=== PATIENT | male | born 1965 | race Caucasian/White ===

== ENCOUNTER 2017-12-31 21:33 | Emergency (ER) | payer OTHER ==
[~2017-12-31] VITALS: Ht 182.9 cm; Wt 137.4 kg
[~2017-12-31 21:33] MED LIST: ALBU.083IS IH; AMLO10 PO; BENA20 PO; BLOOD PRESSURE MED; CEPH500 PO; ERYT.5TO LEFTEYE; FLUO.05TC TOP; HYDACE10B PO; HYDACE5; HYDACE5 PO; IBUP800 PO; MELO7.5 PO; NAPR500 PO; NAPR500EC PO; Norco 5-325 Ta1 EACH PO; OSEL75CA PO; OXYACE5T PO; OXYACE7.5T PO; PARO10; PARO20; PARO30; PENVK500 PO; PRED10 PO; PRED20 PO; PROM25 PO; RXHYDACE PO; RXOXYACE PO; SULTRIDS PO; TRAM50 PO; UNKOWN BP MED
[2017-12-31] MEDS ORDERED: Paxil40 MG PO (22:17)
[2017-12-31] MEDS ORDERED: AMLO10 PO (22:18)
[2017-12-31 22:33] LABS: BASOPHILS ABSOLUTE AUTO 0.07 K/mm3 (0.00-0.23); BASOPHILS PERCENT AUTO 1 % (0-2); EOSINOPHILS PERCENT AUTO 1 % (0-6); Hematocrit 34.4 % (37.0-53.0); Hemoglobin 11.5 g/dL (13.5-17.5); IMMATURE GRAN ABSOLUTE AUTO 0.04 K/mm3 (0.00-0.10); IMMATURE GRAN PERCENT AUTO 0 % (0-1); LYMPHOCYTES ABSOLUTE AUTO 2.03 K/mm3 (0.84-5.20); LYMPHOCYTES PERCENT AUTO 19 % (21-46); MONOCYTES ABSOLUTE AUTO 1.15 K/mm3 (0.16-1.47); MONOCYTES PERCENT AUTO 11 % (4-13); Mean Corpuscular HGB 30.3 pg (26.0-34.0); Mean Corpuscular HGB Conc 33.4 g/dL (31.5-36.5); Mean Corpuscular Volume 91 fL (80-100); Mean Platelet Volume 10.1 fL (9.1-12.4); NEUTROPHILS ABSOLUTE AUTO 7.32 K/mm3 (1.96-9.15); NEUTROPHILS PERCENT AUTO 68 % (41-73); Platelet Count 228 K/mm3 (150-400); RDW Coefficient Variation 13.9 % (11.7-14.2); RDW Standard Deviation 45.7 fL (35.1-46.3); White Blood Cell Count 10.71 K/mm3 (4.00-11.30)
[2017-12-31 22:47] LABS: Alanine Aminotransfer (ALT/SGP 44 U/L (12-78); Albumin, Blood 3.5 g/dL (3.4-5.0); Albumin/Globulin Ratio 0.8 (0.8-1.8); Alk Phos 86 U/L (50-136); Anion Gap 7 mmol/L (6-16); Aspartate Aminotrans (AST/SGOT 60 U/L (12-37); Bilirubin, Total 0.7 mg/dL (0.1-1.0); Blood Urea Nitrogen 17 mg/dL (8-24); CO2, Blood 24 mmol/L (21-32); Calcium, Blood 7.9 mg/dL (8.5-10.1); Chloride, Blood 108 mmol/L (98-108); Creatinine, Blood 0.95 mg/dL (0.60-1.20); Globulin, Blood 4.4 g/dL (2.2-4.0); Glomerular Filtration Rate >60 (60-); Glucose, Blood 113 mg/dL (70-99); Sodium, Blood 139 mmol/L (136-145); Total Protein, Blood 7.9 g/dL (6.4-8.2); Troponin I <0.015 ng/mL (0.000-0.040)
[2018-01-01 00:08] LABS: U Amphetamine Screen DETECTED; U Barbituate Screen Not Detected; U Benzodiazapine Screen Not Detected; U Buprenorphine Screen DETECTED; U Cannabinoids Screen Not Detected; U Cocaine Screen Not Detected; U Methadone Screen Not Detected; U Methamphetamine Screen DETECTED; U Opiates Screen Not Detected; U Oxycodone Screen Not Detected; U Phencyclidine Screen Not Detected; U Propoxyphene Screen Not Detected
[2018-05-12] MEDS ORDERED: BENA20 PO (04:51)
[2018-05-12] MEDS ORDERED: PENVK500 PO (05:06)
== END 2018-01-01 01:00 | disposition home or self-care (01) ==
LOC: ER 21:33
PROVIDERS: Emergency Medicine; Physician Assistant
DX: R55 Syncope and collapse (principal); F15.10 Other stimulant abuse, uncomplicated; F11.10 Opioid abuse, uncomplicated; I10 Essential (primary) hypertension; F41.9 Anxiety disorder, unspecified; F32.9 Major depressive disorder, single episode, unspecified; F17.220 Nicotine dependence, chewing tobacco, uncomplicated; Z79.899 Other long term (current) drug therapy
CPT/HCPCS: 36415; 70450; 71046; 80053; 84484; 85025; 93005; 93010; 96360; 99284; J7030

== ENCOUNTER 2018-03-28 10:29 | Emergency (ER) | payer OTHER ==
[~2018-03-28] VITALS: Ht 180.3 cm; Wt 131.5 kg
[~2018-03-28 10:29] MED LIST changes: +Paxil40 MG PO
[2018-03-28] MEDS ORDERED: GABA400 PO (10:45)
== END 2018-03-28 11:56 | disposition home or self-care (01) ==
LOC: ER 10:29
DX: L23.7 Allergic contact dermatitis due to plants, except food (principal); Z79.899 Other long term (current) drug therapy; I10 Essential (primary) hypertension; F41.9 Anxiety disorder, unspecified; F32.9 Major depressive disorder, single episode, unspecified
CPT/HCPCS: 96372; 99283; J1885; J3301; Q0163

== ENCOUNTER 2019-03-23 17:17 | Emergency (ER) | payer OTHER ==
[~2019-03-23] VITALS: Ht 180.3 cm; Wt 117.9 kg
[~2019-03-23 17:17] MED LIST changes: +BUPRENORPHINE HC8 MG SL; +CEFP200 PO; +Flagyl500 MG PO; +GABA400 PO; +HYDPAM50 PO; +IBUP800; +Percocet 10-321 EACH PO; +TRAZ50 PO
[2019-03-23] MEDS ORDERED: CEPH500 PO (18:48)
[2019-03-23] MEDS ORDERED: Bactrim Ds Tab1 EACH PO (18:48)
== END 2019-03-23 18:53 | disposition home or self-care (01) ==
LOC: ER 17:17
DX: S60.111A Contusion of right thumb with damage to nail, initial encounter (principal); L03.011 Cellulitis of right finger; X58.XXXA Exposure to other specified factors, initial encounter; Z79.899 Other long term (current) drug therapy; F41.9 Anxiety disorder, unspecified; F32.9 Major depressive disorder, single episode, unspecified; F17.220 Nicotine dependence, chewing tobacco, uncomplicated
CPT/HCPCS: 11740; 73140; 99283-25

== ENCOUNTER 2020-03-22 12:32 | Emergency (ER) | payer OTHER ==
[~2020-03-22] VITALS: Ht 180.3 cm; Wt 124.7 kg
[~2020-03-22 12:32] MED LIST changes: +Bactrim Ds Tab1 EACH PO
[2020-03-22 12:58] LABS: BASOPHILS ABSOLUTE AUTO 0.04 K/mm3 (0.00-0.23); BASOPHILS PERCENT AUTO 0 % (0-2); EOSINOPHILS ABSOLUTE AUTO 0.01 K/mm3 (0.00-0.68); EOSINOPHILS PERCENT AUTO 0 % (0-6); Hematocrit 36.2 % (37.0-53.0); Hemoglobin 12.4 g/dL (13.5-17.5); IMMATURE GRAN ABSOLUTE AUTO 0.05 K/mm3 (0.00-0.10); IMMATURE GRAN PERCENT AUTO 0 % (0-1); LYMPHOCYTES ABSOLUTE AUTO 1.45 K/mm3 (0.84-5.20); LYMPHOCYTES PERCENT AUTO 12 % (21-46); MONOCYTES ABSOLUTE AUTO 1.19 K/mm3 (0.16-1.47); MONOCYTES PERCENT AUTO 10 % (4-13); Mean Corpuscular HGB 30.4 pg (26.0-34.0); Mean Corpuscular HGB Conc 34.3 g/dL (31.5-36.5); Mean Corpuscular Volume 89 fL (80-100); Mean Platelet Volume 9.7 fL (9.1-12.4); NEUTROPHILS ABSOLUTE AUTO 8.98 K/mm3 (1.96-9.15); NEUTROPHILS PERCENT AUTO 77 % (41-73); Platelet Count 189 K/mm3 (150-400); RDW Coefficient Variation 13.6 % (11.7-14.2); RDW Standard Deviation 43.8 fL (35.1-46.3); Red Blood Cell Count 4.08 M/mm3 (4.30-5.90); White Blood Cell Count 11.72 K/mm3 (4.00-11.30)
[2020-03-22 13:18] LABS: Alanine Aminotransfer (ALT/SGP 36 U/L (12-78); Albumin, Blood 3.1 g/dL (3.4-5.0); Albumin/Globulin Ratio 0.7 (0.8-1.8); Alk Phos 98 U/L (50-136); Anion Gap 5 mmol/L (6-16); Aspartate Aminotrans (AST/SGOT 35 U/L (12-37); Bilirubin, Total 0.9 mg/dL (0.1-1.0); Blood Urea Nitrogen 10 mg/dL (8-24); Bun/Creatinine Ratio 13.3 (12.0-20.0); CO2, Blood 25 mmol/L (21-32); Calcium, Blood 8.3 mg/dL (8.5-10.1); Chloride, Blood 107 mmol/L (98-108); Creatinine, Blood 0.75 mg/dL (0.60-1.20); Ethanol (Alcohol), Blood, Med <3 mg/dL; Globulin, Blood 4.5 g/dL (2.2-4.0); Glomerular Filtration Rate >60 (60-); Glucose, Blood 170 mg/dL (70-99); Sodium, Blood 137 mmol/L (136-145); Total Protein, Blood 7.6 g/dL (6.4-8.2)
[2020-03-22 15:33] LABS: Source, Urine Clean Catch
[2020-03-22 15:45] LABS: Specific Gravity, Urine 1.015 (1.003-1.022)
[2020-03-22 15:46] LABS: Appearance, Urine Clear (Clear); Bilirubin, Urine Neg (Neg); Blood, Urine 1+ (Neg); Color, Urine Yellow (P-Yellow); Ketones, Urine Neg (Neg); Leukocyte Esterase, Urine Neg (Neg); Nitrite, Urine Neg (Neg); Protein, Urine Neg (Neg); Urobilinogen, Urine NORM (Normal)
[2020-03-22 15:48] LABS: Glucose Qualitative, Urine 1+ (Neg)
[2020-03-22 15:57] LABS: Bacteria Rare /hpf; Mucus Light (0-Heavy); Red Blood Cells, Urine Rare /hpf (0-2); Squamous Epithelial Cells Rare /hpf (Few); White Blood Cells, Urine Rare /hpf (0-5)
[2020-03-22] MEDS ORDERED: AUGMENTIN 875-1 EACH PO (17:44)
== END 2020-03-22 18:54 | disposition home or self-care (01) ==
LOC: ER 12:32
PROVIDERS: Physician Assistant
DX: K52.9 Noninfective gastroenteritis and colitis, unspecified (principal); I10 Essential (primary) hypertension; F41.9 Anxiety disorder, unspecified; F32.9 Major depressive disorder, single episode, unspecified; F17.220 Nicotine dependence, chewing tobacco, uncomplicated; Z79.899 Other long term (current) drug therapy
CPT/HCPCS: 51701; 71045; 74176; 80053; 81001; 83605; 83690; 85025; 96360-59; 99285-25; A9270-GY; G0480; J7030

== ENCOUNTER 2021-05-14 18:35 | Emergency (ER) | payer OTHER ==
[~2021-05-14] VITALS: Ht 180.3 cm; Wt 137.9 kg
[~2021-05-14 18:35] MED LIST changes: +AMLODIPINE-BEN1 EAC3 PO; +AUGMENTIN 875-1 EACH PO; +CIPR500 PO; +HYDR1TAB94 PO; -IBUP800; +METR500 PO
[2021-05-14 19:13] LABS: BASOPHILS ABSOLUTE AUTO 0.04 K/mm3 (0.00-0.23); BASOPHILS PERCENT AUTO 1 % (0-2); EOSINOPHILS ABSOLUTE AUTO 0.13 K/mm3 (0.00-0.68); EOSINOPHILS PERCENT AUTO 3 % (0-6); Hematocrit 31.4 % (37.0-53.0); Hemoglobin 10.3 g/dL (13.5-17.5); IMMATURE GRAN ABSOLUTE AUTO 0.01 K/mm3 (0.00-0.10); IMMATURE GRAN PERCENT AUTO 0 % (0-1); LYMPHOCYTES ABSOLUTE AUTO 1.41 K/mm3 (0.84-5.20); LYMPHOCYTES PERCENT AUTO 29 % (21-46); MONOCYTES ABSOLUTE AUTO 0.63 K/mm3 (0.16-1.47); MONOCYTES PERCENT AUTO 13 % (4-13); Mean Corpuscular HGB 29.3 pg (26.0-34.0); Mean Corpuscular HGB Conc 32.8 g/dL (31.5-36.5); Mean Corpuscular Volume 90 fL (80-100); Mean Platelet Volume 9.3 fL (9.1-12.4); NEUTROPHILS ABSOLUTE AUTO 2.59 K/mm3 (1.96-9.15); NEUTROPHILS PERCENT AUTO 54 % (41-73); Platelet Count 222 K/mm3 (150-400); RDW Coefficient Variation 14.2 % (11.7-14.2); RDW Standard Deviation 45.7 fL (35.1-46.3); Red Blood Cell Count 3.51 M/mm3 (4.30-5.90); White Blood Cell Count 4.81 K/mm3 (4.00-11.30)
[2021-05-14 19:32] LABS: Alanine Aminotransfer (ALT/SGP 41 U/L (12-78); Albumin, Blood 3.2 g/dL (3.4-5.0); Albumin/Globulin Ratio 0.6 (0.8-1.8); Alk Phos 115 U/L (50-136); Anion Gap 6 mmol/L (6-16); Aspartate Aminotrans (AST/SGOT 68 U/L (12-37); Bilirubin, Total 0.7 mg/dL (0.1-1.0); Blood Urea Nitrogen 18 mg/dL (8-24); Bun/Creatinine Ratio 25.4 (12.0-20.0); CO2, Blood 24 mmol/L (21-32); Chloride, Blood 110 mmol/L (98-108); Creatinine, Blood 0.71 mg/dL (0.60-1.20); Globulin, Blood 5.2 g/dL (2.2-4.0); Glomerular Filtration Rate >60 (60-); Glucose, Blood 116 mg/dL (70-99); Potassium, Blood 3.9 mmol/L (3.5-5.5); Sodium, Blood 140 mmol/L (136-145); Total Protein, Blood 8.4 g/dL (6.4-8.2)
[2021-05-14 21:53] LABS: Troponin I <0.015 ng/mL (0.000-0.040)
[2021-05-18 18:10] LABS: Percent Saturation 22.3 % (20.0-50.0)
== END 2021-05-15 02:45 | disposition home or self-care (01) ==
LOC: ER 18:35
PROVIDERS: Physician Assistant
DX: I89.0 Lymphedema, not elsewhere classified (principal); L30.8 Other specified dermatitis; F17.220 Nicotine dependence, chewing tobacco, uncomplicated; I10 Essential (primary) hypertension; Z79.899 Other long term (current) drug therapy
CPT/HCPCS: 36415; 80053; 82728; 83540; 83550; 83605; 83880; 84484; 85025; 93005; 93010; 93971; 99284-25

== ENCOUNTER 2021-06-03 02:12 | Day surgery (SDC) | payer OTHER | END 2021-06-03 23:29 | disposition home or self-care (01) | LOC: WOUND 02:12 | DX: L97.822 Non-pressure chronic ulcer of other part of left lower leg with fat layer exposed (principal); L97.811 Non-pressure chronic ulcer of other part of right lower leg limited to breakdown of skin; I87.2 Venous insufficiency (chronic) (peripheral); I73.9 Peripheral vascular disease, unspecified; R60.0 Localized edema; F17.210 Nicotine dependence, cigarettes, uncomplicated; I10 Essential (primary) hypertension; J45.909 Unspecified asthma, uncomplicated | CPT/HCPCS: A9270; G0463 ==

== ENCOUNTER 2021-06-10 01:32 | Day surgery (SDC) | payer OTHER | END 2021-06-10 23:04 | disposition home or self-care (01) | LOC: WOUND 01:32 | DX: L97.811 Non-pressure chronic ulcer of other part of right lower leg limited to breakdown of skin (principal); L97.821 Non-pressure chronic ulcer of other part of left lower leg limited to breakdown of skin; I87.2 Venous insufficiency (chronic) (peripheral); I73.9 Peripheral vascular disease, unspecified; R60.0 Localized edema | CPT/HCPCS: G0463 ==

== ENCOUNTER 2021-06-17 01:38 | Day surgery (SDC) | payer OTHER | END 2021-06-17 23:02 | disposition home or self-care (01) | LOC: WOUND 01:38 | DX: L97.822 Non-pressure chronic ulcer of other part of left lower leg with fat layer exposed (principal); L97.818 Non-pressure chronic ulcer of other part of right lower leg with other specified severity; I73.9 Peripheral vascular disease, unspecified | CPT/HCPCS: 87070; 87075; 87077; 87147; 87186; 87205; G0463 ==

== ENCOUNTER 2021-06-24 03:13 | Day surgery (SDC) | payer OTHER | END 2021-06-24 23:12 | disposition home or self-care (01) | LOC: WOUND 03:13 | DX: L97.821 Non-pressure chronic ulcer of other part of left lower leg limited to breakdown of skin (principal); L97.811 Non-pressure chronic ulcer of other part of right lower leg limited to breakdown of skin; I87.2 Venous insufficiency (chronic) (peripheral); I73.9 Peripheral vascular disease, unspecified; R60.0 Localized edema | CPT/HCPCS: G0463 ==

== ENCOUNTER 2021-07-08 00:46 | Day surgery (SDC) | payer OTHER | END 2021-07-08 23:01 | disposition home or self-care (01) | LOC: WOUND 00:46 | DX: L97.811 Non-pressure chronic ulcer of other part of right lower leg limited to breakdown of skin (principal); L97.821 Non-pressure chronic ulcer of other part of left lower leg limited to breakdown of skin; I87.2 Venous insufficiency (chronic) (peripheral); R60.0 Localized edema ==

== ENCOUNTER 2021-07-12 16:31 | Day surgery (SDC) | payer OTHER | END 2021-07-12 23:00 | disposition home or self-care (01) | LOC: WOUND 16:31 | DX: L97.821 Non-pressure chronic ulcer of other part of left lower leg limited to breakdown of skin (principal); L97.811 Non-pressure chronic ulcer of other part of right lower leg limited to breakdown of skin; I87.2 Venous insufficiency (chronic) (peripheral); R60.0 Localized edema ==

== ENCOUNTER 2021-07-15 02:08 | Day surgery (SDC) | payer OTHER | END 2021-07-15 23:56 | disposition home or self-care (01) | LOC: WOUND 02:08 | DX: L97.811 Non-pressure chronic ulcer of other part of right lower leg limited to breakdown of skin (principal); L97.821 Non-pressure chronic ulcer of other part of left lower leg limited to breakdown of skin; I87.2 Venous insufficiency (chronic) (peripheral); R60.0 Localized edema ==

== ENCOUNTER 2021-07-22 01:29 | Day surgery (SDC) | payer OTHER | END 2021-07-22 22:57 | disposition home or self-care (01) | LOC: WOUND 01:29 | DX: L97.811 Non-pressure chronic ulcer of other part of right lower leg limited to breakdown of skin (principal); L97.821 Non-pressure chronic ulcer of other part of left lower leg limited to breakdown of skin; I87.2 Venous insufficiency (chronic) (peripheral); R60.0 Localized edema | CPT/HCPCS: A9270 ==

== ENCOUNTER 2021-09-08 02:10 | Day surgery (SDC) | payer OTHER | END 2021-09-08 23:08 | disposition home or self-care (01) | LOC: WOUND 02:10 | DX: L97.822 Non-pressure chronic ulcer of other part of left lower leg with fat layer exposed (principal); L97.812 Non-pressure chronic ulcer of other part of right lower leg with fat layer exposed; I87.2 Venous insufficiency (chronic) (peripheral); R60.0 Localized edema | CPT/HCPCS: G0463 ==

== ENCOUNTER 2021-09-13 04:23 | Day surgery (SDC) | payer OTHER | END 2021-09-13 23:07 | disposition home or self-care (01) | LOC: WOUND 04:23 | DX: L97.811 Non-pressure chronic ulcer of other part of right lower leg limited to breakdown of skin (principal); L97.821 Non-pressure chronic ulcer of other part of left lower leg limited to breakdown of skin; I87.2 Venous insufficiency (chronic) (peripheral); R60.0 Localized edema | CPT/HCPCS: A9270 ==

== ENCOUNTER 2021-09-15 00:54 | Day surgery (SDC) | payer OTHER | END 2021-09-15 23:09 | disposition home or self-care (01) | LOC: WOUND 00:54 | DX: L97.811 Non-pressure chronic ulcer of other part of right lower leg limited to breakdown of skin (principal); L97.821 Non-pressure chronic ulcer of other part of left lower leg limited to breakdown of skin; I87.2 Venous insufficiency (chronic) (peripheral); R60.0 Localized edema | CPT/HCPCS: A9270 ==

== ENCOUNTER 2021-09-17 01:55 | Day surgery (SDC) | payer OTHER | END 2021-09-17 23:00 | disposition home or self-care (01) | LOC: WOUND 01:55 | DX: L97.811 Non-pressure chronic ulcer of other part of right lower leg limited to breakdown of skin (principal); L97.821 Non-pressure chronic ulcer of other part of left lower leg limited to breakdown of skin; I87.2 Venous insufficiency (chronic) (peripheral); R60.0 Localized edema | CPT/HCPCS: A9270 ==

== ENCOUNTER 2021-09-20 02:53 | Day surgery (SDC) | payer OTHER | END 2021-09-20 22:47 | disposition home or self-care (01) | LOC: WOUND 02:53 | DX: L97.811 Non-pressure chronic ulcer of other part of right lower leg limited to breakdown of skin (principal); L97.821 Non-pressure chronic ulcer of other part of left lower leg limited to breakdown of skin; I87.2 Venous insufficiency (chronic) (peripheral); R60.0 Localized edema | CPT/HCPCS: A9270 ==

== ENCOUNTER 2021-09-22 02:46 | Day surgery (SDC) | payer OTHER | END 2021-09-22 23:38 | disposition home or self-care (01) | LOC: WOUND 02:46 | DX: L97.812 Non-pressure chronic ulcer of other part of right lower leg with fat layer exposed (principal); L97.822 Non-pressure chronic ulcer of other part of left lower leg with fat layer exposed; I87.2 Venous insufficiency (chronic) (peripheral) | CPT/HCPCS: A9270 ==

== ENCOUNTER 2021-09-27 03:55 | Day surgery (SDC) | payer OTHER | END 2021-09-27 22:40 | disposition home or self-care (01) | LOC: WOUND 03:55 | DX: L97.811 Non-pressure chronic ulcer of other part of right lower leg limited to breakdown of skin (principal); L97.821 Non-pressure chronic ulcer of other part of left lower leg limited to breakdown of skin; I87.2 Venous insufficiency (chronic) (peripheral); R60.0 Localized edema | CPT/HCPCS: A9270 ==

== ENCOUNTER 2021-09-29 10:46 | Day surgery (SDC) | payer OTHER | END 2021-09-29 22:36 | disposition home or self-care (01) | LOC: WOUND 10:46 | PROC: 0JBN0ZZ Excision of Right Lower Leg Subcutaneous Tissue and Fascia, Open Approach (ICD-10-PCS; principal; 2021-09-29) | DX: L97.812 Non-pressure chronic ulcer of other part of right lower leg with fat layer exposed (principal); L97.822 Non-pressure chronic ulcer of other part of left lower leg with fat layer exposed; I87.2 Venous insufficiency (chronic) (peripheral); Z79.899 Other long term (current) drug therapy | CPT/HCPCS: A9270 ==

== ENCOUNTER 2021-10-04 03:49 | Day surgery (SDC) | payer OTHER | END 2021-10-04 23:42 | disposition home or self-care (01) | LOC: WOUND 03:49 | DX: L97.811 Non-pressure chronic ulcer of other part of right lower leg limited to breakdown of skin (principal); L97.821 Non-pressure chronic ulcer of other part of left lower leg limited to breakdown of skin; I87.2 Venous insufficiency (chronic) (peripheral); R60.0 Localized edema ==

== ENCOUNTER 2021-10-29 05:08 | Day surgery (SDC) | payer OTHER | END 2021-10-29 12:00 | disposition home or self-care (01) | LOC: WOUND 05:08 | DX: L97.812 Non-pressure chronic ulcer of other part of right lower leg with fat layer exposed (principal); I87.2 Venous insufficiency (chronic) (peripheral); R60.0 Localized edema; Z87.2 Personal history of diseases of the skin and subcutaneous tissue ==

== ENCOUNTER 2021-11-01 03:34 | Day surgery (SDC) | payer OTHER | END 2021-11-01 23:27 | disposition home or self-care (01) | LOC: WOUND 03:34 | DX: S81.801A Unspecified open wound, right lower leg, initial encounter (principal); S81.802A Unspecified open wound, left lower leg, initial encounter; X58.XXXA Exposure to other specified factors, initial encounter ==

== ENCOUNTER 2021-11-04 02:22 | Day surgery (SDC) | payer OTHER | END 2021-11-07 03:30 | disposition home or self-care (01) | LOC: WOUND | DX: L97.811 Non-pressure chronic ulcer of other part of right lower leg limited to breakdown of skin (principal); L97.821 Non-pressure chronic ulcer of other part of left lower leg limited to breakdown of skin; I87.2 Venous insufficiency (chronic) (peripheral); R60.0 Localized edema ==

== ENCOUNTER 2022-02-19 18:02 | Inpatient (IN) | payer OTHER ==
[~2022-02-19] VITALS: Ht 182.9 cm; Wt 119.0 kg
[2022-02-19 19:46] LABS: BASOPHILS ABSOLUTE AUTO 0.05 K/mm3 (0.00-0.23); BASOPHILS PERCENT AUTO 0 % (0-2); EOSINOPHILS ABSOLUTE AUTO 0.01 K/mm3 (0.00-0.68); EOSINOPHILS PERCENT AUTO 0 % (0-6); Hematocrit 28.8 % (37.0-53.0); Hemoglobin 9.2 g/dL (13.5-17.5); IMMATURE GRAN ABSOLUTE AUTO 0.33 K/mm3 (0.00-0.10); IMMATURE GRAN PERCENT AUTO 2 % (0-1); LYMPHOCYTES ABSOLUTE AUTO 0.63 K/mm3 (0.84-5.20); LYMPHOCYTES PERCENT AUTO 3 % (21-46); MONOCYTES ABSOLUTE AUTO 1.18 K/mm3 (0.16-1.47); MONOCYTES PERCENT AUTO 5 % (4-13); Mean Corpuscular HGB 27.7 pg (26.0-34.0); Mean Corpuscular HGB Conc 31.9 g/dL (31.5-36.5); Mean Corpuscular Volume 87 fL (80-100); Mean Platelet Volume 9.5 fL (9.1-12.4); NEUTROPHILS ABSOLUTE AUTO 19.55 K/mm3 (1.96-9.15); NEUTROPHILS PERCENT AUTO 90 % (41-73); Platelet Count 441 K/mm3 (150-400); RDW Coefficient Variation 15.9 % (11.7-14.2); RDW Standard Deviation 50.4 fL (35.1-46.3); Red Blood Cell Count 3.32 M/mm3 (4.30-5.90); White Blood Cell Count 21.75 K/mm3 (4.00-11.30)
[2022-02-19 20:07] LABS: Influenza A, PCR NEGATIVE (NEGATIVE); Influenza B, PCR NEGATIVE (NEGATIVE); Resp Syncytial Virus, PCR NEGATIVE (NEGATIVE); SARS-Cov-2 (COVID-19) PCR, MMC NEGATIVE (NEGATIVE)
[2022-02-19 20:14] LABS: Alanine Aminotransfer (ALT/SGP 33 U/L (12-78); Albumin, Blood 1.7 g/dL (3.4-5.0); Albumin/Globulin Ratio 0.3 (0.8-1.8); Alk Phos 148 U/L (50-136); Anion Gap 11 mmol/L (6-16); Aspartate Aminotrans (AST/SGOT 30 U/L (12-37); Bilirubin, Total 0.6 mg/dL (0.1-1.0); Blood Urea Nitrogen 109 mg/dL (8-24); Bun/Creatinine Ratio 44.3 (12.0-20.0); CO2, Blood 17 mmol/L (21-32); Calcium, Blood 9.5 mg/dL (8.5-10.1); Chloride, Blood 117 mmol/L (98-108); Creatinine, Blood 2.46 mg/dL (0.60-1.20); Ethanol (Alcohol), Blood, Med <3 mg/dL; Globulin, Blood 6.3 g/dL (2.2-4.0); Glomerular Filtration Rate 30 (60-); Glucose, Blood 243 mg/dL (70-99); Potassium, Blood 3.4 mmol/L (3.5-5.5); Sodium, Blood 145 mmol/L (136-145); Thyroid Stimulating Hormone 0.942 uIU/mL (0.360-4.800)
[2022-02-19 21:30] LABS: Source, Urine Clean Catch
[2022-02-19 21:33] LABS: Bilirubin, Urine Neg (Neg); Blood, Urine 3+ (Neg); Glucose Qualitative, Urine Neg (Neg); Ketones, Urine Neg (Neg); Leukocyte Esterase, Urine Neg (Neg); Nitrite, Urine Neg (Neg); Protein, Urine 2+ (Neg); Specific Gravity, Urine 1.015 (1.003-1.022); Urobilinogen, Urine 1+ (Normal)
[2022-02-19 21:40] LABS: Appearance, Urine Hazy (Clear); Color, Urine Yellow (P-Yellow)
[2022-02-19 21:42] LABS: Amorphous Mod (0-Heavy); Bacteria Few /hpf; Hyaline Casts 0-2 /lpf (0-2); Mucus Light (0-Heavy); Red Blood Cells, Urine 0-2 /hpf (0-2); Squamous Epithelial Cells Rare /hpf (Few); White Blood Cells, Urine 0-2 /hpf (0-5)
[2022-02-19 22:01] LABS: U Amphetamine Screen DETECTED; U Barbituate Screen Not Detected; U Benzodiazapine Screen Not Detected; U Buprenorphine Screen Not Detected; U Cannabinoids Screen Not Detected; U Cocaine Screen Not Detected; U Methadone Screen Not Detected; U Methamphetamine Screen DETECTED; U Opiates Screen Not Detected; U Oxycodone Screen Not Detected; U Phencyclidine Screen Not Detected; U Propoxyphene Screen Not Detected
[2022-02-20 00:23] LABS: Source, Urine Foley catheter
[2022-02-20 00:26] LABS: Bilirubin, Urine Neg (Neg); Blood, Urine 4+ (Neg); Glucose Qualitative, Urine Neg (Neg); Ketones, Urine Neg (Neg); Leukocyte Esterase, Urine 1+ (Neg); Nitrite, Urine Neg (Neg); Protein, Urine 2+ (Neg); Specific Gravity, Urine 1.015 (1.003-1.022); Urobilinogen, Urine NORM (Normal)
[2022-02-20 00:32] LABS: Appearance, Urine Hazy (Clear); Color, Urine Yellow (P-Yellow)
[2022-02-20 00:33] LABS: Amorphous Light (0-Heavy); Bacteria Few /hpf; Mucus Light (0-Heavy); Squamous Epithelial Cells Few /hpf (Few); Transitional Epithelial Cells Few /hpf (0-Rare)
--- NOTE | 2022-02-20 03:02 | NUR ---
PT TRANSFERED FROM [facility] FROM ED TO BED VIA SLIDE SHEET. PT DROWSY, WAKES TO NOISE, ATTEMPTS TO COMMUNICATE NEES BUT IS UNABLE TO COMPLETE THOUGHTS, ONLY ABLE PROVIDE SIMPLE "YES" OR "NO" REPSONSES TO QUESTIONS. PT COMPLAINING OF GENERLIZED PAIN WITH MOVMENT BUT IS UNABLE TO COMMUNICATE DETAILS. HR IS SINUS TACH, PLACED ON TELE. O2 SATS AT 100% ON RA. NEW IV STARTED IN LEFT FORARM FOR IV BOLUSES X 2. IV VANCO INFUSING ON ARRIVAL, NOW COMPLETE. BOTH BOLUSES GIVEN. MAINTENANCE FLUID RUNNING AT 100 ML. GALVAN PLACED WITH TEMPERATURE PROBE TO MONITOR TEMPERATURE. ARRIVED ON UNIT WITH FEVER, ATTEMPTED TO REDUCE WITH IV INFUSIONS, AND PLACING ICE PACK IN AXILLA WITHOUT SUCCESS. TYLENOL GIVEN DE, TEMPERATURE TRENDING DOWN SLIGHTLY. WILL MONITOR.
[2022-02-20 04:37] LABS: BASOPHILS ABSOLUTE AUTO 0.04 K/mm3 (0.00-0.23); BASOPHILS PERCENT AUTO 0 % (0-2); EOSINOPHILS ABSOLUTE AUTO 0.01 K/mm3 (0.00-0.68); EOSINOPHILS PERCENT AUTO 0 % (0-6); Hematocrit 26.3 % (37.0-53.0); Hemoglobin 8.5 g/dL (13.5-17.5); IMMATURE GRAN PERCENT AUTO 2 % (0-1); LYMPHOCYTES ABSOLUTE AUTO 0.63 K/mm3 (0.84-5.20); LYMPHOCYTES PERCENT AUTO 4 % (21-46); MONOCYTES ABSOLUTE AUTO 1.11 K/mm3 (0.16-1.47); MONOCYTES PERCENT AUTO 6 % (4-13); Mean Corpuscular HGB Conc 32.3 g/dL (31.5-36.5); Mean Corpuscular Volume 87 fL (80-100); Mean Platelet Volume 9.8 fL (9.1-12.4); NEUTROPHILS ABSOLUTE AUTO 15.28 K/mm3 (1.96-9.15); NEUTROPHILS PERCENT AUTO 88 % (41-73); Platelet Count 385 K/mm3 (150-400); RDW Coefficient Variation 15.9 % (11.7-14.2); RDW Standard Deviation 50.3 fL (35.1-46.3); Red Blood Cell Count 3.04 M/mm3 (4.30-5.90); White Blood Cell Count 17.37 K/mm3 (4.00-11.30)
[2022-02-20 04:57] LABS: Albumin, Blood 1.5 g/dL (3.4-5.0); Albumin/Globulin Ratio 0.3 (0.8-1.8); Bilirubin, Total 0.7 mg/dL (0.1-1.0); Bun/Creatinine Ratio 50.8 (12.0-20.0); Calcium, Blood 8.6 mg/dL (8.5-10.1); Creatinine, Blood 1.89 mg/dL (0.60-1.20); Globulin, Blood 5.4 g/dL (2.2-4.0); Potassium, Blood 2.9 mmol/L (3.5-5.5); Total Protein, Blood 6.9 g/dL (6.4-8.2)
--- NOTE | 2022-02-20 06:47 | NUR ---
PT TEMPERATURE TRENDING TOWN AFTER RECEIVING TYLENOL SUPPOSITORY AND PLACING ICE PACK UNDER ARMS, NECK, AND GROIN. PT BECAME RESTLESS THIS A.M. ASKING FOR WATER AND ICE CHIPS, COMPLAINING THAT HIS MOUTH WAS DRY. NOW RESTING WITH EYES CLOSED. HR IN 80-100'S SR-ST.
[2022-02-20 13:42] LABS: Vancomycin, Random 12.2 ug/mL
[2022-02-20] MEDS ORDERED: GABA100 PO ×2 (13:57)
[2022-02-20 14:01] LABS: Bun/Creatinine Ratio 52.2 (12.0-20.0); Calcium, Blood 8.6 mg/dL (8.5-10.1); Creatinine, Blood 1.57 mg/dL (0.60-1.20)
--- NOTE | 2022-02-20 17:35 | NUR ---
SHIFT SUMMARY MENTATION REMAINS UNCHANGED FROM INITIAL ASSESSMENT. PT REMAINS LETHARGIC. BP STABLE. HR NSR TO SINUS TACH. 02 SATS REMAIN ABOVE 90% ON RA. PT COMPLAINING OF PAIN TO RIGHT SHOULDER AND RIGHT HIP THROUGHOUT SHIFT AND MEDICATED PER EMAR. PT FEBRILE THIS SHIFT AND MEDICATED NEEDED. TEMP PROBE GALVAN PATENT AND DRAINING CLEAR YELLOW URINE. PT REPOSITIONED Q2H. WOUNDS TO BLE CLEANED AND DRESSED THIS SHIFT. LR INFUSING PER ORDERS. WILL CONTINUE TO MONITOR AND REPORT TO ONCOMING RN.
--- NOTE | 2022-02-20 19:57 | NUR ---
PT IS SLEEPING, WAKES TO VERBAL STIMULI. COMPLAINS OF ABOUT PAIN IN BACK THEN SITTING HIM UP IN BED BUT UNABLE TO PROVIDE DETAILS TO HOW BAD AND EXACT LOCATION. MEDICATED FOR FEVER, SEE MAR. REPOSITIONED FOR COMFORT. WILL MONITOR TEMP.
[2022-02-21 03:55] LABS: Hematocrit 27.2 % (37.0-53.0); Hemoglobin 8.8 g/dL (13.5-17.5); Mean Corpuscular HGB 28.1 pg (26.0-34.0); Mean Corpuscular HGB Conc 32.4 g/dL (31.5-36.5); Mean Corpuscular Volume 87 fL (80-100); Platelet Count 355 K/mm3 (150-400); RDW Coefficient Variation 15.9 % (11.7-14.2); RDW Standard Deviation 50.5 fL (35.1-46.3); Red Blood Cell Count 3.13 M/mm3 (4.30-5.90); White Blood Cell Count 17.59 K/mm3 (4.00-11.30)
--- NOTE | 2022-02-21 04:01 | NUR ---
SHIFT SUMMARY: PT HAS HAD FEVER THROUGHOUT NIGHT 101.8 AT HIGHEST. MEDICATED WITH PO TYLENOL. PT PLACED UNDER COOLING BLANKET. FEVER MAINTAINING AT 100.4, WILL MONITOR. PT ASSISTED TO REPOSITION FOR COMFORT. MADE NPO AT CT FOR PROCEDURE IN A.M. IV FLUIDS INFUSING AT 150ML/HR. MAINTAIN O2 SATS IN HIGH 90'S ON RA AND HR IN SINUS TACH AT IN 100'S.
[2022-02-21 04:19] LABS: Albumin, Blood 1.3 g/dL (3.4-5.0); Albumin/Globulin Ratio 0.2 (0.8-1.8); Bilirubin, Total 0.6 mg/dL (0.1-1.0); Calcium, Blood 8.7 mg/dL (8.5-10.1); Creatinine, Blood 1.27 mg/dL (0.60-1.20); Globulin, Blood 5.6 g/dL (2.2-4.0); Total Protein, Blood 6.9 g/dL (6.4-8.2)
[2022-02-21 04:27] LABS: BAND PERCENT MAN 12 % (0-8); BASOPHILS PERCENT MAN 0 % (0-2); EOSINOPHILS PERCENT MAN 0 % (0-6); LYMPHOCYTES ABSOLUTE MAN 0.52 K/mm3 (0.84-5.20); LYMPHOCYTES PERCENT MAN 3 % (21-46); MONOCYTES ABSOLUTE MAN 0.52 K/mm3 (0.16-1.47); MONOCYTES PERCENT MAN 3 % (4-13); NEUTROPHILS ABSOLUTE MAN 16.53 K/mm3 (1.96-9.15); SEG NEUTROPHILS PERCENT MAN 82 % (41-73); TOTAL CELLS COUNTED 100
--- NOTE | 2022-02-21 05:00 | NUR ---
DR. OBANDO INFROMED OF PT'S POTASSIUM LEVEL THIS A.M. RECIEVED ORDER FOR DOSE OF IV POTASSIUM. PO TYLENOL CHANGED TO AR DUE TO PT BEING NPO FOR PROCEDURE.
[2022-02-21 09:13] LABS: International Normalized Ratio 1.3; Prothrombin Time Results 13.4 Sec (9.7-11.5)
[2022-02-21 14:41] LABS: Vancomycin, Trough 21.1 ug/mL (5.0-10.0)
--- NOTE | 2022-02-21 15:56 | NUR ---
WOUND CARE NOTE; NO OPEN WOUNDS ON BLE. CLEANSE AND MOISTURIZE BLE DAILY. OKAY TO COVER WITH ABD AND ROLLED GAUZE IF WEEPING
--- NOTE | 2022-02-21 17:28 | NUR ---
SHIFT SUMMARY PT REMAINS ALERT AND ORIENTED, BUT LETHARGIC WHEN NOT STIMULATED. VS STABLE. O2 SATS REMAIN ABOVE 90% ON RA. BP STABLE. PT COMPLAINS OF PAIN TO RIGHT HIP AT TIMES. PT REPOSITIONED Q2H AND MORE FREQUENTLY NEEDED. WOUNDS TO BLE CLEANED AND LEFT OPEN TO AIR SUGGESTED BY EDGING MACHINE FEEDER. GALVAN PATENT AND DRAINING. PT'S FATHER UPDATED THIS SHIFT. WILL CONTINUE TO MONITOR AND REPORT TO ONCOMING RN
--- NOTE | 2022-02-22 05:32 | NUR ---
SHIFT SUMMARY: PT HAS BEEN ORIENTED TO SELF. REORIENTED TO PLACE AND EVENT. PT CONTINUES TO HAVE LOW GRADE FEVER OF 100.5 THOUGHOUT SHIFT. MINIMAL BLANKETS PLACED ON PT, ATTEMPTED TO KEEP COOL. PT DOES NOT TOLERATE BEING REPOSITIONED WELL, COMPLAING OF PAIN IN BACK AND RIGHT SHOULDER. UNALE TO CONSOL OR RELIEVE WITH POSITIONING. MEDICATED WTIH TYLENOL, PT NOW RESTING IN BED WITH EYES CLOSED. GALVAN CATHETER IN PLACE WITH TEMPERATURE PROBE IN PLACE. GALVAN DRAINING CLEAR, YELLOW URINE.
[2022-02-22 05:54] LABS: BASOPHILS ABSOLUTE AUTO 0.01 K/mm3 (0.00-0.23); BASOPHILS PERCENT AUTO 0 % (0-2); EOSINOPHILS ABSOLUTE AUTO 0.04 K/mm3 (0.00-0.68); EOSINOPHILS PERCENT AUTO 0 % (0-6); Hematocrit 25.2 % (37.0-53.0); Hemoglobin 8.2 g/dL (13.5-17.5); IMMATURE GRAN PERCENT AUTO 1 % (0-1); LYMPHOCYTES ABSOLUTE AUTO 0.72 K/mm3 (0.84-5.20); LYMPHOCYTES PERCENT AUTO 5 % (21-46); MONOCYTES ABSOLUTE AUTO 0.63 K/mm3 (0.16-1.47); MONOCYTES PERCENT AUTO 4 % (4-13); Mean Corpuscular HGB 28.2 pg (26.0-34.0); Mean Corpuscular HGB Conc 32.5 g/dL (31.5-36.5); Mean Corpuscular Volume 87 fL (80-100); Mean Platelet Volume 9.9 fL (9.1-12.4); NEUTROPHILS ABSOLUTE AUTO 12.87 K/mm3 (1.96-9.15); NEUTROPHILS PERCENT AUTO 89 % (41-73); Platelet Count 358 K/mm3 (150-400); RDW Coefficient Variation 15.9 % (11.7-14.2); RDW Standard Deviation 49.8 fL (35.1-46.3); Red Blood Cell Count 2.91 M/mm3 (4.30-5.90); White Blood Cell Count 14.47 K/mm3 (4.00-11.30)
[2022-02-22 07:16] LABS: Calcium, Blood 8.6 mg/dL (8.5-10.1); Creatinine, Blood 1.02 mg/dL (0.60-1.20); Potassium, Blood 3.1 mmol/L (3.5-5.5)
[2022-02-22 14:24] LABS: Bun/Creatinine Ratio 45.3 (12.0-20.0); Calcium, Blood 8.4 mg/dL (8.5-10.1); Creatinine, Blood 0.93 mg/dL (0.60-1.20); Potassium, Blood 3.3 mmol/L (3.5-5.5)
--- NOTE | 2022-02-22 16:37 | NUR ---
SHIFT SUMMARY: PT. IS ALERT BUT IS CONFUSED AT TIMES. HE IS MED NO TELE, AND HAS DENIED SOB OR ANGINA. PT. HAS CONSTANT PAIN ON HIS RIGHT SIDE, AND WAS MEDICATED WITH TYLENOL. . ORDERED TO HOLD NARCOTICS FOR MENTATION. NO ASPIRATION OF HIP PREFORMED TODAY DUE TO HAVING ENOUGH SAMPLE FROM YESTERDAYS ATTEMPTS. CT. W/ CONTRAST DONE TODAY. PT. NPO AFTER 0000 FOR POSSIBLE WASHOUT 02/23.
--- NOTE | 2022-02-23 07:29 | NUR ---
ASSUMED CARE: PT IS RESTING BED AT TIME OF BEDSIDE REPORT, GALVAN TEMP READING 100.7, RESPIRATIONS EVEN AND NONLABORED AT 16 BREATHS PER MINUTE. NO ACUTE NEEDS/DISTRESS AT THIS TIME.
--- NOTE | 2022-02-23 07:30 | NUR ---
PT SUMMARY THIS RN ASSUMED CARE FROM EUGENE RN LATE IN SHIFT. PT IS DROWSY BUT AWAKENS WITH THIS RN AT BEDSIDE AND FREQUENTLY CALLS REQUESTING WATER. DRESSINGS APPLIED TO BLE. PT SLEEPS THROUGH REST OF SHIFT FOLLOWING THIS RN DRESSING BLE AND REPOSITIONING FOR COMFORT. TEMP MAINTAINS 100.4-100.6 F ON TEMP PROBE GALVAN.
[2022-02-23 07:35] LABS: Bun/Creatinine Ratio 32.8 (12.0-20.0); Creatinine, Blood 0.88 mg/dL (0.60-1.20); Potassium, Blood 3.3 mmol/L (3.5-5.5)
[2022-02-23 07:42] LABS: BASOPHILS ABSOLUTE AUTO 0.03 K/mm3 (0.00-0.23); BASOPHILS PERCENT AUTO 0 % (0-2); EOSINOPHILS PERCENT AUTO 1 % (0-6); Hematocrit 24.5 % (37.0-53.0); Hemoglobin 7.8 g/dL (13.5-17.5); IMMATURE GRAN ABSOLUTE AUTO 0.23 K/mm3 (0.00-0.10); IMMATURE GRAN PERCENT AUTO 2 % (0-1); LYMPHOCYTES ABSOLUTE AUTO 0.88 K/mm3 (0.84-5.20); LYMPHOCYTES PERCENT AUTO 6 % (21-46); MONOCYTES ABSOLUTE AUTO 0.59 K/mm3 (0.16-1.47); MONOCYTES PERCENT AUTO 4 % (4-13); Mean Corpuscular HGB 28.2 pg (26.0-34.0); Mean Corpuscular HGB Conc 31.8 g/dL (31.5-36.5); Mean Corpuscular Volume 88 fL (80-100); Mean Platelet Volume 10.1 fL (9.1-12.4); NEUTROPHILS ABSOLUTE AUTO 12.28 K/mm3 (1.96-9.15); NEUTROPHILS PERCENT AUTO 87 % (41-73); Platelet Count 324 K/mm3 (150-400); RDW Coefficient Variation 15.6 % (11.7-14.2); RDW Standard Deviation 50.8 fL (35.1-46.3); Red Blood Cell Count 2.77 M/mm3 (4.30-5.90); White Blood Cell Count 14.11 K/mm3 (4.00-11.30)
--- NOTE | 2022-02-23 08:30 | NUR ---
REVIEWED BUILDING CONSTRUCTION TEACHER'S HEAD TO TOE ASSESSMENT AND AGREE
[2022-02-23 09:06] LABS: Vancomycin, Trough 19.2 ug/mL (5.0-10.0)
--- NOTE | 2022-02-23 11:00 | NUR ---
AT BEDSIDE TO EXPLAIN PROCEDURE TO BE DONE THIS AFTERNOON. PT UNDERSTOOD AND AGREED/SIGNED CONSENRT W/ . PT HAS BEEN REPREATEDLY INFORMED OF NPO STATUS UNTIL AFTER PROCEDURE IS COMPLETE.
--- NOTE | 2022-02-23 11:23 | NUR ---
PT TAKEN TO SURGERY VIA BED, LR PAUSED, VANCO GTT RUNNING AT 260ML/HR.
--- NOTE | 2022-02-23 11:56 | NUR ---
THE PATIENT WAS BROUGHT T DAY SURGERY FOR HIS PROCEDURE.
--- NOTE | 2022-02-23 12:56 | NUR ---
02/23/22 1256 Catherine Ortiz PATIENT ARRIVED TO OR WITH GALVAN CATHETER IN PLACE DRAINING YELLOW URINE. NOTED PATIENT HAS BILATERAL LEG SKIN FROM KNEE TO FEET SLOUGHING WITH REDNESS.
--- NOTE | 2022-02-23 14:37 | NUR ---
PT RETURNED FROM DAY SURGERY VIA BED. VSS W/ ELEVATED RESPIRATIONS, O2 SAT REMAAIN >95% ON RA. WOUND VAC TO R HIP IS C/D/I AND DRAINING TO SUCTION. PT IS REQUESTING TO SPEAK W/ SISTER, PT'S FAMILY STATED THEY WOULD BE ON THE WAY BACK TO THE ROOM TO VISIT W/ PT.
--- NOTE | 2022-02-23 15:00 | NUR ---
CALL TO LAB AND DAY SURGERY REGARDING ORDER FOR 2 UNITS BLOOD BY THE ANESTHESIOLOGIST. BOTH BLOOD BANK AND DAY SURGERY SAID TO NOT ADMINISTER BLOOD AND THAT IT WAS BEING HELD AT THIS TIME AND WAS ONLY ORDERED IF NEEDED DURING SURGERY.
--- NOTE | 2022-02-23 16:12 | NUR ---
PT TRANSFERRED VIA BED TO SURGICAL FLOOR WITH AND JASON. PT TAKEN W/ IVF, INSULIN PEN, AND INCENTIVE SPIROMETER. PT RECEIVED BY RN, , AND CARTRIDGE LOADER.
--- NOTE | 2022-02-23 16:26 | NUR ---
PATIENT WAS A TRANSFER FROM PCU3 TO 226. POD 0 I&D RIGHT HIP PATIENT IS A&OX4. VS ARE WNL AND IS ON RA. PATIENT REPORTS PAIN BUT HAS BEEN GIVEN IV TORADOL AND PO JOANN. RIGHT HIP HAS WOUND VAC WITH FOAM COMPRESSED AND SUCTIONING RED OUTPUT INTO CANESTER. PATIENT REPORTS SLIGHT NUMBNESS IN RIGHT HIP BUT IS ABLE TO MOVE FINGERS AND TOES. PEDAL PULSES ARE STRONG. FAMILY AT BEDSIDE. CALL LIGHT WITHIN REACH.
[2022-02-24 04:35] LABS: BASOPHILS ABSOLUTE AUTO 0.02 K/mm3 (0.00-0.23); BASOPHILS PERCENT AUTO 0 % (0-2); EOSINOPHILS ABSOLUTE AUTO 0.07 K/mm3 (0.00-0.68); EOSINOPHILS PERCENT AUTO 1 % (0-6); Hematocrit 21.2 % (37.0-53.0); Hemoglobin 6.7 g/dL (13.5-17.5); IMMATURE GRAN PERCENT AUTO 2 % (0-1); LYMPHOCYTES ABSOLUTE AUTO 0.95 K/mm3 (0.84-5.20); LYMPHOCYTES PERCENT AUTO 7 % (21-46); MONOCYTES ABSOLUTE AUTO 0.61 K/mm3 (0.16-1.47); MONOCYTES PERCENT AUTO 5 % (4-13); Mean Corpuscular HGB Conc 31.6 g/dL (31.5-36.5); Mean Corpuscular Volume 89 fL (80-100); NEUTROPHILS PERCENT AUTO 86 % (41-73); Platelet Count 273 K/mm3 (150-400); RDW Coefficient Variation 15.4 % (11.7-14.2); RDW Standard Deviation 49.9 fL (35.1-46.3); Red Blood Cell Count 2.39 M/mm3 (4.30-5.90); White Blood Cell Count 13.65 K/mm3 (4.00-11.30)
[2022-02-24 05:01] LABS: Magnesium, Blood 1.6 mg/dL (1.6-2.4)
[2022-02-24 05:03] LABS: Anion Gap 6 mmol/L (6-16); Blood Urea Nitrogen 23 mg/dL (8-24); Bun/Creatinine Ratio 25.2 (12.0-20.0); C-REACTIVE PROTEIN, EXT RANGE >19.000 mg/dL (0.000-0.300); CO2, Blood 22 mmol/L (21-32); Calcium, Blood 7.4 mg/dL (8.5-10.1); Chloride, Blood 110 mmol/L (98-108); Creatinine, Blood 0.91 mg/dL (0.60-1.20); Glomerular Filtration Rate 100 (60-); Glucose, Blood 130 mg/dL (70-99); Potassium, Blood 3.9 mmol/L (3.5-5.5); Sodium, Blood 138 mmol/L (136-145)
--- NOTE | 2022-02-24 08:14 | NUR ---
DR. BRAGG NOTIFIED OF 100.4 FEVER PRIOR TO START OF BLOOD TRANSFUSION. OK TO GIVE TRANSFUSION AFTER TYLENOL.
[2022-02-24 16:28] LABS: Hematocrit 28.7 % (37.0-53.0)
--- NOTE | 2022-02-24 16:32 | NUR ---
SHIFT SUMMARY PT IS ALERT BUT SEEMS CONFUSED AT TIMES. PT IS POD#1 FOR RIGHT ANTERIOR HIP I&D. WOUND VAC IN PLACE AND DRAINING MODERATE AMOUNT OF SEROSANGUINEOUS FLUID. PT HAS BEEN COMPLAINING OF FEELING NAUSEOS THROUGHOUT THE DAY. NO EPISODES OF VOMITTING. PHYSICAL THERAPY WORKED WITH PT TODAY AND HAS BEEN SITTING UP IN BEDSIDE CHAIR SINCE LUNCH. PT HAS LIFT SHEET IN PLACE JUST IN CASE HE IS NOT ABLE TO TRANSFER HOWEVER, PT IS WEIGHT BEARING TOLERATED. PT HAS BEEN EMOTIONAL AT TIMES. PT IS ON ISO FOR MRSA. WILL CONTINUE TO MONITOR.
[2022-02-24 23:51] LABS: Hematocrit 24.2 % (37.0-53.0); Hemoglobin 7.9 g/dL (13.5-17.5)
--- NOTE | 2022-02-25 05:50 | NUR ---
BIOINFORMATICS ANALYST SUMMARY PT A&O X4 AND COOPERATIVE. VSS. PT WAS ANXIOUS AND COMPLAINED OF 9/10 PN AT START OF SHIFT. HE WAS MEDICATED WITH TRAMADOL AND TORADOL AND WAS ABLE TO SLEEP. PT SLEPT MOST THE REST OF THE SHIFT. HE WAS MADE NPO AT 0000 FOR PROCEDURE TODAY. NO OTHER ACUTE CHANGES THIS SHIFT.
[2022-02-25 08:58] LABS: Hematocrit 23.5 % (37.0-53.0); Hemoglobin 7.5 g/dL (13.5-17.5)
[2022-02-25 09:17] LABS: Vancomycin, Trough 18.8 ug/mL (5.0-10.0)
[2022-02-25 09:19] LABS: Albumin, Blood 1.1 g/dL (3.4-5.0); Albumin/Globulin Ratio 0.2 (0.8-1.8); Bilirubin, Total 0.4 mg/dL (0.1-1.0); Bun/Creatinine Ratio 25.9 (12.0-20.0); Calcium, Blood 7.5 mg/dL (8.5-10.1); Creatinine, Blood 0.69 mg/dL (0.60-1.20); Globulin, Blood 5.3 g/dL (2.2-4.0); Potassium, Blood 3.8 mmol/L (3.5-5.5); Total Protein, Blood 6.4 g/dL (6.4-8.2)
--- NOTE | 2022-02-25 13:47 | NUR ---
History, Chart, Medications and Allergies reviewed before start of procedure.Patient confirms NPO status and agrees with scheduled surgery. Pre-Op teaching done. Pt verbalizes understanding.
--- NOTE | 2022-02-25 13:54 | NUR ---
DID NOT APPLY SCDS DUE TO POOR INTEGRITY OF PT SKIN
[2022-02-25 15:23] LABS: Hematocrit 23.1 % (37.0-53.0); Hemoglobin 7.6 g/dL (13.5-17.5)
--- NOTE | 2022-02-25 16:15 | NUR ---
02/25/22 1615 Mayco Baldwin PT ON SCHEDULED ABX. 400CC DARK YELLOW CLOUDY URINE DRAINED AT START OF CASE PER ANESTHESIA. WOUND IRRIGATED WITH 6,000 CC NACL AND IRRISEPT. ONE PIECE OF BLACK FOAM PLACED INSIDE PT FOR WOUND VAC. PT TO PACU WITH NEW SUCTION CONTAINER FOR WOUND VAC.
--- NOTE | 2022-02-25 18:00 | NUR ---
SHIFT SUMMARY PT WORKED W/ PHYSICAL THERAPY AND OCCUPATIONAL THERAPY PRIOR TO SURGERY. PT TO SURGERY FOR I&D OF HIS R HIP. PT RETURNED TO ROOM AT APPROX 1700. PT MEDICATED FOR PAIN PER EMAR. PT ATE APPROX 85% OF HIS DINNER W/O REPORT OF NAUSEA. APPEARING TO TOLERATE PO INTAKE WELL. PT HAS WOUND VAC OVER INCISION SITE, DRAINING SANGINEOUS OUTPUT. PT CONTINUES TO REST IN HIS ROOM AT THIS TIME. WILL CONTINUE TO MONITOR AND UPDATE NECESSARY.
[2022-02-26 03:48] LABS: BASOPHILS ABSOLUTE AUTO 0.01 K/mm3 (0.00-0.23); BASOPHILS PERCENT AUTO 0 % (0-2); EOSINOPHILS PERCENT AUTO 0 % (0-6); Hematocrit 22.9 % (37.0-53.0); Hemoglobin 7.3 g/dL (13.5-17.5); IMMATURE GRAN ABSOLUTE AUTO 0.22 K/mm3 (0.00-0.10); IMMATURE GRAN PERCENT AUTO 2 % (0-1); LYMPHOCYTES ABSOLUTE AUTO 0.67 K/mm3 (0.84-5.20); LYMPHOCYTES PERCENT AUTO 6 % (21-46); MONOCYTES ABSOLUTE AUTO 0.56 K/mm3 (0.16-1.47); MONOCYTES PERCENT AUTO 5 % (4-13); Mean Corpuscular HGB Conc 31.9 g/dL (31.5-36.5); Mean Corpuscular Volume 88 fL (80-100); Mean Platelet Volume 9.9 fL (9.1-12.4); NEUTROPHILS ABSOLUTE AUTO 9.93 K/mm3 (1.96-9.15); NEUTROPHILS PERCENT AUTO 87 % (41-73); Platelet Count 320 K/mm3 (150-400); RDW Coefficient Variation 14.6 % (11.7-14.2); RDW Standard Deviation 46.4 fL (35.1-46.3); Red Blood Cell Count 2.61 M/mm3 (4.30-5.90); White Blood Cell Count 11.39 K/mm3 (4.00-11.30)
--- NOTE | 2022-02-26 04:52 | NUR ---
PT A&O X4. VSS. PT WAS RESTLESS AND COMPLAINED OF 9/10 INCISION SITE AND EPIGASTRIC PAIN THIS SHIFT. HE WAS REPOSITIONED AND MEDICATED WITH OXYCODONE, PER EMAR. HE EVENUALLY FELL ASLEEP. WOUND VAC DRESSING OVER INCISION SITE IS C/D/I. WOUND VAC IS STILL COLLECTING SS EXUDATE. WOUND VAC HAD 120 ML AT 0500. PT HAS NOT HAD A BOWEL MOVEMENT SINCE BEFORE HIS ADMISSION ON 02-19-22. PT MEDICATED WITH MILK OF MAGNESIA PER EMAR. NO OTHER ACUTE CHANGES THIS SHIFT.
[2022-02-26 11:34] LABS: IMMATURE RETIC FRACTION 28.2 % (2.3-16.0); RETIC HGB EQUIVALENT 34.2 pg (28.20-36.60); RETICULOCYTE ABSOLUTE 0.0539 M/mm3 (0.0200-0.1100); RETICULOCYTE COUNT PERCENT 2.09 % (0.50-2.50)
[2022-02-26 11:56] LABS: Percent Saturation 26.4 % (20.0-50.0)
--- NOTE | 2022-02-26 17:37 | NUR ---
SHIFT SUMMARY PT WORKED W/ PT THIS AM. PT MEDICATED PER EMAR THROUGHOUT SHIFT. PT'S PAIN CONTROLLED W/ OXYCODONE. PT RESTED IN HIS ROOM THROUGHOUT THE DURATION OF THE SHIFT. PT'S WOUNDVAC CONTINUES TO PRESENT SEROSANGINEOUS DRAINAGE. PT ABLE TO ASSIST W/ TURNING MULTIPLE TIMES THROUGHOUT THE SHIFT. PT HAS CONTINUED TO TOLERATE DIET WELL. PT RESTING IN HIS ROOM AT THIS TIME. WILL CONTINUE TO MONITOR AND UPDATE NECESSARY.
--- NOTE | 2022-02-27 05:29 | NUR ---
SUMMARY PT PAIN MANAGED WELL PER EMAR. PT WOUND VAC WORKING WELL. PT HAS BEEN NPO SINCE MIDNIGHT. PT HAS NO NEW ISSUES NOTED. PT HAS BEEN ABLE TO SLEEP DURING SHIFT. PT CURRENTLY SLEEPING IN NO DISTRESS. CALL LIGHT IN REACH.
[2022-02-27 08:59] LABS: BASOPHILS ABSOLUTE AUTO 0.05 K/mm3 (0.00-0.23); BASOPHILS PERCENT AUTO 1 % (0-2); EOSINOPHILS PERCENT AUTO 1 % (0-6); Hematocrit 23.6 % (37.0-53.0); Hemoglobin 7.5 g/dL (13.5-17.5); IMMATURE GRAN ABSOLUTE AUTO 0.17 K/mm3 (0.00-0.10); IMMATURE GRAN PERCENT AUTO 2 % (0-1); LYMPHOCYTES ABSOLUTE AUTO 1.05 K/mm3 (0.84-5.20); LYMPHOCYTES PERCENT AUTO 11 % (21-46); MONOCYTES ABSOLUTE AUTO 0.74 K/mm3 (0.16-1.47); MONOCYTES PERCENT AUTO 8 % (4-13); Mean Corpuscular HGB 28.3 pg (26.0-34.0); Mean Corpuscular HGB Conc 31.8 g/dL (31.5-36.5); Mean Corpuscular Volume 89 fL (80-100); Mean Platelet Volume 9.6 fL (9.1-12.4); NEUTROPHILS ABSOLUTE AUTO 7.16 K/mm3 (1.96-9.15); NEUTROPHILS PERCENT AUTO 77 % (41-73); Platelet Count 380 K/mm3 (150-400); RDW Coefficient Variation 14.7 % (11.7-14.2); RDW Standard Deviation 46.7 fL (35.1-46.3); Red Blood Cell Count 2.65 M/mm3 (4.30-5.90); White Blood Cell Count 9.27 K/mm3 (4.00-11.30)
[2022-02-27 09:17] LABS: Creatinine, Blood 0.72 mg/dL (0.60-1.20)
--- NOTE | 2022-02-27 17:11 | NUR ---
SHIFT SUMMARY PT HAS CONTINUED TO REQUIRE BOTH PO AND IV PAIN MEDICATION T/O SHIFT FOR R HIP PAIN. WOUND VAC IN PLACE, FOAM COMPRESSED WITH NO LEAK DETECTED, 400ML SS DRAINGE PRESENT IN WOUND VAC-WAS NOT MARKED FROM PREVIOUS SHIFT SO UNSURE HOW MUCH OUT THIS SHIFT HOWEVER DAY RN FROM 02/26/22 STATES APROX 200 WAS IN IT YESTERDAY-SO APROX 200ML OUT IN 24 HRS. GALVAN CARE DONE BY ULTRASOUND COORDINATOR THIS SHFT, PATENT AND DRAINING CLEAR YELLOW URINE. PLAN FOR OR TOMORROW TOR 3RD I&D, PT TO BE NPO AT MIDNIGHT.
--- NOTE | 2022-02-28 02:38 | NUR ---
PATIENT MADE NPO AT
[2022-02-28 05:24] LABS: BASOPHILS ABSOLUTE AUTO 0.03 K/mm3 (0.00-0.23); BASOPHILS PERCENT AUTO 0 % (0-2); EOSINOPHILS ABSOLUTE AUTO 0.15 K/mm3 (0.00-0.68); EOSINOPHILS PERCENT AUTO 2 % (0-6); Hematocrit 23.1 % (37.0-53.0); Hemoglobin 7.3 g/dL (13.5-17.5); IMMATURE GRAN ABSOLUTE AUTO 0.15 K/mm3 (0.00-0.10); IMMATURE GRAN PERCENT AUTO 2 % (0-1); LYMPHOCYTES ABSOLUTE AUTO 1.09 K/mm3 (0.84-5.20); LYMPHOCYTES PERCENT AUTO 14 % (21-46); MONOCYTES ABSOLUTE AUTO 0.69 K/mm3 (0.16-1.47); MONOCYTES PERCENT AUTO 9 % (4-13); Mean Corpuscular HGB 28.2 pg (26.0-34.0); Mean Corpuscular HGB Conc 31.6 g/dL (31.5-36.5); Mean Corpuscular Volume 89 fL (80-100); Mean Platelet Volume 9.5 fL (9.1-12.4); NEUTROPHILS PERCENT AUTO 73 % (41-73); Platelet Count 403 K/mm3 (150-400); RDW Coefficient Variation 14.8 % (11.7-14.2); RDW Standard Deviation 46.7 fL (35.1-46.3); Red Blood Cell Count 2.59 M/mm3 (4.30-5.90); White Blood Cell Count 7.81 K/mm3 (4.00-11.30)
--- NOTE | 2022-02-28 06:03 | NUR ---
PATIENT COOPERATIVE W/ CARE, REPORTED ADEQUATE PAIN CONTROL W/ ORAL MEDICATION PER EMAR. VSS, WOUND VAC TO R. HIP, SEALED AND SUCTIONING SANGUINOUS DRAINAGE. PATIENT CAN REPOSITION INDEPENDENTLY, STATED SUPINE WAS THE MOST COMFORTABLE POSITION. TEMP GALVAN DRAINING TO GRAVITY; AROUND 3500 ML THIS SHIFT. NPO AT 0000, 02/28. FREQUENTLY REQUESTED WATER/ICE CHIPS, NUMEROUS CANDY WRAPPERS FOUND IN BED SHEETS, SWABS PROVIDED. MIDLINE IV TO R ARM, W/ NS INFUSING TKO. PT CURRENTLY RESTING IN BED W/ CALL LIGHT IN REACH, WILL MONITOR UNTIL REPORT GIVEN TO ONCOMING SHIFT.
--- NOTE | 2022-02-28 11:24 | NUR ---
DR. EISENBERG CAME BY TO SEE PATIENT DUE TO A CONSULT ORDER FROM DR. BRAGG/ THE RESIDENT. DR. EISENBERG SUGGEST HAVING A RAYNE PROCEDURE DONE. PATIENT AND FAMILY VERBALIZED UNDERSTANDING OF PROCEDURE AND AGREED TO IT. DR. EISENBERG STATED THAT THE PATIENT WILL REMAIN NPO AFTER HIS I&D SURGERY SO THAT HE CAN HAVE THE RAYNE PROCEDURE DONE. FAMILY IN ROOM. CALL LIGHT WITHIN REACH.
--- NOTE | 2022-02-28 14:14 | NUR ---
PATIENT OUT OF ROOM TO HAVE RAYNE PROCEDURE WITH DR. EISENBERG AND THEN WILL GO HAVE I&D BY DR. AMES.
--- NOTE | 2022-02-28 14:14 | NUR ---
PATIENT IS S/P RAYNE WITH DR. EISENBERG WITH ANESTHESIA. PATIENT IS BEING RECOVERED FROM PROCEDURE AND AWAITING SUREGICAL PROCEDURE LATER THIS AFTERNOON. PATIENT WEANED OFF OXYGEN TO ROOM AIR ADN AWAKE. 100 % ON ROOM AIR.
--- NOTE | 2022-02-28 14:30 | NUR ---
History, Chart, Medications and Allergies reviewed before start of procedure. Patient confirms NPO status and agrees with scheduled surgery. Pre-Op teaching done. Pt verbalizes understanding. PT HAS JUST FINISHED A RAYNE WITH DR. FRANCISCO. PT WAS CONSENTED FOR PROCESS FOR I&D OF HIP BY DR. AMES AND DR. FRANCISCO PRIOR TO RAYNE PROCEDURE.
--- NOTE | 2022-02-28 16:07 | NUR ---
PT C/O PAIN 9/10 IN RIGHT HIP. DILAUDID 0.5 MG GIVEN SLOW IV PUSH.
--- NOTE | 2022-02-28 18:32 | NUR ---
PATIENT CAME BACK FROM PACU TODAY 02/28/22 AT 1815. POD 0 RIGHT HIP I&D WITH LAURA PLACEMENT PATIENT IS DROWSY BUT ABLE TO ANSWER QUESTIONS APPROPRIATELY. VS ARE WNL AND IS ON RA. PATIENT REPORTS 5/10 PAIN AT THIS TIME AND WILL BE MEDICATED PER EMAR. RIGHT HIP HAS GAUZE WITH FOAM TAPE THAT IS C/D/I. RIGHT HIP ALSO HAS A LAURA DRAIN WITH RED OUTPUT. PATIENT IS ABLE TO MOVE FINGERS AND TOES WHEN ASKED. TOLERATING SMALL AMOUNT OF PO INTAKE. CALL LIGHT WITHIN REACH.
--- NOTE | 2022-02-28 18:35 | NUR ---
PATIENT ALSO HAD RAYNE PROCEDURE DONE PRIOR TO I&D.
[2022-02-28 19:17] LABS: Hematocrit 23.8 % (37.0-53.0); Hemoglobin 7.6 g/dL (13.5-17.5)
--- NOTE | 2022-03-01 05:12 | NUR ---
PT A&OX4, VSS, REPORTED FEAR AND ANXIETY RELATED TO CURRENT MEDICAL CONDITION AND FUTURE HEALTHCARE NEEDS, RESPONDED WELL TO CONVERSATION AND ENCOURAGEMENT. PT STATES HE WAS AWAKENED BY BAD DREAMS DURING THE NIGHT, BEING UNAWARE OF HIS LOCATION, WITH FEAR/ANXIETY, REPONDED WELL TO REORIENTATION, CALLING HIS FATHER, GUIDED IMAGERY, AND REASSUREMENT OF CURRENT CARE PLAN. PT REQUESTS PO FLUIDS OFTEN, LARGE AMOUNT OF URINE VOIDED THROUGH GALVAN CATH NOTED. LAURA DRAIN TO DRESSING ON R. HIP, COMPRESSED AND DRAINING MODERATE AMOUNT OF SANGUINOUS FLUID. PATIENT CURRENTLY WATCHING TV IN BED WITH CALL LIGHT IN REACH, WILL MONITOR UNTIL REPORT GIVEN TO ONCOMING SHIFT.
[2022-03-01 06:06] LABS: BASOPHILS ABSOLUTE AUTO 0.01 K/mm3 (0.00-0.23); BASOPHILS PERCENT AUTO 0 % (0-2); EOSINOPHILS ABSOLUTE AUTO 0.01 K/mm3 (0.00-0.68); EOSINOPHILS PERCENT AUTO 0 % (0-6); Hematocrit 23.3 % (37.0-53.0); Hemoglobin 7.4 g/dL (13.5-17.5); IMMATURE GRAN PERCENT AUTO 1 % (0-1); LYMPHOCYTES ABSOLUTE AUTO 0.82 K/mm3 (0.84-5.20); LYMPHOCYTES PERCENT AUTO 10 % (21-46); MONOCYTES ABSOLUTE AUTO 0.67 K/mm3 (0.16-1.47); MONOCYTES PERCENT AUTO 8 % (4-13); Mean Corpuscular HGB 28.2 pg (26.0-34.0); Mean Corpuscular HGB Conc 31.8 g/dL (31.5-36.5); Mean Corpuscular Volume 89 fL (80-100); Mean Platelet Volume 9.4 fL (9.1-12.4); NEUTROPHILS ABSOLUTE AUTO 7.06 K/mm3 (1.96-9.15); NEUTROPHILS PERCENT AUTO 81 % (41-73); Platelet Count 421 K/mm3 (150-400); RDW Coefficient Variation 14.8 % (11.7-14.2); RDW Standard Deviation 46.9 fL (35.1-46.3); Red Blood Cell Count 2.62 M/mm3 (4.30-5.90); White Blood Cell Count 8.67 K/mm3 (4.00-11.30)
[2022-03-01 06:23] LABS: Albumin, Blood 1.3 g/dL (3.4-5.0); Albumin/Globulin Ratio 0.2 (0.8-1.8); Bilirubin, Total 0.3 mg/dL (0.1-1.0); Bun/Creatinine Ratio 21.1 (12.0-20.0); Calcium, Blood 7.7 mg/dL (8.5-10.1); Creatinine, Blood 0.76 mg/dL (0.60-1.20); Globulin, Blood 5.9 g/dL (2.2-4.0); Potassium, Blood 4.6 mmol/L (3.5-5.5); Total Protein, Blood 7.2 g/dL (6.4-8.2)
--- NOTE | 2022-03-01 17:01 | NUR ---
SHIFT SUMMARY: POD6 OPEN IRRIGATION AND DEBRIDEMENT OF RT HIP JOINT VIA DIRECT ANTERIOR APPROACH AND POD1 I&D RT HIP JOINT. A&Ox4. VSS. AMBULATE W/ OPA/FWW/GB. GALVAN REMOVED AND POST-REMOVAL VOID NOTED. TOLERATING PO INTAKE. ENCOURAGED TO C/T/DB AND USE I/S. DRAIN TO RT HIP W/ GAUZE BANDAGING AROUND IT. UP TO CHAIR FOR MEALS TODAY. PAIN MANAGED WITH IV DILAUDID AND PO JOANN. GALVAN REMOVED AND ENCOURAGED TO AMBULATE TO BATHROOM TO VOID D/T DIFFICULTY VOIDING WHILE SITTING. BLOOD Cx +; CONTINUE CONTACT PRECAUTIONS.
--- NOTE | 2022-03-02 04:37 | NUR ---
SHIFT SUMMARY PT AWAKE T/O SHIFT. USES CALL LIGHT FREQUENTLY. 1 PAIN PILL FOR PAIN MANAGEMENT. IV ABX PER ORDERS. DRESSING TO RIGHT HIP REMAINS CDI. LAURA WITH SMALL SS DRAINAGE. USING URINAL TO VOID. UP FROM CHAIR TO BED WITH 2 ASSIST USING GB + FWW. NO ACUTE CHANGES.
[2022-03-02 09:01] LABS: BASOPHILS ABSOLUTE AUTO 0.05 K/mm3 (0.00-0.23); BASOPHILS PERCENT AUTO 1 % (0-2); EOSINOPHILS ABSOLUTE AUTO 0.14 K/mm3 (0.00-0.68); EOSINOPHILS PERCENT AUTO 2 % (0-6); Hematocrit 25.6 % (37.0-53.0); Hemoglobin 7.9 g/dL (13.5-17.5); IMMATURE GRAN ABSOLUTE AUTO 0.08 K/mm3 (0.00-0.10); IMMATURE GRAN PERCENT AUTO 1 % (0-1); LYMPHOCYTES ABSOLUTE AUTO 1.17 K/mm3 (0.84-5.20); LYMPHOCYTES PERCENT AUTO 14 % (21-46); MONOCYTES ABSOLUTE AUTO 0.75 K/mm3 (0.16-1.47); MONOCYTES PERCENT AUTO 9 % (4-13); Mean Corpuscular HGB 28.1 pg (26.0-34.0); Mean Corpuscular HGB Conc 30.9 g/dL (31.5-36.5); Mean Corpuscular Volume 91 fL (80-100); Mean Platelet Volume 9.3 fL (9.1-12.4); NEUTROPHILS ABSOLUTE AUTO 6.19 K/mm3 (1.96-9.15); NEUTROPHILS PERCENT AUTO 74 % (41-73); Platelet Count 489 K/mm3 (150-400); RDW Coefficient Variation 15.1 % (11.7-14.2); RDW Standard Deviation 49.3 fL (35.1-46.3); Red Blood Cell Count 2.81 M/mm3 (4.30-5.90); White Blood Cell Count 8.38 K/mm3 (4.00-11.30)
[2022-03-02 09:27] LABS: Albumin, Blood 1.4 g/dL (3.4-5.0); Albumin/Globulin Ratio 0.2 (0.8-1.8); Bilirubin, Total 0.3 mg/dL (0.1-1.0); Bun/Creatinine Ratio 18.2 (12.0-20.0); Calcium, Blood 7.9 mg/dL (8.5-10.1); Creatinine, Blood 0.83 mg/dL (0.60-1.20); Globulin, Blood 6.2 g/dL (2.2-4.0); Potassium, Blood 3.7 mmol/L (3.5-5.5); Total Protein, Blood 7.6 g/dL (6.4-8.2)
--- NOTE | 2022-03-02 19:18 | NUR ---
SHIFT SUMMARY POD2 R HIP I&D #3, A/O X4, VSS, TOLERATING PO, AMBULATES A FEW STEPS c ASSISTANCE, PAIN MANAGED c ORAL PAIN MEDS, PT WORKED WITH PHYSICAL THERAPY TODAY, REPEAT BLOOD CULTURES OBTAINED AND RESULTS PENDING. NO ACUTE EVENTS THIS SHIFT. NO ACUTE EVENTS THIS SHIFT, CALL LIGHT IN REACH, REPORT GIVEN TO MAGDIEL ARVIZU.
--- NOTE | 2022-03-03 04:16 | NUR ---
SUMMARY PT SLEPT WELL T/O THE NIGHT. NO ACUTE EVENTS NOTED. PATIENT MEDICATED FOR PAIN PER EMAR WITH GOOD RESULTS. DRESSING ON R HIP REMAINS C/D/I. OUTPUT FROM THE LAURA DRAIN REMAINS SEROSANGUINOUS WITH 70 MLS OF OUTPUT. PT ENCOURAGED TO REPOSITION SELF AND PARTICIPATE IN TURN, COUGH, DEEP BREATHING. PT CURRENTLY SLEEPING WITH NO DISTRESS, CALL LIGHT IN REACH.
[2022-03-03 05:44] LABS: BASOPHILS ABSOLUTE AUTO 0.05 K/mm3 (0.00-0.23); BASOPHILS PERCENT AUTO 1 % (0-2); EOSINOPHILS ABSOLUTE AUTO 0.17 K/mm3 (0.00-0.68); EOSINOPHILS PERCENT AUTO 3 % (0-6); Hemoglobin 7.5 g/dL (13.5-17.5); IMMATURE GRAN ABSOLUTE AUTO 0.05 K/mm3 (0.00-0.10); IMMATURE GRAN PERCENT AUTO 1 % (0-1); LYMPHOCYTES ABSOLUTE AUTO 1.02 K/mm3 (0.84-5.20); LYMPHOCYTES PERCENT AUTO 20 % (21-46); MONOCYTES ABSOLUTE AUTO 0.65 K/mm3 (0.16-1.47); MONOCYTES PERCENT AUTO 13 % (4-13); Mean Corpuscular HGB 28.4 pg (26.0-34.0); Mean Corpuscular HGB Conc 31.3 g/dL (31.5-36.5); Mean Corpuscular Volume 91 fL (80-100); Mean Platelet Volume 9.2 fL (9.1-12.4); NEUTROPHILS ABSOLUTE AUTO 3.26 K/mm3 (1.96-9.15); NEUTROPHILS PERCENT AUTO 63 % (41-73); Platelet Count 473 K/mm3 (150-400); RDW Coefficient Variation 15.1 % (11.7-14.2); RDW Standard Deviation 49.8 fL (35.1-46.3); Red Blood Cell Count 2.64 M/mm3 (4.30-5.90)
--- NOTE | 2022-03-03 09:54 | NUR ---
PAIN PATIENT IS WORKING WITH OT, PREMEDICATING FOR PAIN R/T THERAPY
--- NOTE | 2022-03-03 17:51 | NUR ---
SHIFT SUMMARY PT WORKED WITH PT AND OT DURING THIS SHIFT. PT UP TO CHAIR AND RESTING FOR THE MAJORITY OF THE SHIFT. PT'S LAURA CONTINUES TO DRAIN SEROSANGINEOUS FLUID. PT ADMINISTERED MILK OF MAGNESIA DUE TO NO BM X2 DAYS. PT'S PAIN CONTROLLED W/ OXYCODONE PER EMAR. PT AGREEABLE TO SCDS AT THIS TIME. WILL CONTINUE TO MONITOR AND UPDATE NECESSARY.
--- NOTE | 2022-03-04 04:35 | NUR ---
SUMMARY PT SLEPT ON AND OFF T/O THE NIGHT. NO ACUTE EVENTS NOTED. PT EDUCATED ON THE USE OF AN IS AT THE BEGINNING OF SHIFT. PT MEDICATED FOR PAIN PER EMAR, RESULTING IN THE PAIENT BEING ABLE TO FALL ASLEEP. RIGHT HIP DRESSING REMAINS C/D/I, LAURA DRAIN PATENT AND DRAINING SS FLUID. PT CURENTLY RESTING IN BED IN NO DISTRESS, CALL LIGHT IN REACH.
[2022-03-04 08:19] LABS: BASOPHILS ABSOLUTE AUTO 0.08 K/mm3 (0.00-0.23); BASOPHILS PERCENT AUTO 2 % (0-2); EOSINOPHILS ABSOLUTE AUTO 0.17 K/mm3 (0.00-0.68); EOSINOPHILS PERCENT AUTO 4 % (0-6); Hematocrit 22.7 % (37.0-53.0); IMMATURE GRAN ABSOLUTE AUTO 0.03 K/mm3 (0.00-0.10); IMMATURE GRAN PERCENT AUTO 1 % (0-1); LYMPHOCYTES ABSOLUTE AUTO 0.85 K/mm3 (0.84-5.20); LYMPHOCYTES PERCENT AUTO 19 % (21-46); MONOCYTES ABSOLUTE AUTO 0.48 K/mm3 (0.16-1.47); MONOCYTES PERCENT AUTO 11 % (4-13); Mean Corpuscular HGB Conc 30.8 g/dL (31.5-36.5); Mean Corpuscular Volume 91 fL (80-100); Mean Platelet Volume 9.1 fL (9.1-12.4); NEUTROPHILS ABSOLUTE AUTO 2.84 K/mm3 (1.96-9.15); NEUTROPHILS PERCENT AUTO 64 % (41-73); Platelet Count 433 K/mm3 (150-400); RDW Coefficient Variation 15.1 % (11.7-14.2); RDW Standard Deviation 49.6 fL (35.1-46.3); White Blood Cell Count 4.45 K/mm3 (4.00-11.30)
--- NOTE | 2022-03-04 19:24 | NUR ---
SHIFT SUMMARY POD4 R HIP I&D, A/O X4, VSS, TOLERATING PO, PAIN WELL MANAGED, SBA c FWW/GB, POSITIVE BLOOD CULTURES CAME BACK EARLY THIS AM. IMAGINING ORDERED FOR R SHOULDER WITH RESULTS PENDING. NO ACUTE EVENTS THIS SHIFT. CALL LIGHT IN REACH, REPORT GIVEN TO MEDICAL FLOOR NOC RN TO BE TRANSFERRED TO MEDICAL UNIT.
--- NOTE | 2022-03-04 20:35 | NUR ---
DELAYED TRANSFER NOTE AND INITIAL ASSESS: PT ALERT IN NO APPARANT DISTRESS.DENIES CP OR SOB.LUNG SOUNDS WITH FINE BASILAR CRACKLES. ENC IS AND CDB. PT CARNES.HOWEVER, RLE SLOW MOVING DUE TO DISCOMFORT AT R HIP I/D SITE WITH LIFTING R LEG OFF OF BED SLIGHTLY TO EXAMIN CALFS.R HIP DRESSING D/I CIRC CKS INTACT. LAURA DRAIN WITH 30 ML DRK RED DRNG.PT IN ISOLATION FOR HX MRSA.PT HAS MILD HEAT,REDNESS AND FULLNESS R POSTERIOR SHOULDER AREA TRAVELING SOME TO DISTANCE EDUCATION TEACHER R UPPER SIDE. DR SHEPHERD AND RADIOLOGY STUDIES HAVE BEEN DONE AND FURTHER YET TO BE DONE.PT ABD SOFT WITH ACTIVE BTS AND NO NAUSEA.ALTHOUGH,PT REPORTS FIRST NO BM X 14 DAYS, THEN LATER STATES 10 DAYS.SO, UNCLEAR SPECIFICS? PT HAS VOIDED 30O ML CLEAR YELLOW WITHOUT STATED DIFF.BLE HAVE SCABBED AND WEEPING APPEARANCE BILAT WHICH DAY RN REPORTED WERE NOTED ON ADMIT AND DR SHEPHERD.PT HAVING BOTH TEDS AND PAS IN PLACE.PT REPORTS USING METH 3 DAYS PRIOR TO ADMIT, BUT STATES SMOKES IT AND DOES NOT USE ANY NEEDLES.ALSO STATES DESIRE TO QUIT AND HAS PREVIOUSLY BEEN THROUGH TREATMENT PROGRAMS DAY RN REPORTED TO BREE ARVIZU AND I WILL FOLLOW UP WITH FURTHER DETAILS AFTER TRANSFER COMPLETED. PT TRANSFERRED PER BED WITH RN AND PLASTER WHITTLER IN ATTENDANCE TO 358 FOR CARE OF BREE ARVIZU WHO WAS AT UPON TRANSFER.
--- NOTE | 2022-03-04 20:41 | NUR ---
TRANSFER NOTE HANDOFF RECEIVED FROM SHIPWRIGHT CESAR. PT ARRIVED TO FLOOR VIA GURNEY. PERSONAL POSSESSIONS WITH PT. IV FLUIDS INFUSING ORDERED. LAURA DRAIN IN PLACE. PT ORIENTED TO UNIT. CALL BUTTON WITHIN REACH.
--- NOTE | 2022-03-05 04:12 | NUR ---
SHIFT SUMMARY TRANSFERED FROM SURGICAL UNIT THIS SHIFT. ADMITTED FOR SEPSIS. I&D PERFORMED ON RT HIP. LAURA DRAIN IN PLACE. CONTACT PRECAUTIONS FOR MRSA IN BLOOD/WOUND. FULL CODE. NS INFUSING ORDERED. IV ANTIB RX ARE SCHEDULED. ACHS CHEMSTICKS. POSSIBLE CELLULITIS NOTED ON BLE SHINS. HE IS A POOR HISTORIAN AT TIMES AND FORGETFUL. POWERGLIDE IN RUE. NO NEW CONCERNS THIS SHIFT
[2022-03-05 04:52] LABS: BASOPHILS ABSOLUTE AUTO 0.05 K/mm3 (0.00-0.23); BASOPHILS PERCENT AUTO 1 % (0-2); EOSINOPHILS ABSOLUTE AUTO 0.13 K/mm3 (0.00-0.68); EOSINOPHILS PERCENT AUTO 2 % (0-6); Hematocrit 23.2 % (37.0-53.0); Hemoglobin 7.2 g/dL (13.5-17.5); IMMATURE GRAN ABSOLUTE AUTO 0.04 K/mm3 (0.00-0.10); IMMATURE GRAN PERCENT AUTO 1 % (0-1); LYMPHOCYTES ABSOLUTE AUTO 0.82 K/mm3 (0.84-5.20); LYMPHOCYTES PERCENT AUTO 13 % (21-46); MONOCYTES PERCENT AUTO 11 % (4-13); Mean Corpuscular Volume 90 fL (80-100); Mean Platelet Volume 9.1 fL (9.1-12.4); NEUTROPHILS ABSOLUTE AUTO 4.52 K/mm3 (1.96-9.15); NEUTROPHILS PERCENT AUTO 72 % (41-73); Platelet Count 479 K/mm3 (150-400); RDW Standard Deviation 48.5 fL (35.1-46.3); Red Blood Cell Count 2.57 M/mm3 (4.30-5.90); White Blood Cell Count 6.26 K/mm3 (4.00-11.30)
[2022-03-05 05:18] LABS: Albumin, Blood 1.4 g/dL (3.4-5.0); Anion Gap 4 mmol/L (6-16); Blood Urea Nitrogen 15 mg/dL (8-24); CO2, Blood 30 mmol/L (21-32); Chloride, Blood 101 mmol/L (98-108); Creatinine, Blood 0.94 mg/dL (0.60-1.20); Glomerular Filtration Rate 96 (60-); Glucose, Blood 136 mg/dL (70-99); Phosphorus, Blood 3.6 mg/dL (2.5-4.9); Potassium, Blood 4.2 mmol/L (3.5-5.5); Sodium, Blood 135 mmol/L (136-145)
--- NOTE | 2022-03-05 15:24 | NUR ---
AOX4, WITH FORGETFUL MOMENTS. PT CAN MAKE NEEDS KNOWN, COOPERATIVE WITH MEDICATIONS. ISO PRECATION FOR MRSA IN BLOOD/WOUND. REFUSED MRI THIS AM, D/T CLAUSTROPHOBIA; VERY ANXIOUS ABOUT HAVING MRI LATER TODAY. MRI PLANNED AT 1430 WITH VALIUM 5MG GIVEN HALF-HOUR BEFORE; PT STILL ANXIOUS AFTER 1430 ATIVAN 2MG GIVEN, PLUS EYE MASK GIVEN TO HIM. PT STATED PAIN OF 6/10, PRN OXYCODONE 5MG GIVEN WITH GOOD RELIEF. LAURA DRAIN AT RIGHT HIP, PATENT AND DRAINING SS FLUID AND SMALL CLOTS; DRESSING C/D/I. NO ACUTE CHANGES. CALL-LIGT WITHIN REACH, BED IN LOWEST POSITION.
--- NOTE | 2022-03-05 17:00 | NUR ---
FOUND PATIENT WITH CHEWING TOBACCO. FATHER SITTING AT BEDSIDE, STATED THAT HE HAD GIVEN IT TO PT. PT AND FATHER EDUCATED ABOUT THE HOSPITAL BEING A TOBACCO FREE SITE. FATHER TOOK THE TABACCO HOME WITH HIM. RN ASKED PT IF HE WANTED A VIKTORIA PATCH OR VIKTORIA GUM, PT REQUEST GUM; INFORMED, WAITING ON NEW ORDER.
--- NOTE | 2022-03-06 04:12 | NUR ---
SHIFT SUMMARY ADMITTED FOR SEPSIS/BACTEREMIA. FULL CODE. MRI OF SPINE PERFORMED PREVIOUS SHIFT. CERTAIN SCANS UNABLE TO BE PERFORMED DUE TO PT ANXIETY/CLAUSTROPHOBIA. DR. AMES IS CONSULT. POSSIBLE I&D OF RIGHT HIP MAY BE REPEATED TODAY, DEPENDING ON MRI RESULTS. PREVIOUS I&D PERFORMED ON 02/28. IV FLUIDS INFUSING ORDERED. POWERGLIDE LINE IN RUE. PT HAD TWO PERIODS OF ANXIETY THIS SHIFT. HE CALLED OUT, CRYING. IT WAS DIFFICULT TO UNDERSTAND THE SOURCE OF HIS ANXIETY, HE STATED HIS BLANKETS WERE TANGLED AROUND HIM. HE IS A POOR HISTORIAN AND FORGETFUL. LAURA DRAIN IN PLACE AND DRAINING SANGUINOUS FLUID.
[2022-03-06 08:17] LABS: HCV AB 0.3 (0.0-0.9)
[2022-03-06 09:26] LABS: SARS-Cov-2 (COVID-19) PCR, MMC NEGATIVE (NEGATIVE)
[2022-03-06 09:41] LABS: HBSAG SCREEN Negative (Negative)
--- NOTE | 2022-03-06 09:48 | NUR ---
03/06/22 0948 Catherine Ortiz NO PREOP ANTIBIOTICS ORDERED PER PATIENT IS ON SCHEDULED ANTIBIOTICS.
--- NOTE | 2022-03-06 13:36 | NUR ---
NURSE NOTE PATIENT TRANSFERRED TO BACK HINDS FOR CLOSER MONITORING. PAST TWO PARCEL POST WEIGHER PATIENT BECAME INCREASINGLY CONFUSED AT NIGHT, TAKING OFF BIOOX, UNPLUGGING IT FROM WALL AND TURNING OF 02. ONE EPISODE THIS AM OF PATIENT UNPLUGGING BIOOX AND TURNING 02 OFF AND DISCONNECTING FROM THE WALL. PATIENT HAS BEEN SATING 85-93% ON 3L NC (2L PRN BASELINE). OCCASIONAL REMINDING TO PUT NC BACK ON. TELE A-FIB IN THE 100S. BECOMING SOB WHEN GETTING UP TO RESTROOM. REPORT GIVEN TO RECEIVING RN.
--- NOTE | 2022-03-06 18:44 | NUR ---
SHIFT SUMMARY PATIENT WENT TO SURGERY FOR RIGHT HIP I&D WITH WOUND VAC PLACEMENT. PATIENT TOLERATED WELL AND SLEPT MOST OF AFTERNOON AFTER SURGERY. C/O RIGHT HIP PAIN AND MEDICATED X2 PER DEC. C/O HEARTBURN, MEDICATED PER DEC. WOUND VAC IN PLACE WITH GOOD SEAL, MINIMAL BLOODY DRAINAGE IN CANISTER AT END OF SHIFT. VSS. WILL CONTINUE TO MONITOR.
[2022-03-07 00:07] LABS: HIV AB/P24 AG SCREEN Non Reactive (Non Reactive)
--- NOTE | 2022-03-07 04:18 | NUR ---
SHIFT SUMMARY: PT IS ALERT AND ORIENTED. PT IS CALM AND COOPERATIVE WITH CARE. PT CALLS APPROPRIATELY. PT IS A MAX ASSIST, NOT OUT OF BED OVERNIGHT, USES HIS URINAL INDEPENDENTLY. PT HAS WOUND VAC ON R. HIP, FUNCTIONING WNL. PT REPORTS R. HIP PAIN, MEDICATING PER EMAR. PT DENIES NAUSEA, VOMITING, AND SOB. BED IN LOW POSITION, CALL LIGHT WITHIN REACH. WILL CONTINUE TO MONITOR.
[2022-03-07 04:53] LABS: BASOPHILS ABSOLUTE AUTO 0.03 K/mm3 (0.00-0.23); BASOPHILS PERCENT AUTO 1 % (0-2); EOSINOPHILS ABSOLUTE AUTO 0.03 K/mm3 (0.00-0.68); EOSINOPHILS PERCENT AUTO 1 % (0-6); Hematocrit 21.7 % (37.0-53.0); Hemoglobin 6.8 g/dL (13.5-17.5); IMMATURE GRAN ABSOLUTE AUTO 0.03 K/mm3 (0.00-0.10); IMMATURE GRAN PERCENT AUTO 1 % (0-1); LYMPHOCYTES ABSOLUTE AUTO 1.02 K/mm3 (0.84-5.20); LYMPHOCYTES PERCENT AUTO 17 % (21-46); MONOCYTES ABSOLUTE AUTO 0.59 K/mm3 (0.16-1.47); MONOCYTES PERCENT AUTO 10 % (4-13); Mean Corpuscular HGB 28.2 pg (26.0-34.0); Mean Corpuscular HGB Conc 31.3 g/dL (31.5-36.5); Mean Corpuscular Volume 90 fL (80-100); Mean Platelet Volume 8.9 fL (9.1-12.4); NEUTROPHILS ABSOLUTE AUTO 4.31 K/mm3 (1.96-9.15); NEUTROPHILS PERCENT AUTO 72 % (41-73); Platelet Count 416 K/mm3 (150-400); RDW Coefficient Variation 14.5 % (11.7-14.2); RDW Standard Deviation 47.7 fL (35.1-46.3); Red Blood Cell Count 2.41 M/mm3 (4.30-5.90); White Blood Cell Count 6.01 K/mm3 (4.00-11.30)
[2022-03-07 05:24] LABS: Bun/Creatinine Ratio 21.3 (12.0-20.0); Calcium, Blood 8.2 mg/dL (8.5-10.1); Creatinine, Blood 0.85 mg/dL (0.60-1.20); Potassium, Blood 4.2 mmol/L (3.5-5.5)
--- NOTE | 2022-03-07 14:11 | NUR ---
AOX4 WITH FORGETFUL MOMENTS. PT CAN MAKE NEEDS KNOWN, COOPERATIVE WITH MEDICATIONS AND CARE; 1 PERSON ASST WITH FWW. ISO FOR MRSA IN BLOOD/WOUND. PT STATES PAIN OF 8/10 (STATES 6/10 TOLERABLE LEVEL); PRN DILUDID 1MG, OXYCODONE 5MG, ULTRAM 50MG, AND APAP GIVEN WHEN AVAILABLE WITH GOOD RELIEF. WOUND VAC AT RIGHT HIP, PATENT AND DRAINING S/S FLUID; INSERTION C/D/I. NO ACUTE CHANGES. CALL-LIGHT IN REACH, BED IN LOWEST POSITION.
[2022-03-07 17:00] LABS: Hematocrit 24.6 % (37.0-53.0); Hemoglobin 7.7 g/dL (13.5-17.5)
--- NOTE | 2022-03-08 16:36 | NUR ---
WOUND VAC CHANGED 03/08/22. ASSESSMENT AND PHOTOGRAPH IN HARD CHART. ORDERS PLACED IN [facility]
[2022-03-09] MEDS ORDERED: SILVADENE20 G1 TOP ×2 (00:28)
[2022-03-09 08:06] LABS: Hematocrit 23.6 % (37.0-53.0); Hemoglobin 7.3 g/dL (13.5-17.5)
[2022-03-09 12:57] LABS: U Amphetamine Screen Not Detected; U Barbituate Screen Not Detected; U Benzodiazapine Screen DETECTED; U Buprenorphine Screen Not Detected; U Cannabinoids Screen Not Detected; U Cocaine Screen Not Detected; U Methadone Screen Not Detected; U Methamphetamine Screen Not Detected; U Opiates Screen Not Detected; U Oxycodone Screen DETECTED; U Phencyclidine Screen Not Detected; U Propoxyphene Screen Not Detected
[2022-03-10 04:30] LABS: BASOPHILS ABSOLUTE AUTO 0.05 K/mm3 (0.00-0.23); BASOPHILS PERCENT AUTO 1 % (0-2); EOSINOPHILS ABSOLUTE AUTO 0.21 K/mm3 (0.00-0.68); EOSINOPHILS PERCENT AUTO 4 % (0-6); Hematocrit 24.9 % (37.0-53.0); Hemoglobin 7.7 g/dL (13.5-17.5); IMMATURE GRAN ABSOLUTE AUTO 0.04 K/mm3 (0.00-0.10); IMMATURE GRAN PERCENT AUTO 1 % (0-1); LYMPHOCYTES ABSOLUTE AUTO 0.91 K/mm3 (0.84-5.20); LYMPHOCYTES PERCENT AUTO 15 % (21-46); MONOCYTES ABSOLUTE AUTO 0.58 K/mm3 (0.16-1.47); MONOCYTES PERCENT AUTO 10 % (4-13); Mean Corpuscular HGB 27.7 pg (26.0-34.0); Mean Corpuscular HGB Conc 30.9 g/dL (31.5-36.5); Mean Corpuscular Volume 90 fL (80-100); Mean Platelet Volume 8.7 fL (9.1-12.4); NEUTROPHILS ABSOLUTE AUTO 4.18 K/mm3 (1.96-9.15); NEUTROPHILS PERCENT AUTO 70 % (41-73); Platelet Count 313 K/mm3 (150-400); RDW Coefficient Variation 14.7 % (11.7-14.2); RDW Standard Deviation 47.6 fL (35.1-46.3); Red Blood Cell Count 2.78 M/mm3 (4.30-5.90); White Blood Cell Count 5.97 K/mm3 (4.00-11.30)
--- NOTE | 2022-03-10 05:15 | NUR ---
NO INSULIN COVERAGE NEEDED. PT CONFUSED ABOUT MRI, ASKED MULTIPLE PEOPLE IF HE HAD COMPLETED IS MRI. FATHER CALLED AND UPDATED. PT GIVEN NAPROXEN FOR PAIN IN LOWER LEGS. PT REPORTS BURNING AND PAIN, LOTION APPLIED AND GIVEN RELEIF.
--- NOTE | 2022-03-10 08:01 | NUR ---
pt called for pain meds, on phone when nurse entered room, a/ox3, mostly cooperative with care, follows commands, lungs are clear dim in bases, makes mouth noise, on r/a resp even and unlabored, no cough noted, hrr, tele in place running sr per monitor, see strip, no edema noted, ppp+2, cap refill<3sec, vs stable, afebrile, iv is power glide, site is clear and patent, btx4, abd flat soft nontender, voids without diff, skin has very thick flakey skin on b/l le, red skin no open areas, right hip has wound vac in place, no redness noted around incision, jagjit davila , call light in reach.
--- NOTE | 2022-03-10 19:28 | NUR ---
pt was able to get his mri done today, it took 10mg of valium, complaining of pain all day, have medicated him regularly, but still states he's in pain. no further changes this shift. call light in reach.
--- NOTE | 2022-03-11 04:27 | NUR ---
PT UP TO THE BSC X2, ABLE TO HAVE BM. PT HAS HAD MULTIPLE LOOSE STOOLS THROUGH THE NIGHT. PT REQUIRING 2 PEOPLE, A GAIT BELT AND FWW TO GET UP. TRAMADOL GIVEN FOR PAIN.
--- NOTE | 2022-03-11 17:21 | NUR ---
SHIFT SUMMARY PATIENT ALERT AND ORIENTED X3, FORGETFUL AT TIMES. PATIENT IS A 2 ASSIST TO THE RECLINER. PATIENT WAS UP IN THEIR CHAIR FOR BREAKFAST AND LUNCH. SCDS TAKEN OFF THIS MORNING. BILATERAL LOWER EXTREMITIIES REDDENED AFTER TAKING THEM OFF. THE PATIENT HAD MULTIPLE LOOSE STOOLS TODAY. MEDICATED FOR PAIN X2 NO COVERAGE FOR INSULIN GIVEN. STOOL SOFTENERS HELD. MICONAZOLE POWDER ORDERED TODAY. PATIENT COMPLAINED OF SOME HEART BURN, MEDICATED X1. PATIENT WENT FOR A CT OF LOWER EXTREMITY THIS AFTERNOON. ABX GIVEN. NS RUNNING AT 150MLS PER HOUR. CALL LIGHT WITHIN REACH, BED IN LOWEST POSITION.
--- NOTE | 2022-03-12 05:16 | NUR ---
PT MEDICATED TWICE THROUGH THE NIGHT FOR HIP PAIN. CANISTER CHANGED ON WOUND VAN. PT CONTINUES TO HAVE SMALL LOOSE STOOL, STOOL SOFTNER REFUSED PER PATIENT. GROING AND BOTTOM REDDENED, POWDER APPLIED.
[2022-03-12 05:35] LABS: Hematocrit 22.5 % (37.0-53.0); Mean Corpuscular HGB Conc 31.1 g/dL (31.5-36.5); Mean Corpuscular Volume 90 fL (80-100); Mean Platelet Volume 9.2 fL (9.1-12.4); Platelet Count 248 K/mm3 (150-400); RDW Coefficient Variation 15.1 % (11.7-14.2); RDW Standard Deviation 49.3 fL (35.1-46.3); White Blood Cell Count 5.05 K/mm3 (4.00-11.30)
[2022-03-12 05:59] LABS: BASOPHILS PERCENT MAN 4 % (0-2); EOSINOPHILS ABSOLUTE MAN 0.15 K/mm3 (0.00-0.68); EOSINOPHILS PERCENT MAN 3 % (0-6); LYMPHOCYTES ABSOLUTE MAN 1.01 K/mm3 (0.84-5.20); LYMPHOCYTES PERCENT MAN 20 % (21-46); MONOCYTES ABSOLUTE MAN 0.75 K/mm3 (0.16-1.47); MONOCYTES PERCENT MAN 15 % (4-13); NEUTROPHILS ABSOLUTE MAN 2.92 K/mm3 (1.96-9.15); SEG NEUTROPHILS PERCENT MAN 58 % (41-73); TOTAL CELLS COUNTED 100
--- NOTE | 2022-03-12 16:50 | NUR ---
SHIFT SUMMARY PATIENT ALERT AND ORIENTED X3, FORGETFUL AT TIMES. PATIENT WORKED WITH THERAPY WHILE SITTING IN BED TODAY. THE PATIENT HAD THEIR WOUND VAC CHANGED OUT TODAY 03/12/22. PATIENT WAS EMOTIONAL AND CRYING OUT IN PAIN. DOCTOR WAS NOTIFIED ABOUT POSSIBLY GETTING THE PATIENT PAIN MEDS JUST FOR WOUND DRESSING CHANGES. PAIN MEDS ORDERED. PATIENT WORE MERYL HOSE SOME TODAY. PATIENT HAS BEEN MEDICATED X2 FOR PAIN PER EMAR. NO LOOSE STOOLS NOTED TODAY. THE PATIENT HAS NORMAL SALINE INFUSING. ABX GIVEN. THE PATIENT IS SCHEDULED FOR A WBC STUDY WITH NUCLEAR MED ON MONDAY. NO ACUTE CHANGES. CALL LIGHT WITHIN REACH, BED IN LOWEST POSITION.
[2022-03-13 05:15] LABS: Hemoglobin 7.2 g/dL (13.5-17.5); Mean Corpuscular HGB 27.2 pg (26.0-34.0); Mean Corpuscular Volume 91 fL (80-100); Mean Platelet Volume 8.9 fL (9.1-12.4); Platelet Count 228 K/mm3 (150-400); RDW Coefficient Variation 14.6 % (11.7-14.2); Red Blood Cell Count 2.65 M/mm3 (4.30-5.90); White Blood Cell Count 5.45 K/mm3 (4.00-11.30)
--- NOTE | 2022-03-13 05:35 | NUR ---
SUMMARY: PT A/OX3, FORGETFULL AT TIMES AND CALLS FREQUENTLY TO SPECIFY NEEDS. HE'S 2PA W/FWW AND GB OOB BUT WASN'T UP THIS SHIFT. PT USED URINAL AD MARCO AND WAS INCONTINENT OF LOOSE STOOL X2 W/ATTENDS CHANGED PRN AND STOOL SOFTENER HELD. NS INFUSES AT 150 ML/HR AND IV ABX RECIEVED. PT GIVEN OXYCODONE PRN FOR TOLERABLE RELIEF OF R.HIP AND GENERALIZED PAIN. WOUND VAC W/SUCTION TO R.HIP IS INTACT, DX CHANGED 03/12/22 AND REMAINS C/D/I. BUTTOCKS IS RED FROM FREQ STOOL, CREAM AND POWDER APPLIED. BLE'S ARE DRY, PEELING AND EDEMATOUS W/LEGS ELEVATED IN BED. VSS/AFEBRILE. BX TX'S RX'D FOR PT C/O OF SOB. SPO2 WNL ON RA, LS CLEAR AND DIM T/O. NO ACUTE CHANGES. WBC STUDY SCHEDULED MONDAY. WCPREETI AND REPORT TO DAY RN.
[2022-03-13 05:40] LABS: Bun/Creatinine Ratio 11.8 (12.0-20.0); Calcium, Blood 8.6 mg/dL (8.5-10.1); Creatinine, Blood 0.93 mg/dL (0.60-1.20)
[2022-03-13 05:53] LABS: BASOPHILS ABSOLUTE MAN 0.05 K/mm3 (0.00-0.23); BASOPHILS PERCENT MAN 1 % (0-2); EOSINOPHILS ABSOLUTE MAN 0.43 K/mm3 (0.00-0.68); EOSINOPHILS PERCENT MAN 8 % (0-6); LYMPHOCYTES ABSOLUTE MAN 0.87 K/mm3 (0.84-5.20); LYMPHOCYTES PERCENT MAN 16 % (21-46); MONOCYTES PERCENT MAN 13 % (4-13); MYELOCYTE ABSOLUTE MAN 0.05 K/mm3 (0.00-0.00); MYELOCYTE PERCENT MAN 1 % (0-0); NEUTROPHILS ABSOLUTE MAN 3.32 K/mm3 (1.96-9.15); SEG NEUTROPHILS PERCENT MAN 61 % (41-73); TOTAL CELLS COUNTED 100
--- NOTE | 2022-03-13 17:12 | NUR ---
PT WITH VERY LARGE BM TODAY WHICH WAS REPORTED BY MY UTILITY BILL COLLECTION CLERK TO BE SOFT WITH LARGE AMOUNTS OF HARD PELLETS OF STOOL. AFTER HAVING BM PT REPORTS THAT DIFFICULTY AND HAVING PAIN WITH URINATION HAS RESOLVED. PTS LOWER LEGS EDEMATOUS, RED,DRY AND FLAKING WITH MACERATED WITH OOZING OF SEROUS FLUIDS. RIGHT HIP WOUND VAC IN PLACE WITH SMALL AMOUNT DRAINAGE. PAIN IS REPORTED ADEQUATELY CONTROLLED WITH PO MEDS
--- NOTE | 2022-03-14 06:09 | NUR ---
SUMMARY: PT A/OX3, FORGETFULL AT TIMES AND CALLS OFTEN TO SPECIFY NEEDS. HE WASN'T OOB THIS SHIFT BUT IS 2PA W/FWW AND GB TO CHAIR/BSC. HE USED URINAL AD MARCO AND HAD X1 STOOL INCONTINENCE W/ATTENDS CHANGED PRN. NS INFUSES AT 150 ML/HR AND IV ABX RECIEVED. PT GIVEN OXYCODONE PRN FOR TOLERABLE RELIEF OF R.HIP AND GEN PAIN. WOUNG VAC W/DX AND SUCTION REMAINS C/D/I TO R.HIP, SCANT DRAINAGE OBSERVED. BUTTOCKS IS RED, EXCORIATED AND MACERATED FROM PRIOR STOOL AND MOISTURE, CREAMS AND POWDERS APPLIED. BLE'S REMAIN CALLOUSED, DRY AND SLOUGHING AND WEEP WHEN SCD'S INTACT. LS CLEAR T/O BUT PT OCCASIONALLY GASPS FOR AIR DESPITE 100% SATURATIONS ON RA AND NO OTHER S/S RESP DISTRESS. WBC STUDY TODYA. VSS/AFEBRILE, NO ACUTE CHANGES. WCTM AND REPORT TO DAY RN.
[2022-03-14 06:41] LABS: BASOPHILS ABSOLUTE AUTO 0.04 K/mm3 (0.00-0.23); BASOPHILS PERCENT AUTO 1 % (0-2); EOSINOPHILS ABSOLUTE AUTO 0.25 K/mm3 (0.00-0.68); EOSINOPHILS PERCENT AUTO 6 % (0-6); Hematocrit 22.3 % (37.0-53.0); Hemoglobin 6.9 g/dL (13.5-17.5); IMMATURE GRAN ABSOLUTE AUTO 0.02 K/mm3 (0.00-0.10); IMMATURE GRAN PERCENT AUTO 1 % (0-1); LYMPHOCYTES ABSOLUTE AUTO 1.05 K/mm3 (0.84-5.20); LYMPHOCYTES PERCENT AUTO 26 % (21-46); MONOCYTES PERCENT AUTO 12 % (4-13); Mean Corpuscular HGB Conc 30.9 g/dL (31.5-36.5); Mean Corpuscular Volume 91 fL (80-100); Mean Platelet Volume 9.2 fL (9.1-12.4); NEUTROPHILS ABSOLUTE AUTO 2.17 K/mm3 (1.96-9.15); NEUTROPHILS PERCENT AUTO 54 % (41-73); Platelet Count 203 K/mm3 (150-400); RDW Coefficient Variation 14.6 % (11.7-14.2); RDW Standard Deviation 47.4 fL (35.1-46.3); Red Blood Cell Count 2.46 M/mm3 (4.30-5.90); White Blood Cell Count 4.03 K/mm3 (4.00-11.30)
--- NOTE | 2022-03-14 17:49 | NUR ---
REVIEWED FAROOQ ARVIZU'S ASSESSMENT OF PT AND AGREE WITH HIM.
--- NOTE | 2022-03-14 18:06 | NUR ---
SHIFT SUMMARY PT A&O, FOLLOWS COMMANDS, FAMILY AT BEDSIDE MAJORITY OF DAY. PT RECEIVED ONE UNIT PRBC'S FOR HGB 6.9. PENDING REDRAW HGB. WOUND VAC IN PLACE TO R HIP. NEW IV INSERTED TO LIONEL. PT COMPLETED WBC STUDY, PENDING RESULTS. PATIENT MEDICATION WITH PRN MEDICATIONS THROUGHOUT DAY, EFFECTIVELY CONTROLS PAIN. NO OTHER NEEDS VOICED, NO C/O PAIN
[2022-03-14 18:33] LABS: Hematocrit 28.5 % (37.0-53.0); Hemoglobin 8.7 g/dL (13.5-17.5)
[2022-03-15 05:28] LABS: Hematocrit 26.9 % (37.0-53.0); Hemoglobin 8.3 g/dL (13.5-17.5)
--- NOTE | 2022-03-15 05:47 | NUR ---
PT IS A/O, MEDICATED THIS SHIFT FOR R HIP PAIN. WOUNDVAC TO R HIP, BLE DRY AND SCALY. PT IS IN CONTACT ISOLATION.
--- NOTE | 2022-03-15 06:48 | NUR ---
WOUNDVAC DRESSING CHANGED PER PROTOCOL, 1 PEICE BLACK FOAM USED, 1 MEPITEL TO WOUND BED. PT PREMEDICATED WITH 25 FENTANYL FOR DRESSING CHANGE. PT TOLERATED WELL.
--- NOTE | 2022-03-15 17:01 | NUR ---
SHIFT SUMMARY PT A&O, FOLLOWS COMMANDS. REMAINS ON IV ABX. VSS, REMAINS ON RA. PT C/O PAIN TO R HIP, PRN MEDICATIONS ADMINISTERED. PT REFUSED PHYSICAL THERAPY TODAY, OOB TO CHAIR FOR DINNER. WOUND VAC IN PLACE. WILL CONTINUE TO MONITOR.
--- NOTE | 2022-03-15 18:03 | NUR ---
THIS PULVERIZER TENDER HAS REVIEWED [facility]'S NOTES AND ASSESSMENTS AND AGREES WITH THEM.
[2022-03-16 05:01] LABS: Hematocrit 25.7 % (37.0-53.0); Mean Corpuscular HGB 27.6 pg (26.0-34.0); Mean Corpuscular HGB Conc 31.1 g/dL (31.5-36.5); Mean Corpuscular Volume 89 fL (80-100); Platelet Count 193 K/mm3 (150-400); RDW Coefficient Variation 14.7 % (11.7-14.2); RDW Standard Deviation 47.8 fL (35.1-46.3); White Blood Cell Count 3.93 K/mm3 (4.00-11.30)
[2022-03-16 05:20] LABS: Creatinine, Blood 0.91 mg/dL (0.60-1.20); Potassium, Blood 3.9 mmol/L (3.5-5.5)
[2022-03-16 05:44] LABS: BASOPHILS ABSOLUTE MAN 0.07 K/mm3 (0.00-0.23); BASOPHILS PERCENT MAN 2 % (0-2); EOSINOPHILS ABSOLUTE MAN 0.39 K/mm3 (0.00-0.68); EOSINOPHILS PERCENT MAN 10 % (0-6); LYMPHOCYTES ABSOLUTE MAN 0.86 K/mm3 (0.84-5.20); LYMPHOCYTES PERCENT MAN 22 % (21-46); MONOCYTES ABSOLUTE MAN 0.27 K/mm3 (0.16-1.47); MONOCYTES PERCENT MAN 7 % (4-13); NEUTROPHILS ABSOLUTE MAN 2.31 K/mm3 (1.96-9.15); SEG NEUTROPHILS PERCENT MAN 59 % (41-73); TOTAL CELLS COUNTED 100
--- NOTE | 2022-03-16 06:19 | NUR ---
PT A/O MEDICATED FOR PAIN THIS SHIFT FROM RIGHT HIP ABCESS WITH WOUNDVAC. PT USES URINAL, SOB WITH EXERTION.
--- NOTE | 2022-03-16 18:15 | NUR ---
PT IS A/O X4, PLEASANT AND COOPERATIVE. THE PT IS UP MAX ASSIST TO THE CHAIR. THE PT WAS UP IN THE RECLINER AT THE BEDSIDE FOR SEVERAL HOURS TODAY. THE PT WAS MEDICATED FOR PAIN IN HIS RIGHT HIP T/O THE DAY. THE PT WAS MEDICATED FOR PAIN PRIOR TO WOUND VA DRSG. CHANGE AND HIS CT SCAN TODAY. THE PT WEARS O2 @ 2L/MIN PRN. PT WORKED WITH THE PHYSICAL AND OCCUPATIONAL THERAPIST TODAY. PT WAS GIVEN A BED BATH PER HIS REQUEST. THE PT BLE ELEVATED WHILE IN BED. CALL LIGHT IN REACH WILL CONTINUE TO MONITOR AND ASSESS FOR CHANGES
--- NOTE | 2022-03-17 04:09 | NUR ---
shift summary 56 yr m admitted on 02/19/22 for sepsis.FULL CODE. MRSA POSITIVE. PT C/O PAIN IN HIS R HIP AND WAS MEDICATED PER EMAR. HE WAS ALSO GIVE TYLENOL FOR A HEADACHE. HE SOMETIMES MAKES A GRUNTING NOISE WHEN EXHALING BUT DENIED SOB OR DYSPNEA. HE STATED THAT HE DOES THAT WHEN HE IS IN PAIN. HE WAS ABLE TO SLEEP FOR A GOOD PORTION OF THIS SHIFT AND IS A PLEASANT AND COOPERATIVE PT.
[2022-03-17 05:24] LABS: BASOPHILS ABSOLUTE AUTO 0.06 K/mm3 (0.00-0.23); BASOPHILS PERCENT AUTO 1 % (0-2); EOSINOPHILS ABSOLUTE AUTO 0.26 K/mm3 (0.00-0.68); EOSINOPHILS PERCENT AUTO 6 % (0-6); Hematocrit 25.8 % (37.0-53.0); Mean Corpuscular HGB 27.5 pg (26.0-34.0); Mean Corpuscular Volume 89 fL (80-100); Mean Platelet Volume 9.1 fL (9.1-12.4); Platelet Count 212 K/mm3 (150-400); RDW Coefficient Variation 14.8 % (11.7-14.2); RDW Standard Deviation 47.9 fL (35.1-46.3); Red Blood Cell Count 2.91 M/mm3 (4.30-5.90); White Blood Cell Count 4.54 K/mm3 (4.00-11.30)
[2022-03-17 05:33] LABS: IMMATURE GRAN ABSOLUTE AUTO 0.02 K/mm3 (0.00-0.10); IMMATURE GRAN PERCENT AUTO 0 % (0-1); LYMPHOCYTES ABSOLUTE AUTO 1.21 K/mm3 (0.84-5.20); LYMPHOCYTES PERCENT AUTO 27 % (21-46); MONOCYTES ABSOLUTE AUTO 0.67 K/mm3 (0.16-1.47); MONOCYTES PERCENT AUTO 15 % (4-13); NEUTROPHILS ABSOLUTE AUTO 2.32 K/mm3 (1.96-9.15); NEUTROPHILS PERCENT AUTO 51 % (41-73)
[2022-03-17 05:42] LABS: Bun/Creatinine Ratio 12.5 (12.0-20.0); Calcium, Blood 8.5 mg/dL (8.5-10.1); Creatinine, Blood 0.96 mg/dL (0.60-1.20); Potassium, Blood 4.1 mmol/L (3.5-5.5)
--- NOTE | 2022-03-17 18:14 | NUR ---
PT IS A/OX3, PLEASANT AND COOPERATIVE. PT APPEARS TO BE BREATHING EASILY ON RA. THE PT WAS TAKEN TO CT TODAY FOR ASPIRATION OF FLUID FROM THE RIGHT HIP. PT NTOLERATED WELL. THE PT WAS MEDICATED FOR PAIN T/O THE DAY. THE PT WAS MEDICATED FOR ACID REFLUX X1. CALL LIGHT IN REACH. WILL CONTINUE TO MONITOR AND ASSESS FOR CHANGES
--- NOTE | 2022-03-18 02:58 | NUR ---
SHIFT SUMMARY 56 YR M ADMITTED ON 02/19/22 FOR SEPSIS AND MRSA OF RIGHT HIP WOUND. FULL CODE. NO ACUTE CHANGES THIS SHIFT. PT C/O PAIN IN RIGHT HIP AND WAS MEDICATED PER EMAR. HE HAS SLEPT WELL THIS SHIFT AND OTHER THAN PAIN HE HAS HAD NO COMPLAINTS.
[2022-03-18 05:24] LABS: BASOPHILS ABSOLUTE AUTO 0.05 K/mm3 (0.00-0.23); BASOPHILS PERCENT AUTO 1 % (0-2); EOSINOPHILS ABSOLUTE AUTO 0.18 K/mm3 (0.00-0.68); EOSINOPHILS PERCENT AUTO 4 % (0-6); Hematocrit 26.7 % (37.0-53.0); Hemoglobin 8.3 g/dL (13.5-17.5); IMMATURE GRAN ABSOLUTE AUTO 0.02 K/mm3 (0.00-0.10); IMMATURE GRAN PERCENT AUTO 0 % (0-1); LYMPHOCYTES ABSOLUTE AUTO 1.31 K/mm3 (0.84-5.20); LYMPHOCYTES PERCENT AUTO 27 % (21-46); MONOCYTES ABSOLUTE AUTO 0.59 K/mm3 (0.16-1.47); MONOCYTES PERCENT AUTO 12 % (4-13); Mean Corpuscular HGB 27.6 pg (26.0-34.0); Mean Corpuscular HGB Conc 31.1 g/dL (31.5-36.5); Mean Corpuscular Volume 89 fL (80-100); Mean Platelet Volume 9.3 fL (9.1-12.4); NEUTROPHILS ABSOLUTE AUTO 2.68 K/mm3 (1.96-9.15); NEUTROPHILS PERCENT AUTO 56 % (41-73); Platelet Count 220 K/mm3 (150-400); RDW Coefficient Variation 14.8 % (11.7-14.2); RDW Standard Deviation 47.6 fL (35.1-46.3); Red Blood Cell Count 3.01 M/mm3 (4.30-5.90); White Blood Cell Count 4.83 K/mm3 (4.00-11.30)
[2022-03-18 05:45] LABS: Bun/Creatinine Ratio 13.7 (12.0-20.0); Calcium, Blood 8.9 mg/dL (8.5-10.1); Creatinine, Blood 0.95 mg/dL (0.60-1.20)
[2022-03-18 10:29] LABS: Color, Body Fluid Red (None-Yellow); Total Cell Count, Body Fluid 100
[2022-03-18 10:30] LABS: Appearance, Body Fluid Bloody (Clear)
--- NOTE | 2022-03-18 18:08 | NUR ---
PT IS A/OX4, PLEASANT AND COOPERATIVE. THE PT IS UP WITH 2 PERSON MAX ASSIST. TODAY THE PT WAS UP INTO THE CHAIR ASSISTED BY THE OCCUPATIONAL AND PHYSICAL THERAPIST. PT PT WAS ASSISTED BACK TO BED BY THE NURSING STAFF USEING A GAIT BELT AND FWW. PT IS SOB WITH ACTIVITY. THE PTS RIGHT HIP WOUND VAC DRESSING WAS CHANGED TODAY THE PT WAS MEDICATED FOR PAIN PRIOR TO THE PROCEDURE. PT WAS MEDICATED FOR PAIN T/O THE DAY. CALL LIGHT IN REACH. WILL CONTINUE TO MONITOR AND ASSESS FOR CHANGES
[2022-03-19 05:02] LABS: BASOPHILS ABSOLUTE AUTO 0.04 K/mm3 (0.00-0.23); BASOPHILS PERCENT AUTO 1 % (0-2); EOSINOPHILS ABSOLUTE AUTO 0.13 K/mm3 (0.00-0.68); EOSINOPHILS PERCENT AUTO 4 % (0-6); Hematocrit 24.3 % (37.0-53.0); Hemoglobin 7.5 g/dL (13.5-17.5); IMMATURE GRAN ABSOLUTE AUTO 0.02 K/mm3 (0.00-0.10); IMMATURE GRAN PERCENT AUTO 1 % (0-1); LYMPHOCYTES ABSOLUTE AUTO 1.11 K/mm3 (0.84-5.20); LYMPHOCYTES PERCENT AUTO 30 % (21-46); MONOCYTES ABSOLUTE AUTO 0.48 K/mm3 (0.16-1.47); MONOCYTES PERCENT AUTO 13 % (4-13); Mean Corpuscular HGB 27.2 pg (26.0-34.0); Mean Corpuscular HGB Conc 30.9 g/dL (31.5-36.5); Mean Corpuscular Volume 88 fL (80-100); Mean Platelet Volume 9.2 fL (9.1-12.4); NEUTROPHILS ABSOLUTE AUTO 1.98 K/mm3 (1.96-9.15); NEUTROPHILS PERCENT AUTO 53 % (41-73); Platelet Count 217 K/mm3 (150-400); RDW Coefficient Variation 14.8 % (11.7-14.2); RDW Standard Deviation 47.7 fL (35.1-46.3); Red Blood Cell Count 2.76 M/mm3 (4.30-5.90); White Blood Cell Count 3.76 K/mm3 (4.00-11.30)
--- NOTE | 2022-03-19 05:19 | NUR ---
SHIFT SUMMARY: PT WAS VERY SLEEPY THROUGOUT THE SHIFT, BUT EASILY AROUSABLE. WOUND VAC DRESSING IS CDI AND NO ISSUES THE VAC. HE DID HAVE SOME C/O PAIN AND WAS MEDICATED VIA EMAR. HE IS NOT TOLERATING THE SCDs, BUT DOES HAVE CHEMICAL PROPHYLAXIS. THERE ARE NO OTHER CHANGES TO REPORT AND WE'LL CONTINUE TO MONITOR.
[2022-03-19 05:32] LABS: Bun/Creatinine Ratio 14.2 (12.0-20.0); Calcium, Blood 8.7 mg/dL (8.5-10.1); Creatinine, Blood 0.85 mg/dL (0.60-1.20); Potassium, Blood 3.9 mmol/L (3.5-5.5)
--- NOTE | 2022-03-19 11:45 | NUR ---
pt had a lot of pain getting from the chair to the bed, 25mcg fentanyl given for relief, which was effective. call light in reach.
--- NOTE | 2022-03-19 18:34 | NUR ---
pt has been pretty painful today, has recieved a number of doses of medication. he sat in the chair for a short time this am. slept some this late afternoon. no further changes this shift. call light in reach.
[2022-03-20 04:26] LABS: BASOPHILS ABSOLUTE AUTO 0.05 K/mm3 (0.00-0.23); BASOPHILS PERCENT AUTO 1 % (0-2); EOSINOPHILS ABSOLUTE AUTO 0.15 K/mm3 (0.00-0.68); EOSINOPHILS PERCENT AUTO 4 % (0-6); Hematocrit 23.1 % (37.0-53.0); Hemoglobin 7.4 g/dL (13.5-17.5); Mean Corpuscular HGB 28.2 pg (26.0-34.0); Mean Corpuscular Volume 88 fL (80-100); Mean Platelet Volume 8.9 fL (9.1-12.4); Platelet Count 205 K/mm3 (150-400); RDW Coefficient Variation 14.7 % (11.7-14.2); RDW Standard Deviation 47.7 fL (35.1-46.3); Red Blood Cell Count 2.62 M/mm3 (4.30-5.90); White Blood Cell Count 4.11 K/mm3 (4.00-11.30)
[2022-03-20 04:32] LABS: IMMATURE GRAN ABSOLUTE AUTO 0.01 K/mm3 (0.00-0.10); IMMATURE GRAN PERCENT AUTO 0 % (0-1); LYMPHOCYTES ABSOLUTE AUTO 1.18 K/mm3 (0.84-5.20); LYMPHOCYTES PERCENT AUTO 29 % (21-46); MONOCYTES ABSOLUTE AUTO 0.56 K/mm3 (0.16-1.47); MONOCYTES PERCENT AUTO 14 % (4-13); NEUTROPHILS ABSOLUTE AUTO 2.16 K/mm3 (1.96-9.15); NEUTROPHILS PERCENT AUTO 53 % (41-73)
[2022-03-20 04:44] LABS: Bun/Creatinine Ratio 16.8 (12.0-20.0); Calcium, Blood 8.5 mg/dL (8.5-10.1); Creatinine, Blood 0.95 mg/dL (0.60-1.20)
--- NOTE | 2022-03-20 04:44 | NUR ---
SHIFT SUMMARY A/OX3, FORGETFUL AT TIMES. WOUND VAC TO R. HIP, C/O 03/18 PAIN IN THE AREA, MEDICATED PER EMAR. PT REFUSING REPOSITIONING T/O SHIFT, CONTINUE TO REINFORCE EDUCATION. VSS, NO ACUTE CHANGES AT THIS TIME. BED IN LOWEST POSITION WITH CALL LIGHT IN REACH. WILL CONINUE TO MONITOR AND REPORT TO ONCOMING RN.
--- NOTE | 2022-03-20 09:24 | NUR ---
pt requesting pain meds as soon as i walked in the door at 0730 this am, wanted his lani, explained too early, did give tramadol, states his pain is excrutiating, a/ox3, lungs are clear dim in bases, on r/a, no cough noted, hrr, no edema noted, ppp+1, cap refill <3sec, vs stable, afebrile, iv is power glide to tamiko, site is clear and patent, btx4, abd flat soft nontender voids via urinal, skin has wound vac to right hip, moves upper ext well, right leg is difficult to move due to pain, jagjit, call light in reach.
--- NOTE | 2022-03-20 18:03 | NUR ---
pt has had a better day today than yesterday, he napped in the afternoon, his dry legs are looking much better after lotion being applied a couple times a day, no further changes this shift. call light in reach.
--- NOTE | 2022-03-21 05:28 | NUR ---
SHIFT SUMMARY 56 YR M ADMITTED ON 02/19/22 FOR SEPSIS. FULL CODE. NO ACUTE CHANGES THIS SHIFT. PT DID HAVE AN EPISODE OF INCONTINENCE OF URINE THAT COMPLETELY SOAKED THE BED. HE DOES NOT DO WELL BEING TURNED FOR CLEANING. HE C/O EXCESSIVELY ABOUT BEING UNCOMFORTABLE AND REQUIRES ALOT OF REASSURANCE, BUT HE ALWAYS EXPRESSES GRATITUDE FOR HIS CARE. HE IS A PLEASANT MAN AND IS COOPERATIVE BUT HE HAS A VERY LOW TOLERANCE FOR ANY TYPE OF MOVEMENT OR ACTIVITY WELL PAIN.
[2022-03-21 06:00] LABS: Hematocrit 23.4 % (37.0-53.0); Hemoglobin 7.4 g/dL (13.5-17.5); Mean Corpuscular HGB 27.8 pg (26.0-34.0); Mean Corpuscular HGB Conc 31.6 g/dL (31.5-36.5); Mean Corpuscular Volume 88 fL (80-100); Platelet Count 204 K/mm3 (150-400); RDW Coefficient Variation 14.7 % (11.7-14.2); RDW Standard Deviation 47.4 fL (35.1-46.3); Red Blood Cell Count 2.66 M/mm3 (4.30-5.90); White Blood Cell Count 4.68 K/mm3 (4.00-11.30)
[2022-03-21 06:28] LABS: Calcium, Blood 8.8 mg/dL (8.5-10.1); Creatinine, Blood 0.88 mg/dL (0.60-1.20); Potassium, Blood 3.9 mmol/L (3.5-5.5)
[2022-03-21 06:48] LABS: BAND PERCENT MAN 2 % (0-8); BASOPHILS ABSOLUTE MAN 0.09 K/mm3 (0.00-0.23); BASOPHILS PERCENT MAN 2 % (0-2); EOSINOPHILS ABSOLUTE MAN 0.14 K/mm3 (0.00-0.68); EOSINOPHILS PERCENT MAN 3 % (0-6); LYMPHOCYTES ABSOLUTE MAN 1.45 K/mm3 (0.84-5.20); LYMPHOCYTES PERCENT MAN 31 % (21-46); MONOCYTES ABSOLUTE MAN 0.37 K/mm3 (0.16-1.47); MONOCYTES PERCENT MAN 8 % (4-13); NEUTROPHILS ABSOLUTE MAN 2.62 K/mm3 (1.96-9.15); SEG NEUTROPHILS PERCENT MAN 54 % (41-73); TOTAL CELLS COUNTED 100
--- NOTE | 2022-03-21 19:21 | NUR ---
END OF SHIFT SUMMARY: PATIENT REPORTED PAIN THROUGHOUT THE SHIFT. MEDICATED PER PRNS WITH SOME SUCCESS. INITIATED MEDICATION FOR ANXIETY POST DISCUSSION WITH DR. PERALES. PATIENT WAS ABLE TO RELAX AND TAKE A NAP. THIS GREATLY IMPROVED PATIENT'S MOOD. PATIENT UP TO THE BSC WITH TWO ASSIST. PATIENT ABLE TO ASSIST WITH REPOSITIONING WITH MUCH ENCOURAGEMENT AND PATIENCE.
--- NOTE | 2022-03-22 04:43 | NUR ---
LIQUID FERTILIZER SERVICER SUMMARY AWAKE AT INTERVALS THROUGH SHIFT. IV ANTIBIOTICS AND PAIN MEDS ADMINISTERED ORDERED - SEE MAR FOR DETAILS. WOUND VAC OF RIGHT HIP AREA DRAINING. ALERT TO QUESTIONS ASKED BUT NOTE SOME CONFUSION AT TIMES. VOICED SOME QUESTIONS OF WHERE HE WAS, REDIRECTED TO PLACE AND SOME OF HIS SURROUNDINGS. ISOLATION PRECAUTIONS MAINTAINED. CALL LIGHT IN REACH
[2022-03-22 05:31] LABS: BASOPHILS ABSOLUTE AUTO 0.05 K/mm3 (0.00-0.23); BASOPHILS PERCENT AUTO 1 % (0-2); EOSINOPHILS ABSOLUTE AUTO 0.17 K/mm3 (0.00-0.68); EOSINOPHILS PERCENT AUTO 4 % (0-6); Hematocrit 23.9 % (37.0-53.0); Hemoglobin 7.5 g/dL (13.5-17.5); IMMATURE GRAN ABSOLUTE AUTO 0.01 K/mm3 (0.00-0.10); IMMATURE GRAN PERCENT AUTO 0 % (0-1); LYMPHOCYTES ABSOLUTE AUTO 1.54 K/mm3 (0.84-5.20); LYMPHOCYTES PERCENT AUTO 34 % (21-46); MONOCYTES PERCENT AUTO 16 % (4-13); Mean Corpuscular HGB 27.7 pg (26.0-34.0); Mean Corpuscular HGB Conc 31.4 g/dL (31.5-36.5); Mean Corpuscular Volume 88 fL (80-100); Mean Platelet Volume 9.2 fL (9.1-12.4); NEUTROPHILS ABSOLUTE AUTO 2.02 K/mm3 (1.96-9.15); NEUTROPHILS PERCENT AUTO 45 % (41-73); Platelet Count 241 K/mm3 (150-400); RDW Coefficient Variation 14.9 % (11.7-14.2); RDW Standard Deviation 47.5 fL (35.1-46.3); Red Blood Cell Count 2.71 M/mm3 (4.30-5.90); White Blood Cell Count 4.49 K/mm3 (4.00-11.30)
[2022-03-22 05:42] LABS: Bun/Creatinine Ratio 21.5 (12.0-20.0); Calcium, Blood 8.6 mg/dL (8.5-10.1); Creatinine, Blood 0.93 mg/dL (0.60-1.20); Potassium, Blood 3.9 mmol/L (3.5-5.5)
--- NOTE | 2022-03-22 20:15 | NUR ---
END OF SHIFT SUMMARY: NOTICABLE DECREASE IN ANXIETY TODAY. PATIENT DID COMPLAIN OF PAIN, BUT DID NOT YELL OUT OR EXPRESS ANXIETY DURING THE SHIFT. PATIENT UP TO THE BSC, BUT UNABLE TO HAVE A BOWEL MOVEMENT (ADDITIONAL BOWEL CARE HAD BEEN GIVEN AND REPORTED TO NOC RN TO GIVE ADDITIONAL PRNS). PATIENT INITIALLY AGREED TO SIT IN THE CHAIR, BUT THEN CHANGED HIS MIND AND REFUSED FOR THE REST OF THE SHIFT. PATIENT WORKED MINIMALLY WITH PT AND OT. PATIENT DID NOT COMPLAIN OF PAIN MUCH WITH REPOSITIONING TODAY. WOUND VAC DRESSING INTACT. CONTINUES TO HAVE SEROSANGINOUS DRAINAGE. TISSUE AROUND INCISION SITE IS NORMO-COLOR FOR THE PATIENT. NO REDNESS NOTED. TISSUE IS SOFT AND TENDER.
--- NOTE | 2022-03-23 03:12 | NUR ---
STRAP MACHINE OPERATOR SUMMARY CONTINUESTO RECEIVE ANTIBIOTICS ORDERED - SEE DEC FOR DETAILS. WOUND VAC TO RIGHT HIP DRAINING. LESS ANXIOUS THAN NOTED 24 HR PREVIOUS AFTER HAVING RECEIVED ATARAX AT HS. VSS. HAS BEEN RESTING QUIETLY, VOICED DIDNT WANT REPOSITIONED A FEW MINUTES AGO HE WAS VERY COMFORTABLE. CALL LIGHT IN REACH. ISOLATION PRECAUTIONS MAINTAINED.
[2022-03-23 04:43] LABS: BASOPHILS ABSOLUTE AUTO 0.04 K/mm3 (0.00-0.23); BASOPHILS PERCENT AUTO 1 % (0-2); EOSINOPHILS ABSOLUTE AUTO 0.16 K/mm3 (0.00-0.68); EOSINOPHILS PERCENT AUTO 4 % (0-6); Hematocrit 23.2 % (37.0-53.0); Hemoglobin 7.3 g/dL (13.5-17.5); IMMATURE GRAN ABSOLUTE AUTO 0.01 K/mm3 (0.00-0.10); IMMATURE GRAN PERCENT AUTO 0 % (0-1); LYMPHOCYTES ABSOLUTE AUTO 1.24 K/mm3 (0.84-5.20); LYMPHOCYTES PERCENT AUTO 31 % (21-46); MONOCYTES ABSOLUTE AUTO 0.59 K/mm3 (0.16-1.47); MONOCYTES PERCENT AUTO 15 % (4-13); Mean Corpuscular HGB 27.7 pg (26.0-34.0); Mean Corpuscular HGB Conc 31.5 g/dL (31.5-36.5); Mean Corpuscular Volume 88 fL (80-100); NEUTROPHILS ABSOLUTE AUTO 1.99 K/mm3 (1.96-9.15); NEUTROPHILS PERCENT AUTO 49 % (41-73); Platelet Count 242 K/mm3 (150-400); RDW Coefficient Variation 14.9 % (11.7-14.2); RDW Standard Deviation 48.1 fL (35.1-46.3); Red Blood Cell Count 2.64 M/mm3 (4.30-5.90); White Blood Cell Count 4.03 K/mm3 (4.00-11.30)
[2022-03-23 05:38] LABS: Bun/Creatinine Ratio 25.3 (12.0-20.0); Creatinine, Blood 0.87 mg/dL (0.60-1.20)
--- NOTE | 2022-03-23 20:20 | NUR ---
END OF SHIFT SUMMARY: PATIENT CONTINUES TO REPORT PAIN AND ANXIETY. MEDICATED PER PRNS. PATIENT HAS NOT HAVE A BOWEL MOVEMENT RECENTLY. MEDICATED PER PRNS. PATIENT UP TO THE BSC TO ATTEMPT A BM. PATIENT THEN AGREED TO SIT IN THE CHAIR. PATIENT WORKED WITH PT AND OT TODAY. ANXIETY MEDICATION SEEMS TO BE HELPING THE PARTICIPATE MORE IN THERAPIES. PATIENT'S BROTHER, PHILLIP, IN TO VISIT THE PATIENT. HE IS SUPPORTIVE OF THE PATIENT AND IS WORKING TO STAY INFORMED OF HIS PLAN OF CARE. HIS NUMBER IS ON THE BOARD IN THE ROOM AND HE WOULD LIKE TO BE INFORMED IF THE PATIENT IS TRANSFERRED.
--- NOTE | 2022-03-23 20:23 | NUR ---
FAMILY CONTACT INFORMATION: PATIENT'S BROTHER PHILLIP REQUESTED THAT WE CALL HIM WITH UPDATES AND IF THE PATIENT IS TRANSFERED. HIS NUMBER IS ON THE BOARD IN THE PATIENTS ROOM.
--- NOTE | 2022-03-24 05:38 | NUR ---
SHIFT SUMMARY ADMITTED FOR SEPTIC ARTHRITIS OF RT HIP. HE HAS OSTEOMYELITIS OF T - VERTEBRAE. FULL CODE. CONTACT PRECAUTIONS FOR MRSA IN BLOOD. HOPEFUL FOR TRANSFER TO HIGHER LEVEL OF CARE. HX OF POLYSUBSTANCE ABUSE. WOUND VAC IN PLACE - RT HIP. MEDICATED FOR PAIN THIS SHIFT. HE IS ANXIOUS. ATARAX GIVEN THIS SHIFT. HE IS 2 ASSIST - BSC. ACHS CHEMSTICKS, ADA DIET. HIS FATHER IS REPORTED TO BE ADMITTED IN ICU HERE.
--- NOTE | 2022-03-24 18:49 | NUR ---
SHIFT SUMMARY PATIENT A&O WITH SEVERE ANXIETY. C/O TROUBLE VOIDING THIS AFTERNOON. STRAIGHT CATHED WITH 450ML OUT. C/O ANXIETY AND PAIN, MEDICATED PER DEC. STATED THAT FENTANYL DID NOT HELP WITH HIS PAIN. PATIENT 2PA UP TO BSC. WILL CONTINUE TO MONITOR.
--- NOTE | 2022-03-25 05:10 | NUR ---
SHIFT SUMMARY PT HAS BEEN RESTING AND SLEEPING. HE RECIEVED HIS ANXIETY MEDICATION THIS SHIFT AND AFTER THAT HAD NO NEED FOR PAIN MEDICATIONS. HE HAS BEEN BEHAVING UNUSUALLY. HE DUMPED URINE ON HIS BED EARLIER THI EVENING. AND WAS PINCHING HIS IV LINE TO CREATE A DISTURBANCE IN THE PUMP TO GET STAFF TO HELP COME TALK WITH HIM. HIS LAB CULTURES CAME BACKL GRAM POSITIVE COCCI IN [place]. IS AWARE AND CURRENT MEDICATIONS ARE IN ORDER TO TREAT. NO NEW ORDER NEEDED. STILL AWAITING COBRA TRANSFER FOR THE PT. CALL LIGHT IN REACH
[2022-03-25 05:54] LABS: BASOPHILS ABSOLUTE AUTO 0.03 K/mm3 (0.00-0.23); BASOPHILS PERCENT AUTO 1 % (0-2); EOSINOPHILS ABSOLUTE AUTO 0.17 K/mm3 (0.00-0.68); EOSINOPHILS PERCENT AUTO 7 % (0-6); Hematocrit 22.9 % (37.0-53.0); Hemoglobin 7.2 g/dL (13.5-17.5); IMMATURE GRAN ABSOLUTE AUTO 0.01 K/mm3 (0.00-0.10); IMMATURE GRAN PERCENT AUTO 0 % (0-1); LYMPHOCYTES ABSOLUTE AUTO 1.13 K/mm3 (0.84-5.20); LYMPHOCYTES PERCENT AUTO 44 % (21-46); MONOCYTES ABSOLUTE AUTO 0.58 K/mm3 (0.16-1.47); MONOCYTES PERCENT AUTO 22 % (4-13); Mean Corpuscular HGB 27.5 pg (26.0-34.0); Mean Corpuscular HGB Conc 31.4 g/dL (31.5-36.5); Mean Corpuscular Volume 87 fL (80-100); Mean Platelet Volume 9.2 fL (9.1-12.4); NEUTROPHILS ABSOLUTE AUTO 0.68 K/mm3 (1.96-9.15); NEUTROPHILS PERCENT AUTO 26 % (41-73); Platelet Count 253 K/mm3 (150-400); RDW Coefficient Variation 14.9 % (11.7-14.2); RDW Standard Deviation 47.6 fL (35.1-46.3); Red Blood Cell Count 2.62 M/mm3 (4.30-5.90)
[2022-03-25 06:27] LABS: Bun/Creatinine Ratio 22.7 (12.0-20.0); Calcium, Blood 8.8 mg/dL (8.5-10.1); Creatinine, Blood 0.88 mg/dL (0.60-1.20); Potassium, Blood 3.8 mmol/L (3.5-5.5)
--- NOTE | 2022-03-25 19:14 | NUR ---
SHIFT SUMMARY PATIENT A&O. SEVERE ANXIETY. PATIENT GASPS WHEN BREATHING STATING IT IS NORMAL AND RELATED TO HIS ANXIETY. WOUND VAC DRESSING CHANGED. C/O PAIN AND ANXIETY, MEDICATED PER MAR. NO SIGNIFICANT EVENTS. REPORT GIVEN TO ONCOMING RN.
--- NOTE | 2022-03-26 04:35 | NUR ---
SHIFT SUMMARY NO ACUTE CHANGES THIS SHIFT. PT DID ASK FOR PAIN AND ANXIETY MEDS ONCE. HAS BEEN RESTING PEACFULLY. WOUND VAC SEALED AND IN PLACE. PT STILL CONT. INCONT WITH THE URINAL, BUT HAS NOT ATTEMPTED TO PINCH OFF IV LINES THIS EVENING. STILL WAITING FOR COBRA TRANFER IN ORDER FOR PT TO HAVE NEEDED SURGERY. CALL LIGHT WITHIN REACH
[2022-03-26 06:14] LABS: Hematocrit 22.8 % (37.0-53.0); Hemoglobin 7.3 g/dL (13.5-17.5); Mean Corpuscular HGB 27.9 pg (26.0-34.0); Mean Corpuscular Volume 87 fL (80-100); Mean Platelet Volume 8.8 fL (9.1-12.4); Platelet Count 269 K/mm3 (150-400); RDW Coefficient Variation 15.1 % (11.7-14.2); RDW Standard Deviation 47.8 fL (35.1-46.3); Red Blood Cell Count 2.62 M/mm3 (4.30-5.90); White Blood Cell Count 2.09 K/mm3 (4.00-11.30)
[2022-03-26 06:39] LABS: Bun/Creatinine Ratio 23.1 (12.0-20.0); Calcium, Blood 8.8 mg/dL (8.5-10.1); Creatinine, Blood 0.82 mg/dL (0.60-1.20); Potassium, Blood 3.9 mmol/L (3.5-5.5)
--- NOTE | 2022-03-26 08:00 | NUR ---
pt laying in bed, has called multiple time this am for pain meds and other nonesential things, pt is a/ox3, cooperative with care, follows commands well, states he has pain in his right hip, anxious, lungs are a bit course, has a strange breathing pattern, when he gets anxious he sounds very constricted, with insp wheeze, goes away when he's relaxed, he states he's not sob, just from anxiety, on r/a, no cough noted, hrr, power glide to tamiko, site is clear and patent, doesn't draw, edema noted around right hip wound vac, wound vac is intact, lower ext are very dry with large pieced of skin peeling off, moves upper arms ok, right leg is very painful to move, jagjit, call light in reach.
[2022-03-26 08:13] LABS: BASOPHILS PERCENT MAN 0 % (0-2); EOSINOPHILS ABSOLUTE MAN 0.14 K/mm3 (0.00-0.68); EOSINOPHILS PERCENT MAN 7 % (0-6); LYMPHOCYTES ABSOLUTE MAN 1.42 K/mm3 (0.84-5.20); LYMPHOCYTES PERCENT MAN 68 % (21-46); MONOCYTES ABSOLUTE MAN 0.29 K/mm3 (0.16-1.47); MONOCYTES PERCENT MAN 14 % (4-13); NEUTROPHILS ABSOLUTE MAN 0.22 K/mm3 (1.96-9.15); SEG NEUTROPHILS PERCENT MAN 11 % (41-73); TOTAL CELLS COUNTED 100
--- NOTE | 2022-03-26 12:22 | NUR ---
Spiritual Care Callback Pt. is awake in bed. Family members are present. Intial rapport is developed before with family before family excuses themselves. With a calming presence pastorally inquire about the Pts. spiritual condition. Pt. becomes cathartic. This chapain identifies that "I am not a Preist", yet the Pt. requested I assist him through a process of repentance. Pt. Made confession, and pastoral prayer was given. Pt. displayed evidence of peace and lower anxiety. Pt. verbalized gratitude for the spiritual care visit.
--- NOTE | 2022-03-26 12:44 | NUR ---
transfer center from [facility] in [place] gathering info for possible transfer to [facility], pt is willing to go, did a covid screen. brother in room, call light in reach.
[2022-03-26 12:49] LABS: SARS-Cov-2 (COVID-19) PCR, MMC NEGATIVE (NEGATIVE)
--- NOTE | 2022-03-26 14:15 | NUR ---
pt sleeping soundly, snoring lightly, call light in reach.
--- NOTE | 2022-03-26 18:38 | NUR ---
pt has slept a good part of the day, fentanyl patch was applied this am, states pain is staying down to 5/10, brother in to see him. no acute changes this shift. call light in reach.
--- NOTE | 2022-03-27 03:59 | NUR ---
SHIFT SUMMARY PT IS DOING MUCH BETTER THIS EVENING. HEIS PAIN IS MORE MANAGED AND HE IS LESS ANXIOUS. HIS FATHER IS ALSO DOING BETTER WHICH HAS HELPED HIM RELAX AND BE MORE COMFORTABLE. HE IS ENCOURAGED BY THE NEW THAT DR LINCOLN WILL DO HIS SURGERY IF HE CANNOT BE TRANSFERED. HE IS STILL HAVING UNUSUAL BREATHING PARRTERNS, BUT AGAIN STATES THAT THIS IS NORMAL FOR HIM AT HOME. CALL [facility] IN REACH.
[2022-03-27 05:45] LABS: Hematocrit 24.7 % (37.0-53.0); Hemoglobin 7.6 g/dL (13.5-17.5); Mean Corpuscular HGB 27.3 pg (26.0-34.0); Mean Corpuscular HGB Conc 30.8 g/dL (31.5-36.5); Mean Corpuscular Volume 89 fL (80-100); Mean Platelet Volume 8.9 fL (9.1-12.4); Platelet Count 292 K/mm3 (150-400); RDW Coefficient Variation 15.2 % (11.7-14.2); RDW Standard Deviation 49.2 fL (35.1-46.3); Red Blood Cell Count 2.78 M/mm3 (4.30-5.90); White Blood Cell Count 2.09 K/mm3 (4.00-11.30)
[2022-03-27 06:00] LABS: Bun/Creatinine Ratio 21.1 (12.0-20.0); Calcium, Blood 8.9 mg/dL (8.5-10.1); Creatinine, Blood 0.85 mg/dL (0.60-1.20); Potassium, Blood 3.9 mmol/L (3.5-5.5)
[2022-03-27 06:13] LABS: BASOPHILS ABSOLUTE MAN 0.02 K/mm3 (0.00-0.23); BASOPHILS PERCENT MAN 1 % (0-2); EOSINOPHILS ABSOLUTE MAN 0.18 K/mm3 (0.00-0.68); EOSINOPHILS PERCENT MAN 9 % (0-6); LYMPHOCYTES % ATYPICAL MANUAL 1 % (0-0); LYMPHOCYTES PERCENT MAN 66 % (21-46); MONOCYTES ABSOLUTE MAN 0.41 K/mm3 (0.16-1.47); MONOCYTES PERCENT MAN 20 % (4-13); NEUTROPHILS ABSOLUTE MAN 0.06 K/mm3 (1.96-9.15); SEG NEUTROPHILS PERCENT MAN 3 % (41-73); TOTAL CELLS COUNTED 100
--- NOTE | 2022-03-27 08:00 | NUR ---
Pt laying in bed with eyes closed the first time I checked on him, will medicate for pain as he is asking, a/ox3, cooperative with care, follows commands well, reports pain in his right hip, wound vac intact to right hip, edema around right hip, lungs are course, on r/a, but has a strange breathing pattern, ankur when anxious, he sounds constricted durring inhalation, no cough noted, or complaints of sob, hrr, no edema to b/l le, cap refill <3sec, vs stable, afebrile, iv is power glide to tamiko, site is clear and patent, btx4, abd flat soft nontender, voids via urinal, skin has wound right hip with wound vac in place, moves upper ext, not legs, jagjit, call light in reach.
--- NOTE | 2022-03-27 18:09 | NUR ---
pt has had an uneventful day, Dr. Varghese in to see him, will plan for possible surgery tomorrow, npo after mid, having a ct scan of his shoulder at this time. has been more painful today than yesterday. call light in reach.
--- NOTE | 2022-03-28 04:06 | NUR ---
SHIFT ASSESSMENT PT CONTINUES TO BE PAINFUL IN HIS HIP. PT MEDICATED PER EMAR. PT ABLE TO SLEEP OFF AND ON THROUGHOUT THE NIGHT. PT HAS DIFFICULTY BREATHING AT TIMES, PT STS ITS FROM HIS ANXIETY. REMIND PT TO TAKE SLOW, DEEP BREATHS. NO ACUTE CHANGES TO PT CONDITION. PT HAS CALL LIGHT WITHIN HIS REACH AND ACKNOWLEDGES THE INSTRUCTION TO CALL IF HE NEEDS ANYHTHING.
[2022-03-28 04:42] LABS: Hematocrit 25.5 % (37.0-53.0); Hemoglobin 7.8 g/dL (13.5-17.5); Mean Corpuscular HGB 27.3 pg (26.0-34.0); Mean Corpuscular HGB Conc 30.6 g/dL (31.5-36.5); Mean Corpuscular Volume 89 fL (80-100); Mean Platelet Volume 8.8 fL (9.1-12.4); Platelet Count 294 K/mm3 (150-400); RDW Coefficient Variation 15.3 % (11.7-14.2); RDW Standard Deviation 49.5 fL (35.1-46.3); Red Blood Cell Count 2.86 M/mm3 (4.30-5.90); White Blood Cell Count 2.85 K/mm3 (4.00-11.30)
[2022-03-28 05:01] LABS: Bun/Creatinine Ratio 20.8 (12.0-20.0); Calcium, Blood 8.7 mg/dL (8.5-10.1); Creatinine, Blood 0.91 mg/dL (0.60-1.20)
[2022-03-28 05:36] LABS: BAND PERCENT MAN 1 % (0-8); BASOPHILS ABSOLUTE MAN 0.02 K/mm3 (0.00-0.23); BASOPHILS PERCENT MAN 1 % (0-2); EOSINOPHILS ABSOLUTE MAN 0.08 K/mm3 (0.00-0.68); EOSINOPHILS PERCENT MAN 3 % (0-6); LYMPHOCYTES ABSOLUTE MAN 1.62 K/mm3 (0.84-5.20); LYMPHOCYTES PERCENT MAN 57 % (21-46); MONOCYTES ABSOLUTE MAN 0.96 K/mm3 (0.16-1.47); MONOCYTES PERCENT MAN 34 % (4-13); NEUTROPHILS ABSOLUTE MAN 0.14 K/mm3 (1.96-9.15); SEG NEUTROPHILS PERCENT MAN 4 % (41-73); TOTAL CELLS COUNTED 100
--- NOTE | 2022-03-28 08:00 | NUR ---
Pt laying in bed with eyes closed, wakes easily, complaining of pain, will medicate, he has anxiety and wants someone in his room at all times to calls staff as soon as someone leaves, cooperative with care, follows commands, lungs are course dim in bases, has a abnormal breathing pattern, sounds constricted in upper airway on inspiration, has been doing this all along, sats are wnl, on r/a, hrr, edema noted around wound vac to right hip, power glide to tamiko site is clear and patent, btx4, abd flat soft nontender, voids via urinal, skin has wound vac to right hip, Dr. Varghese was in to see him this am, will not be doing surgery today, will continue to look for a higher level of care facility for him, send hip fluid to lab per Dr. Varghese, wound vac was changed, b/l le are red, with very dry large flakes of skin peeling, lotioning the legs has helped, moves upper ext well, moveing legs causes a lot of pain, can't tolerate being on his side, jagjit, call light in reach.
--- NOTE | 2022-03-28 13:02 | NUR ---
Upon recieving a request by pt's RN, I visit pt. Pt is lying in bed and immediately requests water so I retrieve water and deliver to pt. Pt then talks at length about his Meth. addiction and his desire to live a better life. He talks at about his family history and his father's current health issues. Pt talks about his need for spiritual connection and feels it is the squires to living a clean and sober life. We explore sources of spiritual connection and his focus on prayer, Bible reading and yarsani attendeance as a beginning point for deeper spirituality. I listen empathically, hear confession, encourage self-care and provide theologcical insights, spiritual mental health counselor and prayer. Pt responds well and is moved to tears several times during the conversation and the prayer. Pt shows signs of cathartic healing and clear direction for mental/emotional/spiritual health. Spiritual care will remain available.
[2022-03-28 17:08] LABS: CPK Creatine Kinase 27 U/L (39-308)
[2022-03-28 17:20] LABS: Creatine Kinase MB <1.0 ng/mL (0.0-3.6); Creatine Kinase MB Index Unable to Calculate (0.0-4.0)
--- NOTE | 2022-03-28 18:45 | NUR ---
pt has had a rough day, wants someone in the room with him at all times, got up to a chair with PT, did not tolerate well, became out of control anxious and tells staff he takes paxil 40mg at home, notified Dr. Marquez, he did calm after getting him back to bed, he was medicated for his complaints, brother has been in the room with him, call light in reach.
--- NOTE | 2022-03-29 04:10 | NUR ---
SHIFT SUMMARY ADMITTED FOR RIGHT HIP SEPTIC ARTHRITIS. FULL CODE. CONTACT PRECAUTIONS: MRSA IN BLOOD/WOUND. 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 POWERGLIDE IN LUE. ADA DIET. CHEMSTICKS Q AM. WOUND VAC IN PLACE ON RIGHT HIP. HOPEFUL FOR DC TO HIGHER LEVEL OF CARE IF A BED CAN BE FOUND. HX OF POLYSUBSTANCE ABUSE. FENTANYL PATCH IN PLACE. OPTHAMOLOGY CONSULT REQUESTED. 2 HEAVY ASSIST TO BSC. A&O X4. DR. LINCOLN IS CONSULT.
[2022-03-29 04:38] LABS: BASOPHILS ABSOLUTE AUTO 0.02 K/mm3 (0.00-0.23); BASOPHILS PERCENT AUTO 1 % (0-2); EOSINOPHILS ABSOLUTE AUTO 0.09 K/mm3 (0.00-0.68); EOSINOPHILS PERCENT AUTO 4 % (0-6); Hemoglobin 7.5 g/dL (13.5-17.5); Mean Corpuscular HGB 27.3 pg (26.0-34.0); Mean Corpuscular HGB Conc 31.3 g/dL (31.5-36.5); Mean Corpuscular Volume 87 fL (80-100); Mean Platelet Volume 8.8 fL (9.1-12.4); Platelet Count 283 K/mm3 (150-400); RDW Coefficient Variation 14.8 % (11.7-14.2); RDW Standard Deviation 47.7 fL (35.1-46.3); Red Blood Cell Count 2.75 M/mm3 (4.30-5.90); White Blood Cell Count 2.17 K/mm3 (4.00-11.30)
[2022-03-29 04:39] LABS: IMMATURE GRAN PERCENT AUTO 0 % (0-1); LYMPHOCYTES ABSOLUTE AUTO 1.16 K/mm3 (0.84-5.20); LYMPHOCYTES PERCENT AUTO 54 % (21-46); MONOCYTES ABSOLUTE AUTO 0.87 K/mm3 (0.16-1.47); MONOCYTES PERCENT AUTO 40 % (4-13); NEUTROPHILS ABSOLUTE AUTO 0.03 K/mm3 (1.96-9.15); NEUTROPHILS PERCENT AUTO 1 % (41-73)
[2022-03-29 05:09] LABS: Bun/Creatinine Ratio 27.4 (12.0-20.0); Calcium, Blood 8.8 mg/dL (8.5-10.1); Creatinine, Blood 0.84 mg/dL (0.60-1.20); Potassium, Blood 3.8 mmol/L (3.5-5.5)
--- NOTE | 2022-03-29 11:56 | NUR ---
Spiritual Care Visit Attempted. Pt. is awake in bed and welcomes me to visit. Re-establish rapport. Pt. displays evidence of trust and engagement. Pt. verbalizes a plan to have him go to [facility]. Listen empathetically, began pastoral spiritual care when Medical team arrive to take Pt. for MRI. This title i assistant verblized that I would return to continue the discussion. Pt. verbalized graitude for the spiritual care visit.
--- NOTE | 2022-03-29 16:23 | NUR ---
Spiritual Care Resumed. Pt. is in bed. Pt. is unsettled by the way he had treated his father (also a current Pt. in the hospital). Provided spiritual direction and pastoral counseling. Prayed prayers of confession, and listened theraputically and prepared to relay the message to his father. Meanwhile NEWCOMER HOSTESS came in and asked Pt. if he wanted to see his father. The pt. verbalized that he did, and this cold roller went to room 325 where his father was to prepare father for the son's arrival.
--- NOTE | 2022-03-29 17:48 | NUR ---
NO ACUTE CHANGES PT AOX3 AND COOPERATIVE OF CARE. PT DOING WELL AT THIS TIME TREATED FOR PAIN PER EMAR. PT WAS GOTTEN UP INTO WHEEL CHAIR SO HE COULD GO SEE HIS FATHER IN ROOM 325. WOUNDVAC IS RUNNING WELL AT THIS TIME. PT CAN USE CALL LIGHT APPROPRIATELY. NO DISTRESS NOTED WILL CONTINUE TO MONITOR.
[2022-03-30 05:06] LABS: BASOPHILS ABSOLUTE AUTO 0.01 K/mm3 (0.00-0.23); BASOPHILS PERCENT AUTO 0 % (0-2); EOSINOPHILS ABSOLUTE AUTO 0.08 K/mm3 (0.00-0.68); EOSINOPHILS PERCENT AUTO 3 % (0-6); Hematocrit 23.6 % (37.0-53.0); Hemoglobin 7.3 g/dL (13.5-17.5); IMMATURE GRAN ABSOLUTE AUTO 0.01 K/mm3 (0.00-0.10); IMMATURE GRAN PERCENT AUTO 0 % (0-1); LYMPHOCYTES ABSOLUTE AUTO 1.53 K/mm3 (0.84-5.20); LYMPHOCYTES PERCENT AUTO 55 % (21-46); MONOCYTES ABSOLUTE AUTO 1.03 K/mm3 (0.16-1.47); MONOCYTES PERCENT AUTO 37 % (4-13); Mean Corpuscular HGB 27.1 pg (26.0-34.0); Mean Corpuscular HGB Conc 30.9 g/dL (31.5-36.5); Mean Corpuscular Volume 88 fL (80-100); NEUTROPHILS ABSOLUTE AUTO 0.12 K/mm3 (1.96-9.15); NEUTROPHILS PERCENT AUTO 4 % (41-73); Platelet Count 306 K/mm3 (150-400); RDW Coefficient Variation 14.9 % (11.7-14.2); RDW Standard Deviation 47.8 fL (35.1-46.3); Red Blood Cell Count 2.69 M/mm3 (4.30-5.90); White Blood Cell Count 2.78 K/mm3 (4.00-11.30)
[2022-03-30 05:26] LABS: Bun/Creatinine Ratio 26.8 (12.0-20.0); Creatinine, Blood 0.86 mg/dL (0.60-1.20); Potassium, Blood 3.7 mmol/L (3.5-5.5)
--- NOTE | 2022-03-30 07:13 | NUR ---
SHIFT SUMMARY: PT A/OX3, DELAYED IN RESPONSES. NO ACUTE CHANGES THROUGHOUT THE NIGHT. FOCUSING ON PAIN CONTROL, ENCOURAGING MOVEMENT AND CONSTIPATION RELIEF.
--- NOTE | 2022-03-30 16:28 | NUR ---
Spiritual Care Visit. Pt. is awake in bed and welcomes my visit. Initiated discussion regarding what "takeways" the Pt. had from his meeting with his father on the previous day. Pt. was unsettled because he felt meeting his father started badly. Explored the meaning of reconciliation, and identified what both parties said and did. Pt. displayed evidence of agreement. Provided anticipatory guidance about what might happen since his father is very sick. Provided pastoral counseling and prayer. Pt. verbalized that he loved this line crew supervisor, as well gratitude for the spiritual care visit. (Note: Pt. is unaware at this point that his father in room 325 is on comfort care.)
--- NOTE | 2022-03-30 17:44 | NUR ---
NO ACUTE CHANGES. PT NEEDS REPOSITIONING EVERY COUPLE HOURS.PT AOX4 AND TREATED FOR R HIP PAIN PER EMAR. DR LINCOLN CHANGED WOUND VAC TODAY, PT TOLERATED WELL. PT ABLE TO MAKE NEEDS KNOWN. NO DISTRESS NOTED AT THIS TIME WILL CONTINUE TO MONITOR CALL LIGHT IS WITHIN REACH.
[2022-03-31 05:20] LABS: Hematocrit 24.5 % (37.0-53.0); Hemoglobin 7.5 g/dL (13.5-17.5); Mean Corpuscular HGB 27.2 pg (26.0-34.0); Mean Corpuscular HGB Conc 30.6 g/dL (31.5-36.5); Mean Corpuscular Volume 89 fL (80-100); Platelet Count 280 K/mm3 (150-400); RDW Coefficient Variation 14.7 % (11.7-14.2); RDW Standard Deviation 47.6 fL (35.1-46.3); Red Blood Cell Count 2.76 M/mm3 (4.30-5.90); White Blood Cell Count 2.16 K/mm3 (4.00-11.30)
[2022-03-31 06:05] LABS: Bun/Creatinine Ratio 33.9 (12.0-20.0); Calcium, Blood 8.8 mg/dL (8.5-10.1); Creatinine, Blood 0.74 mg/dL (0.60-1.20); Potassium, Blood 3.8 mmol/L (3.5-5.5)
[2022-03-31 06:44] LABS: BAND PERCENT MAN 2 % (0-8); BASOPHILS PERCENT MAN 0 % (0-2); EOSINOPHILS ABSOLUTE MAN 0.12 K/mm3 (0.00-0.68); EOSINOPHILS PERCENT MAN 6 % (0-6); LYMPHOCYTES PERCENT MAN 42 % (21-46); MONOCYTES ABSOLUTE MAN 0.95 K/mm3 (0.16-1.47); MONOCYTES PERCENT MAN 44 % (4-13); NEUTROPHILS ABSOLUTE MAN 0.17 K/mm3 (1.96-9.15); SEG NEUTROPHILS PERCENT MAN 6 % (41-73); TOTAL CELLS COUNTED 50
--- NOTE | 2022-03-31 07:31 | NUR ---
Rn summary: Patient is alert and cooperative at beginning of shift. Pt continues to have funny "stressed " breathing when staff is in room. No respiratory distress noted. Heart rate is regular. Abdomen is rounded bowel tones active. Patient up to BSC with 2 max assist , passed only gas. Skin is very dry on hands and feet. Wound vac to rt inner groin/hip drsg is intact, looks good. Patient was medicated x1 for pain with good relief, rested well most of shift. Was confused during the night, struggled to tell a story, seemed frustrated. Otherwise was pleasant. Call light in reach. [facility] did call for patient update, no room available at this time.
--- NOTE | 2022-03-31 17:30 | NUR ---
DAY SHIFT SUMMARY 56 YR OLD MALE WITH SEPSIS. MRSA OF WOUND AND BLOOD. C/O OF PAIN, MEDICATED PER EMAR. PICC LINE PLACED. PT ON RA. WOUND VACC INTACT. CALL LIGHT WITHIN REACH AND ABLE TO CALL. PT HAS BEEN TALKING TO HIMSELF THIS SHIFT AND SPEAKING OF [place], DR MCGARRY AWARE.
--- NOTE | 2022-03-31 18:17 | NUR ---
Spiritual Care visit. Pt. is resting in bed, but responds when I enter the room. Pt. welcomes my visit. Pt. displays evidence of being a little disoriented. With a calming presence re-establish rapport. Pt. is unsettled about the need to see his brother. Pt. requested this overnight cashier to see if the brother could be found. Prayed with Pt. Pt. verbalized gratitude for the spiritual care visit. Pts. brother was in another room on the Medical floor visiting the pts. Father who is on comfort care. This overnight cashier relayed the message that the Pt. would like his brother to visit him today.
--- NOTE | 2022-04-01 04:53 | NUR ---
SHIFT SUMMARY PT CONFUSED THROUGHOUT THE NIGHT. FALLS ASLEEP INTERMITTENTLY MID CONVERSATION. WAKES EASILY. ANXIOUS AT TIMES BUT ONLY FOR SHORT BITS AND THEN PT FALLS ASLEEP AGAIN. PT REPORTS PAIN WHENEVER AWAKE. MEDICATED X 1 W/ 10 MG OXYCODONE. WOUND VAC IN PLACE TO R HIP. DRESSING IS C/D/I. SKIN IS FLAKEY AND DRY TO BLE'S. PER CHARTING PT HAS NOT HAD A BM SINCE 03/24/22. MILK OF MAG GIVEN. NO BM SO FAR THIS SHIFT. UPDATE GIVEN TO PATTIE AT [facility]. VITAL SIGNS STABLE.
[2022-04-01 05:28] LABS: Hematocrit 21.8 % (37.0-53.0); Hemoglobin 6.9 g/dL (13.5-17.5); Mean Corpuscular HGB 27.8 pg (26.0-34.0); Mean Corpuscular HGB Conc 31.7 g/dL (31.5-36.5); Mean Corpuscular Volume 88 fL (80-100); Mean Platelet Volume 8.9 fL (9.1-12.4); Platelet Count 308 K/mm3 (150-400); RDW Coefficient Variation 14.7 % (11.7-14.2); RDW Standard Deviation 47.4 fL (35.1-46.3); Red Blood Cell Count 2.48 M/mm3 (4.30-5.90); White Blood Cell Count 2.15 K/mm3 (4.00-11.30)
[2022-04-01 06:07] LABS: BASOPHILS ABSOLUTE MAN 0.04 K/mm3 (0.00-0.23); BASOPHILS PERCENT MAN 2 % (0-2); EOSINOPHILS ABSOLUTE MAN 0.21 K/mm3 (0.00-0.68); EOSINOPHILS PERCENT MAN 10 % (0-6); LYMPHOCYTES ABSOLUTE MAN 0.64 K/mm3 (0.84-5.20); LYMPHOCYTES PERCENT MAN 30 % (21-46); MONOCYTES ABSOLUTE MAN 0.98 K/mm3 (0.16-1.47); MONOCYTES PERCENT MAN 46 % (4-13); NEUTROPHILS ABSOLUTE MAN 0.25 K/mm3 (1.96-9.15); SEG NEUTROPHILS PERCENT MAN 12 % (41-73); TOTAL CELLS COUNTED 50
[2022-04-01 06:09] LABS: Bun/Creatinine Ratio 23.3 (12.0-20.0); Calcium, Blood 8.7 mg/dL (8.5-10.1); Creatinine, Blood 0.77 mg/dL (0.60-1.20); Potassium, Blood 3.5 mmol/L (3.5-5.5)
--- NOTE | 2022-04-01 06:35 | NUR ---
HGB 6.[address] WALTER. NEW ORDERS TO TRANSFUSE 1 UNIT PRBC'S AND RECHECK H/H 4 HOURS AFTER INFUSION.
--- NOTE | 2022-04-01 15:45 | NUR ---
Soiritual Care Visit. Pt. is awake in bed and welcomed my visit. Re-established rapport. Pt. displayed evidence of visceral pain, but verbalized anticipation of a planned transfer to [facility]. With a calming presence normalized the Pt. experience and Prayed for the Pt. Pt. verbalized gratitude for the spiritual care visit.
--- NOTE | 2022-04-01 16:36 | NUR ---
DAY SHIFT SUMMARY 56 YR OLD PT WITH SEPSIS. WOUND VAC TO RT HIP FROM IND WOUND VAC DRESSING AND PACKING CHANGED THIS SHIFT. ULTRA SOUND WITH ASPRIATION DONE THIS SHIFT TO RT SHOULDER. MEDICATED PER EMAR FOR PAIN. 1 UNIT PRBC ADMINISTERED THIS SHIFT FOR LOW HGB. CALL LIGHT WITHIN REACH. PT HAS SOME CONFUSSION, TALKS TO SELF, ABLE TO FOLLOW DIRECTION.
[2022-04-01 18:04] LABS: Hematocrit 23.8 % (37.0-53.0); Hemoglobin 7.5 g/dL (13.5-17.5)
--- NOTE | 2022-04-02 04:58 | NUR ---
SHIFT SUMMARY PATIENT HAD NO ACUTE CHANGES. AXOX 2 AND BEDREST. CONFUSED TALKING TO HIMSELF AT TIMES. USES URINAL INDEPENDENTLY. REPORTED RIGHT HIP PAIN AND OXYCODONE 10 MG GIVEN PER EMAR. WOUND VAC TO RIGHT HIP. PICC LINE ALIZA INTACT. CBG 120. VSS/AFEBRILE. DENIES CHEST PAIN, SOB, AND N/V. SKIN FLAKEY AND DRY TO BLE. CALL LIGHT IN REACH. BED IN LOWEST POSITION. WILL CONTINUE TO MONITOR UNTIL DAY SHIFT NURSE ASSUMES CARE.
[2022-04-02 05:26] LABS: BASOPHILS ABSOLUTE AUTO 0.01 K/mm3 (0.00-0.23); BASOPHILS PERCENT AUTO 1 % (0-2); EOSINOPHILS ABSOLUTE AUTO 0.08 K/mm3 (0.00-0.68); EOSINOPHILS PERCENT AUTO 4 % (0-6); Hematocrit 23.1 % (37.0-53.0); Hemoglobin 7.3 g/dL (13.5-17.5); Mean Corpuscular HGB 27.4 pg (26.0-34.0); Mean Corpuscular HGB Conc 31.6 g/dL (31.5-36.5); Mean Corpuscular Volume 87 fL (80-100); Mean Platelet Volume 8.9 fL (9.1-12.4); Platelet Count 299 K/mm3 (150-400); RDW Coefficient Variation 15.3 % (11.7-14.2); Red Blood Cell Count 2.66 M/mm3 (4.30-5.90); White Blood Cell Count 2.21 K/mm3 (4.00-11.30)
[2022-04-02 05:27] LABS: IMMATURE GRAN ABSOLUTE AUTO 0.04 K/mm3 (0.00-0.10); IMMATURE GRAN PERCENT AUTO 2 % (0-1); LYMPHOCYTES ABSOLUTE AUTO 0.85 K/mm3 (0.84-5.20); LYMPHOCYTES PERCENT AUTO 39 % (21-46); MONOCYTES ABSOLUTE AUTO 0.73 K/mm3 (0.16-1.47); MONOCYTES PERCENT AUTO 33 % (4-13); NEUTROPHILS PERCENT AUTO 23 % (41-73)
[2022-04-02 06:03] LABS: Bun/Creatinine Ratio 18.9 (12.0-20.0); Calcium, Blood 8.8 mg/dL (8.5-10.1); Creatinine, Blood 0.74 mg/dL (0.60-1.20); Potassium, Blood 3.6 mmol/L (3.5-5.5)
--- NOTE | 2022-04-02 17:02 | NUR ---
SHIFT SUMMARY PT A&O X 4. VSS. PT's WOUND VAC C/D/I AND CONNECTED TO VAC WITH SXN AT 120 & NO LEAKS. CANISTER WITH REDDISH SEROSANGUINOUS DRAINAGE. SCD's IN PLACE BILAT LE's. PICC LINE C/D/I/PATENT. MEDICATED FOR PAIN & ANXIETY PER MD ORDER. (SEE EMAR). BLOOD SUGAR BY ACCU CHEK THIS MORNING WAS 111. PT HAD VISITORS OFF & ON THROUGHOUT SHIFT TODAY. PLAN IS FOR TRANSFER TO [facility] WHEN THEY HAVE A BED AVAILABLE. HE HAS BEEN ACCEPTED JUST WAITING FOR A BED.
--- NOTE | 2022-04-03 05:24 | NUR ---
SHIFT SUMMARY NO ACUTE CHANGES OVERNIGHT. PT REPORTS PAIN ON R HIP, PAIN MANAGED WITH 10MG OXYCODONE WITH RELIEF. WOUND VACC ON R HIP, SUCTIONING, DRESSING IS SEALED. CDI. PT REPOSITIONED EVERY 2 HRS. PT SLEPT GOOD OVERNIGHT. TOLERATING PO INTAKE DENIES N/V. VSS. DENIES CHEST PAIN AND SOB. IV ABX ADMINISTERED. VOID IN URINAL INDEPENDENTLY. AOX3. CALL LIGHT WITHIN REACH. WILL CONTINUE TO MONITOR AND WILL PROVIDE REPORT TO ONCOMING NURSE.
[2022-04-03 05:29] LABS: BASOPHILS ABSOLUTE AUTO 0.01 K/mm3 (0.00-0.23); BASOPHILS PERCENT AUTO 1 % (0-2); EOSINOPHILS ABSOLUTE AUTO 0.08 K/mm3 (0.00-0.68); EOSINOPHILS PERCENT AUTO 4 % (0-6); Hemoglobin 7.5 g/dL (13.5-17.5); Mean Corpuscular HGB 27.6 pg (26.0-34.0); Mean Corpuscular HGB Conc 31.3 g/dL (31.5-36.5); Mean Corpuscular Volume 88 fL (80-100); Mean Platelet Volume 8.9 fL (9.1-12.4); Platelet Count 318 K/mm3 (150-400); RDW Coefficient Variation 15.4 % (11.7-14.2); RDW Standard Deviation 49.1 fL (35.1-46.3); Red Blood Cell Count 2.72 M/mm3 (4.30-5.90); White Blood Cell Count 2.18 K/mm3 (4.00-11.30)
[2022-04-03 05:39] LABS: IMMATURE GRAN ABSOLUTE AUTO 0.05 K/mm3 (0.00-0.10); IMMATURE GRAN PERCENT AUTO 2 % (0-1); LYMPHOCYTES ABSOLUTE AUTO 0.93 K/mm3 (0.84-5.20); LYMPHOCYTES PERCENT AUTO 43 % (21-46); MONOCYTES ABSOLUTE AUTO 0.59 K/mm3 (0.16-1.47); MONOCYTES PERCENT AUTO 27 % (4-13); NEUTROPHILS ABSOLUTE AUTO 0.52 K/mm3 (1.96-9.15); NEUTROPHILS PERCENT AUTO 24 % (41-73)
[2022-04-03 07:04] LABS: Bun/Creatinine Ratio 18.7 (12.0-20.0); Calcium, Blood 8.4 mg/dL (8.5-10.1); Creatinine, Blood 0.64 mg/dL (0.60-1.20); Potassium, Blood 3.5 mmol/L (3.5-5.5)
--- NOTE | 2022-04-03 17:00 | NUR ---
SHIFT SUMMARY PT A&O X 3. VSS. MEDICATED FOR PAIN & ANXIETY THROUGHOUT SHIFT. (SEE EMAR). WOUND VAC DRESSING C/D/I/PATENT. SXN AT 120. SEROUSANGINOUS DRAINAGE IN CANISTER. PICC LINE DRESSING C/D/I & PICC PATENT, DOES DRAW BLOOD. PIV IN R FA INTACT & PATENT. THIS MORNING PT WAS UP TO BSC TO ATTEMPT TO HAVE A BM, NO SUCCESS. GAVE HIM A DOSE OF MOM & MIRALAX. HE IS CONFUSED AT TIMES & APPEARS TO BE TALKING TO HIMSELF OFF & ON. HE IS ANSWERING APPROPRIATLY TO ALL QUESTIONS ASKED AND ASKS APPROPRIATE QUESTIONS RELATED TO HIS CARE. REPOSITIONED WITH PILLOWS FOR COMFORT & PRESSURE POINT RELIEF THROUGHOUT SHIFT. SKIN ON HIS LEGS IS CLEARING UP AFTER SCD's WERE REMOVED YESTERDAY. APPLIED LOTION TO HIS DRY SCALY, FLAKELY FEET. PLAN IS TO TRANSFER TO [facility] ONCE THERE IS A BED AVAIALBLE FOR HIM THERE.
--- NOTE | 2022-04-04 03:29 | NUR ---
SHIFT SUMMARY NO ACUTE CHANGES OVERNIGHT. PT REPORTS PAIN ON R HIP. PAIN MANAGED WITH 10MG ROXICODONE AND 650MG TYLENOL EVERY 6 HRS. PT ALSO REPORTS FEELING ANXIOUS, MEDICATED WITH ATARAX. R HIP WITH WOUND VACC, SUCTION AT 120, REMAINED CDI. IV ABX GIVEN AT MIDNIGHT. REPOSITIONED, ELEVATED BLE WITH SCD'S ON. AOX2-3. ANSWERS APPROPRIATELY. JAYCOB FROM [facility] CALLED FOR AN UPDATE, ALSO STATED THAT NO BED AVAILABLE AT THIS TIME, THEY WILL CALL BACK FOR AN UPDATE. BLE STILL HAVE FLAKY SKIN, APPLIED LOTION. USE URINAL INDEPNDETLY. CALL LIGHT WITHIN REACH. WILL CONTINUE TO MONITOR AND WILL PROVIDE REPORT TO ONCOMING NURSE
[2022-04-04 08:25] LABS: Bun/Creatinine Ratio 23.8 (12.0-20.0); Calcium, Blood 8.6 mg/dL (8.5-10.1); Creatinine, Blood 0.71 mg/dL (0.60-1.20)
[2022-04-04 08:38] LABS: BASOPHILS ABSOLUTE AUTO 0.02 K/mm3 (0.00-0.23); BASOPHILS PERCENT AUTO 1 % (0-2); EOSINOPHILS ABSOLUTE AUTO 0.08 K/mm3 (0.00-0.68); EOSINOPHILS PERCENT AUTO 3 % (0-6); Hemoglobin 7.9 g/dL (13.5-17.5); IMMATURE GRAN ABSOLUTE AUTO 0.04 K/mm3 (0.00-0.10); IMMATURE GRAN PERCENT AUTO 2 % (0-1); LYMPHOCYTES ABSOLUTE AUTO 0.97 K/mm3 (0.84-5.20); LYMPHOCYTES PERCENT AUTO 38 % (21-46); MONOCYTES ABSOLUTE AUTO 0.51 K/mm3 (0.16-1.47); MONOCYTES PERCENT AUTO 20 % (4-13); Mean Corpuscular HGB 32.1 pg (26.0-34.0); Mean Corpuscular HGB Conc 34.3 g/dL (31.5-36.5); Mean Platelet Volume 8.9 fL (9.1-12.4); NEUTROPHILS ABSOLUTE AUTO 0.96 K/mm3 (1.96-9.15); NEUTROPHILS PERCENT AUTO 37 % (41-73); Platelet Count 310 K/mm3 (150-400); RDW Coefficient Variation 15.9 % (11.7-14.2); RDW Standard Deviation 50.4 fL (35.1-46.3); Red Blood Cell Count 2.46 M/mm3 (4.30-5.90); White Blood Cell Count 2.58 K/mm3 (4.00-11.30)
[2022-04-04 08:58] LABS: Mean Corpuscular Volume 94 fL (80-100)
--- NOTE | 2022-04-04 18:22 | NUR ---
SHIFT SUMMARY WOUND VAC DRESSING CHANGED. MEDICATED FOR PAIN NEEDED. UP TO COMMODE 2X ATTEMPTING TO HAVE A BM WITH NO RESULTS. BOWEL CARE GIVEN. CONTINUES TO WAIT FOR A BED AT [facility].
[2022-04-05 04:58] LABS: BASOPHILS ABSOLUTE AUTO 0.03 K/mm3 (0.00-0.23); BASOPHILS PERCENT AUTO 1 % (0-2); EOSINOPHILS ABSOLUTE AUTO 0.08 K/mm3 (0.00-0.68); EOSINOPHILS PERCENT AUTO 3 % (0-6); Hematocrit 25.7 % (37.0-53.0); Hemoglobin 7.8 g/dL (13.5-17.5); IMMATURE GRAN ABSOLUTE AUTO 0.04 K/mm3 (0.00-0.10); IMMATURE GRAN PERCENT AUTO 1 % (0-1); LYMPHOCYTES ABSOLUTE AUTO 0.99 K/mm3 (0.84-5.20); LYMPHOCYTES PERCENT AUTO 32 % (21-46); MONOCYTES ABSOLUTE AUTO 0.59 K/mm3 (0.16-1.47); MONOCYTES PERCENT AUTO 19 % (4-13); Mean Corpuscular HGB 26.9 pg (26.0-34.0); Mean Corpuscular HGB Conc 30.4 g/dL (31.5-36.5); Mean Platelet Volume 8.7 fL (9.1-12.4); NEUTROPHILS ABSOLUTE AUTO 1.39 K/mm3 (1.96-9.15); NEUTROPHILS PERCENT AUTO 45 % (41-73); Platelet Count 288 K/mm3 (150-400); RDW Coefficient Variation 15.5 % (11.7-14.2); RDW Standard Deviation 49.7 fL (35.1-46.3); White Blood Cell Count 3.12 K/mm3 (4.00-11.30)
[2022-04-05 05:03] LABS: Mean Corpuscular Volume 89 fL (80-100)
[2022-04-05 05:20] LABS: Bun/Creatinine Ratio 28.5 (12.0-20.0); Calcium, Blood 8.4 mg/dL (8.5-10.1); Creatinine, Blood 0.7 mg/dL (0.60-1.20); Potassium, Blood 3.9 mmol/L (3.5-5.5)
--- NOTE | 2022-04-05 06:10 | NUR ---
SHIFT SUMMARY 56 YR M ADMITTED ON 02/19/22 FOR SEPSIS/SEPTIC ARTHRITIS. FULL CODE. NO ACUTE CHANGES THIS SHIFT. PT DID HAVE A VERY LARGE BOWEL MOVEMENT AFTER BEING CONSTIPATED FOR DAYS. HE STATED HE FELT MUCH BETTER AFTER THAT. HE GETS QUITE ANXIOUS WHEN HE HAS ANY ACTIVITY HE STATES IT IS VERY PAINFUL. HE WAS ABLE TO GET UP TO THE BEDSIDE COMMODE W/ 2 PERSON ASSIST. HE IS CURRENTLY ON A WAITING LIST FOR [facility].
--- NOTE | 2022-04-05 18:35 | NUR ---
SHIFT SUMMARY IV ANTIBIOTICS GIVEN. WOUND VAC IN PLACE AND FUNCTIONING WELL. NO DISCHARGE NOTED IN VAC CONTAINER SINCE CHANGED. REQUESTED TO GET IN CHAIR AND VISIT HIS FATHER. WAS IN W/C FOR AN HOUR AND TOLERATED WELL. BROTHER IN TO VISIT. 2 PERSON ASSIST USING FWW AND GAIT BELT FOR TRANSFERS. REPORTED PAIN WAS NO DIFFERENT IN CHAIR THAN IN BED BUT USED THE LEG PAIN A REASON TO TRY AND GET BACK IN BED BEFORE BEING IN CHAIR FOR AN HOUR. [facility] CALLED AND REPORTED NO BEDS TODAY.
--- NOTE | 2022-04-06 05:26 | NUR ---
SHIFT SUMMARY NO ACUTE CHANGES THIS EVENING. WOUND VAC TO R HIP. DRESSING INTACT. DRY FLAKY DISCOLORED SKIN TO BLE'S. PT WORE SCD'S WHILE SLEEPING BUT REQUESTED OFF THIS AM. MEDICATED FOR PAIN X 2 AND FOR ANXIETY X 1. SLEPT WELL FOR MUCH OF THE NIGHT. UPDATE GIVEN TO [facility] NURSE WHO STATED THAT THERE WAS STILL NO BED AVAILABLE BUT THAT PT HAD BEEN WAITING LONGER THAN ANYONE ON THEIR LIST SO THEY WERE HOPEFUL IT WOULD BE SOON. CBG 95 AT BEDTIME. PT ATE SNACK WITH HS LONG ACTING INSULIN. VITAL SIGNS STABLE. PT HAD AN UNEVENTFUL NIGHT. WILL CONTINUE TO MONITOR.
--- NOTE | 2022-04-06 14:53 | NUR ---
Spiritual Care Visit. Pt. is awake in bed and welcomes my visit. Pt. is pleasant. Re-establish rapport and facilitate a life story discussion about other areas in his life. Pt. displays evidence of engagement and trust. Pt. verbalizes expecation of transfer to [facility] as soon as a bed opens. [place] with Pt. Pt. verbalizes gratitude for the spiritual care visit.
--- NOTE | 2022-04-06 18:49 | NUR ---
PATIENT IS ALERT AND ORIENTED AND COOPERATIVE WITH CARE. PICC DRESSING CHANGED TODAY. WOUND VAC DRESSING CHANGED TODAY. USES URINAL INDEPENDENTLY. NO NEW CONCERNS TODAY.BLOOD CULTURES DRAWN TODAY. WILL CONTINUE TO MONITOR
--- NOTE | 2022-04-07 04:32 | NUR ---
SHIFT SUMMARY PATIENT HAD NO ACUTE CHANGES. ALERT AND ORIENTED. USES URINAL AT BEDSIDE. PICC LINE ALIZA INTACT. IV ABX INFUSED. CBG 102. VSS/AFEBRILE. REPORTED RIGHT HIP PAIN AND OXYCODONE 10 MG GIVEN PER EMAR. DENIES SOB AND N/V. WOUND VAC TO RIGHT HIP. [facility] CALLED FOR UPDATE. REPORTING NO BEDS AVAILABLE AT THIS TIME. COOPERATIVE WITH CARE. CALL LIGHT IN REACH. BED IN LOWEST POSITION. WILL CONTINUE TO MONITOR UNTIL DAY SHIFT NURSE ASSUMES CARE.
[2022-04-07 08:58] LABS: BASOPHILS ABSOLUTE AUTO 0.06 K/mm3 (0.00-0.23); BASOPHILS PERCENT AUTO 1 % (0-2); EOSINOPHILS ABSOLUTE AUTO 0.07 K/mm3 (0.00-0.68); EOSINOPHILS PERCENT AUTO 2 % (0-6); Hematocrit 28.7 % (37.0-53.0); Hemoglobin 8.7 g/dL (13.5-17.5); IMMATURE GRAN ABSOLUTE AUTO 0.04 K/mm3 (0.00-0.10); IMMATURE GRAN PERCENT AUTO 1 % (0-1); LYMPHOCYTES ABSOLUTE AUTO 0.78 K/mm3 (0.84-5.20); LYMPHOCYTES PERCENT AUTO 18 % (21-46); MONOCYTES ABSOLUTE AUTO 0.52 K/mm3 (0.16-1.47); MONOCYTES PERCENT AUTO 12 % (4-13); Mean Corpuscular HGB 27.2 pg (26.0-34.0); Mean Corpuscular HGB Conc 30.3 g/dL (31.5-36.5); Mean Corpuscular Volume 90 fL (80-100); Mean Platelet Volume 8.5 fL (9.1-12.4); NEUTROPHILS PERCENT AUTO 66 % (41-73); Platelet Count 309 K/mm3 (150-400); RDW Coefficient Variation 15.7 % (11.7-14.2); RDW Standard Deviation 50.8 fL (35.1-46.3); White Blood Cell Count 4.37 K/mm3 (4.00-11.30)
--- NOTE | 2022-04-07 15:07 | NUR ---
Spiritual Care visit. Pt. is in bed resting, but responds when I call his name. This orthopedic coder wanted to follow up with the Pt. after being confirmed by the nursing staff that the pt. had been about informed of his father's passing. Pt. displayed evidence of somnolence, but did rouse enough to respond to my basic questions. Prayed for the pt. and left him to continue to rest.
--- NOTE | 2022-04-07 16:32 | NUR ---
Spiritual Care Visit - (return) Returned to meet with Pts. brother and talk with Pt. about his father that had passed the night before. Pts. brother took the lead on talking with Pt. This mattress and foundation sewer gave emotional support and helped Pt. process grief. Pt. displayed some evidence of being "numb" to the report, but the Pt. has had some personal time to reflect as he had been notified earlier in the day. Excused myself to allow the borthers have personal time. Both verbalized gratitude for the spiritual care visit.
--- NOTE | 2022-04-07 17:31 | NUR ---
SHIFT SUMMARY PATIENT A&OX4. 1[facility] TO [facility] PATIENT'S FATHER YESTERDAY. PATIENT SLEEPY AND POOR APPETITE FOR BREAKFAST AND LUNCH. PATIENT MORE ALERT WHEN BROTHER CAME TO VISIT IN AFTERNOON. C/O PAIN AND ANXIETY, MEDICATED PER MAR. VSS. AWAITING BED AVAIL AT [facility]. WILL CONTINUE TO MONITOR.
--- NOTE | 2022-04-08 04:44 | NUR ---
SHIFT SUMMARY PATIENT HAD NO ACUTE CHANGES. [facility] CALL FOR UPDATE AND REPORTS NO BEDS AVAILABLE AT THIS TIME. AXOX 4 AND ONE ASSIST PIVOT TO BSC. WOUND VAC TO RIGHT HIP. CBG 94. F[place]ANY[place] PATCH IN PLACE. DENIES CHEST PAIN, SOB, AND N/V. CONTACT PRECAUTIONS. PICC LINE ALIZA INTACT. IV ABX INFUSED. USES URINAL AT BEDSIDE. REPORTED HIP PAIN AND OXYCODONE 10 MG GIVEN PER EMAR. CALL LIGHT IN REACH. BED IN LOWEST POSITION. WILL CONTINUE TO MONITOR UNTIL DAY SHIFT NURSE ASSUMES CARE.
[2022-04-08 05:34] LABS: BASOPHILS ABSOLUTE AUTO 0.03 K/mm3 (0.00-0.23); BASOPHILS PERCENT AUTO 1 % (0-2); EOSINOPHILS ABSOLUTE AUTO 0.11 K/mm3 (0.00-0.68); EOSINOPHILS PERCENT AUTO 3 % (0-6); Hematocrit 25.7 % (37.0-53.0); Hemoglobin 7.9 g/dL (13.5-17.5); IMMATURE GRAN ABSOLUTE AUTO 0.03 K/mm3 (0.00-0.10); IMMATURE GRAN PERCENT AUTO 1 % (0-1); LYMPHOCYTES ABSOLUTE AUTO 1.09 K/mm3 (0.84-5.20); LYMPHOCYTES PERCENT AUTO 27 % (21-46); MONOCYTES ABSOLUTE AUTO 0.59 K/mm3 (0.16-1.47); MONOCYTES PERCENT AUTO 15 % (4-13); Mean Corpuscular HGB 27.4 pg (26.0-34.0); Mean Corpuscular HGB Conc 30.7 g/dL (31.5-36.5); Mean Corpuscular Volume 89 fL (80-100); Mean Platelet Volume 8.5 fL (9.1-12.4); NEUTROPHILS ABSOLUTE AUTO 2.23 K/mm3 (1.96-9.15); NEUTROPHILS PERCENT AUTO 55 % (41-73); Platelet Count 261 K/mm3 (150-400); RDW Coefficient Variation 15.8 % (11.7-14.2); RDW Standard Deviation 51.7 fL (35.1-46.3); Red Blood Cell Count 2.88 M/mm3 (4.30-5.90); White Blood Cell Count 4.08 K/mm3 (4.00-11.30)
--- NOTE | 2022-04-08 10:27 | NUR ---
INFORMED THAT PATIENT HAS CHEW TOBACCO IN ROOM AND HAS BEEN USING IT. TALKED TO PATIENT THAT WE ARE A TOBACCO FREE CAMPUS AND CAN NOT HAVE CHEW AND THAT IT NEEDS TO BE LOCKED UP BUT OFFERED NICOTENE PATCHES INSTEAD. PATIENT REFUSED TO GIVE UP CHEW AND DOES NOT WANT THE NICOTENE PATCHES. EXPLAINED AGAIN THAT IT IS AGAINST THE RULES TO HAVE THE CHEW AND THAT IT NEEDS TO BE LOCKED UP. PATIENT AGAIN REFUSED TO GIVE IT UP. INFORMED CHARGE NURSE OF SITUATION.
--- NOTE | 2022-04-08 17:25 | NUR ---
Spiritual Care Visit. Pt. is awake in bed and welcomes my visit. Pt. verbalized reflections of what his father meant to him. Pt. was seeking direction on how to Celebrate his father's passing. Gave pastoral pet adoption counselor and prayed with Pt. Pt. verbalized gratitude for the spiritual care visit.
--- NOTE | 2022-04-08 19:29 | NUR ---
SHIFT SUMMARY A&OX4, SEVERE ANXIETY. 1-2PA TO BSC OR CHAIR WITH WALKER AND GAIT BELT. C/O RIGHT HIP/KNEE PAIN AND ANXIETY, MEDICATED PER DEC. RECEIVING IV ANTIBIOTICS. AWAITING BED AT [facility]. WOUND VAC DRESSING CHANGED. NO SIGNIFICANT EVENTS. REPORT GIVEN TO ONCOMING RN.
--- NOTE | 2022-04-09 03:26 | NUR ---
"MAURICE" FROM [facility] CALLED FOR UPDATE, NO BED AWAIL AT THIS TIME BUT THEYRE "WORKING ON IT." PT RESTING QUIETLY. CALL LIGHT IN REACH
--- NOTE | 2022-04-09 04:23 | NUR ---
PET RESORT CONCIERGE SUMMARY HAS BEEN RESTING QUIETLY WITH EFW INTERRUPTIONS SINCE HS. REPOSITIONED A FEW TIMES DURING THE NIGHT BUT PT NOT HAPPY WHEN REPOSITIONED, IS ABLE TO REPOSITION SELF TO WHERE HE FELT COMFORTABLE. HOB ELEVATED. IVF OF NS AND ANTIBIOTICS INFUSING PER MD ORDERS - SEE MAR FOR DETAILS. WOUND VAC DRAINING OF RIGHT HIP AREA. ISOLATION PRECAUTIONS MAINTAINED. CALL LIGHT IN REACH.
[2022-04-09 05:24] LABS: BASOPHILS ABSOLUTE AUTO 0.06 K/mm3 (0.00-0.23); BASOPHILS PERCENT AUTO 2 % (0-2); EOSINOPHILS PERCENT AUTO 3 % (0-6); Hematocrit 25.8 % (37.0-53.0); Hemoglobin 7.8 g/dL (13.5-17.5); IMMATURE GRAN ABSOLUTE AUTO 0.03 K/mm3 (0.00-0.10); IMMATURE GRAN PERCENT AUTO 1 % (0-1); LYMPHOCYTES PERCENT AUTO 34 % (21-46); MONOCYTES PERCENT AUTO 16 % (4-13); Mean Corpuscular HGB 27.3 pg (26.0-34.0); Mean Corpuscular HGB Conc 30.2 g/dL (31.5-36.5); Mean Corpuscular Volume 90 fL (80-100); Mean Platelet Volume 8.9 fL (9.1-12.4); NEUTROPHILS ABSOLUTE AUTO 1.42 K/mm3 (1.96-9.15); NEUTROPHILS PERCENT AUTO 44 % (41-73); Platelet Count 267 K/mm3 (150-400); RDW Coefficient Variation 15.9 % (11.7-14.2); RDW Standard Deviation 51.8 fL (35.1-46.3); Red Blood Cell Count 2.86 M/mm3 (4.30-5.90); White Blood Cell Count 3.21 K/mm3 (4.00-11.30)
[2022-04-09 05:50] LABS: Albumin, Blood 1.6 g/dL (3.4-5.0); Albumin/Globulin Ratio 0.3 (0.8-1.8); Bilirubin, Total 0.2 mg/dL (0.1-1.0); Bun/Creatinine Ratio 23.1 (12.0-20.0); Calcium, Blood 8.7 mg/dL (8.5-10.1); Creatinine, Blood 0.78 mg/dL (0.60-1.20); Globulin, Blood 6.2 g/dL (2.2-4.0); Potassium, Blood 3.9 mmol/L (3.5-5.5); Total Protein, Blood 7.8 g/dL (6.4-8.2)
--- NOTE | 2022-04-09 18:18 | NUR ---
PATIENT MEDICATED X 2 WITH OXYCODONE 10MG FOR PAIN 8 OR 06/18. HE ALSO HAD MUCH ANXIETY SO WAS PROVIDED WITH ATARAX X 2. HE WAS TURNED Q 2 HOURS AND WAS COOPERATIVE WITH CARE. PATIENT DID BREATH HEAVILY AND APPEARED IN DISTRESS WHEN SPEAKING WITH STAFF HOWEVER WHEN DISTRACTED WAS ABLE TO BREATH NORMALLY. HE TAKES HIS MEDIUCATIONS WHOLE WITH WATER. HE IS RECEIVING IV ANTIBIOTICS THROUGHOUT THE DAY THROUGH A POWERGLIDE TO UPPER RIGHT ARM. IT FLUSHES EASILY HOWEVER DOES NOT DRAW. HE IS AFEBRILE THOUGHOUT THE DAY AND WOUND VAC TYSHAWN ARE INTACT AND SUCTION TO 120/5MIN SMALL AMOUNT OF DRAINAGE NOTED DURING DAY IN WOUND VAC CANNISTER. PATIENT IS TURNED Q2 HOURS THOUGHOUT THE DAY AND IS COOPERATIVE WITH CARE. HE USES CALL LIGHT APPROPRIATELY.
--- NOTE | 2022-04-10 00:58 | NUR ---
MAURICE FROM [facility] CALLED AGAIN FOR AN UPDATE. VOICED STILL WAITING FOR A BED TO BECOME AVAILABLE.
--- NOTE | 2022-04-10 04:18 | NUR ---
ENROLLMENT MANAGEMENT DIRECTOR SUMMARY WAS ASSISTED TO COMMODE NEAR SHIFT COMMENCE. 2 PERSON ASSIST WITH WALKER AND GAIT BELT. PT EASILY SOB WITH EXERTION. IVF AND ANTIBIOTICS INFUSING AND PAIN MEDS GIVEN - SEE MAR FOR DETAILS. HOB AT 40 DEGREES FOR COMFORT. WOUND VAC DRAINING FROM RIGHT HIP AREA. ISOLATION PRECAUTIONS MAINTAINED. CALL LIGHT IN REACH. RECEIVED CALL FROM [facility] FOR UPDATE, STILL WAITING FOR BED.
[2022-04-10 05:59] LABS: BASOPHILS ABSOLUTE AUTO 0.06 K/mm3 (0.00-0.23); BASOPHILS PERCENT AUTO 2 % (0-2); EOSINOPHILS ABSOLUTE AUTO 0.11 K/mm3 (0.00-0.68); EOSINOPHILS PERCENT AUTO 3 % (0-6); Hematocrit 25.4 % (37.0-53.0); Hemoglobin 7.8 g/dL (13.5-17.5); IMMATURE GRAN ABSOLUTE AUTO 0.02 K/mm3 (0.00-0.10); IMMATURE GRAN PERCENT AUTO 1 % (0-1); LYMPHOCYTES ABSOLUTE AUTO 1.13 K/mm3 (0.84-5.20); LYMPHOCYTES PERCENT AUTO 31 % (21-46); MONOCYTES ABSOLUTE AUTO 0.53 K/mm3 (0.16-1.47); MONOCYTES PERCENT AUTO 14 % (4-13); Mean Corpuscular HGB 27.6 pg (26.0-34.0); Mean Corpuscular HGB Conc 30.7 g/dL (31.5-36.5); Mean Corpuscular Volume 90 fL (80-100); Mean Platelet Volume 8.8 fL (9.1-12.4); NEUTROPHILS ABSOLUTE AUTO 1.86 K/mm3 (1.96-9.15); NEUTROPHILS PERCENT AUTO 50 % (41-73); Platelet Count 278 K/mm3 (150-400); RDW Coefficient Variation 15.7 % (11.7-14.2); RDW Standard Deviation 51.1 fL (35.1-46.3); Red Blood Cell Count 2.83 M/mm3 (4.30-5.90); White Blood Cell Count 3.71 K/mm3 (4.00-11.30)
[2022-04-10 06:28] LABS: Albumin, Blood 1.6 g/dL (3.4-5.0); Albumin/Globulin Ratio 0.2 (0.8-1.8); Bilirubin, Total 0.3 mg/dL (0.1-1.0); Bun/Creatinine Ratio 28.3 (12.0-20.0); Calcium, Blood 8.5 mg/dL (8.5-10.1); Creatinine, Blood 0.64 mg/dL (0.60-1.20); Globulin, Blood 6.5 g/dL (2.2-4.0); Potassium, Blood 3.7 mmol/L (3.5-5.5); Total Protein, Blood 8.1 g/dL (6.4-8.2)
--- NOTE | 2022-04-10 19:09 | NUR ---
SHIFT SUMMARY; PATIENT HAD EPISODE OF SEVERE ANXIETY LATE THIS AFTERNOON. HE BECAME ANXIOUS AFTER STRAW HAT MACHINE OPERATOR PLACED PILLOWS UNDER HIS FEET TO PREVENT HEEL SHEARING. YELLING LOUDLY AND DEMANDING PILLOWS BE REMOVED. HE DID NOT WANT COVERS OVER LEGS HE WANTED HIS FEET UNCOVERED. [facility] CALLED AND HE IS NOW ON THE TOP OF THE LIST TO TRANSFER. PATIENT NOTIFIED AND IS NOW ASKING REPEATEDLY WHEN HE IS LEAVING. HE IS TURNED AND MOVED Q 2 HOURS.
--- NOTE | 2022-04-11 02:23 | NUR ---
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 Reportedly PT has been moved up on the list for [facility] transfer.
[2022-04-11 05:23] LABS: BASOPHILS ABSOLUTE AUTO 0.08 K/mm3 (0.00-0.23); BASOPHILS PERCENT AUTO 2 % (0-2); EOSINOPHILS ABSOLUTE AUTO 0.12 K/mm3 (0.00-0.68); EOSINOPHILS PERCENT AUTO 3 % (0-6); Hemoglobin 8.5 g/dL (13.5-17.5); IMMATURE GRAN ABSOLUTE AUTO 0.02 K/mm3 (0.00-0.10); IMMATURE GRAN PERCENT AUTO 1 % (0-1); LYMPHOCYTES ABSOLUTE AUTO 1.48 K/mm3 (0.84-5.20); LYMPHOCYTES PERCENT AUTO 38 % (21-46); MONOCYTES ABSOLUTE AUTO 0.58 K/mm3 (0.16-1.47); MONOCYTES PERCENT AUTO 15 % (4-13); Mean Corpuscular HGB 27.4 pg (26.0-34.0); Mean Corpuscular HGB Conc 30.4 g/dL (31.5-36.5); Mean Corpuscular Volume 90 fL (80-100); NEUTROPHILS ABSOLUTE AUTO 1.66 K/mm3 (1.96-9.15); NEUTROPHILS PERCENT AUTO 42 % (41-73); Platelet Count 269 K/mm3 (150-400); RDW Coefficient Variation 15.8 % (11.7-14.2); White Blood Cell Count 3.94 K/mm3 (4.00-11.30)
--- NOTE | 2022-04-11 16:08 | NUR ---
SHIFT SUMMARY PT AxOx4. PLEASANT AND COOPERATIVE WITH CARE. PT REPORTS PAIN IN R HIP THIS SHIFT. PT ALSO REPORTS ANXIETY WITH LABORED BREATHING. MEDICATED PER EMAR WITH REPORTED RELIEF. PHYSICAL THERAPY/OT IN FOR TREATMENT THIS SHIFT. PT'S WOUND VAC CHANGED THIS SHIFT BY MOCK UP BUILDER. DC PLANS PENDING AT THIS TIME. PT NEEDS PRISON IV ABX. POTENTIAL [facility] TRANSFER TO [facility] PENDING. DE ICER KIT ASSEMBLER WORKING ON THIS CASE. VITAL SIGNS REVIWED. PT CURRENTLY RESTING IN BED WITH CALL LIGHT IN REACH. PT DENIES ANY NEEDS AT THIS TIME.
[2022-04-12 05:37] LABS: BASOPHILS ABSOLUTE AUTO 0.07 K/mm3 (0.00-0.23); BASOPHILS PERCENT AUTO 2 % (0-2); EOSINOPHILS ABSOLUTE AUTO 0.19 K/mm3 (0.00-0.68); EOSINOPHILS PERCENT AUTO 5 % (0-6); Hematocrit 28.1 % (37.0-53.0); Hemoglobin 8.6 g/dL (13.5-17.5); IMMATURE GRAN ABSOLUTE AUTO 0.03 K/mm3 (0.00-0.10); IMMATURE GRAN PERCENT AUTO 1 % (0-1); LYMPHOCYTES ABSOLUTE AUTO 1.38 K/mm3 (0.84-5.20); LYMPHOCYTES PERCENT AUTO 33 % (21-46); MONOCYTES ABSOLUTE AUTO 0.64 K/mm3 (0.16-1.47); MONOCYTES PERCENT AUTO 16 % (4-13); Mean Corpuscular HGB 27.3 pg (26.0-34.0); Mean Corpuscular HGB Conc 30.6 g/dL (31.5-36.5); Mean Corpuscular Volume 89 fL (80-100); Mean Platelet Volume 9.1 fL (9.1-12.4); NEUTROPHILS ABSOLUTE AUTO 1.83 K/mm3 (1.96-9.15); NEUTROPHILS PERCENT AUTO 44 % (41-73); Platelet Count 299 K/mm3 (150-400); RDW Standard Deviation 52.8 fL (35.1-46.3); Red Blood Cell Count 3.15 M/mm3 (4.30-5.90); White Blood Cell Count 4.14 K/mm3 (4.00-11.30)
[2022-04-12 06:03] LABS: Albumin, Blood 1.6 g/dL (3.4-5.0); Albumin/Globulin Ratio 0.2 (0.8-1.8); Bilirubin, Total 0.3 mg/dL (0.1-1.0); Bun/Creatinine Ratio 23.4 (12.0-20.0); Calcium, Blood 8.7 mg/dL (8.5-10.1); Creatinine, Blood 0.68 mg/dL (0.60-1.20); Globulin, Blood 6.6 g/dL (2.2-4.0); Potassium, Blood 4.1 mmol/L (3.5-5.5); Total Protein, Blood 8.2 g/dL (6.4-8.2)
--- NOTE | 2022-04-12 06:40 | NUR ---
SHIFT SUMMARY 56 YR M ADMITTED ON 02/19/22 FOR SEPSIS. FULL CODE. NO ACUTE CHANGES THIS SHIFT. PT GETS VERY ANXIOUS AT TIMES AND USES THE CALL BUTTON OVER AND OVER UNTIL SOMEONE COMES. I VERY NICELY EXPALINED TO HIM THAT THIS IS NOT NECESSARY WE KNOW HE HAS CALLED AFTER THE FIRST TIME. HE STATED HE UNDERSTOOD. AT ONE POINT IN THE SHIFT HE STATED THAT HE WAS HAVING A HARD TIME CATCHING HIS BREATH AND ASKED TO SIT AT THE EDGE OF THE BED. HE SAT THERE FOR APPROX 30 MINUTES AND STATED THAT IT WAS EASIER TO BREATHE THAT WAY. AFTER GETTING HIM CALMED DOWN HE WAS PUT BACK INTO BED. OTHER THAN THAT, PT SLEPT FOR MOST OF THE NIGHT.
--- NOTE | 2022-04-12 14:03 | NUR ---
Spiritual Care Visit. Pt. is awake in Bed and welcomes my visit. Re-establish rapport. Pt. speaks of a celebration of life that will take place at his mother's home in [place]. Pt. verbalizes that he will not be transferred to [place], but will be staying at a SNF locally as soon as bed frees up. Pt. Displays evidence of agreement with new plans. Prayed with Pt. Pt. verbalized gratitude for the spiritual care visit.
--- NOTE | 2022-04-12 17:51 | NUR ---
SHIFT SUMMARY PT WORKED WITH OCCUPATIONL THERAPY TODAY. UP TO RECLINER FOR APPROX AN HOUR. PT MOD 2 PERSON ASSIST BACK TO BED. MEDICATED FOR PAIN T/O THE DAY. SEE EMAR. PT WOUND VAC IN PLACE AND SEALED WELL WITH NO LEAKS. P[T DID EXPERIENCE A TEARFUL ANXIETY ATTACK DURING THIS SHIFT. PT MEDICATED AND OFFERED THERAPUTIC COMMUNICATION. POPCYCLES ALSO HELPED. NO OTHER ACUTE CHANGES IN ASSESSMENT AT THIS TIME. VS REVIEWED. CALL LIGHT IN REACH. DENIES OTHER NEEDS AT THIS TIME.
[2022-04-13 04:51] LABS: Hematocrit 26.4 % (37.0-53.0)
[2022-04-13 05:14] LABS: Bun/Creatinine Ratio 30.1 (12.0-20.0); Calcium, Blood 8.8 mg/dL (8.5-10.1); Creatinine, Blood 0.63 mg/dL (0.60-1.20); Potassium, Blood 3.9 mmol/L (3.5-5.5)
--- NOTE | 2022-04-13 08:21 | NUR ---
pt laying in bed watching tv, a/ox3, pleasant and cooperative with care, follows commands well, reports pain of 5/10, lungs are course t/o, with odd breathing pattern, sounds like he is constricting with inspiration, but states that is how he always breaths, on r/a, resp even and unlabored, no cough noted, hrr, edema surrounding right hip, wound vac to right hip, intact, s/s drainage noted, skin is pale, moves upper ext well, is a two person to get oob, jagjit, call light in reach, makes his needs known.
--- NOTE | 2022-04-13 18:12 | NUR ---
pt has had a pretty good day, OT got him up to chair, did medicate for pain twice today, possibly going to stay with his mother tomorrow. call light in reach.
[2022-04-14 04:38] LABS: Hematocrit 26.3 % (37.0-53.0); Hemoglobin 8.1 g/dL (13.5-17.5)
--- NOTE | 2022-04-14 04:43 | NUR ---
SHIFT SUMMARY PT COMPLAINED OF PAIN EARLY IN SHIFT. PT MEDICATED PER EMAR. NO FURTHER COMPLAINTS OF PAIN. PT SLEEPING OFF AND ON THROUGHOUT THE NIGHT. PT HAS A SLEEP STUDY BEING DONE THAT WILL END AT 0500 THIS AM. PT PLEASANT AND COOPERATIVE. PT HAS CALL LIGHT WITHIN REACH. BLOOD DRAWN AND SENT TO LAB BY THIS RN.
--- NOTE | 2022-04-14 18:13 | NUR ---
SHIFT SUMMARY: NO ACUTE EVENTS. WOUND VAC AT 120 MM HG NEGATIVE PRESSURE, SCANT IF ANY SEROSANG DRAINAGE. DRESSING ON R HIP INTACT, NO LEAK. C/O PAIN IN R HIP, MEDICATED PER EMAR. C/O ANXIETY, HAVING HICCUP-TYPE BREATHING WHILE AWAKE; MEDICATED WITH RELIEF. GOT UP TO CHAIR X 1 WITH FWW, GAIT BELT, AND 1 PERSON ASSIST. USING URINAL INDEPENDENTLY. LBM 7/02; ABD NON TENDER, PASSING FLATUS, TAKING ALL BOWEL MEDS PRESCRIBED.
--- NOTE | 2022-04-15 06:08 | NUR ---
SHIFT SUMMARY A/O X4, VITAL SIGNS STABLE. WOUND VAC IN PLACE TO R HIP, FUNCTIONING PROPERLY. VOIDING WELL IN URINAL. REPOSITIONED THROUGHOUT SHIFT. PAIN MANAGED W/ PO PAIN MEDICATIONS. NO ACUTE CHANGES OVER NIGHT. WILL CONTINUE TO MONITOR AND REPORT TO ONCOMING RN.
--- NOTE | 2022-04-15 16:49 | NUR ---
Spiritual Care Visit. Pt. is awake in bed and welcomes my visit. Pt. is pleasant, but displays evidence of not being able to inhale normally. Pt. verbalizes hopes for a Monday discharge to his mother's home. Listen empathetically with a curious calming spirit. Pt. spoke of a service to honor his father, and that it would now be held in a restorationist. Explored issues of Pts. personal enzo and belief. Gave Pt. information regarding [facility] in [place] and in [place]. Pt. displayed evidence of trying out CR as an intentional recovery step for him. Prayed for Pt. Pt. verbalized gratitude for the spirital care visit.
--- NOTE | 2022-04-15 18:51 | NUR ---
SHIFT SUMMARY: NO ACUTE EVENTS. C/O PAIN IN R HIP; MEDICATED PER EMAR. STILL HAVING THE HICCUP-LIKE BREATHING PATTERN; ATARAX GIVEN X 1. ADEQUATE PO INTAKE, TOLERATING FINE. LBM DOCUMENTED ON 04/09; IS RECEIVING BOWEL MEDS, PASSING FLATUS, ABD NON TENDER. R HIP WOUND VAC AND R ARM PICC DRESSINGS CHANGED. HAD VISITOR TODAY.
--- NOTE | 2022-04-16 05:28 | NUR ---
SHIFT SUMMARY NO ACUTE CHANGES THIS SHIFT. PT HAS BEEN MEDICATED FOR PAIN PER EMAR. WOUND VAC C/D/I. NO OUTPUT THIS SHIFT. PT HAS HAD SOME ANXIETY AND WAS MEDICATED PER EMAR. PT IS STILL ON TRACK TO DISCHARGE MONDAY HOME WITH VISITS TO [facility]. BED IN LOWEST POSITION AND CALL LIGHT IN PLACE.
--- NOTE | 2022-04-16 18:19 | NUR ---
SHIFT SUMMARY PATIENT A&O. RECEIVING IV ANTIBIOTIC. C/O PAIN IN RIGHT HIP, MEDICATED PER DEC X2. NO SIGNIFICANT EVENTS. AWAITING DISCHARGE ON MONDAY. WILL CONTINUE TO MONITOR.
--- NOTE | 2022-04-17 05:06 | NUR ---
SHIFT SUMMARY NOC: ASSSUMED CARE OF PATIENT FROM [facility] AT 0500. PER REPORT, PT MEDICATED WITH PRN MEDICATIONS, WOUND VAC IN PLACE. NO ACUTE EVENTS OVERNIGHT.
[2022-04-17 08:20] LABS: Hematocrit 29.5 % (37.0-53.0)
[2022-04-17 08:55] LABS: Bun/Creatinine Ratio 22.5 (12.0-20.0); Calcium, Blood 9.3 mg/dL (8.5-10.1); Creatinine, Blood 0.67 mg/dL (0.60-1.20); Potassium, Blood 3.9 mmol/L (3.5-5.5)
--- NOTE | 2022-04-17 20:05 | NUR ---
SHIFT SUMMARY PATIENT A&OX4. REFUSING TO GET UP OUT OF BED BUT STATES HE IS DOING HIS EXERCISES IN BED. MEDICATED FOR PAIN AND ANXIETY PER MAR. NO SIGNICANT EVENTS. PLAN FOR D/C TOMORROW. REPORT GIVEN TO ONCOMING RN.
[2022-04-18 05:19] LABS: Bun/Creatinine Ratio 29.4 (12.0-20.0); Creatinine, Blood 0.61 mg/dL (0.60-1.20); Potassium, Blood 3.6 mmol/L (3.5-5.5)
--- NOTE | 2022-04-18 06:14 | NUR ---
SUMMARY NO NEW ISSUES NOTED. PT WAS UP MOST OF SHIFT WATCHING TV. PT WOUND VAC WORKING WELL. PT TX PER EMAR FOR PAIN. PT CURRENTLY RESTING COMFORTABLY. CALL LIGHT IN REACH.
--- NOTE | 2022-04-18 16:47 | NUR ---
PILAR APPROVAL FOR ABX SPOKE WITH [employer] IN PILAR WHO UPDATED THAT ABX WERE APPROVED AND PATIENT CAN DISCHARGE. [facility] WILL CALL PATIENT AT E IN AM TO SCHEDULE INFUSION.
[2022-04-18] MEDS ORDERED: CUBICIN RF500 M1 IV ×2 (17:01)
[2022-04-18] MEDS ORDERED: FENTANYL1 EA14 TOP ×2 (17:02)
[2022-04-18] MEDS ORDERED: BASAGLAR K100 UNIT/1 SC ×2 (17:05)
[2022-04-18] MEDS ORDERED: HYDHCL25 PO ×2 (17:05)
[2022-04-18] MEDS ORDERED: OXYC10ER PO ×2 (17:07)
[2022-04-18] MEDS ORDERED: PROBIOTIC1 EA13 PO ×2 (17:08)
--- NOTE | 2022-04-18 19:44 | NUR ---
LATE ENTRY DISCHARGE SUMMARY: EDUCATED PT ON DISCHARGE INSTRUCTIONS, MEDICATIONS, INSULIN ADMINISTRATION WITH INSULIN PEN WITH APPROPRIATE RETURN DEMONSTRATION. EDUCATED PT ON WOUND VAC AND PICC LINE CARE. PT VU. PT DECLINED GLUCOMETER TEACHING STATING HIS SISTER WOULD BE HOME AND ABLE TO DO THIS TESTING AND SHOW HIM HOW TO DO. PT BELONGINGS PACKED UP AND SENT WITH PT. WOUND VAC CHANGED TO OUTPT VAC. PT TX TO WHEELCHAIR DELIVERED BY [facility] AND TRANSPORTED HOME BY [facility]. SCRIPTS FOR MEDICATIONS AND DIABETIC SUPPLIES WITH PATIENT. PT MEDICATED WITH PAIN MEDICATION PER HIS REQUEST PRIOR TO LEAVING FOR PAIN MANAGEMENT UNTIL HE CAN GET SCRIPTS FILLED TOMORROW AM.
== END 2022-04-18 18:43 | disposition home or self-care (01) | DRG 853 ==
LOC: ER 18:02 → MEDS 22:45 → SURS 22:45 → PCU 22:45 → SURS 02-23 15:56 → MEDS 03-04 20:33
PROVIDERS: Emergency Medicine; Family Medicine; Hospitalist; Internal Medicine; Orthopaedic Surgery; Student in an Organized Health Care Education/Training Program; ADMIT Internal Medicine
PROC: 3E03329 Introduction of Other Anti-infective into Peripheral Vein, Percutaneous Approach (ICD-10-PCS; 2022-02-19)
PROC: 05HY33Z Insertion of Infusion Device into Upper Vein, Percutaneous Approach (ICD-10-PCS; 2022-02-19)
PROC: 0S993ZX Drainage of Right Hip Joint, Percutaneous Approach, Diagnostic (ICD-10-PCS; 2022-02-21)
PROC: 0SB90ZZ Excision of Right Hip Joint, Open Approach (ICD-10-PCS; 2022-02-23)
PROC: 0QB60ZZ Excision of Right Upper Femur, Open Approach (ICD-10-PCS; principal; 2022-02-25 14:30)
PROC: 0JQL0ZZ Repair Right Upper Leg Subcutaneous Tissue and Fascia, Open Approach (ICD-10-PCS; 2022-02-28)
PROC: 0KBN0ZX Excision of Right Hip Muscle, Open Approach, Diagnostic (ICD-10-PCS; 2022-03-06)
PROC: 30233N1 Transfusion of Nonautologous Red Blood Cells into Peripheral Vein, Percutaneous Approach (ICD-10-PCS; 2022-04-01)
PROC: 0R9J3ZX Drainage of Right Shoulder Joint, Percutaneous Approach, Diagnostic (ICD-10-PCS; 2022-04-02)
DX: A41.02 Sepsis due to Methicillin resistant Staphylococcus aureus (principal); G92.8 Other toxic encephalopathy; E87.2 Acidosis; L03.115 Cellulitis of right lower limb; L03.116 Cellulitis of left lower limb; N17.9 Acute kidney failure, unspecified; M00.9 Pyogenic arthritis, unspecified; E87.0 Hyperosmolality and hypernatremia; M46.24 Osteomyelitis of vertebra, thoracic region; M96.842 Postprocedural seroma of a musculoskeletal structure following a musculoskeletal system procedure; E66.9 Obesity, unspecified; Z20.822 Contact with and (suspected) exposure to COVID-19; I10 Essential (primary) hypertension; E11.9 Type 2 diabetes mellitus without complications; D50.9 Iron deficiency anemia, unspecified; M17.11 Unilateral primary osteoarthritis, right knee; M16.11 Unilateral primary osteoarthritis, right hip; F41.9 Anxiety disorder, unspecified; R65.20 Severe sepsis without septic shock; F15.10 Other stimulant abuse, uncomplicated; E87.6 Hypokalemia; F17.220 Nicotine dependence, chewing tobacco, uncomplicated; F32.A Depression, unspecified; Z68.36 Body mass index [BMI] 36.0-36.9, adult; Z98.890 Other specified postprocedural states; Z79.2 Long term (current) use of antibiotics; Z79.899 Other long term (current) drug therapy
CPT/HCPCS: 0241U; 10030; 20606; 20610; 36415; 36430; 70450; 71045; 71260; 72146; 72148; 72156; 72157; 72158; 73200; 73701; 74177; 76882; 77002; 78802; 80048; 80053; 80069; 80202; 81001; 82550; 82553; 82565; 82607; 82728; 82746; 82947; 83036; 83540; 83550; 83605; 83735; 83880; 84443; 84484; 85014; 85018; 85025; 85045; 85610; 85651; 85730; 86140; 86803; 86850; 86900; 86901; 86923; 87040; 87070; 87071; 87075; 87077; 87086; 87147; 87186; 87205; 87340; 87389; 88305; 89051; 93005; 93010; 93306; 93308; 93312; 93321; 93325; 93970; 94760; 94762; 96365-59; 96366; 96375; 97110; 97112; 97162; 97166; 97168; 97530; 97535; 99285-25; A9270; A9569; A9577; A9579; C1751; G0480; J0330; J0690; J0696; J0712; J0878; J1100; J1170; J1644; J1650; J1815; J1885; J2060; J2250; J2270; J2370; J2405; J2704; J2765; J2916; J3010; J3360; J3370; J3411; J3475; J3480; J7030; J7040; J7042; J7060; J7120; P9016; Q9967; U0004

== ENCOUNTER 2022-04-19 11:07 | Day surgery (SDC) | payer OTHER ==
[~2022-04-19 11:07] MED LIST changes: +BASAGLAR K100 UNIT/1 SC; +CUBICIN RF500 M1 IV; +FENTANYL1 EA14 TOP; +GABA100 PO; +HYDHCL25 PO; +OXYC10ER PO; +PROBIOTIC1 EA13 PO; +SILVADENE20 G1 TOP
== END 2022-04-19 15:40 | disposition home or self-care (01) ==
LOC: ATC 11:07
DX: R78.81 Bacteremia (principal); B95.62 Methicillin resistant Staphylococcus aureus infection as the cause of diseases classified elsewhere; E11.9 Type 2 diabetes mellitus without complications
CPT/HCPCS: 96365; J0878

== ENCOUNTER 2022-04-20 02:08 | Emergency (ER) | payer OTHER | END 2022-04-20 07:00 | disposition home or self-care (01) | LOC: ER 02:08 | DX: F15.10 Other stimulant abuse, uncomplicated (principal); I10 Essential (primary) hypertension; F17.220 Nicotine dependence, chewing tobacco, uncomplicated; Z79.899 Other long term (current) drug therapy | CPT/HCPCS: 99285-25 ==

== ENCOUNTER 2022-04-22 02:37 | Day surgery (SDC) | payer OTHER ==
--- NOTE | 2022-04-22 17:10 | NUR ---
PT WAS A NO SHOW FOR HIS APPOINTMENT IN THE [facility] TODAY.
== END 2022-04-22 23:07 | disposition home or self-care (01) ==
LOC: ATC 02:37
DX: R78.81 Bacteremia (principal); B95.62 Methicillin resistant Staphylococcus aureus infection as the cause of diseases classified elsewhere; I10 Essential (primary) hypertension; E11.9 Type 2 diabetes mellitus without complications; F41.9 Anxiety disorder, unspecified
CPT/HCPCS: J0878

== ENCOUNTER 2022-04-24 08:20 | Inpatient (IN) | payer OTHER ==
[~2022-04-24] VITALS: Ht 180.3 cm; Wt 106.8 kg
[2022-04-24 08:41] LABS: Source, Urine Clean Catch
[2022-04-24 08:44] LABS: Appearance, Urine Clear (Clear); Bilirubin, Urine Neg (Neg); Blood, Urine 2+ (Neg); Color, Urine Yellow (P-Yellow); Glucose Qualitative, Urine Neg (Neg); Ketones, Urine Neg (Neg); Leukocyte Esterase, Urine Neg (Neg); Nitrite, Urine Neg (Neg); Protein, Urine 2+ (Neg); Urobilinogen, Urine 1+ (Normal); pH, Urine 6.5 (5.0-8.0)
[2022-04-24 08:54] LABS: U Amphetamine Screen DETECTED; U Barbituate Screen Not Detected; U Benzodiazapine Screen DETECTED; U Buprenorphine Screen Not Detected; U Cannabinoids Screen DETECTED; U Cocaine Screen Not Detected; U Methadone Screen Not Detected; U Methamphetamine Screen DETECTED; U Opiates Screen Not Detected; U Oxycodone Screen Not Detected; U Phencyclidine Screen Not Detected; U Propoxyphene Screen Not Detected
[2022-04-24 08:56] LABS: Squamous Epithelial Cells Rare /hpf (Few)
[2022-04-24 08:57] LABS: Bacteria Rare /hpf; Hyaline Casts 0-2 /lpf (0-2)
[2022-04-24 10:15] LABS: BASOPHILS ABSOLUTE AUTO 0.04 K/mm3 (0.00-0.23); BASOPHILS PERCENT AUTO 1 % (0-2); EOSINOPHILS ABSOLUTE AUTO 0.11 K/mm3 (0.00-0.68); EOSINOPHILS PERCENT AUTO 2 % (0-6); Hematocrit 22.8 % (37.0-53.0); Hemoglobin 7.3 g/dL (13.5-17.5); IMMATURE GRAN ABSOLUTE AUTO 0.02 K/mm3 (0.00-0.10); IMMATURE GRAN PERCENT AUTO 0 % (0-1); LYMPHOCYTES ABSOLUTE AUTO 0.83 K/mm3 (0.84-5.20); LYMPHOCYTES PERCENT AUTO 15 % (21-46); MONOCYTES ABSOLUTE AUTO 0.69 K/mm3 (0.16-1.47); MONOCYTES PERCENT AUTO 13 % (4-13); Mean Corpuscular HGB 27.9 pg (26.0-34.0); Mean Corpuscular Volume 87 fL (80-100); Mean Platelet Volume 9.2 fL (9.1-12.4); NEUTROPHILS ABSOLUTE AUTO 3.74 K/mm3 (1.96-9.15); NEUTROPHILS PERCENT AUTO 69 % (41-73); Platelet Count 294 K/mm3 (150-400); RDW Coefficient Variation 15.8 % (11.7-14.2); RDW Standard Deviation 50.5 fL (35.1-46.3); Red Blood Cell Count 2.62 M/mm3 (4.30-5.90); White Blood Cell Count 5.43 K/mm3 (4.00-11.30)
[2022-04-24 10:30] LABS: International Normalized Ratio 1.09; Prothrombin Time Results 11.4 Sec (9.7-11.5)
[2022-04-24 10:33] LABS: Albumin, Blood 1.8 g/dL (3.4-5.0); Albumin/Globulin Ratio 0.3 (0.8-1.8); Bilirubin, Total 0.3 mg/dL (0.1-1.0); Bun/Creatinine Ratio 22.3 (12.0-20.0); Calcium, Blood 8.5 mg/dL (8.5-10.1); Creatinine, Blood 0.72 mg/dL (0.60-1.20); Globulin, Blood 5.9 g/dL (2.2-4.0); Potassium, Blood 2.7 mmol/L (3.5-5.5); Total Protein, Blood 7.7 g/dL (6.4-8.2)
[2022-04-24 10:42] LABS: Magnesium, Blood 1.7 mg/dL (1.6-2.4)
--- NOTE | 2022-04-24 14:36 | NUR ---
PT ADMITTED TO ROOM 360, STRETCHER TO BED SLIDE TRANSFER. PT SLEEPY BUT AWAKENS EASILY AND ANSWERS QUESTIONS APPROPRIATELY. KNOWS THE YEAR AND WHERE HE IS, DOES NOT KNOW WHO THE PRESIDENT IS. DOESNT KNOW HIS HEALTH HISTORY. STATES PAIN IN HIP 7/10 AND INCREASES TO 10/10 WHEN MOVING. TOOK PICTURES OF HIS SKIN WITH INCREASED BREAKDOWN OF BACKSIDE. WOUND VAC CONT SUCTION AT 160. WILL APPLY DRESSING TO CLUG BREAKDOWN. CALLING TO GET PT PAIN CONTROL. MEDICATED WITH PO KCL AND SET UP IV KCL. PT ORIENTED TO ROOM SET UP AND CALL LIGHT. KNOWS HIS LIMITS.
--- NOTE | 2022-04-24 19:50 | NUR ---
SUMMARY- PT A/O X3. SLEEPY BUT AWAKENS TO VERBAL STIM. WOUND VAC 160MM/HG CONT SUCTION. ADMIT COMPLETE, HX NEEDS COMPLETE. PT DECLINED LUNCH BUT ATE DINNER AND FED SELF EATING 100%. TAKING IN SMALL AMOUNT OF FLUIES. VOIDED IN URINAL. SKIN BREAKDOWN TO GLUT, PICTURES TAKEN. CLEANSED AND APPLIED SKIN PREP AND MEPILEX. NOONE ABLE TO PLACE PICC TODAY, CHARGE AWARE AND WILL HAVE RN FOLLOW UP ON MONDAY. PT'S R HIP PAIN CONTROLLED WITH OXYCONTIN 10 MG AND FENT GIVEN ONCE THIS PM. DR HDEZ STATED HE WOULD WORK ON THE MED REC AND ORDER PT'S OTHER MEDS.
--- NOTE | 2022-04-25 05:21 | NUR ---
PT SOMNOLENT ALL NIGHT. PT WOULD WAKE UP AND REQUEST PAIN MEDICATION THEN FALL ASLEEP WHEN STAFF LEFT THE ROOM. PT REPORTS LAST BM WAS A FEW DAYS AGO, GIVEN PRUNE JUICE. TYLENOL GIVEN AT START OF SHIFT FOR PAIN WITH RELIEF. NO ACUTE CHANGES DURING THE NIGHT. VSS.
[2022-04-25 08:27] LABS: Hematocrit 25.6 % (37.0-53.0); Hemoglobin 7.9 g/dL (13.5-17.5); Mean Corpuscular HGB 27.5 pg (26.0-34.0); Mean Corpuscular HGB Conc 30.9 g/dL (31.5-36.5); Mean Corpuscular Volume 89 fL (80-100); Mean Platelet Volume 9.2 fL (9.1-12.4); Platelet Count 303 K/mm3 (150-400); RDW Coefficient Variation 16.1 % (11.7-14.2); RDW Standard Deviation 52.6 fL (35.1-46.3); Red Blood Cell Count 2.87 M/mm3 (4.30-5.90); White Blood Cell Count 4.86 K/mm3 (4.00-11.30)
[2022-04-25 08:46] LABS: Bun/Creatinine Ratio 16.8 (12.0-20.0); Calcium, Blood 8.5 mg/dL (8.5-10.1); Creatinine, Blood 0.66 mg/dL (0.60-1.20); Potassium, Blood 3.2 mmol/L (3.5-5.5)
--- NOTE | 2022-04-25 18:22 | NUR ---
AOX4, AN MAKE NEEDS KNOWN, COOPERTIVE WITH MEDICTIONS AND CARE. PT IS CHAIRFAST, NEEDS 1-2 PERSON ASSISTANCE. PT HAS WOUND VAC AT HIS RIGHT HIP, CHANGED TODAY BY STAFF. PT SKIN IS IN POOR CONDITION, PHOTOS IN CHART. PT STATS PAIN OF 7/10, PRN PAIN MED GIVEN WITH GOOD RELIEF. PT IS ANXIOUS, RN REQUESTED PRN OF ANX MED, GIVEN WITH GOOD RELIEF. PT IS ISO FOR MRSA HX. NO ACUTE CHANGES. CALL-LIGHT WITHIN REACH; BED IN LOWEST POSITION.
--- NOTE | 2022-04-26 01:08 | NUR ---
BLOOD CULTURES POSITIVE: GRAM + COCCI WITH CLUSTERS. PT ALREADY RECIEVING DAPTOMYCIN. PHARMACY STATED THIS IS ACCURATE COVERAGE. MD CALLED AND UPDATED.
--- NOTE | 2022-04-26 01:13 | NUR ---
PT HAS BEEN HAVING A GASPING/HICCUP BREATHING PATTERN. VITAL SIGNS WNL. OXYGEN SATURATIONS 99-100% ON ROOM AIR. PT PLACED ON 4L NC FOR COMFORT. PT IS HAVING INCREASED ANXIETY ABOUT BREATHING STATING HE CAN'T CATCH HIS BREATH. ATARAX PRN GIVEN EARLIER. CALLED, NEW ORDERS, MELATONIN 5 MG PO HS. PT GIVEN MELATONIN AND GIVEN ICE WATER TO GARGLE AND SPIT.
--- NOTE | 2022-04-26 06:06 | NUR ---
SHIFT SUMMARY: BOTH BLOOD CULTURES SHOW GRAM + COCCI WITH CLUSTERS. PHARMACY STATES CURRENT ABX ARE SUFFICIENT. MD UPDATED. PT TONIGHT HAVING GASPING/HICCUP LIKE BREATHING. VITALS WNL. PT STATES SHORT OF BREATH BUT 99% ON ROOM AIR. 4L NC PLACED FOR COMFORT. PT CLEARLY ANXIOUS. UPDATED, NEW ORDERS, MELATONIN 5 MG PO HS.
[2022-04-26 08:36] LABS: Bun/Creatinine Ratio 17.4 (12.0-20.0); Calcium, Blood 8.5 mg/dL (8.5-10.1); Creatinine, Blood 0.63 mg/dL (0.60-1.20); Potassium, Blood 3.8 mmol/L (3.5-5.5)
--- NOTE | 2022-04-26 15:21 | NUR ---
Pt. is awake in bed and welcomes my visit. Pt. has a wheeze that is much more pronounced since his last hospitalization. Pt. verbalizes confession that he was unable to care for himself at last discharge and had suffered a relapse. Listen theraputically with a calming presence. Re-establish rapport as Pt. is a re-admit. Prayed with Pt. Pt. verbalized gratitude for the spiritual care visit, and invited me to return.
--- NOTE | 2022-04-27 06:01 | NUR ---
SHIFT SUMMARY NOC: PT SLEPT ON AND OFF THROUGHOUT NIGHT WAKING TO ASK FOR PAIN MEDICATIONS. PT ON ROOM AIR. GASPING/HICCUPING BREATHING PATTERN LESS TONIGHT. NO ACUTE EVENTS.
--- NOTE | 2022-04-27 18:20 | NUR ---
PT CAN MAKE NEEDS KNOWN, COOPERATIVE WITH CARE AND MEDICATIONS. PT NEEDS 1-2 PERSON ASST. PT HAS WOUND VAC AT RIGHT HIP. PT STATS PAIN LEVEL OF 7/10, PRN PAIN MEDS GIEN WITH GOOD RELIEF. PT HAS ANXIETY, PRN ANX MED GIVEN. PT IS ISO FOR MRSA HX. NO ACUTE CHANGES. CALL-LIGHT WITHIN REACH; BED IN LOWEST POSITION.
--- NOTE | 2022-04-27 18:26 | NUR ---
Echocardiogram completed.
--- NOTE | 2022-04-28 05:31 | NUR ---
SHIFT SUMMARY NOC: PT SLEPT MOST OF NIGHT. CALLS FREQUENTLY FOR PAIN MEDICATIONS. INCREASED ANXIETY WITH TURNING. NO ACUTE EVENTS.
--- NOTE | 2022-04-29 04:45 | NUR ---
SHIFT SUMMARY: PT HAS A NEW POWERGLIDE IN THE RUE; THE LINE DRAWS WELL FOR LABS. SHE HAS BEEN NPO SINCE MIDNIGHT FOR THE I&D TODAY. SHE STATES THAT THE Q6 PAIN MEDICATION HAS NOT BEEN ADEQUATE FOR PAIN MANAGEMENT. PER TELE: SR/93. SHE HAS BEEN INDEPENDENT IN THE ROOM. THE CALL LIGHT IS WITHIN REACH AND WE'LL CONTINUE TO MONITOR.
[2022-04-29 04:49] LABS: BASOPHILS ABSOLUTE AUTO 0.04 K/mm3 (0.00-0.23); BASOPHILS PERCENT AUTO 1 % (0-2); EOSINOPHILS ABSOLUTE AUTO 0.34 K/mm3 (0.00-0.68); EOSINOPHILS PERCENT AUTO 7 % (0-6); Hematocrit 26.3 % (37.0-53.0); Hemoglobin 8.1 g/dL (13.5-17.5); IMMATURE GRAN ABSOLUTE AUTO 0.02 K/mm3 (0.00-0.10); IMMATURE GRAN PERCENT AUTO 0 % (0-1); LYMPHOCYTES ABSOLUTE AUTO 1.37 K/mm3 (0.84-5.20); LYMPHOCYTES PERCENT AUTO 29 % (21-46); MONOCYTES ABSOLUTE AUTO 0.64 K/mm3 (0.16-1.47); MONOCYTES PERCENT AUTO 14 % (4-13); Mean Corpuscular HGB 27.4 pg (26.0-34.0); Mean Corpuscular HGB Conc 30.8 g/dL (31.5-36.5); Mean Corpuscular Volume 89 fL (80-100); NEUTROPHILS ABSOLUTE AUTO 2.33 K/mm3 (1.96-9.15); NEUTROPHILS PERCENT AUTO 49 % (41-73); Platelet Count 307 K/mm3 (150-400); RDW Coefficient Variation 16.3 % (11.7-14.2); RDW Standard Deviation 53.2 fL (35.1-46.3); Red Blood Cell Count 2.96 M/mm3 (4.30-5.90); White Blood Cell Count 4.74 K/mm3 (4.00-11.30)
--- NOTE | 2022-04-29 04:53 | NUR ---
SHIFT SUMMARY: PT USES THE CALL BUTTON FOR NEEDS. HE IS A/OX3. CONTACT FOR MRSA. POWERGLIDE IN THE RUE DOES NOT DRAW FOR LABS. THE PT DOES HAVE C/O PAIN IN THE RIGHT HIP AND HAS PRN FENTANYL FOR PAIN MANAGEMENT. HE HAS TWO MEPILEX DRESSING TO THE SACRAL/COCCYX AREA THAT ARE CHANGED, LABELED AND CDI. WOUND VAC TO RIGHT HIP IS FUNCTIONING AND DRESSING IS INTACT WITHOUT ANY LEAKS. PT STATES HE IS VERY SAD FOR THE LOSS OF HIS FATHER AND IS STRUGGLING TO COPE. HIS CALL LIGHT IS WITHIN REACH AND WE WILL CONTINUE TO MONITOR.
[2022-04-29 05:10] LABS: Bun/Creatinine Ratio 31.7 (12.0-20.0); Calcium, Blood 8.5 mg/dL (8.5-10.1); Creatinine, Blood 0.69 mg/dL (0.60-1.20); Potassium, Blood 3.8 mmol/L (3.5-5.5)
--- NOTE | 2022-04-29 10:41 | NUR ---
Spiritual care visit conducted. Pt is lying in bed and is emotional. He shares about his relapse on drugs and alcohol, the grief over his father's recent and his concerns about his future. I normalize his concerns and provide therapeutic listening, grief support, pastoral budget counselor and prayer. Pt responds well and shows signs of increased peace. Spiritual care will continue to remain available.
--- NOTE | 2022-04-29 19:04 | NUR ---
SHIFT SUMMARY PATIENT A&0X4. 1PA TO TURN. DOES NOT GET OUT OF BED. WOUND AC IN PLACE TO RIGHT HIP. WOUND VAC DRESSING CHANGED THIS SHIFT. MEDICATED FOR PAIN AND ANXIERY PER DEC. PRESSURE WOUNDS ON COCCXY WITH MEPILEX DRESSINGS, CHANGED THIS SHIFT. REPORT GIVEN TO ONCOMING RN.
--- NOTE | 2022-04-30 04:34 | NUR ---
SHIFT SUMMARY: PT IS A/OX3-4. HE WAS MORE RESTFUL THIS SHIFT. NO CHANGES IN MEDICATIOS FROM THE PRIOR SHIFT. ON CONTACT FOR MRSA IN THE BLOOD. HE'S BEEN REPOSITIONED FREQUENTLY D/T DECONDITIONING. HE DOES USE THE CALL BUTTON FOR ALL NEEDS. WE'LL CONTINUE TO MONITOR.
--- NOTE | 2022-04-30 19:21 | NUR ---
SHIFT SUMMARY PATIENT A&O. STATED HE HAS NOT HAD A BM SINCE ADMIT. BOWEL CARE STARTED. ON RA. NOTED PATIENTS BREATHING LESS ANXIOUS TODAY. WOUND VAC PRESENT ON RIGHT HIP. C/O PAIN RIGHT HIP, MEDICATED PER MAR. PATIENT WILL CONTINUALLY CALL FOR PAIN MEDS BEFORE DUE. VSS. REPORT GIVEN TO ONCOMING RN.
--- NOTE | 2022-04-30 20:33 | NUR ---
ASKED FOR PAIN MEDS, RIGHT HIP PAIN - WOUND VAC IN USE. ANALGESIC ADMINISTERED. PT THEN VOICED HE HAD A "NEW HOBBY" AND HELD UP BOOK ON WORKING ON DRUG/ETOH ABUSE. ENCOURAGED TO CONTINUE HIS NEW HOBBY. AFFECT CHEERED UP. CALL LIGHT IN REACH
--- NOTE | 2022-05-01 04:36 | NUR ---
LOGGING RAFTER LABORER SUMMARY AWAKE AT INTERVALS, MULTIPLE REQUESTS FOR PAIN MEDS. SEE MAR FOR DETAILS. VSS. IV ANTIBIOTICS ADMINISTERED ORDERED. WOUND VAC OF RIGHT HIP INTACT AND IN USE. REPOSITIONED WITH ASSISTANCE AT INTERVALS. CONTACT ISOLATION CONTINUES. CALL LIGHT IN REACH.
[2022-05-01 05:05] LABS: Bun/Creatinine Ratio 31.2 (12.0-20.0); Calcium, Blood 8.3 mg/dL (8.5-10.1); Creatinine, Blood 0.74 mg/dL (0.60-1.20); Potassium, Blood 4.1 mmol/L (3.5-5.5)
--- NOTE | 2022-05-01 18:17 | NUR ---
SHIFT SUMMARY PATIENT A&O. WOUND VAC PRESENT ON RIGHT HIP. PATIENT C/O RIGHT HIP PAIN. REQUESTING PAIN MEDS FREQUENTLY AND OFTEN BEFORE DUE. MEDICATED PER MAR. RECEIVING IV ANTIBIOTICS. POOR APPETITE, VSS. WILL CONTINUE TO MONITOR.
--- NOTE | 2022-05-02 04:09 | NUR ---
SHIFT SUMMARY PATIENT HAD NO ACUTE CHANGES. AXOX 3 AND BEDREST. REPORTED RIGHT HIP PAIN X TWO AND IV FENTANYL 50 MCG GIVEN PER EMAR WITH GOOD EFFECT. SCHEDULE OXYCONTIN 10 MG GIVEN. DENIES SOB AND N/V. POWERGLIDE ALIZA INTACT. IV ABX INFUSED. VSS/AFEBRILE. DESYREL 50 MG GIVEN FOR INSOMNIA. COOPERATIVE WITH CARE. CALL LIGHT IN REACH. BED IN LOWEST POSITION. WILL CONTINUE TO MONITOR UNTIL DAY SHIFT NURSE ASSUMES CARE.
--- NOTE | 2022-05-02 17:23 | NUR ---
wound vac CHANGED THE PTS WOUND VAC SCHEDULED. CLEANED WITH SKIN TEGRITY WOUND SENIOR CARE MANAGER APPLIED FOAM, SECURED WITH TEGRADERM AND APPLIED SUCTION. PT TOLERATED WELL.
--- NOTE | 2022-05-02 17:25 | NUR ---
PT A/OX4, PLEASANT AND COOPERATIVE. THE PT IS UP WITH MAX ASSIST TO THE BSC. THE PT WAS UP TO THE BSC X1 TODAY AND THEN BEDREST FOR THE REST OF THE DAY. PT WAS REPOSITIONED T/O THE DAY. LEFT BUTTOCKS WOUND CLEANED AND MEPILEX FOAM APPLIED COCCYX WOUND CLEAD AND MEPILEX DRESSING APPLIED. THE PT APPEARS TO BE BREATHING EASILY AT REST. PT GASPS FREQUENTLY WHILE COMMUNICATING. THE PT WORKED WITH THE PHYSICAL THERAPIST TODAY. CALL IGHT IN REACH WILL CONTINUE TO MONITOR AND ASSESS FOR CHANGES
--- NOTE | 2022-05-03 04:04 | NUR ---
SUMMARY: A/O, SPECIFIES NEEDS AND IS PLEASANT/COOPERATIVE W/CARE. HE USED URINAL INDEPENDENTLY AND WAS ASSISTED W/REPOSITIONING. MEPILEX TO BUTTOCKS IS C/D/I AND R.HIP WOUND VAC W/SUCTION REMAINS INTACT. SCHEDULED OXYCONTIN AND PRN FENTANYL RECIEVED FOR TOLERABLE RELIEF OF HIP/BACK PAIN. VSS/AFEBRILE, NO ACUTE CHANGES. WCTM AND REPORT TO DAY RN.
--- NOTE | 2022-05-03 17:58 | NUR ---
PT IS A/OX4. PLEASANT AND COOPERATIVE. THE PT IS UP WITH MAX ASSIST. THE PT GOT UP TO THE RECLINER TODAY WITH THE HELP[ OF THE OCCUPATIONAL THERAPIST. AND LATER TODAY WAS ABLE TO SIT UP ON THE SIDE OF THE BED. THE PT WAS MEDICATED FOR PAIN X2 TODAY. PT APPEARS TO BE BREATHING EASILY ON RA AT THIS TIME. PT HAS FREQUANT GASPING. CALL LIGHT IN REACH. WILL CONTINUE MONITOR AND ASSESS FOR CHANGES
--- NOTE | 2022-05-04 04:21 | NUR ---
SUMMARY: PT A/OX4, CALLS APPROPRIATELY AND IS PLEASANT AND COOPERATIVE W/CARE. WOUND VAC W/SUCTION REMAINS INTACT TO R.HIP AND MEPILEX TO BUTTOCKS IS C/D/I. PAIN TO R.HIP IS MUCH BETTER MANAGED W/PRN TRAMADOL AND SCHEDULED OXYCONTIN. IV ABX RECIEVED THEN SL'D. HE'S UP TO CHAIR W/2MAX ASSIST BUT REMAINED IN BED THIS SHIFT W/TURN SCHEDULE MAINTAINED. PT USES URINAL INDEPENDENTLY W/ATTENDS CHANGED PRN. NO ACUTE CHANGES. REHAB PLACEMENT PENDING. WCTM/REPORT TO DAY RN.
--- NOTE | 2022-05-04 07:41 | NUR ---
ASSUMED CARE OF PT- REPORT COMPLETED WITH NIGHT RN RONALDO. PT SLEEPING AT THE TIME OF REPORT. 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 PT ANSWERS ORIENTATION QUESTIONS APPROPRIATELY, WILL REVIEW PT Hx AND SPEAK WITH MD ON MORNING ROUNDS IF INDICATEED. PT STATES THIS IS DIFFERNT THAN PREVIOUS DAYS.
--- NOTE | 2022-05-04 18:14 | NUR ---
SHIFT SUMMARY- PT ALERT AND ORIENTED X3. A LITTLE FORGETFUL. PLAN AT THIS TIME IS TO CONTINUE TID AABBX FOR THE NEXT SIX WEEKS. CURRENTLY NO SAFE DISCHARGE PLAN. PPT HAS HAD NO ACUTE CHANGE T/O THE SHIFT. PAIN MEDS PER EMAR. WOUND VAC DRESSING WAS CHANGED, PG DRESSING WAS NOT CHANGED, WILL PASS ON TO NIGHT RN IN REPORT. PT IN BED, CALL LIGHT IN REACH NO S&S OF DISTRESS NOTED, IV AABX INFUSING AT THIS TIME.
--- NOTE | 2022-05-05 04:48 | NUR ---
SHIFT SUMMARY NO ACUTE CHANGES TO REPORT THIS SHIFT, PT HAS BEEN AWAKE A GOOD PORTION OF THE SHIFT WATCHING TV. PT CONTINUES TO HAVE INTERMITTENT PAIN, MEDICATED PER EMAR. WOUND VAC IN PLACE, SMALL AMOUNT OF SEROUS DRAINAGE. IV ANTIBIOTICS CONTINUED ORDERED. POWERGLIDE DRESSING WAS CHANGED BY DAYSHIFT RN CLOSER TO SHIFT CHANGE. PLAN OF CARE REMAINS UNCHANGED. BED IN LOWEST POSITION, CALL LIGHT WITHIN REACH.
--- NOTE | 2022-05-05 17:57 | NUR ---
SHIFT SUMMARY- PT ALERT AND ORIENTED, 2P MAX ASSIST WITH A FWW AND GAIT BELT FOR STAND PIVOT TRANSFERS TO THE RECLINER. PT PAIN SEEMED WELL MANAGED TO THE SHIFT UNTIL THIS EVENING WHEN HE REQUESTED PAIN MEDICATION. HE BECAME TEARFUL WHEN STAFF INFORMED HIM THE MEDICATION AVAILABLE WAS IBUPROFEN. TRAMADOL NOT AVAILABLE FOR ANOTHER 30 MINUTES. THE PT WAS UPSET ABOUT NOT HAVING FENATNYL AVAILABLE ANYMORE. THIS IS THE FIRST TIME HE HAS MENTIONED THIS IN SEVERAL DAYS. WILL MEDICATE WHEN MEDICATION IS AVAILABLE. PLAN FOR THE PT IS TO REMAIN HERE FOR SIX WEEKS TO RECIEVE IIV ABX TID. FOR HIS MRSA INFECTION. PT HAS HAD AN EMOTIONAL DAY HIS MOTHER WAS ADMITTED TO THE HOSPITAL TODAY, WELL ANOTHER FAMILY MEMBER. HE MAY BE EMTIONALLY OVERWHELMED, CAUSING HIM TO BE MORE UNCOMFORTABLE AND EMOTIONAL THIS EVENING. PASTORAL CARE IS NO LONGER AVAILABLE TODAY BUT THE PT MAY BENIFIT FROM A VISIT TOMORROW. PT IN BED, CALL LIGHT IN REACH, REPOSITIONED T/O THE SHIFT, EATING HIS DINNER. WILL CTM AND PASS ON TO NIGHT RN IN REPORT.
--- NOTE | 2022-05-06 04:21 | NUR ---
SHIFT SUMMARY PATIENT HAD NO ACUTE CHANGES OBSERVED. AXOX 4 AND BEDREST. POWERGLIDE RU ARM INTACT. IV ABX INFUSED. VSS/AFEBRILE. DENIES CHEST PAIN, SOB, AND N/V. RIGHT HIP PAIN AND TRAMADOL 50 MG GIVEN PER EMAR. WATCHED TV FIRST PART OF SHIFT. COOPERATIVE WITH CARE. WOUND VAC TO RIGHT HIP INTACT. CALL LIGHT IN REACH. BED IN LOWEST POSITION. WILL CONTINUE TO MONITOR UNTIL DAY SHIFT NURSE ASSUMES CARE.
--- NOTE | 2022-05-06 18:20 | NUR ---
SHIFT SUMMARY MR LINARES IS ORIENTATED X4. HAS WOUND VAC TO R HIP, CHANGED BY SHERRILL ARVIZU TODAY. R HIP WOUND APPROX 1" IN DIAMETER MEPILEX CHANGED. SACRAL RED AND EXCORIATED, NEW MEPILEX APPLIED. PT HAD 2 LARGE BMS TODAY AFTER DUCOLOX SUPPOSITORY THIS AM AND SAID HE FEELS BETTER FOR IT AFTER NO BM X 1 WEEK. UP TO BEDSIDE COMMODE AND SAT OUT IN THE CHAIR TODAY. HE HAS BEEN ENCOURAGED AND ASSISTED TO CHANGE POSITION [id number] IN BED TO HELP SKIN INTEGRITY, BUT HE DOES NEED ENCOURAGEMENT TO KEEP MOVING. R HIP AREA RED AND SWOLLEN, REDNESS AND SCABS TO BLE. R LEG TENDER TO MOVE, PROPPED UP ON PILLOWS. HEALTHY DIET ENCOURAGED BUT PT DOESN'T LOVE THE SUPPLIMENTS OR DRINKING PLAIN WATER. BED LOW, CALL LIGHT IN REACH.
--- NOTE | 2022-05-07 04:46 | NUR ---
SHIFT SUMMARY PT MOSTLY PLEASANT AND COOPERATIVE THIS EVENING. ALLOWING FOR REPOSITIONING MOST OF THE TIME. WOUND VAC TO R HIP C/D/I. SLIGHT REDNESS TO TISSUE SURROUNDING WOUND. BLE'S DRY, WITH SCATTERED WOUNDS. BOTTOM EXCORIATED. PT REPORTS PAIN MOSTLY TO R HIP. MEDICATED PER EMAR. PT SLEPT WELL. HAD A BEDTIME SNACK. SCHEDULED ANTIBIOTICS INFUSED. VITAL SIGNS STABLE. NO ACUTE CHANGES THIS EVENING.
--- NOTE | 2022-05-07 12:20 | NUR ---
MR CRANDALL IS ORIENTATED X4. PAIN CONTROLLED WITH OXY SLOW REALEASE SO FAR TODAY. RIGHT HIP RED AND SWOLLEN, WOUND VAC IN PLACE, DRESSING NOT CHANGED, INTACT. 2 MEPILEX DRESSINGS TO BUTTOCKS LEFT INTACT, CHANGED YESTERDAY. PT REMINDED TO RELIEVE PRESSURE AND HAS BEEN GOOD ABOUT COOPERATING WITH TURNS AND REPOSITIONING THIS MORNING. BED BATH DONE. PAIN TO R LEG AND NEEDS A LOT OF SUPPORT MOVING THE RIGHT LEG. OOBTC WITH PT. CALL LIGHT IN REACH.
--- NOTE | 2022-05-07 13:41 | NUR ---
I met with pt who was resting in the chair next to the bed. He was cordial and extended appreciation for visiting. Pt recounted the numerous challenges he's faced and began to ruminate about his life narrative. Active listening and validation of felt expression given. Pt becomes tearful at times and continues to share his current emotional well-being. Pastoral encouragement, normalization and guidance were extended. Pt requested prayer which was readily provided. Pastoral support will continue to remain available as needed.
--- NOTE | 2022-05-07 19:16 | NUR ---
shift summary Mr David is alert and orientated x4.Main c/o r hip and R lower leg pain. wound vac in place to R hip, dressing left undisturbed today. R hip red area red and swollen. He has good upper body strength, requires assistance to lift, reposition the R leg in bed. Redness to both lower legs. Left leg not painful. Pressure sore to buttocks, small mepilex changed today, larger one over excoriated area left intact. Up to chair for a couple of hours this morning and also worked with PT today. Pain controlled with oxy SR and medicated once for breakthrough pain. Pt requested and received a visit from the og today which he said was helpful. Bed low, call light in reach.
--- NOTE | 2022-05-08 04:48 | NUR ---
DOWNTIME CHARTING THIS EVENING. SHIFT ASSESSMENT CHARTED ON PAPER AND PLACED IN CHART.
--- NOTE | 2022-05-08 04:50 | NUR ---
SHIFT SUMMARY PT HAD AN UNEVENTFUL NIGHT. WOUND VAC TO R HIP C/D/I. PT SLEPT MUCH OF THE EVENING. PT DOES REPORT PAIN TO R HIP, MEDICATED W/ SCHEDULED CONTROLLED RELEASE OXYCONTIN AT BEDTIME. PT DID NOT REQUIRE ANY FURTHER MEDICATION THIS SHIFT. REPOSITIONED PT TOLERATED. PT WILL OCCASIONALLY REFUSE REPOSITIONING BUT OVERALL HAS BEEN PLEASANT AND COOPERATIVE. NO ACUTE CHANGES THIS EVENING. VITAL SIGNS STABLE.
[2022-05-08 06:29] LABS: Bun/Creatinine Ratio 21.1 (12.0-20.0); Calcium, Blood 8.5 mg/dL (8.5-10.1); Creatinine, Blood 0.57 mg/dL (0.60-1.20)
--- NOTE | 2022-05-08 13:17 | NUR ---
MR LINARES IS A&OX4. WOUND VAC WITH DRESSING C,D,I TO R HIP. R HIP AREA RED AND SWOLLEN. BUTTOCK PRESSURE WOUNDS/EXCORIATION/DISCOLORATION PHOTOGRAPHED, CLEANED AND NEW MEPLILEX APPLIED. BLE REDNESS, R LEG PAIN. R HIP PAIN. MR LNIARES TRANSFERED OUT TO THE CHAIR FOR LUNCH. GOOD UPPER BODY STRENGTH, USED WALKER AND GAIT BELT, TRANSFERED TO HIS RIGHT (STRONGER SIDE). GOOD APPETITE. NO PRN PAIN MEDS REQUESTED THIS SHIFT SO FAR, SCHEDULED MEDS ONLY. CALL LIGHT IN REACH.
--- NOTE | 2022-05-08 16:49 | NUR ---
SHIFT SUMMARY (SEE [id number] NOTE). MR LINARES DID WELL SITTING OUT IN THE CHAIR FOR ABOUT 4 HOURS TODAY. TRANSFERED BACK INTO BED WITH 2 PERSON ASSIST AND GAIT BELT. PAIN CONTROLLED ON SCHEDULED BID NARCOTICS. HE SAID THAT IN GENERAL HE IS FEELING MORE MOBILE AND LESS PAINFUL. BED LOW, CALL LIGHT IN REACH.
--- NOTE | 2022-05-09 04:30 | NUR ---
SHIFT SUMMARY PT SLEPT MUCH OF THE NIGHT. WAKES EASILY AND ANSWERS QUESTIONS APPROPRIATELY. WOUND VAC TO R HIP REMAINS IN PLACE. DRESSING TO SMALLER WOUND ON R HIP C/D/I. PT PLEASANT AND COOPERATIVE, SOMETIMES REFUSING REPOSITIONING BUT MOSTLY COMPLIANT WITH CARE. ABLE TO ASSIST WITH TURNING. MEDICATED W/ SCHEDULED PAIN MEDICATION WITH GOOD EFFECT. PT REQUIRED NO FURTHER PRN'S FOR PAIN. VITAL SIGNS STABLE. NO ACUTE EVENTS THIS EVENING.
--- NOTE | 2022-05-09 12:30 | NUR ---
PATIENT UP IN RECLINER FOR LUNCH
--- NOTE | 2022-05-09 15:59 | NUR ---
Spiritual care visit conducted. After visiting with pt's mother while she, also, has been admitted to the hospital, she asked me to bring Mr. David a message. I deliver the message which led to a lengthy conversation with the pt about the need for him to take greater responsibility to watch over his mom. He states the obvious about staying clean and sober and then talks about the physical and emotional level he needs to rise to. We also talk about his spiritual journey and his desire to lean into his connection with God for His strength to move forward with his life. Pt is tearful at times but expresses much gratitude for myself and our other Grinding Machine Operator Automatic Ramos for time and care given. Pt shows signs of increased resolve to live a healthier, clean and spiritual life. Spiritual care will continue to remain available.
--- NOTE | 2022-05-09 17:24 | NUR ---
PATIENT IS ALERT AND ORIENTED AND COOPERATIVE WITH CARE. PATIENT WORKED WITH PT AND OT TODAY. SAT UP IN THE RECLINER FOR A FEW HOURS THIS AFTERNOON. C/O PAIN, MEDICATED PER EMAR. WOUND VAC DRESSING CHANGED BY CLAM SORTER. MEPILEX ON COCCYX CHANGED THIS SHIFT. WILL CONTINUE TO MONITOR
--- NOTE | 2022-05-10 04:25 | NUR ---
SHIFT SUMMARY WOUND VAC IN PLACE TO R HIP. DRESSING C/D/I. PT SLEPT FOR MUCH OF THE EVENING. COOPERATIVE WITH CARE. ASSISTS WITH REPOSITIONING AND HAS AN EXTENDED TOOL FOR GRABBING ITEMS INDEPENDENTLY. PT REPORTS PAIN TO RLE. MORE SEVERE WITH MOVEMENT. SCHEDULED BEDTIME MEDICATION PROVIDED FOR PAIN. PT REQUESTED PRN PAIN MEDICATION X 1 IN ADDITION. VITAL SIGNS STABLE. NO ACUTE CHANGES THIS SHIFT.
[2022-05-10 05:25] LABS: Hematocrit 26.1 % (37.0-53.0); Hemoglobin 7.9 g/dL (13.5-17.5); Mean Corpuscular HGB 27.2 pg (26.0-34.0); Mean Corpuscular HGB Conc 30.3 g/dL (31.5-36.5); Mean Corpuscular Volume 90 fL (80-100); Mean Platelet Volume 9.4 fL (9.1-12.4); Platelet Count 290 K/mm3 (150-400); RDW Coefficient Variation 16.4 % (11.7-14.2); RDW Standard Deviation 53.8 fL (35.1-46.3); White Blood Cell Count 4.14 K/mm3 (4.00-11.30)
[2022-05-10 05:44] LABS: Bun/Creatinine Ratio 20.7 (12.0-20.0); C-REACTIVE PROTEIN, EXT RANGE 7.01 mg/dL (0.000-0.300); Calcium, Blood 8.5 mg/dL (8.5-10.1); Creatinine, Blood 0.63 mg/dL (0.60-1.20)
--- NOTE | 2022-05-10 17:22 | NUR ---
PATIENT IS ALERT AND ORIENTED. PATIENT HAS A WOUND VAC IN PLACE. DRESSING D/D/I. PATIENT HAS BEEN PLEASENT AND COOPERATIVE WITH CARE. PATIENT HAS BEEN WORKING WITH PT AND BEEN IN CHAIR MOST OF SHIFT. PATIENT HAS COMPLAINED OF PAIN ONCE THIS SHIFT, MEDICATED PER EMAR. PATIENT HAS HAD NO COMPLAINTS OF SOB, NAUSEA OR VOMITTING THIS SHIFT. PATIENT RECEIVED A BATH TODAY. MEMPLEX ON SACRUM CHANGED THIS SHIFT. NO ACUTE EVENTS THIS SHIFT. VITAL SIGNS REVIEWED. WILL MONITOR UNTIL SHIFT CHANGE.
--- NOTE | 2022-05-11 04:00 | NUR ---
SHIFT SUMMARY PATIENT HAD NO ACUTE CHANGES. AXOX4 AND TWO ASSIST TO BSC. POWERGLIDE TO RU ARM INTACT.IV ABX INFUSED. REPORTED RIGHT HIP PAIN AND ULTRAM 50 MG GIVEN PER EMAR. DENIES CHEST PAIN, SOB, AND N/V. WOUND VAC IN PLACE C/D/I. COOPERATIVE WITH CARE. CALL LIGHT IN REACH. BED IN LOWEST POSITION. WILL CONTINUE TO MONITOR UNTIL DAY SHIFT NURSE ASSUMES CARE.
--- NOTE | 2022-05-11 12:28 | NUR ---
Spiritual Care Visit. Pt. is sitting up in a recliner and welcomes my visit. Pt. is pleasant. Re-eastblish rapport and engage in questions of enzo and belief. Pt. verbalizes his openness to connect with NA support upon discharge (est. in a month). [place] with Pt. Pt. displays evidence of increased commitment to turn his back on drugs and the lifestyle that has made him very sick. Pt. verbalizes gratitude forthe spiritual care visit. This snaker driving horses will investigate recovery options for the Pt.
--- NOTE | 2022-05-11 18:41 | NUR ---
SHIFT SUMMARY NO ACUTE CHANGES. WOUND VAC CHANGED. SLIGHT BLEEDING AND LITTLE OUTPUT INTO WOUND VAC. PT WILL REMAIN FOR THE REST OF HIS ABX COURSE. BE DIN LOWEST POSITION AND CLAL LIGHT IN REACH
--- NOTE | 2022-05-12 04:32 | NUR ---
SHIFT SUMMARY 56 YR M ADMITTED ON 04/24/22 FOR NECROTIC RIGHT HIP WOUND. FULL CODE. NO ACUTE CHANGES THIS SHIFT. HE IS PLAEASANT AND COOPERATIVE WITH CARE BUT IS HEAVY ON THE CALL LIGHT FOR MINOR THINGS.
[2022-05-12 05:03] LABS: Hematocrit 27.1 % (37.0-53.0); Hemoglobin 8.4 g/dL (13.5-17.5); Mean Corpuscular HGB 27.5 pg (26.0-34.0); Mean Corpuscular Volume 89 fL (80-100); Mean Platelet Volume 9.1 fL (9.1-12.4); Platelet Count 279 K/mm3 (150-400); RDW Coefficient Variation 16.2 % (11.7-14.2); RDW Standard Deviation 52.5 fL (35.1-46.3); Red Blood Cell Count 3.05 M/mm3 (4.30-5.90); White Blood Cell Count 4.74 K/mm3 (4.00-11.30)
[2022-05-12 05:35] LABS: Bun/Creatinine Ratio 20.6 (12.0-20.0); Calcium, Blood 8.8 mg/dL (8.5-10.1); Creatinine, Blood 0.68 mg/dL (0.60-1.20); Potassium, Blood 4.2 mmol/L (3.5-5.5)
--- NOTE | 2022-05-12 16:39 | NUR ---
Spiritual Care Visit. Pt. is awake in bed and welcomes my visit. Pt. is pleasant and rapport is re-established. Pt. is unsettles about the weakness of his right hand (wrist) and his need for finger nail clippers. Listen empatheticly with a calming presence. normalize the Pt. experience. Pt. displays evidence of trust and hope. Spend a great deal of the visit sharing stories of personal interest. Pt. verbalizes gratitude for the spiritual care visit.
--- NOTE | 2022-05-12 16:51 | NUR ---
SHIFT SUMMARY PATIENT IS ALERT AND ORIENTED. PATIENT HAS HAD NO ACUTE EVENTS THIS SHIFT. VITAL SIGNS REVIEWED. PATIENT HAS BEEN GETTING ABX THIS SHIFT. PATIENT HAS BEEN WORKING WITH PHYSICAL THERAPY THIS SHIFT. PATIENT HAS HAD NO COMPLAINTS OF PAIN, NAUSEA, SOB, OR VOMITTING THIS SHIFT. BED IS IN LOCKED AND LOWEST POSITION. CALL LIGHT IN PLACE. WILL MONITOR UNTIL SHIFT CHANGE.
--- NOTE | 2022-05-13 05:21 | NUR ---
SHIFT SUMMARY 56 YR M ADMITTED ON 04/24/22 FOR A NECROTIC RIGHT HIP WOUND WITH WOUND VAC IN PLACE. FULL CODE. NO ACUTE CHANGES THIS SHIFT. PT CALLS APPROPRIATELY AND IS PLEASANT AND COOPERATIVE. HE USES THE URINAL INDEPENDANTLY AND ASK FOR IT TO BE DUMPED.
--- NOTE | 2022-05-13 17:42 | NUR ---
PT HAS BEEN MOSTLY PLEASANT TODAY. DID HAVE ONE OUTBURST TODAY. APPEARS TO BE RESOLVED NOW. WOUND VAC CHANGED TODAY. PAIN MANAGED TO PT SATISFACTION. PENDING SNF DISCHARGE FOR DETENTION ABX. HE DID MANAGE 1 ASST TO BSC FOR TOILET USE. NO NEW CONCERNS NOTED TODAY. BED IN LOW POSITION, CALL LITE IN REACH, CALLS APPROP
--- NOTE | 2022-05-14 04:43 | NUR ---
SHIFT SUMMARY ADMITTED FOR RT HIP SEPTIC ARTHRITIS. FULL CODE. CONTACT PRECAUTIONS FOR MRSA IN WOUND AND BLOOD. PLAN IS FOR PLACEMENT AND USP IV ANTIB RX. RT HIP HAS WOUND VAC IN PLACE, DRESSING CHANGED PREVIOUS SHIFT. POWERGLIDE IN RUE. SOFT BITE SIZE DIET. 2 ASSIST TO BSC. ON RA. A&O X3. SOFT BP'S NOTED. HX OF DRUG USE.
--- NOTE | 2022-05-14 08:30 | NUR ---
PT AWAKE AND ANXIOUS. A/OX3. STATES DID NOT URINATE FOR 3 HRS. CONCERNS THAT BLADDER HURTS, SCAN SHOWS 500. TRIED STANDING TO URINATE, UNABLE. CALLING H/R REG, NO MURMUR NOTED. NO TELE. LUNGS CLEAR, RESP EASY, UNLABORED. ON R/A. BT X4 LAST BM SEVERAL DAYS, STATES NORMAL. WILL GIVE EXTRA BM MEDS. VOIDS PER URINAL, STATED ABOVE, PENDING ORDERS. PT HAS WOUND VAC TO FRONT HIP AREA, MAINTAINING SUCTION. CHANGED YESTERDAY. PRESSURE WOUND ON L GLUTEUS, MEPILEX CHANGED THIS AM. 2 ALONSO BURGOS BSC, GAITBELT, FWW. BED IN LOW POSITION, CALL LITE IN REACH, CALLS APPROP
--- NOTE | 2022-05-14 09:00 | NUR ---
PT C/O EXTREME BLADDER PAIN. STATES UNABLE TO URINATE FOR LAST 3 HRS. BLADDER SCAN SHOWS 505 CC. TRIED STANDING PT, TO NO AVAIL. CALLED DR DODD. OKAYED STRAIGHT CATH X1 THEN RECHECK Q8 HRS, IF >300, STRAIGHT CATH AGAIN. REPEAT 3 TIIMES, IF STILL RETAINING ON THIRD CHECK, OKAY PLACE GALVAN. STRAIGHT CATH PERFORMED. 500 OUT.
--- NOTE | 2022-05-14 10:42 | NUR ---
DISCUSSED POSS FLOMAX WITH DR DODD. HE TO REVIEW.
--- NOTE | 2022-05-14 16:14 | NUR ---
BLADDER SCANNED, 540. CALLED DR DODD. DISCUSSED PT. TO ORDER FLOMAX AND OKAYED PLACE GALVAN AND KEEP OVERNITE.
--- NOTE | 2022-05-14 17:51 | NUR ---
PT SOME ANX AND BUSY TODAY. PT WAS RETAINING TODAY. UNABLE TO URINATE. STRAIGHT CATHED THIS AM. AND AGAIN THIS AFT. SO PER , PLACED GALVAN THIS AFT. DR TO START MEDS TO IMPROVE. PT TOLERATING GALVAN WELL. NO OTHER CONCERNS NOTED TODAY. BED IN LOW POSITION, CALL LITE IN REACH, CALLS APPROP
--- NOTE | 2022-05-15 04:52 | NUR ---
SHIFT SUMMARY A/O X3-4- REMAINED IN BED THIS SHIFT. VITAL SIGNS STABLE. PAIN MANAGED W/ PO PAIN MEDICATIONS. TOLERATING PO INTAKE. STILL NO BOWEL MOVEMENT AT THIS TIME. GALVAN CATH DRAINING TO GRAVITY. PLEASANT AND COOPERATIVE THROUGHOUT SHIFT. WILL CONTINUE TO MONITOR AND REPORT TO ONCOMING RN.
--- NOTE | 2022-05-15 09:00 | NUR ---
PT PLEASANT COOP A/O X3. STATES PAIN MANAGED WITH AVAIL PAIN MEDS. NECROTIC WOUND, WOUND VAC IN PLACE. H/R REG, NO MURMER NOTED. NO TELE. LUNGS CLEAR, RESP EASY, UNLABORED, ON R/A. BT X4 HYPERACTIVE. HAS HAD MUCH BOWEL CARE YEST. STILL NO BM. WILL CONTINUE TODAY. VOIDS GALVAN CATH. YELLOW FLUID DRAINING TO GRAVITY. [facility] . BED IN LOW POSITION, CALL LITE IN REACH, CALLS APPROP
--- NOTE | 2022-05-15 10:27 | NUR ---
PT REFUSED SHAVON MONTANEZ
--- NOTE | 2022-05-15 17:44 | NUR ---
PT HAD LARGE BM X2 TODAY. STATES FEELS QUITE SOME BETTER. STATES IF THE NARCOTICS MIGHT BE ADDING TO THE BOWEL MOVEMENT PROBLEM, THROUGH PERASTALSIS, WOULD LIKE TO TRY CUTTING PAIN NAROTICS DOWN HALF. AFTER DISCUSSING, WE WILL TRY 1/2 PILL NEXT TIME AND SEE IF CAN TOLERATE. CAN ALWAYS TAKE 2ND HALF IF NEED. ALSO, MOVE TO IBUPROPHEN A FIRST CHOICE OVER NARCOTICS/ PT STATES HE'LL TRY THIS AND SEE. NO OHTER CONCERNS NOTED TODAY. BED IN LOW POSITION, CALLLITE IN REACH, CALLSA APPROP
--- NOTE | 2022-05-16 04:01 | NUR ---
SHIFT SUMMARY NO ACUTE CHANGES TO PT CONDITION. PT DID COMPLAIN EARLIER OF SOME PAIN AND WAS MEDICATED PER EMAR. NO COMPLAINTS AT THIS TIME. PT HAS CALL LIGHT WITHIN HIS REACH.
[2022-05-16 04:39] LABS: BASOPHILS ABSOLUTE AUTO 0.07 K/mm3 (0.00-0.23); BASOPHILS PERCENT AUTO 2 % (0-2); EOSINOPHILS ABSOLUTE AUTO 1.54 K/mm3 (0.00-0.68); EOSINOPHILS PERCENT AUTO 33 % (0-6); Hematocrit 25.4 % (37.0-53.0); Hemoglobin 7.9 g/dL (13.5-17.5); IMMATURE GRAN PERCENT AUTO 0 % (0-1); LYMPHOCYTES ABSOLUTE AUTO 1.16 K/mm3 (0.84-5.20); LYMPHOCYTES PERCENT AUTO 25 % (21-46); MONOCYTES PERCENT AUTO 11 % (4-13); Mean Corpuscular HGB 27.9 pg (26.0-34.0); Mean Corpuscular HGB Conc 31.1 g/dL (31.5-36.5); Mean Corpuscular Volume 90 fL (80-100); Mean Platelet Volume 9.3 fL (9.1-12.4); NEUTROPHILS ABSOLUTE AUTO 1.43 K/mm3 (1.96-9.15); NEUTROPHILS PERCENT AUTO 30 % (41-73); Platelet Count 256 K/mm3 (150-400); RDW Coefficient Variation 16.1 % (11.7-14.2); RDW Standard Deviation 53.6 fL (35.1-46.3); Red Blood Cell Count 2.83 M/mm3 (4.30-5.90)
[2022-05-16 05:03] LABS: Bun/Creatinine Ratio 19.7 (12.0-20.0); C-REACTIVE PROTEIN, EXT RANGE 2.07 mg/dL (0.000-0.300); Calcium, Blood 8.5 mg/dL (8.5-10.1); Creatinine, Blood 0.71 mg/dL (0.60-1.20); Potassium, Blood 4.3 mmol/L (3.5-5.5)
--- NOTE | 2022-05-16 17:59 | NUR ---
PATIENT CONTINUES TO BE UNRESPONSIVE, EXCEPT WITH SOME DIRECT AND LOUD STIMULI, TO WHICH HE MAY GRUNT OR GROAN. PATIENT HAD A DARK SMEARY BM TODAY. HE FINISHED HIS LR THIS AM AND HAS DEXTROSE RUNNING NOW. HE WILL HAVE A HEPRIN DRIP AND IS AWAITING CONSULT FROM PHARMACY. HIS STATUS IS DNR. POA IS LISTED ON FACESHEET ALONG WITH HER PHONE NUMBER. PATIENTS SIMIMENT WAS CHANGED TO ODT, AND IS PLACED UNDER THE TONGUE. TONGUE APPEARS TO HAVE BLACK ON THE TASTE BUDS. ORAL CARE WITH SPONGE PERFORMED. UROSTOMY CONTINUES TO PUT OUT MUCOUSY FOUL SMELLING URINE.
--- NOTE | 2022-05-16 18:32 | NUR ---
PATIENT WORKED WITH PT AND OT TODAY. HE SAT UP IN RECLINER FOR A WHILE. ABX INFUSED. PATIENT REPORTS PAIN IN HIP. WOUND VAC WAS CHANGED TODAY. SKIN UNDER VAC IS PINK AND HEALING NICELY. DRESSING ON COCCYX AND BUTTOCKS CHANGED WELL. THAT SKIN IS PINK WITH SCATTERED AREAS OF SMALL PIN POINT TO GRAPE SIZE OPEN AREAS. PATIENT IS ALERT AND ORIENTATED, COOPERATIVE WITH CARES.
--- NOTE | 2022-05-17 05:09 | NUR ---
SHIFT SUMMARY NO ACUTE CHANGES TO PT STATUS. PT COOPERATIVE WITH CARE. CALL LIGHT WITHIN HIS REACH.
--- NOTE | 2022-05-17 15:21 | NUR ---
Spiritual Care Visit. Pt. is in bed and welcomes my visit. Pt. is pleasant and rapport is quickly re-established. Pt. becomes unsettled as he recalls stories of honoring his father who passed earlier this summer. Pt. becomes cathartic. Listen with a calming presence. Facilitate more life review. Pt. verbalizes the desire to have someone for an NA sponsor, and that he would like this head transfer clerk to try to arrange it. Prayed with Pt. Pt. verbalized gratitude for the spiritual care visit.
--- NOTE | 2022-05-17 17:46 | NUR ---
SHIFT SUMMARY NO ACUTE CHANGES THIS SHIFT. WOUND VAC IN PLACE TO R HIP WITH GOOD SUCTION AND PT CONTINUES TO GET IV ABX. WORKED WITH PHYSICAL THERAPY TODAY. TREATED FOR PAIN PER EMR. VSS.
--- NOTE | 2022-05-18 04:26 | NUR ---
SHIFT SUMMARY NO ACUTE CHANGES TO PT STATUS AND CONDITION. PT PLEASANT AND COOPERATIVE WITH CARE. PT HAS CALL LIGHT WITHIN REACH AND USES IT APPROPRIATELY. PT CONTINUES TO HAVE WOUND VAC TO R THIGH.
--- NOTE | 2022-05-18 10:49 | NUR ---
WOUND PHOTO AND ASSESSMENT IN HARD CHART. DC WOUND VAC PER DR. SAUCEDO. WOUND CARE ORDERS IN [facility]
--- NOTE | 2022-05-18 16:28 | NUR ---
Spiritual Care visit. Pt. is awake in a recliner and welcmoes my visit. Pt. is pleasant, and rapport is quickly re-established. In a previous visit Pt. had requested and was very unsettled about the need of an NA sponsor upon discharge. This director of spa and guest experience has reached out to our local NA and other recovery groups for assistance. Prayed with Pt. and pt. verbalized gratitude for the spiritual care visit.
--- NOTE | 2022-05-18 18:23 | NUR ---
PT A/O X3, HAS BEEN PLEASANT AND COOPERATIVE, WOUND CARE NURSE AT BEDSIDE THIS MORNING, WOUND VAC DISCONTINUED, PICTURES IN CHART. PT UP TO CHAIR THIS AFTERNOON, NOT EATING WELL TODAY. NO ACUTE CHANGES NOTED THIS SHIFT, WILL CONTINUE TO MONITOR AND REPORT TO ONCOMING RN.
--- NOTE | 2022-05-19 00:12 | NUR ---
PT C/O "FREEZING COLD" AND ASKING FOR HEAT IN ROOM TO BE TURNED UP. CHECKED TEMPERATURE AND ORAL TEMP 100.2. GIVEN PRN APAP 650MG PO AND WARM BLANKET. ENCOURAGED TURN, COUGH, DEEP BREATHE.
--- NOTE | 2022-05-19 01:44 | NUR ---
TEMP DOWN TO 100.0 FROM 100.2; PT STATES "FEELING WARMER". DENIES C/O BODY ACHES OR MALAISE.
--- NOTE | 2022-05-19 02:39 | NUR ---
WIRELESS ARCHITECT NOTIFIED THIS RN OF DECREASED BP OF 82/51. RECHECKED X2. TEMP DOWN TO 99.0. DENIES C/O DIZZINESS OR EXCESSIVE FATIGUE.
--- NOTE | 2022-05-19 03:06 | NUR ---
CALL TO HOSPITALIST, DR SRINIVASAN, R/T LOW-GRADE FEVER AND DECREASED BLOOD PRESSURE. T/O 1L BOLUS LR. RECHECK BP 30-40 MINUTES AND NOTIFY PROVIDER IF NO IMPROVEMENT.
--- NOTE | 2022-05-19 04:36 | NUR ---
BP INCREASED TO 90/60 AFTER 1L BOLUS LR, WHICH IS CLOSER TO PT'S BASELINE. ORIENTING RN AND ACCOUNTING POLICY CONSULTANT NOTIFIED.
--- NOTE | 2022-05-19 05:26 | NUR ---
A&Ox4. 2PA W/FWW&GB FOR TRANSFERS AND AMBULATION. SLEPTY POORLY T/O NIGHT. LOW-GRADE FEVER NOTED AROUND 1200; GIVEN 650MG APAP PER EMR BRINGING TEMP DOWN TO 99.0 AT LOWEST. BP DROPPED TO 82/51 AND 1L LR BOLUS ADMINISTERED PER DR HDEZ AND BP INCREASED TO 90/60, CLOSER TO PT'S BASELINE. DENIES C/O DIZZINESS, FATIGUE OR MALAISE. C/O SPLIT TO RT WRIST "TOO TIGHT" AND WAS LOOSENED. MEPILEX BANDAGE TO COCCYX CHANGED. SCD'S APPLIED BUT PT REQUESTED THEY BE REMOVED AFTER AN HOUR.
--- NOTE | 2022-05-19 06:49 | NUR ---
ORAL TEMPERATURE AT 0630 98.4, IMPROVED FROM 99.0-100.2 T/O EVENING.
[2022-05-19 16:29] LABS: BASOPHILS ABSOLUTE AUTO 0.03 K/mm3 (0.00-0.23); BASOPHILS PERCENT AUTO 1 % (0-2); EOSINOPHILS ABSOLUTE AUTO 0.34 K/mm3 (0.00-0.68); EOSINOPHILS PERCENT AUTO 13 % (0-6); Hematocrit 26.2 % (37.0-53.0); Hemoglobin 8.1 g/dL (13.5-17.5); IMMATURE GRAN ABSOLUTE AUTO 0.01 K/mm3 (0.00-0.10); IMMATURE GRAN PERCENT AUTO 0 % (0-1); LYMPHOCYTES ABSOLUTE AUTO 1.03 K/mm3 (0.84-5.20); LYMPHOCYTES PERCENT AUTO 40 % (21-46); MONOCYTES ABSOLUTE AUTO 0.44 K/mm3 (0.16-1.47); MONOCYTES PERCENT AUTO 17 % (4-13); Mean Corpuscular HGB 27.6 pg (26.0-34.0); Mean Corpuscular HGB Conc 30.9 g/dL (31.5-36.5); Mean Corpuscular Volume 89 fL (80-100); Mean Platelet Volume 9.8 fL (9.1-12.4); NEUTROPHILS ABSOLUTE AUTO 0.71 K/mm3 (1.96-9.15); NEUTROPHILS PERCENT AUTO 28 % (41-73); Platelet Count 174 K/mm3 (150-400); RDW Coefficient Variation 16.4 % (11.7-14.2); RDW Standard Deviation 54.4 fL (35.1-46.3); Red Blood Cell Count 2.93 M/mm3 (4.30-5.90); White Blood Cell Count 2.56 K/mm3 (4.00-11.30)
[2022-05-19 16:35] LABS: Albumin, Blood 2.1 g/dL (3.4-5.0); Anion Gap 3 mmol/L (6-16); Blood Urea Nitrogen 16 mg/dL (8-24); CO2, Blood 28 mmol/L (21-32); Calcium, Blood 8.3 mg/dL (8.5-10.1); Chloride, Blood 101 mmol/L (98-108); Glomerular Filtration Rate 105 (60-); Glucose, Blood 104 mg/dL (70-99); Phosphorus, Blood 3.7 mg/dL (2.5-4.9); Potassium, Blood 4.3 mmol/L (3.5-5.5); Sodium, Blood 132 mmol/L (136-145)
[2022-05-19 16:52] LABS: Source, Urine Foley catheter
[2022-05-19 16:55] LABS: Appearance, Urine Clear (Clear); Bilirubin, Urine Neg (Neg); Blood, Urine 4+ (Neg); Color, Urine Yellow (P-Yellow); Glucose Qualitative, Urine Neg (Neg); Ketones, Urine Neg (Neg); Leukocyte Esterase, Urine Neg (Neg); Nitrite, Urine Neg (Neg); Protein, Urine Neg (Neg); Specific Gravity, Urine 1.015 (1.003-1.022); Urobilinogen, Urine NORM (Normal)
[2022-05-19 17:10] LABS: Red Blood Cells, Urine 25-50 /hpf (0-2); White Blood Cells, Urine 0-2 /hpf (0-5)
[2022-05-19 17:11] LABS: Bacteria Mod /hpf; Squamous Epithelial Cells Few /hpf (Few)
--- NOTE | 2022-05-19 18:48 | NUR ---
SHIFT SUMMARY PATIENT MEDICATED FOR PAIN X1 WITH PRN MEDS. PATIENT DENIES NAUSEA AND SHORTNESS OF BREATH. PATIENT MEDICATED X1 WITH TYLENOL FOR FEVER. PATIENT STARTED HAVING FEVERS LAST NIGHT. PATIENT WAS ALSO HYPOTENSIVE LAST NIGHT. PATIENT THIS AFTERNOON SPIKED A FEVER OF 100.4. PATIENT WAS ALSO HYPOTENSIVE AT 85/57. PATIENT ALSO COUGHING A LOT THIS SHIFT. DR. GOMEZ NOTIFIED. NEW ORDERS. GALVAN REPLACED AND NEW US SENT. RESPIRATORY PANEL DONE. PATIENT REFUSED PT AND OT DUE TO FEELING SICK. PATIENT IS EATING AND DRINKING WELL. PATIENT IS PLEASANT AND COOPERATIVE WITH CARE. PATIENT IS A 2P FOR TRANSFERS.
[2022-05-19 20:48] LABS: Adenovirus Not Detected (NOT DETECT); Coronavirus 229E Not Detected (NOT DETECT); Coronavirus HKU1 Not Detected (NOT DETECT); Coronavirus NL63 Not Detected (NOT DETECT); Coronavirus OC43 Not Detected (NOT DETECT)
[2022-05-19 20:53] LABS: Bordetella pertussis Not Detected (NOT DETECT); Chlamydophila pneumoniae Not Detected (NOT DETECT); Human Metapneumovirus Not Detected (NOT DETECT); Human Rhinovirus/Enterovirus Not Detected (NOT DETECT); Influenza A/2009-H1 Not Detected (NOT DETECT); Influenza A/H1 Not Detected (NOT DETECT); Influenza A/H3 Not Detected (NOT DETECT); Influenza B Not Detected (NOT DETECT); Mycoplasma pneumoniae Not Detected (NOT DETECT); Parainfluenza Virus 1 Not Detected (NOT DETECT); Parainfluenza Virus 2 Not Detected (NOT DETECT); Parainfluenza Virus 3 Not Detected (NOT DETECT); Parainfluenza Virus 4 Not Detected (NOT DETECT); Respiratory Syncytial Virus Not Detected (NOT DETECT); SARS-Cov-2 (COVID-19), BioFire Detected (NOT DETECT)
--- NOTE | 2022-05-19 20:56 | NUR ---
RECEIVED CALL FROM HEMATOLOGY CONFIRMING PT POSITIVE FOR COVID. CHARGE NOTIFIED. DROPLET PRECAUTIONS PLACED.
--- NOTE | 2022-05-19 21:49 | NUR ---
CALL TO DR POWELL R/T POSITIVE COVID. REQUESTS TO BE NOTIFIED IF O2 BELOW 90% RA.
--- NOTE | 2022-05-20 05:37 | NUR ---
A&Ox4. TESTED POSITIVE FOR COVID AND PLACED ON ENHANCED DROPLET PRECAUTIONS. TEMP DID NOT EXCEED 99.8 THIS EVENING. NO COUGH NOTED. 02 MAINTAINING >92%. C/O RT ARM PAIN R/T IV LINE; APAP AND TRAMADOL ADMINISTERED AT 0430. DID NOT GET UP TO CHAIR AT ALL AND STAYED IN BED. EATING AND DRINKING WITHOUT DIFFICULTY. SMALL BM TODAY.
[2022-05-20 06:07] LABS: Hematocrit 25.5 % (37.0-53.0); Mean Corpuscular HGB 27.9 pg (26.0-34.0); Mean Corpuscular HGB Conc 31.4 g/dL (31.5-36.5); Mean Corpuscular Volume 89 fL (80-100); Mean Platelet Volume 9.7 fL (9.1-12.4); Platelet Count 157 K/mm3 (150-400); RDW Coefficient Variation 16.2 % (11.7-14.2); RDW Standard Deviation 53.2 fL (35.1-46.3); Red Blood Cell Count 2.87 M/mm3 (4.30-5.90); White Blood Cell Count 2.24 K/mm3 (4.00-11.30)
[2022-05-20 06:29] LABS: Albumin, Blood 1.8 g/dL (3.4-5.0); Albumin/Globulin Ratio 0.3 (0.8-1.8); Bilirubin, Total 0.2 mg/dL (0.1-1.0); Calcium, Blood 7.9 mg/dL (8.5-10.1); Creatinine, Blood 0.7 mg/dL (0.60-1.20); Globulin, Blood 5.3 g/dL (2.2-4.0); Total Protein, Blood 7.1 g/dL (6.4-8.2)
--- NOTE | 2022-05-20 18:06 | NUR ---
SHIFT SUMMARY PATIENT DENIES PAIN, NAUSEA, AND SHORTNESS OF BREATH. PATIENT IS A 2P FOR TRANSFERS. PATIENT LETHARGIC THIS MORNING, BUT AROUSABLE. PATIENT SLEPT MOST OF MORNING. PATIENT WAS MORE AWAKE IN AFTERNOON AND STATES "I FEEL MUCH BETTER." PATIENT HAD NEW POWERGLIDE PLACED TO LIONEL. IT DRAWS. PATIENT IS EATING AND DRINKING WELL. PATIENT IS PLEASANT AND COOPERATIVE WITH CARE.
--- NOTE | 2022-05-21 05:13 | NUR ---
SHIFT SUMMARY 56 YR M ADMITTED ON 04/24/22 FOR RIGHT HIP WOUND. FULL CODE. NO ACUTE CHANGES THIS SHIFT. WOUND DRESSING IS C,D,I. PT HAS HAD NO C/O PAIN AND HAS SLEPT FOR MOST OF THIS SHIFT. HE IS C/O CONSTIPATION STATING NO BM IN 2 DAYS. WILL CONTINUE W/ BOWEL PREP AND MONITOR.
--- NOTE | 2022-05-21 17:54 | NUR ---
SUMMARY- PT A/O X4, USES CALL LIGHT TO MAKE NEEDS KNOWN. KNOWS SAFETY LIMITS. PT AGREED TO GET UP FOR LUNCH. CALLED PHYSICAL THERAPY TO BE OF ASSISTANCE. PT GOT UP SBA WITH WALKER AND GAITBELTJENNY TO THE CHAIR. SAT IN CHAIR FOR AN 1-1/2 HOUR AND REQ TO GO BACK TO BED, THAT HE FELT LIKE HE WAS GOING TO VOMIT AFTER LUNCH. BACK TO BED SBA, NAUSEA RESOLVED AFTER HE GOT INTO BED. PAIN IN R HIP CONTROLLED WITH RX OXYCONTIN 10MG BID AND PRN ULTRAM. DRESSING TO R HIP CHANGED 1345, XEREFORM, ABD. WOUND PINK BEEFY, APPEARS TO BE HEALING WELL, MIN DRAINAGE. POOR PO INTAKE. REFUSED BREAKFAST AND BITES FOR LUNCH. PUT IN FOR NUTRITION CONSULT. TAKING SUPP PROTIEN, ERICA PACKETS. GIVEN MOM TO STIM BM. LAST BM 05/19, PT STATES PROBENSITY TOWARDS CONSTIPATION.
--- NOTE | 2022-05-22 04:33 | NUR ---
SHIFT SUMMARY 56 YR M ADMITTED ON 04/24/22 FOR RIGHT HIP WOUND. FULL CODE. NO ACUTE CHANGES THIS SHIFT. VS ARE STABLE AND BP IS NOT SOFT IT HAS BEEN IN PRIOR DAYS. PT IS COVID POSITIVE AND HAS A HX OF MRSA. NO BM THIS SHIFT AND CONTINUING WITH BOWEL PREP CARE.
--- NOTE | 2022-05-22 17:57 | NUR ---
SUMMARY- PT A/O X4. PRIMARILY BEDREST WITH ASSIST IN REPOSITIONING. PT REFUSES BREAKFAST AND LUNCH STATING HE USUALLY ONLY EATS DINNER. TOLERATING FLUIDS AND DRINKS V8 AND ORANGE JUICE GOOD QUANTITY OF FLUIDS. GIVEN MILK OF MAG 05/21 PM, THIS AM AND PM, STILL NO BM. ABS SOFT, BT NORMOACTIVE PASSING GAS, JUST NOT EATING MUCH. PT REFUSED TO GET UP INTO CHAIR UNTIL 1700 TODAY RELATED TO R LEG SPASMS. CALLED DR GOMEZ AND NOTIFIED OF THIS COMPLAINT. SHE STATES SHE WILL LOOK INTO HIS MED REC AND CONSIDER OPTIONS. OXYCONTIN AM/PM WITH PRN ULTRAM CONTROLLING PAIN. MEPILEX INTACT TO GLUT. CLEANSED GROIN THIS AM AND OBTAINED ORDER FOR NYSTATIN RELATED TO GROIN REDNESS.
--- NOTE | 2022-05-23 04:26 | NUR ---
MORTGAGE BROKER SUMMARY PT A/OX4. BEDREST T/O THE NIGHT; PT HAS PRESSURE WOUNDS ON COCCYX; WOUNDS CLEAND AND NEW MEPILEX APPLIED. DRESSING CHANGED ON RT HIP WOUND. PT EXPRESSING CONCERN ABOUT LACK OF BM BUT STATED HE DIDN'T FEEL CONSTIPATED OR UNCOMFORTABLE. DISCUSSED SUPPOSITORY W/PT AND HE DID NOT WANT TO TAKE IT THIS EVENING. APPLIED NYSTATIN POWDER TO GROIN. REPOSITIONED THE PT AFTER DRESSING CHANGE; PT REFUSED REPOSITIONING AFTER THAT T/O THE NIGHT. PT CALL LIGHT IN REACH.
--- NOTE | 2022-05-23 16:44 | NUR ---
Spiritual Care Visit. Pt. is awake in bewd and welcomes my visit. Pt. is mostly pleasant but is unsettled by some family disfunction. Listen empathetically with a calming presence. Re-establish rapport. Pt. displays evidence of agreement and engagement. Prayed with Pt. Pt. verbalized gratitude for the spiritual care visit.
[2022-05-24 04:44] LABS: Hematocrit 28.4 % (37.0-53.0); Hemoglobin 8.6 g/dL (13.5-17.5); Mean Corpuscular HGB 27.3 pg (26.0-34.0); Mean Corpuscular HGB Conc 30.3 g/dL (31.5-36.5); Mean Corpuscular Volume 90 fL (80-100); Mean Platelet Volume 9.9 fL (9.1-12.4); Platelet Count 146 K/mm3 (150-400); RDW Coefficient Variation 15.9 % (11.7-14.2); RDW Standard Deviation 52.7 fL (35.1-46.3); Red Blood Cell Count 3.15 M/mm3 (4.30-5.90); White Blood Cell Count 2.65 K/mm3 (4.00-11.30)
[2022-05-24 04:59] LABS: Anion Gap 2 mmol/L (6-16); Blood Urea Nitrogen 13 mg/dL (8-24); Bun/Creatinine Ratio 19.6 (12.0-20.0); CO2, Blood 30 mmol/L (21-32); Calcium, Blood 8.2 mg/dL (8.5-10.1); Chloride, Blood 105 mmol/L (98-108); Creatinine, Blood 0.66 mg/dL (0.60-1.20); Glomerular Filtration Rate 111 (60-); Glucose, Blood 91 mg/dL (70-99); Phosphorus, Blood 3.1 mg/dL (2.5-4.9); Potassium, Blood 4.2 mmol/L (3.5-5.5); Sodium, Blood 137 mmol/L (136-145)
--- NOTE | 2022-05-24 06:06 | NUR ---
SHIFT SUMMARY PATIENT ALERT AND ORIENTED. MEDICATED PER EMAR FOR PAIN. NO COMPLAINTS OF SHORTNESS OF BREATH. NO ACUTE ISSUES NOTED OVERNIGHT. CALL LIGHT WITHIN REACH. REPORT GIVEN TO ONCOMING RN.
--- NOTE | 2022-05-24 18:47 | NUR ---
SHIFT SUMMARY: PT IN BED AT THE BEGINNING OF THE SHIFT. PT HAD WOUND DRESSING CHANGE TO RIGHT HIP AND BUTTUCK. PT REQUESTED NICTORET GUM INSTEAD OF PATCH. PT WAS IN BED FOR ALL MEALS. PT WORKED WITH PT MID SHIFT. PT HAD SEVERAL BOWEL MOVEMENTS THROUGHOUT THE SHIFT. BOWEL MEDICATION HELD DUE TO MULITPLE SOFT STOOLS. PT PAIN MANAGED THROUGHOUT SHIFT. PT REPOSTIONED THROUGHOUT SHIFT AND HEELS FLOATED. PT CALL LIGHT WITHIN REACH.
[2022-05-25 04:49] LABS: BASOPHILS ABSOLUTE AUTO 0.02 K/mm3 (0.00-0.23); BASOPHILS PERCENT AUTO 1 % (0-2); EOSINOPHILS ABSOLUTE AUTO 0.39 K/mm3 (0.00-0.68); EOSINOPHILS PERCENT AUTO 13 % (0-6); Hematocrit 28.1 % (37.0-53.0); Hemoglobin 8.6 g/dL (13.5-17.5); IMMATURE GRAN ABSOLUTE AUTO 0.01 K/mm3 (0.00-0.10); IMMATURE GRAN PERCENT AUTO 0 % (0-1); LYMPHOCYTES ABSOLUTE AUTO 1.22 K/mm3 (0.84-5.20); LYMPHOCYTES PERCENT AUTO 40 % (21-46); MONOCYTES PERCENT AUTO 13 % (4-13); Mean Corpuscular HGB 27.6 pg (26.0-34.0); Mean Corpuscular HGB Conc 30.6 g/dL (31.5-36.5); Mean Corpuscular Volume 90 fL (80-100); Mean Platelet Volume 10.2 fL (9.1-12.4); NEUTROPHILS ABSOLUTE AUTO 1.04 K/mm3 (1.96-9.15); NEUTROPHILS PERCENT AUTO 34 % (41-73); Platelet Count 149 K/mm3 (150-400); RDW Coefficient Variation 16.1 % (11.7-14.2); RDW Standard Deviation 53.2 fL (35.1-46.3); Red Blood Cell Count 3.12 M/mm3 (4.30-5.90); White Blood Cell Count 3.08 K/mm3 (4.00-11.30)
--- NOTE | 2022-05-25 05:38 | NUR ---
Rn summary: Patient is alert and oriented. He is covid positive, no O2 and no cough noted. Patient was incontinent of loose brown stool x1. Patient continues to have a mcallister cath d/t urine retention. Urine is yellow. Patient was medicated with scheduled oxycontin 10 mg at beginning of shift and with an ultam at 0400 for Rt hip pain. Drsg to R hip was changed yesterday and is C/D/I. Mepilex to rt underside of butt cheek where there is a small open area. Pt is repositioned with pillows for comfort. Janell did draw for labs this am. Call light in reach and pt uses it appropriately. Will continue to monitor.
--- NOTE | 2022-05-25 15:41 | NUR ---
Spiritual Care Visit. Pt. is awake and welcomes my visit. Rapport is quickly re-established. Pt. is pleasant and displayed michael about my visit. Facilitated convesation and responded to Pts. questions regarding enzo and belief. Pt. displayed evidence of agrrement and engagement. Discussed implications of recovery and provided anticipated guidance for Pts. continue recovery post hospitalization. Again Pt. displayed evidence of agreement and commitment to stay clean with the help of an NA sponsor. Prayed with Pt. and gave a pastoral challenge. Pt. verbalized gratitude for the spiritual care visit.
--- NOTE | 2022-05-25 17:12 | NUR ---
SHIFT SUMMARY PATIENT IS ALERT AND ORIENTED. PATIENT HAS HAD NOT ANY ACUTE EVENTS THIS SHIFT. PATIENT HAS NOT COMPLAINED OF NAUSEA, SOB OR VOMITTING THIS SHIFT. PATIENT HAS HAD PAIN AND MEDICATED PER EMAR. VITAL SIGNS REVIEWED. BED IN LOCKED AND LOWEST POSITION. CALL LIGHT IN PLACE. WILL MONITOR UNTIL SHIFT CHANGE.
--- NOTE | 2022-05-26 03:50 | NUR ---
CELL ATTENDANT HELPER SUMMARY NO ACUTE CHANGES THIS SHIFT. PT AAOX4 AND PLEASANT. CONTINUING IV ABX. PAIN MANAGEMENT WITH SCHEDULED OXYCONTIN. PT HAS RESTED MOST OF THE NIGHT. NADN. VSS, WILL CONTINUE TO MONITOR.
--- NOTE | 2022-05-26 17:40 | NUR ---
SHIFT SUMMARY NO ACUTE CHANGES THIS SHIFT. PT CONTINUES TO RECEIVE IV ABX. TREATED FOR PAIN PER EMR. DRESSING CHANGE TO R HIP TODAY. VSS. WILL REPORT TO MAGDIEL ARVIZU.
[2022-05-27 06:02] LABS: BASOPHILS ABSOLUTE AUTO 0.03 K/mm3 (0.00-0.23); BASOPHILS PERCENT AUTO 1 % (0-2); EOSINOPHILS ABSOLUTE AUTO 0.64 K/mm3 (0.00-0.68); EOSINOPHILS PERCENT AUTO 17 % (0-6); Hematocrit 27.6 % (37.0-53.0); Hemoglobin 8.6 g/dL (13.5-17.5); IMMATURE GRAN ABSOLUTE AUTO 0.01 K/mm3 (0.00-0.10); IMMATURE GRAN PERCENT AUTO 0 % (0-1); LYMPHOCYTES ABSOLUTE AUTO 1.16 K/mm3 (0.84-5.20); LYMPHOCYTES PERCENT AUTO 31 % (21-46); MONOCYTES ABSOLUTE AUTO 0.51 K/mm3 (0.16-1.47); MONOCYTES PERCENT AUTO 14 % (4-13); Mean Corpuscular HGB 27.8 pg (26.0-34.0); Mean Corpuscular HGB Conc 31.2 g/dL (31.5-36.5); Mean Corpuscular Volume 89 fL (80-100); Mean Platelet Volume 10.2 fL (9.1-12.4); NEUTROPHILS ABSOLUTE AUTO 1.38 K/mm3 (1.96-9.15); NEUTROPHILS PERCENT AUTO 37 % (41-73); Platelet Count 181 K/mm3 (150-400); RDW Coefficient Variation 16.1 % (11.7-14.2); RDW Standard Deviation 52.9 fL (35.1-46.3); Red Blood Cell Count 3.09 M/mm3 (4.30-5.90); White Blood Cell Count 3.73 K/mm3 (4.00-11.30)
[2022-05-27 06:11] LABS: Bun/Creatinine Ratio 24.6 (12.0-20.0); Calcium, Blood 8.4 mg/dL (8.5-10.1); Creatinine, Blood 0.65 mg/dL (0.60-1.20); Potassium, Blood 4.3 mmol/L (3.5-5.5)
--- NOTE | 2022-05-27 06:49 | NUR ---
SHIFT SUMMARY: A/OX4, 2 PERSON ASSIST TURNING AND REPOSITIONING IN BED. PATIENT HAD 2 MEDIUM SIZED INCONTINENT BOWEL MOVEMENTS TONIGHT. GALVAN CATHETER REMAINS IN PLACE AND DRAINING WELL. COCCYX PREVENTATIVE MEPILEX DRESSING APPLIED TO [place]CRAM AREA, FOAM DRESSING CHANGED FOR WOUND ON RIGHT BUTTOCKS. PAIN WELL CONTROLLED WITH SCHEDULED OXY AND PRN PAIN RELIEF ADMINISTERED X1. BED IN LOW POSITION, BED ALARM ACTIVATED, CALL REDMOND AND BELONGINGS IN REACH, PT CONTINUES TO CALL APPROPRIATELY.
--- NOTE | 2022-05-27 18:20 | NUR ---
SHIFT SUMMARY PATIENT A&OX4. 2PA UP TO CHAIR FOR LUNCH. GALVAN CATHETER PRESENT AND DRAINING TO GRAVITY. INCONT OF BOWEL. MEPILEX DRESSINGS SOILED AND CHANGED. RIGHT HIP DRESSING CHANGED. RECEIVING IV ANTIBIOTICS. ON PRECAUTIONS FOR COVID. OCCASSIONAL COUGH AND EASILY FATIUGED. VSS. WILL CONTINUE TO MONITOR.
--- NOTE | 2022-05-27 21:59 | NUR ---
PT REQUESTED NICOTINE GUM. VERIFIED NO PRESENCE OF NICOTINE PATCH PRIOR TO PLACEMENT.
--- NOTE | 2022-05-28 04:28 | NUR ---
A&Ox4. PLEASANT AND COOPERATIVE WITH CARE. REQUESTED 1 DOSE NICORETTE GUM, ADMINISTERED AFTER ENSURING NICOTINE PATCH NOT ON. IN BED ENTIRETY OF SHIFT. REQUESTED SNACK OF 3 PACKS OF SALTINES AND 3 CHEESE AROUND MIDNIGHT. DRESSINGS C/D/I. VSS. NO C/O B/T PAIN OR OTHER DISCOMFORTS T/O SHIFT.
--- NOTE | 2022-05-28 18:52 | NUR ---
SHIFT SUMMARY PATIENT A&OX4. REFUSED TO GET OUT OF BED TODAY. GALVAN CATHETER PRESENT AND DRAINGING TO GRAVITY. INCONT OF STOOL. DRESSINGS AND MEPILEX CHANGED THIS SHIFT. VSS. C/O PAIN, MEDICATED PER DEC. WILL CONTINUE TO MONITOR.
--- NOTE | 2022-05-29 04:13 | NUR ---
SHIFT SUMMARY PATIENT HAD NO ACUTE CHANGES OBSERVED. AXO X4 AND BEDREST. POWERGLIDE LIONEL INTACT. IV ABX INFUSED. GALVAN PATENT AND DRAINING TO GRAVITY. VSS/AFEBRILE. SCHEDULE OXYCONTIN 10 MG FOR RIGHT HIP PAIN. DENIES SOB AND N/V. WATCHED TV FIRST HALF OF SHIFT. CALL LIGHT IN REACH. BED IN LOWEST POSITION. WILL CONTINUE TO MONITOR UNTIL DAY SHIFT NURSE ASSUMES CARE.
--- NOTE | 2022-05-29 17:23 | NUR ---
SHIFT SUMMARY PATIENT A&OX4. 1PA WITH FWW AND GB TO CHAIR. ASKED MULTIPLE TIMES BEFORE PATIENT WOULD AGREE TO GET UP TO CHAIR. GALVAN CATHETER IN PLACE DRAINING TO GRAVITY. INCONT OF STOOL. DRESSINGS SOILED AND CHANGED THIS SHIFT. C/O PAIN MEDICATED WITH SCHEDULED PAIN MEDICATION AND PRN MEDICATION X2. RECEIVING IV ANTIBIOTICS. OUT OF COVID PRECAUTIONS BUT STILL IN CONTACT ISOLATION. VSS. WILL CONTINUE TO MONITOR.
--- NOTE | 2022-05-30 05:01 | NUR ---
SHIFT SUMMARY PATIENT HAD NO ACUTE CHANGES. AXOX 4 AND BEDREST AT NIGHT. INCONTINENT OF STOOL. REPORTED RIGHT HIP PAIN X TWO AND SCHEDULE OXYCONTIN 10 MG GIVEN AND PRN ULTRAM GIVEN PER EMAR. POWERGLIDE LIONEL INTACT. IV ABX INFUSED. DENIES SOB AND N/V. CONTACT PRECAUTIONS. COOPERATIVE WITH CARE. CALL LIGHT IN REACH. BED IN LOWEST POSITION. WILL CONTINUE TO MONITOR UNTIL DAY SHIFT NURSE ASSUMES CARE.
--- NOTE | 2022-05-30 18:23 | NUR ---
SHIFT SUMMARY PT A&OX4 AND IN PLEASENT MOOD T/O SHIFT. BED BATH PROVIDED THIS SHIFT. C/O PAIN MEDICATED PER EMAR. TOLERATING PO INTAKE WELL. WORKED W/ PHYSICAL AND OCCUPATIONAL THERAPY THIS SHIFT. CALL LIGHT W/IN REACH. VSS.
--- NOTE | 2022-05-31 04:21 | NUR ---
SHIFT SUMMARY 56 YR M ADMITTED SINCE 05/04/22. FULL CODE. NO ACUTE CHANGES THIS SHIFT. HE HAS HAD NO C/O PAIN AND HAS BEEN VERY PLEASANT AND COOPERATIVE. VITAL SIGNS STABLE AND GALVAN IS PATENT AND DRAINING TO GRAVITY.
[2022-05-31 06:45] LABS: BASOPHILS ABSOLUTE AUTO 0.04 K/mm3 (0.00-0.23); BASOPHILS PERCENT AUTO 1 % (0-2); EOSINOPHILS ABSOLUTE AUTO 0.51 K/mm3 (0.00-0.68); EOSINOPHILS PERCENT AUTO 13 % (0-6); Hematocrit 29.1 % (37.0-53.0); Hemoglobin 8.9 g/dL (13.5-17.5); IMMATURE GRAN ABSOLUTE AUTO 0.01 K/mm3 (0.00-0.10); IMMATURE GRAN PERCENT AUTO 0 % (0-1); LYMPHOCYTES ABSOLUTE AUTO 1.04 K/mm3 (0.84-5.20); LYMPHOCYTES PERCENT AUTO 26 % (21-46); MONOCYTES ABSOLUTE AUTO 0.69 K/mm3 (0.16-1.47); MONOCYTES PERCENT AUTO 17 % (4-13); Mean Corpuscular HGB 27.6 pg (26.0-34.0); Mean Corpuscular HGB Conc 30.6 g/dL (31.5-36.5); Mean Corpuscular Volume 90 fL (80-100); Mean Platelet Volume 9.9 fL (9.1-12.4); NEUTROPHILS ABSOLUTE AUTO 1.67 K/mm3 (1.96-9.15); NEUTROPHILS PERCENT AUTO 42 % (41-73); Platelet Count 223 K/mm3 (150-400); RDW Coefficient Variation 16.4 % (11.7-14.2); Red Blood Cell Count 3.22 M/mm3 (4.30-5.90); White Blood Cell Count 3.96 K/mm3 (4.00-11.30)
[2022-05-31 07:11] LABS: CPK Creatine Kinase 12 U/L (39-308)
[2022-05-31 07:36] LABS: Alanine Aminotransfer (ALT/SGP 19 U/L (12-78); Albumin, Blood 2.3 g/dL (3.4-5.0); Albumin/Globulin Ratio 0.4 (0.8-1.8); Alk Phos 131 U/L (50-136); Anion Gap 4 mmol/L (6-16); Aspartate Aminotrans (AST/SGOT 14 U/L (12-37); Bilirubin, Total 0.2 mg/dL (0.1-1.0); Blood Urea Nitrogen 20 mg/dL (8-24); Bun/Creatinine Ratio 30.1 (12.0-20.0); CO2, Blood 29 mmol/L (21-32); Calcium, Blood 9.1 mg/dL (8.5-10.1); Chloride, Blood 106 mmol/L (98-108); Creatine Kinase MB <1.0 ng/mL (0.0-3.6); Creatine Kinase MB Index Unable to Calculate (0.0-4.0); Creatinine, Blood 0.66 mg/dL (0.60-1.20); Globulin, Blood 5.4 g/dL (2.2-4.0); Glomerular Filtration Rate 111 (60-); Glucose, Blood 101 mg/dL (70-99); Sodium, Blood 139 mmol/L (136-145); Total Protein, Blood 7.7 g/dL (6.4-8.2)
--- NOTE | 2022-05-31 17:30 | NUR ---
SHIFT SUMMARY- PT A&O X3. VSS. NO ACUTE CHANGES. DRESSING CHANGE OF RIGHT HIP. WOUND CLEAN AND DRY, NO DRAINAGE. REPLACED DRESSING.PT COOPERATIVE AND PLEASANT. CALL IGHT IN REACH, SIDE RAILS UP. BM X2 THIS SHIFT. WILL CONTINUE TO MONITOR.
--- NOTE | 2022-06-01 03:35 | NUR ---
SHIFT SUMMARY; NO ACUTE CHANGES IN PATIENT CONDITION NOTED. HIS LUNGS AARE DIM THROUGHOUT WITH SLIGHT WHEEZE NOTED TO UPPER LEFT CHEST THAT CLEARS WITH COUGH. HE IS ON BEDREST AND DOES NOT TRY AND ASSIST WITH HIS OWN CARE. HE IS NOTED TO MOVE HIS LEGS FOR COMFORT HOWEVER THEN CALLS TO HAVE A PILLOW PLACED UNDERNEATH HIS FOOT TO ELEVATE IT. PATIENT CALLS FOR ULTRAM AROUND MIDNIGHT FOR INCREASED PAIN WITH MINIMAL RESULTS NOTED. HE IS CURRENTLY DOZING. SNORING RESPS ARE HEARD OBVIOUS CHEST RISE AND FALL NOTED. CALL LIGHT IN REACH. LIGHTS ARE LOW. WILL CONTINUE TO MONITOR THIS PATIENT CLOSELY FOR ANY WANTS OR NEEDS THAT COME UP PRIOR TO SHIFT CHANGE AND REPORT TO DAY SHIFT RN.
--- NOTE | 2022-06-01 16:45 | NUR ---
SHIFT SUMMARY- PT VSS. PT SBA ASSIST W/WALKER TO CHAIR. CHANGED DRESSING HIP AND POWERGLIDE. POWERGLIDE DOES NOT DRAW. PT EMOTIONAL TODAY. GALVAN D/C @ 0100. PT ATTEMPTING TO AVOID ON OWN WITH SOME ANXIETY. BLADDER SCAN SHOWED 257ML @1430. WILL CONTINUE TO MONITOR. PT SLEEPING NOW WITH CALL LIGHT IN REACH.
--- NOTE | 2022-06-01 17:41 | NUR ---
BLADDER SCAN- 347ML PT ATTEMPTING TO VOID ON OWN. SOME ANXIETY NOTED, "WANTS CATH BACK IN." EDUCATED PT THAT FIRST VOID MAY TAKE SOME EFFORT AND THAT BLADDER TRAINING IS IMPORTANT FOR D/C SOON. WILL CONTINUE TO MONITOR
--- NOTE | 2022-06-02 03:31 | NUR ---
SHIFT SUMMARY; PATIENT HAD GALVAN CATHETER REMOVED PRIOR TO DAY SHIFT HAND OFF TO THIS RN. PATIENT UNABLE TO VOID SO THIS RN STRAIGHT CATHED PAITENT AND 450ML OUT. PATIENT ABLE TO VOID LATER IN EVENING AND USED URINAL WITHOUT DIFFICULTY AND 950ML OUT. PATIENT IS ENCOURAGED TO TURN AND MOVE HIMSELF IN BED IN ANTICIPATION OF HIM GOING HOME WITH FAMILY SOON. PATIENT DOES NOT WANT TO MOVE OR GET UP OUT OF BED. WITH MUCH PERSUASION HE DOES ASSIST IN HIS CARE WHEN HIS ATTENDS NEED CHANGED. PATIENT IS ENCOURAGED TO TURN TO PREVENT SKIN BREAKDOWN AND TO ALSO EXERCISE HIS LEGS TO INCREASE MUSCLE STRENGTH. PATIENT VERBALIZED UNDERTANDING HIS VITAL SIGNS ARE WNL. HE IS NOT FEBRILE. HIS LUNGS ARE CLEAR TO AUSCULTATION BUT DIM. HE IS NOTED TO BE LAYING IN A SUPINE POSITION MOST OF THE DAY AND IS ENCOURAGED TO SIT UP AND DEEP BREATH. PATIENT CURRENTLLY RESTING COMFORTABLY EYES CLOSED BREATHING EVEN AND UNLABORED. CALL LIGHT IN REACH. WILL CONTINUE TO MONITOR THIS PATIENT CLOSELY UNTIL REPORT AND HAND OFF TO DAY SHIFT RN.
--- NOTE | 2022-06-02 08:00 | NUR ---
pt laying in bed awake a/ox3, asking for pain meds, states he's doing pretty good, pain at 5/10, lungs are clear t/o, dim in bases, resp even and unlabored, no cough noted, hrr, powerglide to tamiko site is clear and patent, btx4, abd flat soft nontender, voids via urinal, skin has dressing to anterior right hip and coccyx, reluctant to move, moves arms well, jagjit, call light in reach.
--- NOTE | 2022-06-02 18:10 | NUR ---
pt had a bladder scan done, showed 450mls, he wants to be straight cathed, asked him to try to void, want to try warm water, etc... he is refusing, just wants to be cathed, charge asked him to wait, to retrain his bladder, call light in reach.
--- NOTE | 2022-06-03 04:05 | NUR ---
SHIFT SUMMARY; PATIENT UNABLE TO VOID AT BEGINNING OF NOC SHIFT. VERBALIZED HE WAS QUITE PAINFULL. STRAIGHT CATHED AND REMOVED 700ML CLEAR YELLOW URINE. PATIENT IS ENCOURAGED TO MOVE AND TURN HIMSELF IN BED TO TRY AND STRENGHTEN HIS MUSCLES FOR WHEN HE GOES HOME. HIS VITAL SIGNS ARE WITHIN NORMAL LIMITS. BANDAIGE TO RIGHT HIP IS CHANGED AND WOUND IS HEALING NICELY. PATIENT MEDICATED WITH TYLENOL AND OXYCODONE X 1 DURING SHIFT FOR HIP AND GROIN PAIN. PLAN IS FOR THIS PATIENT TO RETURN HOME . AFTER HIS ANTIBIOTICS ARE FINISHED.
--- NOTE | 2022-06-03 17:04 | NUR ---
PT PLEASANT TODAY. DID CHANGE THE WOUND DRESSING. CDI AT THIS TIME. PT ABLE TRANSFER WITH 1 ASST TO BED/CHAIR. NEEDS COAXING TO DO MORE ON OWN. PENDING D/C HOME AFTER ABX IN ABOUT A WEEK. NO NEW CONCERNS NOTED. BED IN LOW POSITION, CALL LITE IN REACH, BED ALARM ON FOR SAFETY
--- NOTE | 2022-06-04 05:40 | NUR ---
NO CHANGES OVERNIGHT. PATIENT DECLINED ALL BOWEL MEDS HE HAD THREE SOFT FORMED BOWEL MOVEMENTS IN THE EARLY EVENING. COMPLAINTS OF MODERATE 4/10 PAIN RESOLVED WITH SCHEDULED HS OXYCONTIN AND ONE 5MG OXYCODONE AROUND MIDNIGHT. LOOKING FORWARD TO GOING HOME NEXT WEEKEND
--- NOTE | 2022-06-04 16:35 | NUR ---
SHIFT SUMMARY PT A&OX4, VSS/RA. JENSEN PO. PAIN MANAGED WITH ULTRAM. VOIDING/URINAL (WHILE IN BED); REPORTS PASSING LARGE AMT FLATUS WITH SMALL SOFT BM (DECLINED BOWEL CARE TODAY) (DECLINED TO SIT ON BSC). STAND PIVOT TRANSFER MOD ASSIST; UP TO CHAIR FOR SHORT TIME TODAY; REPOSITIONS SELF WELL IN BED. RIGHT HIP GAUZE/TAPE CDI. ABX INFUSING PER EMAR. WILL REPORT TO ONCOMING NOC RN.
--- NOTE | 2022-06-05 06:23 | NUR ---
TO ADDRESS YESTERDAY'S CONCERN, PATIENT HAD SEVERAL LARGE VOIDS IN THE URINAL. TWICE, HE SAT AT THE EDGE OF THE BED TO URINATE AFTER GETTING HIMSELF THERE INDEPENDENTLY, THEN GOT HIMSELF BACK INTO BED. DISCUSSION WITH PATIENT ABOUT WORKING HARD TO GET HIMSELF STRONGER AND MORE INDEPENDENT AND PARTICIPATING IN HIS OWN CARE PRIOR TO THIS WEEKS DISCHARGE TO HOME. PATIENTS GLUTEUS IS RED AND SCUFFED, WE TALKED ABOUT HIM GETTING OOB AND MOVING, STAYING OFF HIS BACK AFTER WE REPOSITION HIM. R. GROIN WOUND CLEANSED AND CLEAN DRESSING APPLIED. MODERATE AMOUNT OF YELLOWISH EXUDATE NOTED ON DRESSING THAT WAS REMOVED.
[2022-06-05 06:26] LABS: BASOPHILS ABSOLUTE AUTO 0.04 K/mm3 (0.00-0.23); BASOPHILS PERCENT AUTO 1 % (0-2); EOSINOPHILS ABSOLUTE AUTO 0.42 K/mm3 (0.00-0.68); EOSINOPHILS PERCENT AUTO 11 % (0-6); Hematocrit 28.1 % (37.0-53.0); Hemoglobin 8.8 g/dL (13.5-17.5); IMMATURE GRAN PERCENT AUTO 0 % (0-1); LYMPHOCYTES ABSOLUTE AUTO 1.06 K/mm3 (0.84-5.20); LYMPHOCYTES PERCENT AUTO 29 % (21-46); MONOCYTES PERCENT AUTO 14 % (4-13); Mean Corpuscular HGB 28.4 pg (26.0-34.0); Mean Corpuscular HGB Conc 31.3 g/dL (31.5-36.5); Mean Corpuscular Volume 91 fL (80-100); Mean Platelet Volume 9.8 fL (9.1-12.4); NEUTROPHILS ABSOLUTE AUTO 1.65 K/mm3 (1.96-9.15); NEUTROPHILS PERCENT AUTO 45 % (41-73); Platelet Count 193 K/mm3 (150-400); RDW Coefficient Variation 16.5 % (11.7-14.2); RDW Standard Deviation 54.3 fL (35.1-46.3); White Blood Cell Count 3.67 K/mm3 (4.00-11.30)
[2022-06-05 06:39] LABS: Calcium, Blood 9.1 mg/dL (8.5-10.1); Creatinine, Blood 0.71 mg/dL (0.60-1.20); Potassium, Blood 4.2 mmol/L (3.5-5.5)
--- NOTE | 2022-06-05 07:30 | NUR ---
ASSUMED CARE: PT RESTING QUIETLY AT THIS TIME. NO ACUTE NEEDS OR CONCERNS
--- NOTE | 2022-06-05 17:55 | NUR ---
SHIFT SUMMARY: PT GOT UP TO CHAIR X1 THIS SHIFT. REQUIRED MORE ASSISTANCE GETTING BACK TO BED. MEDICATED FOR PAIN PER SCHEDULE. NEW POWER GLIDE THIS SHIFT. PLAN IS TO FINISH 6 WEEKS OF ABX AN INPATIENT THEN DC HOME. WOUND DRESSING CHANGED TO RIGHT HIP THIS SHIFT. NO ACUTE NEEDS OR CONCERNS AT THIS TIME.
--- NOTE | 2022-06-06 05:51 | NUR ---
PT ADMITTED WITH SEPTIC ARTHTRITIS OF RIGHT HIP. 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 D/T HIS PREVIOUS ACTIONS, THE PATIENT MUST REMAIN IN-HOUSE UNTIL HIS COURSE OF IV ABX IS COMPLETE (APPROX 06/18/22), TO WHICH PT HAS AGREED. PT WAS COOPERATIVE WITH CARE ALL SHIFT. NO ISSUES NOTED.
--- NOTE | 2022-06-06 18:03 | NUR ---
DAYSHIFT SUMMARY No acute changes to patient status. Worked with therapy today, sitting in recliner. IV ABX administred, midline patent, NS locked. Refused nicotine patch, requested PRN nicorette gum, PRN effective for smoking cessation. Vitals stable, no other concerns at this time. Will continue to monitor.
--- NOTE | 2022-06-07 06:38 | NUR ---
NOC SHIFT SUMMARY PT ADMITTED WITH SEPTIC ARTHTITIS OF RIGHT HIP. SURGICAL INREVENTION; DATE UNKNOWN. WOUND COVERED WITH GAUZE AND TAPE; C/D/I. D/T PRIOR DRUG USE, PATIENT MUST REMAIN IN HOSPITAL UNTIL 06/11, AT WHICH HIS LAST ABX DOSE WILL BE GIVEN. PT MOTIVATED TO FOLLOW THROUGH WITH PLAN OF CARE SO THAT THERE WILL BE NO BARRIERS TO D/C. HE HAS IMPROVED TO THE POINT THAT PT HAS RECOMMENDED HOME W/HH OPPOSED TO SNF. MEDICATED X 3 OVERNIGHT FOR PAIN PER DEC. NO ISSUES NOTED.
--- NOTE | 2022-06-07 12:59 | NUR ---
Spiritual Care Visit. Pt. is awake in bed and quickly welcomes my visit. Pt. is pleasant and displays evidence of hope and engagement in his life. Re-establish rapport and provide pastoral care and support. This linux network engineer gave some information about a potential individual NA sponsor for the Pt. Pt. displayed evidence of excitement and commitment to making the next step in his physcial, emotional, and spiritual recovery. Pt. verbalized expectation of being discharged home on Monday. Prayed with Pt. Pt. verbalized gratitude for the spiritual care visit.
--- NOTE | 2022-06-07 16:21 | NUR ---
NO ACUTE CHANGEDS PT IS AO AND COOPERATIVE OF CARE. PT WORKED WELL TODAY WITH PHYSICAL THERAPY AND WAS UP WITH WALKER. PT HAD R HIP BANDAGE CHANGED AND WOUND IS ALMOST HEALED. NO DISTRESS NOTED AT THIS TIME CALL LIGHT IS WITHIN REACH AND WILL CONTINUE TO MONITOR.
--- NOTE | 2022-06-08 05:24 | NUR ---
A&Ox4. PLEASANT AND COOPERATIVE WITH CARE. EPISODE BOWEL INCONTINENCE DURING SHIFT; USING URINAL FOR VOIDING. MEPILEX ON COCCYX SOILED AND CHANGED. POWERGLIDE BANDAGE CHANGED D/T POSITIONAL DIFFICULTY INFUSING. NO ACUTE ISSUES T/O THE EVENING.
--- NOTE | 2022-06-08 16:57 | NUR ---
PT IS A/OX4, PLEASANT AND COOPERATIVE. THE PT WAS UP TODAY WITH THE OCCUPATIONAL THERAPIST TO THE WHEELCHAIR. THE PT WAS ABLE TO WHEEL AROUND THE UNIT FOR A SHORT TIME. THE PT WAS ABLE TO GET HIMSELF BACK TO THE BED UNASSISTED. THE PT APPEARS TO BE BREATHING EASILY ON RA AT THIS TIME. THE PT WAS MEDICATED FOR PAIN X1 THIS AFTERNOON. CALL LIGHT IN REACH WILL CONTINUE TO MONIOTR AND ASSESS FOR CHANGES.
--- NOTE | 2022-06-09 06:51 | NUR ---
Rn summary: Patient is alert and oriented. He was incontinent of stool this shift. Drsg to rt hip is C/D/I. Pt was medicated with ultram 50mg for pain. Patient enjoys snacks during the night. Pleasant and cooperative. Pt is looking forward to DC in a few days. IV ABX continue. Pt has been stable. Call light in reach.
--- NOTE | 2022-06-09 15:13 | NUR ---
Spiritual Care Visit. Pt, is awake in bed and welcomes my visit. Pt. is unsettled by unexpected news of another MRI, and the possibility of not being discharged in time to address some business on a holiday weekend. Pt. verbalized that Monday was his planned discharge. Listened empathetically with a calming presence, attempted to normalize the Pt. experience. Pt. displayed evidence of agreement and understaning, but remained concerned about anydelays in his discharge. MOVING FORWARD - Spiritual Plan of Care This epic cadence analyst was able to secure an NA sponsor for the Pt. at the Pts. request. Pt. contact phone numbers were collected, and information for a local [facility] were given to the Pt. Contact numbers were given to the NA sponsor who will reach out directly to the Pt.
--- NOTE | 2022-06-09 16:17 | NUR ---
PT IS A/OX4, PLEASANT AND COOPERATIVE, PT APPEARS TO BE BREATHING EASILY ON RA AT THIS TIME. THE PT WAS OFFERED ASSISTANCE UP TO HIS WHEELCHAIR THIS AFTERNOON. THE PT DECLINED AT THE OFFER STATING THAT HE WILL LATER ON. THE PT APPEARS TO BE BREATHING EASILY ON RA AT THIS TIME. THE PT WAS DISTRAUT THIS AFTERNOON STATEING THAT HE NEEDED TO LEAVE ON MONDAY BY 10 AM IN ORDER TO SAVE HIS HOUSE FROM FORCLOSURE HIS LAST ANTI BOITIC IS SCHEDULED AT 4 PM ON MONDAY. THE BRAD WAS IN CONSULTING WITH THE PT THIS AFTERNOON. CALL LIGHT IN REACH. WILL CONTINUE TO MONITOR AND ASSESS FOR CHANGES
--- NOTE | 2022-06-10 05:54 | NUR ---
SHIFT SUMMARY PT ALERT AND ORIENTED X4. AFEBRILE. BP STABLE. ON RA SATS OVER 93%. PULSE 60-70'S. REMAINS IN BED THROUGHOUT SHIFT. VOIDS WITH BESIDE URINAL. REFUSES STOOL SOFTNERS, HAD MULTIPLE BM'S DURING THE DAY. ALIZA PG PATENT. IN BED SLEEPING WITH CALL ALARM AT SIDE, WILL CONTINUE TO MONITOR UNTIL REPORT GIVEN TO DAYSHIFT RN
--- NOTE | 2022-06-10 11:08 | NUR ---
ORDERED MRI PT WAS ASKED SEVERAL TIMES IF HE WOULD HAVE AN MRI OF HIS RIGHT HIP PER DR. POWELL INSTRUCTIONS. HE ADIMATLY REFUSED EACH TIME. DR. POWELL WAS NOTIFIED
[2022-06-10] MEDS ORDERED: IBUP400 PO (13:53)
[2022-06-10] MEDS ORDERED: ACET325 PO (13:57)
[2022-06-10] MEDS ORDERED: JUVEN PACKET1 EAC3 PO (13:58)
[2022-06-10] MEDS ORDERED: VITAMIN C125 MG PO (13:59)
[2022-06-10] MEDS ORDERED: DOCU100 PO (14:00)
[2022-06-10] MEDS ORDERED: BISA10S PR (14:00)
[2022-06-10] MEDS ORDERED: MIRALAX17 GM PO (14:04)
[2022-06-10] MEDS ORDERED: MELATONIN5 M1 PO (14:04)
[2022-06-10] MEDS ORDERED: SENNA LAXATIVE8.6 MG PO (14:07)
[2022-06-10] MEDS ORDERED: TRAZ50 PO (14:08)
[2022-06-10] MEDS ORDERED: TAMS.4ER PO (14:08)
[2022-06-10] MEDS ORDERED: DOXY100 PO (14:09)
--- NOTE | 2022-06-10 15:58 | NUR ---
SHIFT SUMMARY PT A&O 4. PT REFUSED MRI TODAY AND HAS BEEN ADAMANT ABOUT BEING DISCHARGED TOMORROW BY 1000. PT DID NOT GET UP TO CHAIR TODAY BUT HAS BEEN UP TO SIDE OF BED TO USE URINAL. RIGHT HIP DRESSING IN PLACE. VSS.
--- NOTE | 2022-06-11 06:10 | NUR ---
NOC SHIFT SUMMARY PT EXCITED FOR ANTICIPATED D/C THIS AM. IV ABX GIVEN OVERNIGHT; PAIN MANAGED WITH PO OXYCONTIN WELL TRAMADOL. NO ISSUES NOTED THROUGHOUT SHIFT.
--- NOTE | 2022-06-11 10:34 | NUR ---
DISCHARGE SUMMARY PATIENT IS ALERT AND ORIENTED. PATIENT HAS NOT HAD ANY ACUTE EVENTS THIS SHIFT. VITAL SIGNS REVIEWED. PATIENT IS BEING DISCHARED HOME BY AMBULANCE SERVICE. POWERGLIDE REMOVED WNL.
== END 2022-06-11 10:30 | disposition home health service (06) | DRG 871 ==
LOC: ER 08:20 → MEDS 10:52
PROVIDERS: Emergency Medicine; Family Medicine; Internal Medicine; ADMIT Internal Medicine
PROC: 3E03329 Introduction of Other Anti-infective into Peripheral Vein, Percutaneous Approach (ICD-10-PCS; 2022-04-30)
PROC: 8E0ZXY6 Isolation (ICD-10-PCS; principal; 2022-06-03)
DX: A41.02 Sepsis due to Methicillin resistant Staphylococcus aureus (principal); U07.1 COVID-19; M00.051 Staphylococcal arthritis, right hip; M00.011 Staphylococcal arthritis, right shoulder; M46.24 Osteomyelitis of vertebra, thoracic region; N13.8 Other obstructive and reflux uropathy; D61.818 Other pancytopenia; F15.10 Other stimulant abuse, uncomplicated; D63.8 Anemia in other chronic diseases classified elsewhere; E66.9 Obesity, unspecified; F32.A Depression, unspecified; F41.9 Anxiety disorder, unspecified; Z98.890 Other specified postprocedural states; Z79.4 Long term (current) use of insulin; Z79.899 Other long term (current) drug therapy; E87.6 Hypokalemia; K59.00 Constipation, unspecified; D50.9 Iron deficiency anemia, unspecified; N40.1 Benign prostatic hyperplasia with lower urinary tract symptoms; R33.8 Other retention of urine; Z68.39 Body mass index [BMI] 39.0-39.9, adult; F17.220 Nicotine dependence, chewing tobacco, uncomplicated; I10 Essential (primary) hypertension; E11.65 Type 2 diabetes mellitus with hyperglycemia; Z82.49 Family history of ischemic heart disease and other diseases of the circulatory system; M46.44 Discitis, unspecified, thoracic region
CPT/HCPCS: 0202U; 36415; 51702; 71045; 72146; 76882; 80048; 80053; 80069; 81001; 82140; 82330; 82550; 82553; 83036; 83605; 83735; 84100; 84145; 85025; 85027; 85610; 85651; 85730; 86140; 87040; 87070; 87077; 87086; 87147; 87186; 93308; 96365; 97110; 97116; 97162; 97166; 97530; 97535; 99285-25; A9270; C1751; J0712; J0878; J1650; J3010; J3480; J7030; J7040; J7050; J7120

== ENCOUNTER 2023-08-26 04:10 | Inpatient (IN) | payer OTHER ==
[~2023-08-26] VITALS: Ht 182.9 cm; Wt 105.5 kg
[~2023-08-26 04:10] MED LIST changes: +ACET325 PO; +BISA10S PR; +DOCU100 PO; +DOXY100 PO; +IBUP400 PO; +JUVEN PACKET1 EAC3 PO; +MELATONIN5 M1 PO; +MIRALAX17 GM PO; +SENNA LAXATIVE8.6 MG PO; +TAMS.4ER PO; +VITAMIN C125 MG PO
[2023-08-26 04:59] LABS: BASOPHILS ABSOLUTE AUTO 0.02 K/mm3 (0.00-0.23); BASOPHILS PERCENT AUTO 0 % (0-2); EOSINOPHILS ABSOLUTE AUTO 0.03 K/mm3 (0.00-0.68); EOSINOPHILS PERCENT AUTO 0 % (0-6); Hematocrit 23.6 % (37.0-53.0); Hemoglobin 7.5 g/dL (13.5-17.5); IMMATURE GRAN ABSOLUTE AUTO 0.03 K/mm3 (0.00-0.10); IMMATURE GRAN PERCENT AUTO 0 % (0-1); LYMPHOCYTES ABSOLUTE AUTO 0.46 K/mm3 (0.84-5.20); LYMPHOCYTES PERCENT AUTO 5 % (21-46); MONOCYTES ABSOLUTE AUTO 0.33 K/mm3 (0.16-1.47); MONOCYTES PERCENT AUTO 4 % (4-13); Mean Corpuscular HGB 28.1 pg (26.0-34.0); Mean Corpuscular HGB Conc 31.8 g/dL (31.5-36.5); Mean Corpuscular Volume 88 fL (80-100); Mean Platelet Volume 9.4 fL (9.1-12.4); NEUTROPHILS ABSOLUTE AUTO 8.57 K/mm3 (1.96-9.15); NEUTROPHILS PERCENT AUTO 91 % (41-73); Platelet Count 191 K/mm3 (150-400); RDW Coefficient Variation 16.1 % (11.7-14.2); RDW Standard Deviation 52.7 fL (35.1-46.3); Red Blood Cell Count 2.67 M/mm3 (4.30-5.90); White Blood Cell Count 9.44 K/mm3 (4.00-11.30)
[2023-08-26] MEDS ORDERED: NEURONTIN300 MG PO (05:14)
[2023-08-26 05:27] LABS: Albumin, Blood 1.9 g/dL (3.4-5.0); Albumin/Globulin Ratio 0.3 (0.8-1.8); Bilirubin, Total 0.8 mg/dL (0.1-1.0); Bun/Creatinine Ratio 13.9 (12.0-20.0); Calcium, Blood 7.8 mg/dL (8.5-10.1); Creatinine, Blood 1.58 mg/dL (0.60-1.20); Globulin, Blood 6.7 g/dL (2.2-4.0); Potassium, Blood 3.6 mmol/L (3.5-5.5); Total Protein, Blood 8.6 g/dL (6.4-8.2)
[2023-08-26 05:35] LABS: Influenza A, PCR NEGATIVE (NEGATIVE); Influenza B, PCR NEGATIVE (NEGATIVE); Resp Syncytial Virus, PCR NEGATIVE (NEGATIVE); SARS-Cov-2 (COVID-19) PCR, MMC NEGATIVE (NEGATIVE)
[2023-08-26 06:32] LABS: Source, Urine Clean Catch
[2023-08-26 06:38] LABS: Appearance, Urine Cloudy (Clear); Bilirubin, Urine Neg (Neg); Blood, Urine 5+ (Neg); Color, Urine Brown (P-Yellow); Glucose Qualitative, Urine Neg (Neg); Ketones, Urine 1+ (Neg); Leukocyte Esterase, Urine 1+ (Neg); Nitrite, Urine Neg (Neg); Protein, Urine 3+ (Neg); Urobilinogen, Urine 1+ (Normal)
[2023-08-26 06:55] LABS: U Amphetamine Screen DETECTED; U Barbituate Screen Not Detected; U Benzodiazapine Screen Not Detected; U Buprenorphine Screen Not Detected; U Cannabinoids Screen Not Detected; U Cocaine Screen Not Detected; U Methadone Screen Not Detected; U Methamphetamine Screen DETECTED; U Opiates Screen Not Detected; U Oxycodone Screen Not Detected; U Phencyclidine Screen Not Detected
[2023-08-26 07:09] LABS: Bacteria Many /hpf; Hyaline Casts 0-2 /lpf (0-2); Squamous Epithelial Cells Not Seen /hpf (Few); Yeast/Fungi Urine Many /hpf
[2023-08-26 10:11] VITALS: BP 150/92
[2023-08-26 12:06] VITALS: BP 149/90
[2023-08-26 15:47] VITALS: BP 132/91
--- NOTE | 2023-08-26 18:39 | NUR ---
PT SUMMARY: SEE ADMIT NOTE: JD SHINE CHANGE SINCE LAST NOTE. PT HAS BEEN SLEEPING FOR THE REST OF THE SHIFT. WILL WAKE UP AND CALL IF HE NEEDS TO USE THE URINAL OR HAD A BOWEL MOVEMENT, URINE COCA COLA IN COLOR WHICH HAS BEEN PER ER NURSE REPORT. PT WOKE UP FOR DINNER ATE DINNER WITH NO ISSUES. VITALS REMAINED STABLE. PT REMAINED ON 2L OF NC VIA NASAL CANNULA, NO MORE FEVER FOR THE REST OF THE SHIFT. PT WAS REPOSITIONED FOR COMFORT. NO OTHER ISSUES ENCOUNTERED. WILL REPORT TO ONCOMING SHIFT
[2023-08-26 20:53] VITALS: BP 117/73
[2023-08-26 22:21] LABS: Vancomycin, Trough 15.9 ug/mL (5.0-10.0)
[2023-08-26 23:09] VITALS: BP 141/89
[2023-08-27] VITALS (8 sets, daily range): BP systolic 121–152; BP diastolic 48–99
[2023-08-27 04:30] LABS: Hematocrit 21.6 % (37.0-53.0); Hemoglobin 6.9 g/dL (13.5-17.5); Mean Corpuscular HGB 28.5 pg (26.0-34.0); Mean Corpuscular HGB Conc 31.9 g/dL (31.5-36.5); Mean Corpuscular Volume 89 fL (80-100); Mean Platelet Volume 9.7 fL (9.1-12.4); Platelet Count 184 K/mm3 (150-400); RDW Coefficient Variation 15.9 % (11.7-14.2); RDW Standard Deviation 52.1 fL (35.1-46.3); Red Blood Cell Count 2.42 M/mm3 (4.30-5.90); White Blood Cell Count 7.29 K/mm3 (4.00-11.30)
[2023-08-27 04:56] LABS: Albumin, Blood 1.7 g/dL (3.4-5.0); Anion Gap 8 mmol/L (6-16); Blood Urea Nitrogen 27 mg/dL (8-24); Bun/Creatinine Ratio 16.1 (12.0-20.0); CO2, Blood 20 mmol/L (21-32); Calcium, Blood 7.7 mg/dL (8.5-10.1); Chloride, Blood 111 mmol/L (98-108); Creatinine, Blood 1.68 mg/dL (0.60-1.20); Ferritin, Serum 543 ng/mL (26-388); Glomerular Filtration Rate 48 (60-); Glucose, Blood 119 mg/dL (70-99); Iron Serum 12 ug/dL (65-175); Percent Saturation 10.1 % (20.0-50.0); Phosphorus, Blood 3.1 mg/dL (2.5-4.9); Potassium, Blood 3.5 mmol/L (3.5-5.5); Sodium, Blood 139 mmol/L (136-145); Total Iron Binding Capacity 119 ug/dL (250-450)
--- NOTE | 2023-08-27 05:38 | NUR ---
SHIFT SUMMARY PATIENT WAKES TO VERBAL STIMULI BUT DOES NOT STAY AWAKE FOR VERY LONG. ORIENTED x3-4. BP STABLE. TELE READING SR 90s DURING THE NIGHT. ON 3L NC D/T DESATTING WHILE SLEEPING. LEFT LEG CONTINUES TO BE SWOLLEN AND WARM TO TOUCH. PATIENT IS USING URINAL WITH COLA COLORED URINE OUT. HGB <7 ON AM LABS, ORDER RECEIVED TO TRANSFUSE 1 UNIT PRBC. NO OTHER CHANGES DURING THE NIGHT, WILL REPORT TO DAY SHIFT RN.
--- NOTE | 2023-08-27 10:11 | NUR ---
AM NOTE; PT TRANSITIONED TO MEDICAL NO TELE. PT HRR SR 70-90'S, SBP 150'S, SATS ABOVE 95% ON RA WHEN AWAKE NEEDING 2L OF O2 FOR SLEEP, AFEBRILE. PT AWAKE FOR BREAKFAST AND MEDPASS THIS MORNING ASKED TO IF HE'S GOING TO BE DISCHARGED TODAY THIS RN EXPLAINED PLAN OF CARE WITH THE PT AND PT AGREEABLE. 1[facility] WAS INFUSED THIS MORNING DR HARDIN MADE AWARE ALSO ABOUT HIS COLA COLORED BLOODY URINE, TO MONITOR H&H. PT WENT BACK TO SLEEP AFTER BREKAFAST THIS MORNING HAD ANOTHER BM, PT WAS CHANGED AND REPOSITIONED. PT USES URINAL TO VOID. PT CONTINUES ON IV ABO. PT DENIES PAIN AND DISCOMFORT. NO OTHER ISSUES REPORTED FOR THE SHIFT, CALL LIGHTS IN REACH WILL CONTINUE TO MONITOR
--- NOTE | 2023-08-27 17:52 | NUR ---
PT SUMMARY: PT STILL HAS ON AND OFF CONFUSION D/T UREMIA, PT CONTINUES TO DIURESE HAD 3L UO FOR THE SHIFT. VITALS HRR SR 70-90'S, SBP >110 MIDODRINE DOSE ON SCHED, SYLVIA ABOVE 95% ON 4L OF O2, AFEBRILE. PT COMPLIANT WITH FLUID RESTRICTION. HAD GOOD APPETITE TODAY, HAD 2 LOOSE BM EPISODES. STILL HAS SOME SWELLING ON BOTH LEGS BUT HAS GONE DOWN COMPARED TO YESTERDAY, PAIN WAS DECREASED WITH GABAPENTIN. PT GOT UP IN THE RECLINER 3 TIMES TODAY VIA LIFT. NO OTHER ISSUES ENCOUNTERED FOR THE SHIFT, CALL LIGHTS IN REACH WILL REPORT TO ONCOMING SHIFT
--- NOTE | 2023-08-27 18:30 | NUR ---
PT SUMMARY: NO ACUTE CHANGE SINCE AM NOTE, VITALS HAS BEEN STABLE FOR THE SHIFT. PT GOT AGITATED A COUPLE TIMES WORRIED ABOUT HIS DOG AND COULDNT GET A HOLD OF A FAMILY MEMBER WANTING TO LEAVE AMA. PT WAS EDUCATED ABOUT THE RISKS AND BENEFITS AND AGREED TO STAY. PT GOT UP TO USE THE BATHROOM TODAY, USES [facility] AT HOME AT [facility] FOR TRANSFERS. PT GOT UP IN THE CHAIR FOR MEALS. PT REMAINED ALERT AND ORIENTED X3, CALLS APPROPRIATELY, USES URINAL FOR VOIDING, URINE REMAINS COLA COLORED WITH SOME BLOOD. NO OTHER ISSUES ENCOUNTERED FOR THE SHIFT CALL LIGHTS IN REACH WILL REPORT TO ONCOMING SHIFT
[2023-08-27 20:06] LABS: Hematocrit 23.4 % (37.0-53.0); Hemoglobin 7.5 g/dL (13.5-17.5)
--- NOTE | 2023-08-27 22:19 | NUR ---
ASSUMPTION OF CARE THIS RN ASSUMED CARE AT APPROX 1915. PATIENT IS ALERT AND ORIENTED X3-4. IS LETHARGIC, EASILY AROUSABLE TO VERBAL STIMULI. IS CURRENTLY SLEEPING. BED ALARM ON. VSS. IS MEDICAL STATUS WITHOUT TELEMETRY. BP STABLE. DENIES CHEST PAIN OR PRESSURE. CURRENTLY ON ROOM AIR WHILE SLEEPING, SATS >90%. IS INCONTINENT AT TIMES. ATTENDS IN PLACE, CHANGING PRN TO KEEP C/D/I. URINAL AT BEDSIDE. CALL LIGHT IN REACH.
[2023-08-28 03:04] VITALS: BP 136/87
--- NOTE | 2023-08-28 04:19 | NUR ---
SHIFT SUMMARY NO ACUTE CHANGES SINCE ASSUMPTION OF CARE NOTE. PATIENT LETHARGIC, SLEPT THROUGHOUT NIGHT. EASILY AROUSABLE TO VERBAL STIMULI. VS REMAIN STABLE. REMAINS ON ROOM AIR, SATS >90%, WHILE SLEEPING. USES URINAL INDEPENDENTLY. DARK, HI URINE NOTED. NO BM THIS SHIFT. ABLE TO REPOSITION HIMSELF IN BED. CALL LIGHT IN REACH. BED ALARM ON. WILL REPORT TO ONCOMING RN.
[2023-08-28 07:31] VITALS: BP 144/89
[2023-08-28 08:16] LABS: Hemoglobin 7.2 g/dL (13.5-17.5)
[2023-08-28 08:39] LABS: Bun/Creatinine Ratio 15.8 (12.0-20.0); Calcium, Blood 8.1 mg/dL (8.5-10.1); Creatinine, Blood 2.03 mg/dL (0.60-1.20); Potassium, Blood 3.3 mmol/L (3.5-5.5)
[2023-08-28 16:33] VITALS: BP 138/93
--- NOTE | 2023-08-28 16:42 | NUR ---
SHIFT SUMMARY PT AOX3-4, SLEEPING A MAJORITY OF THE SHIFT. UP TO THE CHAIR T/O AND TOLERATING WELL. NO COMPLAINTS OF P/N/V/D. NO DISCUSSION OF LEAVING AMA TODAY. HE IS A SBA TO THE CHAIR, USING THE URINAL INDEPENDENTLY. PT'S SISTER IS ON MEDICAL FLOOR AND HAS ASKED HOW SHE WAS DOING. CALL LIGHT WITHIN REACH, BED IN THE LOWEST POSITION. WILL REPORT TO ONCOMING NURSE.
[2023-08-28 20:07] VITALS: BP 140/78
[2023-08-28 20:30] VITALS: BP 145/80
--- NOTE | 2023-08-28 22:35 | NUR ---
assumed care of pt at 0710. pt has been somnolent throughout shift thus far but easily arousable. aox3-4, pleasant, cooperative with care. somewhat flat. refused stool softeners otherwise took 2100 medications without difficulty. redness on lle appears to have receded since previous line was drawn. marked new line and dated. pain well managed, pt reports being comfortable on shift assessment and has been able to sleep since assessment was completed. uses call light appropriately. bed locked in lowest position. call light left within reach.
[2023-08-29 03:25] VITALS: BP 136/80
[2023-08-29 03:52] LABS: Hematocrit 22.2 % (37.0-53.0); Hemoglobin 7.1 g/dL (13.5-17.5); Mean Corpuscular Volume 87 fL (80-100); Mean Platelet Volume 9.8 fL (9.1-12.4); Platelet Count 209 K/mm3 (150-400); RDW Standard Deviation 51.2 fL (35.1-46.3); Red Blood Cell Count 2.54 M/mm3 (4.30-5.90); White Blood Cell Count 5.52 K/mm3 (4.00-11.30)
[2023-08-29 04:17] LABS: Bun/Creatinine Ratio 15.9 (12.0-20.0); Calcium, Blood 7.9 mg/dL (8.5-10.1); Creatinine, Blood 2.32 mg/dL (0.60-1.20); Potassium, Blood 3.4 mmol/L (3.5-5.5)
--- NOTE | 2023-08-29 05:08 | NUR ---
SHIFT SUMMARY. SHIFT HAS BEEN UNREMARKABLE. PT HAS REMAINED AOX3-4, SOMNOLENT BUT AROUSABLE, PLEASANT THROUGHOUT SHIFT. CALLS APPROPRIATELY. NO ACUTE CHANGES THIS SHIFT THUS FAR. REFUSES REPOSITIONING. CONTINUES TO SATURATE WELL ON ROOM AIR. VITALS REMAIN STABLE. BED LOCKED IN LOWEST POSITION. CALL LIGHT LEFT WITHINR EACH.
[2023-08-29 07:44] VITALS: BP 147/103
--- NOTE | 2023-08-29 09:21 | NUR ---
AM NOTE: PATIENT ALERT AND ORIENTED X4. ABLE TO COMMUNICATE NEEDS APPROP. VERY SLEEPY, WAKING TO VERBAL STIMULI. DENIES NUMBNESS/TINGLING. COMPLAINS OF SORENESS. DENOES PAIN TO LLE. REDNESS TO LLE MARKED BY NOC SHIFT, REDNESS IMPROVING. ON ROOM AIR SATING ABOVE 95%. LUNGS SOUNDING CLEAR AND DIM IN BASES. EVEN AND UNLABORED RESPIRATIONS. DENIES SOB/COUGH. MEDICAL STATUS NO TELE. BP STABLE. PPP. EDEMA NOTED OT BLE. DENIES CHEST PAIN/PRESSURE/PALPITATIONS. BOWEL TONES PRESENT. ATTENDS IN PLACE. USING URINAL IND. EATING WNL. SCATTERED BRUISING AND REDNESS NOTED TO COCCYX AND BLISTER TO LEFT BUTTOCK MEPILEX IN PLACE. SCATTERED SCABS TO BLE/FEET. CALL LIGHT IN REACH. IV ABX INFUSING. DR. HARDIN BY THIS AM, THIS RN DISSCUSSED POTASSIUM AND HGB LAB LEVELS. POTENTIAL DISCHARGE. PHYSICAL THERAPY ORDERS IN PLACE. PATIENT WANTING TO GO HOME TODAY. CALL LIGHT IN REACH. BED ALARM IN PLACE.
[2023-08-29 11:09] VITALS: BP 145/106
--- NOTE | 2023-08-29 12:03 | NUR ---
PATIENT UP IN CHAIR FOR LUNCH. VITAL SIGNS REMAIN STABLE. WAITING FOR PHYSICAL THERAPY EVAL. CONTINUES TO DENY PAIN. TALKING ON PHONE WITH FAMILY/FRIENDS.
--- NOTE | 2023-08-29 13:31 | NUR ---
PHYSICAL THERAPY IN TO SEE PATIENT. RECOMMENDING HOME HEALTH. CASE MANAGEMENT AWARE. DR. HARDIN CALLED TO UPDATE. PLAN FOR DISCHARGE
[2023-08-29] MEDS ORDERED: DOXY100 PO (13:42)
--- NOTE | 2023-08-29 14:37 | NUR ---
DISCHARGE: NO ACUTE CHANGES. PATIENT LEFT UNIT VIA WHEELCHAIR WITH ALL PERSONAL BELONGINGS INCLUDING DISCHARGE PACKET. CASE MANAGEMENT SET UP RIDE WITH [employer]. THIS RN EDUCATED ON FOLLOW UP APPOINTMENT, NEW ANTIBIOTIC FAXED TO [facility] AND SIGNS/SYMPTOMS OF WHEN TO RETURN. IV REMOVED WNL.
== END 2023-08-29 14:25 | disposition home health service (06) | DRG 871 ==
LOC: ER 04:10 → PCU 07:38
PROVIDERS: Emergency Medicine; Internal Medicine; ADMIT Internal Medicine
DX: A41.9 Sepsis, unspecified organism (principal); G92.8 Other toxic encephalopathy; N17.9 Acute kidney failure, unspecified; Z68.41 Body mass index [BMI] 40.0-44.9, adult; L03.116 Cellulitis of left lower limb; N39.0 Urinary tract infection, site not specified; N18.30 Chronic kidney disease, stage 3 unspecified; R65.20 Severe sepsis without septic shock; E11.22 Type 2 diabetes mellitus with diabetic chronic kidney disease; E87.6 Hypokalemia; F15.11 Other stimulant abuse, in remission; D63.1 Anemia in chronic kidney disease; Z86.14 Personal history of Methicillin resistant Staphylococcus aureus infection; E66.9 Obesity, unspecified; I12.9 Hypertensive chronic kidney disease with stage 1 through stage 4 chronic kidney disease, or unspecified chronic kidney disease; F41.9 Anxiety disorder, unspecified; F32.A Depression, unspecified; Z87.19 Personal history of other diseases of the digestive system; Z98.890 Other specified postprocedural states; Z11.52 Encounter for screening for COVID-19
CPT/HCPCS: 0241U; 36415; 71045; 76770; 80048; 80053; 80069; 80202; 81001; 82728; 82947; 83540; 83550; 83605; 84145; 85014; 85018; 85025; 85027; 86850; 86900; 86901; 86923; 87040; 87086; 93005; 93010; 94760; 96365; 96368; 97110; 97161; 99285-25; A9270; J0456; J0696; J1650; J2405; J3370; J7030; J7050; J7120; P9016

== ENCOUNTER 2024-08-30 13:12 | Inpatient (IN) | payer OTHER ==
[~2024-08-30] VITALS: Ht 180.3 cm; Wt 114.8 kg
[2024-08-30] MEDS ORDERED: NS 1,000 ML IV SCH ×2 (14:10→17:55)
[2024-08-30] MEDS ORDERED: Acetaminophen 500 MG Tab PO ONE (14:15)
[2024-08-30 14:18] LABS: Source, Urine Voided
[2024-08-30 14:24] LABS: BASOPHILS ABSOLUTE AUTO 0.02 K/mm3 (0.00-0.23); BASOPHILS PERCENT AUTO 0 % (0-2); EOSINOPHILS ABSOLUTE AUTO 0.02 K/mm3 (0.00-0.68); EOSINOPHILS PERCENT AUTO 0 % (0-6); Hematocrit 18.8 % (37.0-53.0); IMMATURE GRAN ABSOLUTE AUTO 0.09 K/mm3 (0.00-0.10); IMMATURE GRAN PERCENT AUTO 1 % (0-1); LYMPHOCYTES ABSOLUTE AUTO 0.58 K/mm3 (0.84-5.20); LYMPHOCYTES PERCENT AUTO 6 % (21-46); MONOCYTES ABSOLUTE AUTO 1.02 K/mm3 (0.16-1.47); MONOCYTES PERCENT AUTO 11 % (4-13); Mean Corpuscular HGB 27.4 pg (26.0-34.0); Mean Corpuscular HGB Conc 31.4 g/dL (31.5-36.5); Mean Corpuscular Volume 87 fL (80-100); Mean Platelet Volume 9.5 fL (9.1-12.4); NEUTROPHILS ABSOLUTE AUTO 7.44 K/mm3 (1.96-9.15); NEUTROPHILS PERCENT AUTO 81 % (41-73); Platelet Count 209 K/mm3 (150-400); RDW Standard Deviation 51.1 fL (35.1-46.3); Red Blood Cell Count 2.15 M/mm3 (4.30-5.90); White Blood Cell Count 9.17 K/mm3 (4.00-11.30)
[2024-08-30 14:30] LABS: Hemoglobin 5.9 g/dL (13.5-17.5)
[2024-08-30 14:46] LABS: Appearance, Urine Cloudy (Clear); Bilirubin, Urine Neg (Neg); Blood, Urine 5+ (Neg); Color, Urine Amber (P-Yellow); Glucose Qualitative, Urine Neg (Neg); Ketones, Urine Neg (Neg); Leukocyte Esterase, Urine 2+ (Neg); Nitrite, Urine Pos (Neg); Protein, Urine 3+ (Neg); Urobilinogen, Urine 1+ (Normal)
[2024-08-30 14:53] LABS: Albumin, Blood 1.5 g/dL (3.4-5.0); Albumin/Globulin Ratio 0.2 (0.8-1.8); Bilirubin, Total 0.5 mg/dL (0.1-1.0); Bun/Creatinine Ratio 14.1 (12.0-20.0); Creatinine, Blood 2.13 mg/dL (0.60-1.20); Potassium, Blood 3.5 mmol/L (3.5-5.5); Total Protein, Blood 8.5 g/dL (6.4-8.2)
[2024-08-30 14:57] LABS: Yeast/Fungi Urine Many /hpf
[2024-08-30 14:58] LABS: Bacteria Many /hpf; Red Blood Cells, Urine 25-50 /hpf (0-2); Squamous Epithelial Cells Not Seen /hpf (Few)
[2024-08-30 14:59] LABS: Magnesium, Blood 1.7 mg/dL (1.6-2.4); Phosphorus, Blood 2.7 mg/dL (2.5-4.9)
[2024-08-30 15:17] LABS: Influenza A, PCR NEGATIVE (NEGATIVE); Influenza B, PCR NEGATIVE (NEGATIVE); Resp Syncytial Virus, PCR NEGATIVE (NEGATIVE); SARS-Cov-2 (COVID-19) PCR, MMC NEGATIVE (NEGATIVE)
[2024-08-30] MEDS ORDERED: Piperacillin/Tazobactam Sod 4.5 GM in NS 100 ML IV ONE (15:35)
[2024-08-30] MEDS ORDERED: Ondansetron HCl 2 MG / ML 2ML Vial IV PRN (19:10)
[2024-08-30] MEDS ORDERED: FLU VACC TS2024-25(6MOS UP)/PF 45 MCG/0.5 ML SYRINGE IM SCH (19:15)
[2024-08-30] MEDS ORDERED: Albumin (Human) 25gm/100ml 100 ML IV ONE (19:20)
[2024-08-30] MEDS ORDERED: FentaNYL Citrate 50 MCG/ML 2 ML Injection IV PRN (19:25)
[2024-08-30] MEDS ORDERED: Acetaminophen 325 MG TABLET PO PRN (19:25)
[2024-08-30] MEDS ORDERED: Vancomycin HCL 2,000 MG in NS 500 ML IV ONE (19:30)
[2024-08-30 19:33] LABS: Hematocrit 18.5 % (37.0-53.0)
[2024-08-30 19:37] LABS: Hemoglobin 5.8 g/dL (13.5-17.5)
[2024-08-30 19:44] LABS: RETIC HGB EQUIVALENT 22.5 pg (28.20-36.60); RETICULOCYTE ABSOLUTE 0.018 M/mm3 (0.0200-0.1100); RETICULOCYTE COUNT PERCENT 0.84 % (0.50-2.50)
[2024-08-30 19:52] LABS: U Amphetamine Screen DETECTED; U Barbituate Screen Not Detected; U Benzodiazapine Screen Not Detected; U Buprenorphine Screen Not Detected; U Cannabinoids Screen Not Detected; U Cocaine Screen Not Detected; U Methadone Screen Not Detected; U Methamphetamine Screen DETECTED; U Opiates Screen Not Detected; U Oxycodone Screen Not Detected; U Phencyclidine Screen Not Detected
[2024-08-30 19:55] LABS: Percent Saturation 12.5 % (20.0-50.0)
[2024-08-30] MEDS ORDERED: Furosemide 10 MG/ML 4ML Vial IV SCH (20:00)
[2024-08-30 21:40] VITALS: BP 122/77
[2024-08-30] MEDS ORDERED: Albuterol 2.5 MG/3 ML VIAL INH ONE (22:51)
--- NOTE | 2024-08-30 23:10 | NUR ---
THIS RN ASSUMED CARE OF PT AT 2140. PT IS ALERT AND ORIENTED X4, FOLLOWING COMMANDS. PT HEART IS IN NORMAL SINUS RHYTHM 80s, BLOOD PRESSURE 149/87, PT DENIES CHEST PAIN. PT SOUNDS WHEEZY/COURSE/DIMINISHED, COMPLAINING OF SOME SHORTNESS OF BREATHE. PT ALSO COMPLAINING OF A LOT OF PAIN IN THE BACK AND HIP, FENTYL WAS GIVEN, PT STILL COMPLAINING OF PAIN, DR. JON NOTIFIED AND SAW PT BEDSIDE, PROVIDER SAID TO WAIT ON PAIN MEDS, ORDERED BREATHING TREATMENT. PT HAS NOW RECIEVED 2 UNITS OF BLOOD, WILL RECHECK HGB AROUND 0200. NO OTHER INTERVENTIONS AT THIS TIME. PLAN OF CARE CONTINUED.
[2024-08-31] VITALS: BP 149/87
[2024-08-31] MEDS ORDERED: Cefepime HCl 1,000 MG in NS 100 ML IV SCH
[2024-08-31] MEDS ORDERED: Albuterol 2.5 MG/3 ML VIAL INH PRN (01:00)
[2024-08-31] MEDS ORDERED: OxyCODONE 5 mg/Acetamin 325 mg TABLET PO ONE (01:46)
--- NOTE | 2024-08-31 02:11 | NUR ---
PT IS CRYING IN PAIN, POSSIBLE WITHDRAWS FROM METH, WAS NOTIFIED AND CAME TO BEDSIDE, PROVIDER SAID IF PT GETS WORSE TO CALL AND PROVIDER WILL GET BENZO ON EMAR FOR PT. PT ALSO IN A LOT OF PAIN, PROVIDER PUT IN ORDERS FOR OXYXODONE, WILL REASSESS IN ONE HOUR. NO OTHER INTERVENTIONS AT THIS TIME.
[2024-08-31 02:23] LABS: Alanine Aminotransfer (ALT/SGP 10 U/L (12-78); Albumin, Blood 1.7 g/dL (3.4-5.0); Albumin/Globulin Ratio 0.2 (0.8-1.8); Alk Phos 136 U/L (50-136); Anion Gap 14 mmol/L (3-11); Aspartate Aminotrans (AST/SGOT 14 U/L (12-37); Bilirubin, Total 1.2 mg/dL (0.1-1.0); Blood Urea Nitrogen 32 mg/dL (8-24); CO2, Blood 19 mmol/L (21-32); Calcium, Blood 7.9 mg/dL (8.5-10.1); Chloride, Blood 110 mmol/L (98-108); Creatinine, Blood 2.29 mg/dL (0.60-1.20); Globulin, Blood 6.8 g/dL (2.2-4.0); Glomerular Filtration Rate 33 (60-); Glucose, Blood 141 mg/dL (70-99); Potassium, Blood 3.7 mmol/L (3.5-5.5); Sodium, Blood 139 mmol/L (136-145); Total Protein, Blood 8.5 g/dL (6.4-8.2); Vancomycin, Random 23.8 ug/mL
[2024-08-31 02:26] LABS: BASOPHILS ABSOLUTE AUTO 0.03 K/mm3 (0.00-0.23); BASOPHILS PERCENT AUTO 0 % (0-2); EOSINOPHILS ABSOLUTE AUTO 0.02 K/mm3 (0.00-0.68); EOSINOPHILS PERCENT AUTO 0 % (0-6); Hematocrit 22.3 % (37.0-53.0); Hemoglobin 7.3 g/dL (13.5-17.5); IMMATURE GRAN ABSOLUTE AUTO 0.07 K/mm3 (0.00-0.10); IMMATURE GRAN PERCENT AUTO 1 % (0-1); LYMPHOCYTES ABSOLUTE AUTO 0.94 K/mm3 (0.84-5.20); LYMPHOCYTES PERCENT AUTO 8 % (21-46); MONOCYTES ABSOLUTE AUTO 1.25 K/mm3 (0.16-1.47); MONOCYTES PERCENT AUTO 11 % (4-13); Mean Corpuscular HGB 28.1 pg (26.0-34.0); Mean Corpuscular HGB Conc 32.7 g/dL (31.5-36.5); Mean Corpuscular Volume 86 fL (80-100); NEUTROPHILS ABSOLUTE AUTO 8.97 K/mm3 (1.96-9.15); NEUTROPHILS PERCENT AUTO 80 % (41-73); Platelet Count 197 K/mm3 (150-400); RDW Coefficient Variation 15.7 % (11.7-14.2); RDW Standard Deviation 49.5 fL (35.1-46.3); White Blood Cell Count 11.28 K/mm3 (4.00-11.30)
[2024-08-31 04:00] VITALS: BP 126/82
--- NOTE | 2024-08-31 05:24 | NUR ---
PT SUMMARY PTs PAIN WAS UNDER CONTROL WITH THE OXYCODONE, PT IS NOW RESTING PEACEFULLY IN BED, STILL WAKES UP TO USE THE URINAL APPROPRIALTELY. PT DOES HAVE POSITIVE BLOOD CULTURES, DR. JON NOTIFIED AND SAID CURRENT ANTIBIOTICS ARE APPROPRIATE. NO OTHER EVENTS TO REPORT OVERNIGHT. PLAN OF CARE CONTINUED.
[2024-08-31 08:29] VITALS: BP 117/83
[2024-08-31 08:42] LABS: Hematocrit 21.8 % (37.0-53.0)
[2024-08-31 11:38] VITALS: BP 121/82
[2024-08-31] MEDS ORDERED: Vancomycin HCL 2,000 MG in NS 500 ML IV SCH (12:00)
[2024-08-31] MEDS ORDERED: Furosemide 10 MG/ML 4ML Vial IV SCH (14:00)
[2024-08-31] MEDS ORDERED: Sod Ferric Gluc Complx/Sucrose 125 MG in NS 100 ML IV SCH (14:00)
[2024-08-31 14:26] LABS: Hematocrit 27.2 % (37.0-53.0); Hemoglobin 8.5 g/dL (13.5-17.5)
[2024-08-31 14:40] VITALS: BP 135/85
[2024-08-31 15:05] LABS: International Normalized Ratio 1.17; Prothrombin Time Results 12.4 Sec (9.7-11.5)
--- NOTE | 2024-08-31 18:43 | NUR ---
PT HAS BEEN RESTING WELL IN BED T/O THE DAY. HE DENIES CP AND SOB. HE HAS BEEN TO RADIOLOGY FOR NEEDLE ASPIRATION OF RIGHT HIP, FLUID WAS SENT TO LAB. PT IS ALERT, MENTATION WAXES AND WANES T/O THE DAY. ECHO IS COMPLETE. PT HAS HAD ABX INFUSED T/O THE DAY. HE IS EATING AND DRINKING WELL. USES CALL LIGHT APPROPRIATELY
[2024-08-31 20:00] VITALS: BP 124/84
--- NOTE | 2024-08-31 20:37 | NUR ---
THIS RN ASSUMED CARE OF PT AT 1900. PT IS ALERT AND ORIENTED X3-4, WAS A LITTLE CONFUSED ABOUT THE DATE BUT GOT THE YEAR CORRECT. PT STATES THEY ARE FEELING BETTER THAN YESTERDAY, FOLLOWING COMMANDS. PT HEART RATE IS IN THE 90s, BLOOD PRESSURE IS 124/84, PT DENIES CHEST PAIN. PT SOUNDS CLEAR/DIMINSIHED, WAS ON ROOM AIR MOST OF THE DAY SATTING >92%. PT PAIN IS UNDER CONTROL, PT ALSO WANTED SOME LOTION ON LEGS. HGB IS STABLE AT 8.5. NO OTHER INTERVENTIONS AT THIS TIME. PLAN OF CARE CONTINUED.
[2024-09-01] VITALS (7 sets, daily range): BP systolic 115–128; BP diastolic 73–90
--- NOTE | 2024-09-01 04:54 | NUR ---
PT IS LAYING IN BED, PT STATED THEY JUST WANT TO FEEL BETTER AND GET SOME SLEEP, PT STATED HE HAS BEEN IN AND OUT OF SLEEP ALL NIGHT, VITAL SIGNS STABLE, BLOOD PRESSURE 127/81, PT DENIES CHEST PAIN AND SHORTNESS OF BREATHE. NO NEW EVENTS TO REPORT OVERNIGHT. PLAN OF CARE CONTINUED.
[2024-09-01 04:57] LABS: BASOPHILS ABSOLUTE AUTO 0.04 K/mm3 (0.00-0.23); BASOPHILS PERCENT AUTO 0 % (0-2); EOSINOPHILS ABSOLUTE AUTO 0.17 K/mm3 (0.00-0.68); EOSINOPHILS PERCENT AUTO 2 % (0-6); Hematocrit 22.6 % (37.0-53.0); Hemoglobin 7.3 g/dL (13.5-17.5); IMMATURE GRAN ABSOLUTE AUTO 0.12 K/mm3 (0.00-0.10); IMMATURE GRAN PERCENT AUTO 1 % (0-1); LYMPHOCYTES PERCENT AUTO 11 % (21-46); MONOCYTES ABSOLUTE AUTO 1.18 K/mm3 (0.16-1.47); MONOCYTES PERCENT AUTO 11 % (4-13); Mean Corpuscular HGB 27.8 pg (26.0-34.0); Mean Corpuscular HGB Conc 32.3 g/dL (31.5-36.5); Mean Corpuscular Volume 86 fL (80-100); Mean Platelet Volume 9.5 fL (9.1-12.4); NEUTROPHILS ABSOLUTE AUTO 7.89 K/mm3 (1.96-9.15); NEUTROPHILS PERCENT AUTO 75 % (41-73); Platelet Count 210 K/mm3 (150-400); RDW Standard Deviation 50.2 fL (35.1-46.3); Red Blood Cell Count 2.63 M/mm3 (4.30-5.90)
[2024-09-01 05:32] LABS: Anion Gap 12 mmol/L (3-11); Blood Urea Nitrogen 47 mg/dL (8-24); Bun/Creatinine Ratio 16.2 (12.0-20.0); C-REACTIVE PROTEIN, EXT RANGE >19.000 mg/dL (0.000-0.300); CO2, Blood 22 mmol/L (21-32); Calcium, Blood 7.7 mg/dL (8.5-10.1); Chloride, Blood 103 mmol/L (98-108); Glomerular Filtration Rate 25 (60-); Glucose, Blood 137 mg/dL (70-99); Potassium, Blood 3.3 mmol/L (3.5-5.5); Sodium, Blood 134 mmol/L (136-145)
[2024-09-01] MEDS ORDERED: Potassium Chloride 10 Meq Tablet SA PO ONE (06:05)
--- NOTE | 2024-09-01 06:11 | NUR ---
PT HGB CAME BACK 7.3, DR. JON NOTIFIED, NEW ORDERS PLACED FOR A REDRAW AT 1300 ON 09/01/24, NO OTHER INTERVENTIONS AT THIS TIME.
[2024-09-01 12:11] LABS: Vancomycin, Trough 27.7 ug/mL (5.0-10.0)
[2024-09-01 13:30] LABS: Hematocrit 24.1 % (37.0-53.0); Hemoglobin 7.7 g/dL (13.5-17.5)
--- NOTE | 2024-09-01 16:59 | NUR ---
Shift Summary Pt alert, oriented x3; calm and cooperative with care. Pt up with 1-2 person assist, up in recliner for majority of day. Pt reporting pain to right hip this am, medicated x1 with fentanyl with positive releif. Pt denies chest pain/pressure, sob, nausea, dizziness and numb/tingling. Spo2 >90% on 2l o2 via nc, when off o2 pt desaturates. Tele sinus 80's, bp stable. Edema to ble. Scattered scabs/wounds noted. Abd mild distention, firm, nontender. Using urinal ind, davie urine. No other acute changes noted. Will continue to monitor.
[2024-09-01] MEDS ORDERED: CALCIUM GLUC IN NACL, ISO-OSM 100 ML IV ONE (17:25)
[2024-09-02 03:56] VITALS: BP 130/83
[2024-09-02 04:03] LABS: Hematocrit 23.2 % (37.0-53.0); Hemoglobin 7.4 g/dL (13.5-17.5); Mean Corpuscular HGB 27.6 pg (26.0-34.0); Mean Corpuscular HGB Conc 31.9 g/dL (31.5-36.5); Mean Corpuscular Volume 87 fL (80-100); Mean Platelet Volume 9.4 fL (9.1-12.4); Platelet Count 223 K/mm3 (150-400); RDW Coefficient Variation 16.3 % (11.7-14.2); RDW Standard Deviation 50.9 fL (35.1-46.3); Red Blood Cell Count 2.68 M/mm3 (4.30-5.90); White Blood Cell Count 12.39 K/mm3 (4.00-11.30)
[2024-09-02 04:49] LABS: Anion Gap 13 mmol/L (3-11); Blood Urea Nitrogen 53 mg/dL (8-24); Bun/Creatinine Ratio 18.3 (12.0-20.0); CO2, Blood 24 mmol/L (21-32); Calcium, Blood 8.1 mg/dL (8.5-10.1); Chloride, Blood 102 mmol/L (98-108); Creatinine, Blood 2.89 mg/dL (0.60-1.20); Glomerular Filtration Rate 25 (60-); Glucose, Blood 124 mg/dL (70-99); Potassium, Blood 3.6 mmol/L (3.5-5.5); Sodium, Blood 135 mmol/L (136-145); Vancomycin, Random 22.2 ug/mL
--- NOTE | 2024-09-02 06:43 | NUR ---
SHIFT SUMMARY NO ACUTE CHANGES OVERNIGHT. PT HAS BEEN AFEBRILE THIS SHIFT BUT TYLENOL WAS GIVEN. PT PLACED ON OXYMIZER MASK DUE TO MOUTH BREATHING.
[2024-09-02 07:49] VITALS: BP 127/85
[2024-09-02 07:50] VITALS: BP 127/85
[2024-09-02 11:34] VITALS: BP 127/83
[2024-09-02] MEDS ORDERED: CALCIUM GLUC IN NACL, ISO-OSM 100 ML IV ONE (15:00)
[2024-09-02] MEDS ORDERED: Ceftaroline Fosamil Acetate 400 MG in NS 250 ML IV SCH (16:00)
[2024-09-02 18:24] VITALS: BP 142/81
--- NOTE | 2024-09-02 19:18 | NUR ---
Shift Summary Pt lethargic start of this shift but became more alert late morning early afternoon, oriented to self, place, person, time, but not situation. Pt 2 person assist with q2t, in the recliner. Lungs sound clear with dim bases, titrated from 4L O2 via nc/oxi-mask down to RA, no signs of respiratory distress t/o this shift, holding conversation on the phone while on room air with spo2 greater than 90%. Continuous cardiac monitoring, hr 80 s, denies chest p/p t/o this shift, right pedal has faint pulse, left pedal and bilateral radial pulses strong, ble edema that is non-pitting. Pt has redness color to ble. Dr. Antoine to bedside, new orders placed and abx changed. Gram positive cocci clusters from the second set came back this shift and Dr. Antoine notified. Cardiology consulted for RAYNE, Dr. GARCIA was notified by this rn.
[2024-09-02 19:40] VITALS: BP 113/72
[2024-09-02] MEDS ORDERED: Lactobacil 2-S.Thermo-Bifido 1 1 Cap PO SCH (21:00)
[2024-09-02] MEDS ORDERED: Morphine Sulfate 15 MG TABCR PO ONE (23:30)
[2024-09-03] VITALS (10 sets, daily range): BP systolic 116–145; BP diastolic 67–85
[2024-09-03 04:21] LABS: BASOPHILS ABSOLUTE AUTO 0.04 K/mm3 (0.00-0.23); BASOPHILS PERCENT AUTO 0 % (0-2); EOSINOPHILS ABSOLUTE AUTO 0.32 K/mm3 (0.00-0.68); EOSINOPHILS PERCENT AUTO 3 % (0-6); Hematocrit 21.5 % (37.0-53.0); Hemoglobin 6.9 g/dL (13.5-17.5); IMMATURE GRAN ABSOLUTE AUTO 0.21 K/mm3 (0.00-0.10); IMMATURE GRAN PERCENT AUTO 2 % (0-1); LYMPHOCYTES ABSOLUTE AUTO 0.88 K/mm3 (0.84-5.20); LYMPHOCYTES PERCENT AUTO 8 % (21-46); MONOCYTES ABSOLUTE AUTO 0.86 K/mm3 (0.16-1.47); MONOCYTES PERCENT AUTO 8 % (4-13); Mean Corpuscular HGB 27.6 pg (26.0-34.0); Mean Corpuscular HGB Conc 32.1 g/dL (31.5-36.5); Mean Corpuscular Volume 86 fL (80-100); Mean Platelet Volume 9.6 fL (9.1-12.4); NEUTROPHILS ABSOLUTE AUTO 8.24 K/mm3 (1.96-9.15); NEUTROPHILS PERCENT AUTO 78 % (41-73); Platelet Count 251 K/mm3 (150-400); RDW Coefficient Variation 16.1 % (11.7-14.2); RDW Standard Deviation 51.2 fL (35.1-46.3); White Blood Cell Count 10.55 K/mm3 (4.00-11.30)
[2024-09-03 04:39] LABS: Albumin, Blood 1.5 g/dL (3.4-5.0); Anion Gap 12 mmol/L (3-11); Blood Urea Nitrogen 56 mg/dL (8-24); Bun/Creatinine Ratio 20.6 (12.0-20.0); CO2, Blood 25 mmol/L (21-32); Calcium, Blood 7.9 mg/dL (8.5-10.1); Chloride, Blood 104 mmol/L (98-108); Creatinine, Blood 2.72 mg/dL (0.60-1.20); Glomerular Filtration Rate 27 (60-); Glucose, Blood 124 mg/dL (70-99); Phosphorus, Blood 4.3 mg/dL (2.5-4.9); Potassium, Blood 3.5 mmol/L (3.5-5.5); Sodium, Blood 137 mmol/L (136-145)
[2024-09-03] MEDS ORDERED: NS 500 ML IV SCH (05:20)
[2024-09-03] MEDS ORDERED: CALCIUM GLUC IN NACL, ISO-OSM 100 ML IV ONE (05:40)
--- NOTE | 2024-09-03 06:39 | NUR ---
SHIFT SUMMARY PT RESTED QUIETLY/SLEPT T/O NIGHT. PT BACK ON OXYMIZER MASK 4L AFTER BRIEFLY TAKING IT OFF AND DESATTING WHILE SLEEPING. RIGHT HIP PAIN MANAGED WELL PER EMAR. PRBC TO BE INFUSED.
--- NOTE | 2024-09-03 11:56 | NUR ---
Spiritual care visit conducted. Patient is sitting on a chair and alert. He talks at length about his drug habit and how it is killing him. He states that he doesn't want to but that he has no ability within himself to do any better. He talks about family unit complications since his father and mother have and how he and one of his sisters have not made good choices before or after their deaths. He talks about his Pentecostal/Mandaen enzo and his desperate need for help to break the power of addiction. I remind him of God's love and forgiveness and also of God's part and his part in his recovery. He is tearful at times but states that he is encouraged by our conversation. I provided therapeutic listening and prayer to which the patient responded well and appeared to have a bit more hope about himself and his future. Spiritual care will remain available.
[2024-09-03 12:16] LABS: Hematocrit 25.5 % (37.0-53.0); Hemoglobin 8.2 g/dL (13.5-17.5)
[2024-09-03 15:16] LABS: Hematocrit 24.7 % (37.0-53.0); Hemoglobin 7.9 g/dL (13.5-17.5)
--- NOTE | 2024-09-03 18:22 | NUR ---
SHIFT SUMMARY: PT HAS BEEN LETHARGIC TODAY, SLEEPING OFTEN, WAKES EASILY TO STAFF IN ROOM AND ANSWERS QUESTIONS APPROPRIATELY, IS COOPERATIVE W/CARE. PT DENIES SOB TODAY, O2 SATS MAINTAINED >93% ON RA OR 2 L/MIN VIA NC. SR ON MONITOR, RATE 80s, PT DENIES CHEST PAIN. CARDIOLOGY CONSULT COMPLETED AT BEDSIDE TO EXPLORE OPTION OF RAYNE, PT STATES SOME SWALLOWING DIFFCULTY BUT DOES NOT EXPAND ON TOPIC DESPITE PROMPTING, PROVIDER DECIDES TO WAIT UNTIL TOMORROW TO DECIDE RE: RAYNE. PT ABLE TO SWALLOW PILLS W/WATER, NO SWALLOWING DIFFICULTIES NOTED DURING MEAL TIMES. 3rd UNIT OF PRBCs INFUSED THIS SHIFT, REPEAT H/H SHOWS IMPROVED LABS. PT IS RESTING IN RECLINER W/CALL LIGHT IN REACH.
--- NOTE | 2024-09-03 20:12 | NUR ---
ASSUMED CARE PT ORIENTED X4; DENIES CP, SOB, AND NAUSEA. PT STATES PAIN IS "A LOT BETTER" IN RIGHT HIP. PT IS LETHARGIC, BUT ABLE TO MAINTAIN WAKEFULNESS AND ANSWER QUESTIONS APPROPRIATELY. STATES THAT LAST METH USAGE WAS BEFORE ADMIT. RESTING QUIETLY AT THIS TIME.
[2024-09-04 03:49] VITALS: BP 121/73
[2024-09-04 04:33] LABS: Hematocrit 25.1 % (37.0-53.0); Hemoglobin 7.9 g/dL (13.5-17.5)
[2024-09-04 05:09] LABS: Albumin, Blood 1.7 g/dL (3.4-5.0); Anion Gap 12 mmol/L (3-11); Blood Urea Nitrogen 57 mg/dL (8-24); Bun/Creatinine Ratio 19.1 (12.0-20.0); CO2, Blood 24 mmol/L (21-32); Calcium, Blood 8.7 mg/dL (8.5-10.1); Chloride, Blood 104 mmol/L (98-108); Creatinine, Blood 2.98 mg/dL (0.60-1.20); Glomerular Filtration Rate 24 (60-); Glucose, Blood 126 mg/dL (70-99); Phosphorus, Blood 4.1 mg/dL (2.5-4.9); Potassium, Blood 3.8 mmol/L (3.5-5.5); Sodium, Blood 136 mmol/L (136-145)
--- NOTE | 2024-09-04 06:11 | NUR ---
SHIFT SUMMARY PT RESTED QUIETLY/SLEPT T/O NIGHT. CONTINUES TO BE LETHARGIC, BUT ALSO CONTINUES TO AROUSE TO VERBAL STIMULI AND ABLE TO MAINTAIN WAKEFULNESS. NO ACUTE EVENTS OVERNIGHT. DENIES PAIN IN RIGHT HIP AT THIS TIME. NO ACUTE EVENTS OVERNIGHT.
[2024-09-04 07:58] VITALS: BP 115/72
[2024-09-04 10:55] VITALS: BP 118/71
[2024-09-04] MEDS ORDERED: Polyethylene Glycol 3350 17 gm PO SCH (12:50)
[2024-09-04] MEDS ORDERED: CALCIUM GLUC IN NACL, ISO-OSM 100 ML IV ONE (13:55)
--- NOTE | 2024-09-04 14:12 | NUR ---
Spiritual Care Visit. Pt. is awake in a recliner when he welcomes this visit. Pt. 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 Facilitated a life review focsuing on the period after he returned home, Pt. verbalized the difficult days after his mother had passed. Considered matters of enzo and the pts. practice of it. Pt. displayed evidence of somnolence. Prayed with Pt. Will remain availabel to the Pt.
--- NOTE | 2024-09-04 14:56 | NUR ---
Pt has been somnulent for much of the day, awakening easily to conversation and compliant with care. He has had no complaints throughout the day. Now tolerating a clear liquid diet after Dr. Easley's orders. Plan for discussion later today for possible diagnostic procedure tomorrow. Pt has been sleeping intermittently in the recliner all day today.
[2024-09-04 16:06] VITALS: BP 111/75
--- NOTE | 2024-09-04 18:16 | NUR ---
Pt returned to room after CT scan of chest. He is in the bed, states still working on his clear liquid diet.
[2024-09-04 20:00] VITALS: BP 140/82
[2024-09-05] VITALS (12 sets, daily range): BP systolic 117–145; BP diastolic 72–87
--- NOTE | 2024-09-05 00:03 | NUR ---
THIS RN ASSUMED CARE OF PT AROUND 1900. PT IS ALERT AND ORIENTED, FOLLOWING COMMANDS, IN BED WATCHING TELEVISION, PT IS A LITTLE DROSWY BUT ANSWERS APPROPRIATELY. PT HEART RATE IS IN NORMAL SINUS RHYTHM 80s, PT DENIES CHEST PAIN AND BLOOD PRESSURE STABLE 140/82 MAP 93. PT SOUNDS CLEAR/DIMINSHED, PT DENIES SHORTNESS OF BREATHE, ON ROOM AIR SATTING >95%. PT RIGHT HIP SITE IS CLEAN, DRY AND INTACT. NO OTHER INTERVENTIONS AT THIS TIME. PLAN OF CARE CONTINUED.
--- NOTE | 2024-09-05 04:18 | NUR ---
PT SUMMARY PT GOT UP AND IS CURRENTLY SITTING IN CHAIR WATCHING TELEVISION. PT STATED BED WAS UNCOMFORTBALE. NO NEW EVENTS TO REPORT OVERNIGHT. PLAN OF CARE CONTINUED.
[2024-09-05 04:38] LABS: BASOPHILS ABSOLUTE AUTO 0.08 K/mm3 (0.00-0.23); BASOPHILS PERCENT AUTO 1 % (0-2); EOSINOPHILS ABSOLUTE AUTO 0.43 K/mm3 (0.00-0.68); EOSINOPHILS PERCENT AUTO 4 % (0-6); Hematocrit 25.4 % (37.0-53.0); Hemoglobin 8.1 g/dL (13.5-17.5); IMMATURE GRAN ABSOLUTE AUTO 0.19 K/mm3 (0.00-0.10); IMMATURE GRAN PERCENT AUTO 2 % (0-1); LYMPHOCYTES ABSOLUTE AUTO 1.39 K/mm3 (0.84-5.20); LYMPHOCYTES PERCENT AUTO 13 % (21-46); MONOCYTES ABSOLUTE AUTO 0.99 K/mm3 (0.16-1.47); MONOCYTES PERCENT AUTO 10 % (4-13); Mean Corpuscular HGB Conc 31.9 g/dL (31.5-36.5); Mean Corpuscular Volume 88 fL (80-100); Mean Platelet Volume 9.2 fL (9.1-12.4); NEUTROPHILS ABSOLUTE AUTO 7.34 K/mm3 (1.96-9.15); NEUTROPHILS PERCENT AUTO 71 % (41-73); Platelet Count 335 K/mm3 (150-400); RDW Coefficient Variation 16.7 % (11.7-14.2); RDW Standard Deviation 53.7 fL (35.1-46.3); Red Blood Cell Count 2.89 M/mm3 (4.30-5.90); White Blood Cell Count 10.42 K/mm3 (4.00-11.30)
[2024-09-05 05:12] LABS: Bun/Creatinine Ratio 20.7 (12.0-20.0); Calcium, Blood 8.7 mg/dL (8.5-10.1); Creatinine, Blood 2.8 mg/dL (0.60-1.20); Potassium, Blood 3.9 mmol/L (3.5-5.5)
[2024-09-05] MEDS ORDERED: propofoL 50 ML IV ONE (07:12)
[2024-09-05] MEDS ORDERED: Glycopyrrolate 0.2 MG/ML 1MLVIAL ONE (07:12)
[2024-09-05] MEDS ORDERED: Phenylephrine HCl 100 MCG/ML-NS 10MLSYR (1MG/10ML) ONE (07:13)
[2024-09-05] MEDS ORDERED: Vasopressin 20 UNITS/ML 1ML Vial ONE (07:13)
[2024-09-05] MEDS ORDERED: Lidocaine HCl 2% 20 ML MDV ONE (07:13)
[2024-09-05] MEDS ORDERED: NS 500 ML IV SCH (07:15)
--- NOTE | 2024-09-05 07:19 | NUR ---
Pt is sitting in recliner chair, appears to be sleeping. Awakens, says he is aware of plan for RAYNE and endoscopy today.
--- NOTE | 2024-09-05 07:53 | NUR ---
Into [facility] via [facility]. History and allergies reviewed. Pt reports feeling anxious regarding procedure. Lungs with rhonchi that clear with cough. Sob noted with exertion. sats>90% on ra. Murmur auscultated. Npo status confirmed.
--- NOTE | 2024-09-05 08:11 | NUR ---
09/05/24 0811 Joy Ortega 0805 History, Chart, Medications and Allergies reviewed before start of procedure.3-LEAD EKG REVIEWED WITH PHYSICIAN PRIOR TO START OF PROCEDURE.O2 VIA POM INTACT THROUGHOUT SEDATION/PROCEDURE. Bite Block Placed.Dr Cortez providing general anesthesia.See anesthesia record.
[2024-09-05] MEDS ORDERED: propofoL 20 ML IV ONE (08:28)
[2024-09-05] MEDS ORDERED: Famotidine 20 MG Tab PO SCH (08:56)
[2024-09-05 10:28] LABS: Stool Occult Blood Guaiac 1 Neg (Neg)
[2024-09-05] MEDS ORDERED: Polyethylene Glycol 3350 17 gm PO SCH (11:10)
--- NOTE | 2024-09-05 18:22 | NUR ---
PT ARRIVED ON THE FLOOR AT AROUND 1720 AND WAS A&OX4. NO ACUTE EVENTS AT THIS TIME. VSS, NO COMPLAINTS OF CP/PRESSURE OR SOB. PT LEFT IN A POSITION OF SAFETY WITH FALL PRECAUTIONS IN PLACE AND CALL LIGHT IN REACH.
[2024-09-06 02:28] VITALS: BP 117/72
[2024-09-06 06:27] LABS: Albumin, Blood 1.6 g/dL (3.4-5.0); Anion Gap 11 mmol/L (3-11); Blood Urea Nitrogen 55 mg/dL (8-24); Bun/Creatinine Ratio 18.2 (12.0-20.0); CO2, Blood 23 mmol/L (21-32); Calcium, Blood 8.4 mg/dL (8.5-10.1); Chloride, Blood 110 mmol/L (98-108); Creatinine, Blood 3.02 mg/dL (0.60-1.20); Glomerular Filtration Rate 23 (60-); Glucose, Blood 130 mg/dL (70-99); Potassium, Blood 3.8 mmol/L (3.5-5.5); Sodium, Blood 140 mmol/L (136-145)
--- NOTE | 2024-09-06 06:28 | NUR ---
SHIFT SUMMARY PT DROWSY THROUGH NIGHT. MEDICATED FOR HIP PAIN X1- SEE EMAR. IV ANTIBIOTICS CONTINUE. PT'S FAMILY IN TO VISIT AND BROUGHT FOOD, BUT PT WITH POOR APPETITE. SLEPT OFF/ON THROUGH THE NIGHT. CURRENTLY SITTING IN RECLINER WITH CALL LIGHT WITHIN REACH.
[2024-09-06 08:13] VITALS: BP 132/85
[2024-09-06] MEDS ORDERED: Polyethylene Glycol 3350 17 gm PO ONE (11:00)
[2024-09-06] MEDS ORDERED: DAPTOmycin 360 MG in NS 50 ML IV SCH (14:00)
[2024-09-06 16:01] VITALS: BP 128/74
--- NOTE | 2024-09-06 17:45 | NUR ---
SHIFT SUMMARY PT A&OX4, VSS, AMB W/ 1P ASSIST, TOLERATING PO, VOIDING, AND PAIN MANAGED PER EMAR. PT CURRENTLY ON CLEAR LIQUID DIET AND COLONOSCOPY PREP STARTED. WATER AND ICE CHIPS ONLY STARTING AT 2100 AND THEN NPO AT 0600 TOMORROW. PT REFUSED MRI THIS SHIFT. NO OTHER ACUTE CHANGES. CALL LIGHT WITHIN REACH AND PT ABLE TO MAKE NEEDS KNOWN.
[2024-09-06] MEDS ORDERED: Peg/Electrolytes 4,000 ML BTL PO ONE (18:00)
[2024-09-06 21:53] VITALS: BP 128/74
[2024-09-07 04:38] VITALS: BP 123/75
--- NOTE | 2024-09-07 05:32 | NUR ---
SHIFT SUMMARY PT TOLERATED GOLYTELY FAIR. SOME NAUSEA TOWARDS THE END OF THE BOTTLE. FINISHED GOLYTELY BY 2330. LAST STOOL WAS LOOSE BROWN. PT WITH SMALL SIPS WATER/ICE AFTER GOLYTELY FINISHED. TO BE NPO AFTER 0600. PT DENIES NEEDING PAIN MEDICATION FOR HIP/ BACK THIS SHIFT. IV ANTIBIOTICS CONTINUE SLEPT MOST OF NIGHT IN THE RECLINER CHAIR. CALL LIGHT WITHIN REACH. 1 ASSIST TO BATHROOM WITH WALKER.
[2024-09-07 05:47] LABS: Hematocrit 23.8 % (37.0-53.0); Hemoglobin 7.3 g/dL (13.5-17.5); Mean Corpuscular HGB 27.4 pg (26.0-34.0); Mean Corpuscular HGB Conc 30.7 g/dL (31.5-36.5); Mean Corpuscular Volume 90 fL (80-100); Platelet Count 319 K/mm3 (150-400); RDW Coefficient Variation 16.4 % (11.7-14.2); RDW Standard Deviation 53.7 fL (35.1-46.3); Red Blood Cell Count 2.66 M/mm3 (4.30-5.90); White Blood Cell Count 7.18 K/mm3 (4.00-11.30)
[2024-09-07 06:05] LABS: Albumin, Blood 1.6 g/dL (3.4-5.0); Anion Gap 12 mmol/L (3-11); Blood Urea Nitrogen 45 mg/dL (8-24); Bun/Creatinine Ratio 19.2 (12.0-20.0); CO2, Blood 23 mmol/L (21-32); Calcium, Blood 8.2 mg/dL (8.5-10.1); Chloride, Blood 110 mmol/L (98-108); Creatinine, Blood 2.34 mg/dL (0.60-1.20); Glomerular Filtration Rate 32 (60-); Glucose, Blood 108 mg/dL (70-99); Magnesium, Blood 1.9 mg/dL (1.6-2.4); Potassium, Blood 3.5 mmol/L (3.5-5.5); Sodium, Blood 141 mmol/L (136-145)
[2024-09-07 08:01] VITALS: BP 136/87
[2024-09-07] MEDS ORDERED: Sod Phosphate/Sod Biphosphate 132 ML BTL PR ONE (09:00)
[2024-09-07] MEDS ORDERED: Lactated Ringer's 1,000 ML IV SCH (09:05)
[2024-09-07] MEDS ORDERED: Peg/Electrolytes 4,000 ML BTL PO STA (11:27)
[2024-09-07 14:52] VITALS: BP 147/103
--- NOTE | 2024-09-07 18:24 | NUR ---
SHIFT SUMMARY COLONOSCOPY UNABLE TO BE COMPLETED THIS SHIFT. PT BM NOT CLEAR AT THIS TIME AND NO BM SINCE LAST GOLYTELY ADMINISTRATION. NO OTHER ACUTE CHANGES. CALL LIGHT WITHIN REACH AND PT ABLE TO MAKE NEEDS KNOWN.
[2024-09-07 19:54] VITALS: BP 139/91
[2024-09-08 02:18] VITALS: BP 137/89
[2024-09-08] MEDS ORDERED: Peg/Electrolytes 4,000 ML BTL PT SCH (05:00)
--- NOTE | 2024-09-08 05:53 | NUR ---
SHIFT SUMMARY PT RESTED MOST OF THE NIGHT- SLEEPING IN THE RECLINER CHAIR. DENIES THE NEED FOR PAIN MEDICATION. IV ANTIBIOTICS CONTINUE. GOLYTLEY STARTED AT 0510. PT VERBALIZES UNDERSTANDING THAT ONCE HIS STOOL IS CLEAR HE CAN STOP DRINKING THE GOLYTLEY. PT REMAINS IN THE RECLINER CHAIR, CALL LIGHT WITHIN REACH.
[2024-09-08 07:49] LABS: Albumin, Blood 1.6 g/dL (3.4-5.0); Anion Gap 11 mmol/L (3-11); Blood Urea Nitrogen 35 mg/dL (8-24); Bun/Creatinine Ratio 18.1 (12.0-20.0); CO2, Blood 24 mmol/L (21-32); Calcium, Blood 8.4 mg/dL (8.5-10.1); Chloride, Blood 110 mmol/L (98-108); Creatinine, Blood 1.93 mg/dL (0.60-1.20); Glomerular Filtration Rate 40 (60-); Glucose, Blood 103 mg/dL (70-99); Phosphorus, Blood 3.8 mg/dL (2.5-4.9); Potassium, Blood 3.4 mmol/L (3.5-5.5); Sodium, Blood 142 mmol/L (136-145)
[2024-09-08 08:08] VITALS: BP 132/88
[2024-09-08] MEDS ORDERED: Losartan Potassium 25 MG Tab PO SCH (09:00)
[2024-09-08 15:37] VITALS: BP 149/91
--- NOTE | 2024-09-08 17:31 | NUR ---
PT LEFT AMA PT LEFT AMA AT 1715. PT PROVIDED W/ BENEFITS AND RISKS BY THIS NURSE, DIAMOND ARVIZU, AND . AMA FORM SIGNED. PT REPORTED UNDERSTANDING. PT ESCOURTED OUT BY KUMAR MELLO TO THE PATIENT ENTRANCE AND TRANSPORTED BY FRIEND.
[2024-09-09 00:53] LABS: COMPLEMENT COMPONENT 3 108 mg/dL (90-180); COMPLEMENT COMPONENT 4 16 mg/dL (10-40)
[2024-09-10 19:04] LABS: ALBUMIN 2.13 g/dL (3.75-5.01); ALPHA 1 GLOBULIN 0.48 g/dL (0.19-0.46); ALPHA 2 GLOBULIN 0.99 g/dL (0.48-1.05); GAMMA 4.59 g/dL (0.62-1.51); IMMUNOFIXATION REFLEX IFE Done; TOTAL PROTEIN,SERUM 9.2 g/dL (6.3-8.2)
[2024-09-10 19:05] LABS: IMMUNOGLOBULIN A 980 mg/dL (68-408); IMMUNOGLOBULIN G 4410 mg/dL (768-1632); IMMUNOGLOBULIN M 133 mg/dL (35-263)
== END 2024-09-08 17:29 | disposition left against medical advice (07) | DRG 871 ==
LOC: ER 13:12 → ERHOLD 18:53 → PCU 18:53 → MEDS 18:53 → PCU 21:08 → MEDS 09-05 17:20
PROVIDERS: Emergency Medicine; Family Medicine; Hospitalist; Internal Medicine; Internal Medicine Gastroenterology; Student in an Organized Health Care Education/Training Program; ADMIT Internal Medicine
PROC: 3E03329 Introduction of Other Anti-infective into Peripheral Vein, Percutaneous Approach (ICD-10-PCS; 2024-08-30)
PROC: 30233N1 Transfusion of Nonautologous Red Blood Cells into Peripheral Vein, Percutaneous Approach (ICD-10-PCS; 2024-08-30)
PROC: 30233J1 Transfusion of Nonautologous Serum Albumin into Peripheral Vein, Percutaneous Approach (ICD-10-PCS; 2024-08-30)
PROC: 0S993ZX Drainage of Right Hip Joint, Percutaneous Approach, Diagnostic (ICD-10-PCS; 2024-08-31)
PROC: 0DB78ZX Excision of Stomach, Pylorus, Via Natural or Artificial Opening Endoscopic, Diagnostic (ICD-10-PCS; principal; 2024-09-05 07:45)
DX: A41.02 Sepsis due to Methicillin resistant Staphylococcus aureus (principal); I50.31 Acute diastolic (congestive) heart failure; J96.01 Acute respiratory failure with hypoxia; N39.0 Urinary tract infection, site not specified; N17.9 Acute kidney failure, unspecified; M46.24 Osteomyelitis of vertebra, thoracic region; E87.1 Hypo-osmolality and hyponatremia; M00.851 Arthritis due to other bacteria, right hip; I13.0 Hypertensive heart and chronic kidney disease with heart failure and stage 1 through stage 4 chronic kidney disease, or unspecified chronic kidney disease; E66.9 Obesity, unspecified; R65.20 Severe sepsis without septic shock; G89.29 Other chronic pain; F15.10 Other stimulant abuse, uncomplicated; I87.2 Venous insufficiency (chronic) (peripheral); N18.31 Chronic kidney disease, stage 3a; E87.6 Hypokalemia; E83.51 Hypocalcemia; D63.1 Anemia in chronic kidney disease; D50.9 Iron deficiency anemia, unspecified; R82.5 Elevated urine levels of drugs, medicaments and biological substances; R50.9 Fever, unspecified; E88.09 Other disorders of plasma-protein metabolism, not elsewhere classified; E11.22 Type 2 diabetes mellitus with diabetic chronic kidney disease; J44.9 Chronic obstructive pulmonary disease, unspecified; Z91.198 Patient's noncompliance with other medical treatment and regimen for other reason; Z87.39 Personal history of other diseases of the musculoskeletal system and connective tissue; Z98.890 Other specified postprocedural states; Z68.37 Body mass index [BMI] 37.0-37.9, adult; Z86.14 Personal history of Methicillin resistant Staphylococcus aureus infection; Z53.29 Procedure and treatment not carried out because of patient's decision for other reasons
CPT/HCPCS: 0241U; 20611; 36415; 36430; 71045; 71250; 74177; 80048; 80053; 80069; 80202; 81001; 82270; 82330; 82570; 82728; 82784; 82947; 83521; 83540; 83550; 83605; 83735; 83880; 84100; 84145; 84155; 84156; 84165; 84484; 85014; 85018; 85025; 85027; 85045; 85379; 85610; 85651; 85730; 86140; 86160; 86334; 86850; 86900; 86901; 86923; 87040; 87070; 87075; 87077; 87086; 87147; 87186; 87205; 87430; 88305; 88342; 93005; 93010; 93306; 93312; 93325; 94640; 94664; 94760; 94762; 96361; 96365; 96366; 99285-25; A9270; J0612; J0692; J0712; J0878; J1940; J2371; J2543; J2704; J2916; J3010; J3370; J7030; J7040; J7050; P9016; P9047; Q9967

== ENCOUNTER → 2024-08-30 | Outpatient (CLI) | payer OTHER ==
[~2024-08-30] MED LIST changes: +BACTRIM DS TAB1 EAC1 PO; +NEURONTIN300 MG PO
[2024-08-30 13:12] LABS: BASOPHILS ABSOLUTE AUTO 0.03 K/mm3 (0.00-0.23); BASOPHILS PERCENT AUTO 0 % (0-2); EOSINOPHILS ABSOLUTE AUTO 0.02 K/mm3 (0.00-0.68); EOSINOPHILS PERCENT AUTO 0 % (0-6); Hematocrit 21.1 % (37.0-53.0); Hemoglobin 6.4 g/dL (13.5-17.5); IMMATURE GRAN ABSOLUTE AUTO 0.09 K/mm3 (0.00-0.10); IMMATURE GRAN PERCENT AUTO 1 % (0-1); LYMPHOCYTES ABSOLUTE AUTO 0.61 K/mm3 (0.84-5.20); LYMPHOCYTES PERCENT AUTO 6 % (21-46); MONOCYTES ABSOLUTE AUTO 0.96 K/mm3 (0.16-1.47); MONOCYTES PERCENT AUTO 9 % (4-13); Mean Corpuscular HGB 26.4 pg (26.0-34.0); Mean Corpuscular HGB Conc 30.3 g/dL (31.5-36.5); Mean Corpuscular Volume 87 fL (80-100); Mean Platelet Volume 9.3 fL (9.1-12.4); NEUTROPHILS ABSOLUTE AUTO 8.68 K/mm3 (1.96-9.15); NEUTROPHILS PERCENT AUTO 84 % (41-73); Platelet Count 235 K/mm3 (150-400); RDW Standard Deviation 51.4 fL (35.1-46.3); Red Blood Cell Count 2.42 M/mm3 (4.30-5.90); White Blood Cell Count 10.39 K/mm3 (4.00-11.30)
[2024-08-30 13:20] LABS: Albumin, Blood 1.6 g/dL (3.4-5.0); Albumin/Globulin Ratio 0.2 (0.8-1.8); Bilirubin, Total 0.4 mg/dL (0.1-1.0); Bun/Creatinine Ratio 12.5 (12.0-20.0); Calcium, Blood 8.4 mg/dL (8.5-10.1); Creatinine, Blood 2.64 mg/dL (0.60-1.20); Globulin, Blood 7.7 g/dL (2.2-4.0); Potassium, Blood 3.8 mmol/L (3.5-5.5); Total Protein, Blood 9.3 g/dL (6.4-8.2)
== END ==
LOC: LAB 13:06 → LAB SHORT 13:06
PROVIDERS: Physician Assistant
DX: R50.9 Fever, unspecified (principal)
CPT/HCPCS: 80053; 85025